=== PATIENT | male | born 1955 | race Caucasian/White ===

== ENCOUNTER → 2019-10-24 09:52 | Outpatient (CLI) | payer OTHER, SELFPAY ==
[2019-10-24 11:29] LABS: Add Manual Diff / Slide Review NO; Basophils Absolute Auto 100 /uL (0-100); Basophils Percent Auto 0.8 % (0-2); Eosinophils Absolute Auto 100 /uL (0-450); Eosinophils Percent Auto 2.2 % (2-4); Hematocrit 47.6 % (41-53); Hemoglobin 16.4 g/dL (13.5-17.5); Lymphocytes Absolute Auto 1200 /uL (1100-4500); Lymphocytes Percent Auto 16.9 % (25-40); Mean Corpuscular HGB Conc 34.5 % (30-36); Mean Corpuscular Hemoglobin 34.5 PG (26-34); Mean Corpuscular Volume 99.8 fL (80-100); Monocytes Absolute Auto 600 /uL (0-900); Neutrophils Absolute Auto 4900 /uL (1500-7000); Neutrophils Percent Auto 71.1 % (50-75); Platelet Count 181 X10^3/uL (150-400); Red Blood Cell Count 4.77 X10^6/uL (4.5-5.9); Red Cell Distribution Width 13.2 % (11.6-14.8); White Blood Cell Count 6.8 X10^3/uL (4.5-11.0)
[2019-10-24 11:41] LABS: Alanine Aminotransferase 38 IU/L (<50); Albumin 4.7 g/dL (3.5-5.0); Albumin Globulin Ratio 1.6 (1.0-2.8); Alkaline Phosphatase 74 U/L (38-126); Aspartate Aminotransferase 60 IU/L (17-59); BUN Creatinine Ratio 13.8 (6-22); Bilirubin Total 0.9 mg/dL (0.2-1.3); Blood Urea Nitrogen 11 mg/dL (9-20); Calcium 8.9 mg/dL (8.4-10.2); Carbon Dioxide 27 mmol/L (22-32); Chloride 104 mmol/L (98-107); Cholesterol 192 mg/dL (140-199); Estimated Glomerular Filt Rate > 60.0 mL/min (>60); Globulin 2.9 g/dL (1.7-4.1); Glucose 89 mg/dL (80-110); HDL Cholesterol 63 mg/dL (40-60); HEMOLYSIS 31 (0-50); LDL Cholesterol Calculated 102 mg/dL (<100); Potassium 4.3 mmol/L (3.4-5.1); Sodium 143 mmol/L (137-145); Total Protein 7.6 g/dL (6.3-8.2); Triglycerides 136 mg/dL (35-150)
[2019-10-24 13:43] LABS: Thyroid Stimulating Hormone 3.07 uIU/mL (0.47-4.68)
== END ==
PROVIDERS: PCP Family Medicine; Visit Provider Family Medicine
DX: I10 Essential (primary) hypertension (principal)
CPT/HCPCS: 36415; 80053; 80061; 84443; 85025

== ENCOUNTER → 2019-11-15 09:25 | Outpatient (CLI) | payer OTHER, SELFPAY ==
--- NOTE | 2019-11-15 09:26 | DI.MRI.S_ITS ---
PROCEDURE: MR SHOULDER LT WO CON INDICATIONS: left shoulder pain TECHNIQUE: Noncontrast oblique coronal T2 fast spin echo with fat saturation, oblique sagittal T1 spin echo and T2 fast spin echo with fat saturation, axial T1 spin echo and T2 fast spin echo with fat saturation through the shoulder. COMPARISON: None. FINDINGS: Image quality: Excellent. Rotator cuff: Infraspinatus and teres minor tendons appear intact. Partial thickness bursal sided tear of the supraspinatus tendon. This measures approximately less than 50% of tendon thickness. Subscapularis tendon appears intact. No atrophy of the rotator cuff musculature although there is mild diffuse fatty infiltration of the supraspinatus, infraspinatus and teres minor. Bones and bursae: No bone marrow contusions or fractures. Moderate hypertrophic acromioclavicular joint degeneration. Acromion demonstrates conventional anatomy, without an os acromiale. Mild subacromial-subdeltoid bursitis. Capsule and soft tissues: Labrum demonstrates mild circumferential degenerative blunting however no discrete tear or intrasubstance fluid signal intensity. Long head of the biceps tendon intact. The rotator interval appears normal, without fibrosis. Coracohumeral ligament intact. IMPRESSION: Partial thickness bursal sided tear of the supraspinatus tendon. Associated mild subacromial-subdeltoid bursitis Dictated by: Oneil Hill M.D. on 11/15/2019 at 11:23 Approved by: Oneil Hill M.D. on 11/15/2019 at 11:29
== END ==
PROVIDERS: PCP Family Medicine; Visit Provider Family Medicine
DX: M25.512 Pain in left shoulder (principal); M75.112 Incomplete rotator cuff tear or rupture of left shoulder, not specified as traumatic; M75.52 Bursitis of left shoulder
CPT/HCPCS: 73221

== ENCOUNTER 2020-01-10 10:30 | Outpatient (RCR) | payer OTHER, SELFPAY ==
--- NOTE | 2019-12-27 11:54 | PT.OIE ---
Current Diagnoses Primary osteoarthritis, left shoulder (12/27/19) Pain in left shoulder (12/27/19) Stiffness of left shoulder, not elsewhere classified (12/27/19) Impingement syndrome of left shoulder (12/27/19) Past Medical History (Last Updated 06/11/19 @ 22:13 by Brenda Villanueva) Chicken pox (Resolved) Chronic back pain (Chronic) Hearing loss (Chronic) Hypertension (Chronic) Mumps (Resolved) Past Surgical History (Last Updated 06/11/19 @ 22:13 by Brenda Villanueva) Anesthesia (Resolved) Status post arthroscopy (Resolved) Status post arthroscopy (Resolved) Status post foot surgery (Resolved) Status post knee surgery (Resolved ~04/1999) Status post knee surgery (Resolved ~04/1999) Visit Care Team Role Provider Type Pieter Simpson MD Primary Care Provider Physician Specialty: Family Practice Address: [address] [place] [address], [id number] Email: [email or web address] Raciel Castillo MD Attending Provider Physician Referring Provider Specialty: Orthopedic Surgery Address: [address] [place] [address], [id number] Email: [email or web address] [facility] Initial Evaluation PT-OP-A Visit Information Start: 12/27/19 16:45 Freq: Status: Active Protocol: Document 12/27/19 11:15 DCW (Rec: 12/27/19 17:55 [facility] [id number]) Out-Patient Physical Therapy Visit Information Visit Information Visit Type Initial Evaluation Visit Start Time 11:15 Visit Stop Time 12:00 Total Visit Minutes 45 Visit Number 1 Number of BEAD SUPERVISOR Visits 0 Evaluation Information Evaluation Date 12/27/19 PT-OP-B Current Condition Start: 12/27/19 16:45 Freq: Status: Active Protocol: Document 12/27/19 11:15 DCW (Rec: 12/27/19 17:55 [facility] [id number]) Current Condition History of Current Condition Onset Date 26 year history Current Complaints Shoulder pain and limited ROM History of Current Condition Pt is a 64 year old male presenting with a long standing history of shoulder problems. Pt notes that he initially hurt his shoulder in 1993, was diagnosed with bursitis, and had a recommendation of surgical intervention, however, once they described the surgery to me, I decided that I'd just live with it. Pt reports that his pain has come and gone over the years, but it flared up over the holidays after moving a washing machine, and he had three solid weeks of interrupted sleep due to pain. Pt admits that it had calmed down by the time he got in to see Dr Castillo, but he is still having problems reaching out his car window for the mail, or lifting his arm past 90?. Pt also notes a history of out of control blood pressure , but after a recent medication change, he has been doing well the past week. Prior Treatments and Tests Shoulder MRI: Partial thickness bursal sided tear of the supraspinatus tendon. Associated mild subacromial- subdeltoid bursitis. Per: Oneil Hill M.D. on Treatment Goals Patient/Caregiver Goals I just want to get my motion back. PT-OP-C Subjective Start: 12/27/19 16:45 Freq: Status: Active Protocol: Document 12/27/19 11:15 DCW (Rec: 12/27/19 17:55 DCW [id number]) OP-PT Subjective Patient Comments Patient Comments There is still a hitch point when I'm lifting or reaching my arm. Patient Reported Progress Improving Patient Questionnaires Quick Dash- Upper Extremity Quick Dash UE Score 17.5% Quick Dash UE Impairment 1 to 19% Impaired (Score 1-19) OP-PT Pain Assessment Pain Assessment Grid Paper Pain Assessment Grid Completed Yes Location Left Shoulder Intensity 3 Scale Used Numeric (1 - 10) PT-OP-E Functional Tests Start: 12/27/19 16:45 Freq: Status: Active Protocol: Document 12/27/19 11:15 DCW (Rec: 12/28/19 11:38 DCW [id number]) Functional Tests Apley's Scratch Test Action 1- Left Posterior opposite shoulder Action 1- Right Posterior opposite shoulder Action 2- Left T4 Action 2- Right T4 Action 3- Left T8 Action 3- Right T6 PT-OP-F Manual Assessment Start: 12/27/19 16:45 Freq: Status: Active Protocol: Document 12/27/19 11:15 DCW (Rec: 12/28/19 11:38 DCW [id number]) Manual Assessments Joint Mobility Assessment Joint Mobility Assessment Minimal movement of left scapula during left abduction and flexion. PT-OP-K Range of Motion Start: 12/27/19 16:45 Freq: Status: Active Protocol: Document 12/27/19 11:15 DCW (Rec: 12/28/19 11:38 WYW [id number]) Shoulder Goniometric Range of Motion Shoulder Right Active Shoulder ROM WFL Yes Left Active Testing Position Sitting Flexion 132 Abduction 115 PT-OP-L Special Tests Start: 12/27/19 16:45 Freq: Status: Active Protocol: Document 12/27/19 11:15 DCW (Rec: 12/28/19 11:38 DCW [id number]) Special Tests Shoulder Special Tests Painful arc Test Results Left positive 80-100? Dyer Felipe Impingement Test Results Positive left Empty Can Test Results Pain with internal rotation Drop Arm Rotator Cuff Test Results Negative PT-OP-M Strength Start: 12/27/19 16:45 Freq: Status: Active Protocol: Document 12/27/19 11:15 DCW (Rec: 12/28/19 11:38 DCW [id number]) Shoulder Strength Shoulder Manual Muscle Testing Left Flexion 2+ Poor+ Abduction (C5) 2+ Poor+ External Rotation 4+ Good+ Internal Rotation 4+ Good+ Comments Flexion and Abduction strong in available ROM, however able to lift through full ROM PT-OP-Q Treatments Start: 12/27/19 16:45 Freq: Status: Active Protocol: Document 12/27/19 11:15 DCW (Rec: 12/27/19 16:48 DCW [id number]) Therapeutic Exercises Supine Exercises 1 Supine Exercise Name Serratus punch Prone Exercises 2 Prone Exercise Name Prone shoulder horizontal abduction Side bilateral 1 Prone Exercise Name Prone shoulder extension Side bilateral PT-OP-T Assessment and Plan Start: 12/27/19 16:45 Freq: Status: Active Protocol: Document 12/27/19 11:15 DCW (Rec: 12/28/19 11:53 DCW [id number]) Physical Therapy Assessment Rehab Potential Rehabilitation Potential Good Evaluation Complexity Number of Personal Factors/Comorbidities 1-2 Number of Body Systems Impaired 1-2 Clinical Presentation at Evaluation Stable Impairments Impairments Functional Mobility,Pain,ROM, Soft Tissue Mobility,Strength Other Concerns Fall Risk No Barriers to Rehabilitation Hx of Unstable HTN Goals Three Impairment Pt scapula demonstrates limited mobility during left shoulder ROM Waistline Joiner Goal (LTG) Pt scapulothoracic rhythm WN: LTG Duration 02/27/20 Two Impairment Pt demonstrates limited left ROM secondary to pain Waistline Joiner Goal (LTG) Pt to demonstrate ability to reach out of car window for mail with no increased pain LTG Duration 02/27/20 One Impairment Pt does not have an appropriate home exercise program Short Term Goal (STG) Pt to be independent and compliant with an appropriate HEP STG Duration 01/28/20 Assessment Summary Assessment Pt presents with limited ROM, strength, and scapulothoracic rhythm secondary to a flare-up of a chronic shoulder injury. A recent MRI revealed a partial thickness bursal sided tear of the supraspinatus tendon with an associated mild subacromial-subdeltoid bursitis. Pt demonstrates symptoms of subacromial impingement, likely due to the immobility of his left shoulder blade, causing poor scapulothoracic rhythm. Pt should benefit from skilled therapy working to improve left shoulder strength and ROM , decrease pain, normalize scapulothoracic rhythm through STM an joint mobilizations, and decrease effects on lifting and reaching activities. Physical Therapy Plan Frequency and Duration Frequency of Treatment 2x/Week Duration of Treatment 8 weeks Plan of Care Start Date 12/27/19 Plan of Care End Date 02/15/20 Therapeutic Interventions Therapeutic Interventions Home Exercise Program,Joint Mobilizations,Manual Therapy, Patient/Caregiver Education, Self-Care/Home Management,Soft Tissue Mobilization, Therapeutic Activities, Therapeutic Exercises Modalities Cold Pack/Ice Massage,Electric Stimulation,Hot Packs, Ultrasound Next Visit Focus/Plan Next Note Type Treatment Note Next Visit Plan Scapulathoracic joint mobilizations, RC strengthening, stretching/ flexibility training
--- NOTE | 2019-12-27 11:55 | PT.OPPOC ---
Physical, Occupational & Speech Therapy At [facility] Current Diagnoses Primary osteoarthritis, left shoulder (12/27/19) Pain in left shoulder (12/27/19) Stiffness of left shoulder, not elsewhere classified (12/27/19) Impingement syndrome of left shoulder (12/27/19) Visit Care Team Role Provider Type Pieter Simpson MD Primary Care Provider Physician Specialty: Family Practice Address: [address] [place] [address], [id number] Email: [email or web address] Raciel Castillo MD Attending Provider Physician Referring Provider Specialty: Orthopedic Surgery Address: [address] [place] [address], [phone] Email: [email or web address] Plan Of Care PT-OP-T Assessment and Plan Start: 12/27/19 16:45 Freq: Status: Active Protocol: Document 12/27/19 11:15 DCW (Rec: 12/28/19 11:53 DCW [id number]) Physical Therapy Assessment Rehab Potential Rehabilitation Potential Good Evaluation Complexity Number of Personal Factors/Comorbidities 1-2 Number of Body Systems Impaired 1-2 Clinical Presentation at Evaluation Stable Impairments Impairments Functional Mobility,Pain,ROM, Soft Tissue Mobility,Strength Other Concerns Fall Risk No Barriers to Rehabilitation Hx of Unstable HTN Goals Three Impairment Pt scapula demonstrates limited mobility during left shoulder ROM Sample Tailor Goal (LTG) Pt scapulothoracic rhythm WN: LTG Duration 02/27/20 Two Impairment Pt demonstrates limited left ROM secondary to pain Sample Tailor Goal (LTG) Pt to demonstrate ability to reach out of car window for mail with no increased pain LTG Duration 02/27/20 One Impairment Pt does not have an appropriate home exercise program Short Term Goal (STG) Pt to be independent and compliant with an appropriate HEP STG Duration 01/28/20 Assessment Summary Assessment Pt presents with limited ROM, strength, and scapulothoracic rhythm secondary to a flare-up of a chronic shoulder injury. A recent MRI revealed a partial thickness bursal sided tear of the supraspinatus tendon with an associated mild subacromial-subdeltoid bursitis. Pt demonstrates symptoms of subacromial impingement, likely due to the immobility of his left shoulder blade, causing poor scapulothoracic rhythm. Pt should benefit from skilled therapy working to improve left shoulder strength and ROM , decrease pain, normalize scapulothoracic rhythm through STM an joint mobilizations, and decrease effects on lifting and reaching activities. Physical Therapy Plan Frequency and Duration Frequency of Treatment 2x/Week Duration of Treatment 8 weeks Plan of Care Start Date 12/27/19 Plan of Care End Date 02/15/20 Therapeutic Interventions Therapeutic Interventions Home Exercise Program,Joint Mobilizations,Manual Therapy, Patient/Caregiver Education, Self-Care/Home Management,Soft Tissue Mobilization, Therapeutic Activities, Therapeutic Exercises Modalities Cold Pack/Ice Massage,Electric Stimulation,Hot Packs, Ultrasound Next Visit Focus/Plan Next Note Type Treatment Note Next Visit Plan Scapulathoracic joint mobilizations, RC strengthening, stretching/ flexibility training Plan of Care Dates Plan of Care Start Date 12/27/19 Plan of Care End Date 02/15/20 Electronically Signed by: Cirilo Carlson, PT 12/28/19 2671 Please Sign and Return: I have reviewed this Plan of Care and certify that the skilled therapy services above are required to meet the patient?s needs. Physician Signature Date Printed Name and Credentials Clinical Instructor Signature Printed Name and Credentials
--- NOTE | 2019-12-29 12:02 | PT.OTN ---
Current Diagnoses Primary osteoarthritis, left shoulder (12/29/19) Pain in left shoulder (12/29/19) Stiffness of left shoulder, not elsewhere classified (12/29/19) Impingement syndrome of left shoulder (12/29/19) Physical Therapy Treatment Note PT-OP-A Visit Information Start: 12/27/19 16:45 Freq: Status: Active Protocol: Document 12/29/19 11:15 DCW (Rec: 12/29/19 12:02 DCW [id number]) Out-Patient Physical Therapy Visit Information Visit Information Visit Type Treatment Note Visit Start Time 11:15 Visit Stop Time 12:00 Total Visit Minutes 45 Visit Number 2 Number of FORM SETTER HELPER Visits 0 Evaluation Information Evaluation Date 12/27/19 PT-OP-B Current Condition Start: 12/27/19 16:45 Freq: Status: Active Protocol: Document 12/27/19 11:15 DCW (Rec: 12/27/19 17:55 DCW [id number]) Current Condition History of Current Condition Onset Date 26 year history Current Complaints Shoulder pain and limited ROM History of Current Condition Pt is a 64 year old male presenting with a long standing history of shoulder problems. Pt notes that he initially hurt his shoulder in 1993, was diagnosed with bursitis, and had a recommendation of surgical intervention, however, once they described the surgery to me, I decided that I'd just live with it. Pt reports that his pain has come and gone over the years, but it flared up over the holidays after moving a washing machine, and he had three solid weeks of interrupted sleep due to pain. Pt admits that it had calmed down by the time he got in to see Dr Castillo, but he is still having problems reaching out his car window for the mail, or lifting his arm past 90?. Pt also notes a history of out of control blood pressure , but after a recent medication change, he has been doing well the past week. Prior Treatments and Tests Shoulder MRI: Partial thickness bursal sided tear of the supraspinatus tendon. Associated mild subacromial- subdeltoid bursitis. Per: Oneil Hill M.D. on Treatment Goals Patient/Caregiver Goals I just want to get my motion back. PT-OP-C Subjective Start: 12/27/19 16:45 Freq: Status: Active Protocol: Document 12/29/19 11:15 DCW (Rec: 12/29/19 12:02 DCW [id number]) OP-PT Subjective Patient Comments Patient Comments I feel about the same. I'll admit, I didn't do any exercises yesterday, but I was able to find my weights. PT-OP-E Functional Tests Start: 12/27/19 16:45 Freq: Status: Active Protocol: Document 12/27/19 11:15 DCW (Rec: 12/28/19 11:38 DCW [id number]) Functional Tests Apley's Scratch Test Action 1- Left Posterior opposite shoulder Action 1- Right Posterior opposite shoulder Action 2- Left T4 Action 2- Right T4 Action 3- Left T8 Action 3- Right T6 PT-OP-F Manual Assessment Start: 12/27/19 16:45 Freq: Status: Active Protocol: Document 12/27/19 11:15 DCW (Rec: 12/28/19 11:38 DCW [id number]) Manual Assessments Joint Mobility Assessment Joint Mobility Assessment Minimal movement of left scapula during left abduction and flexion. PT-OP-K Range of Motion Start: 12/27/19 16:45 Freq: Status: Active Protocol: Document 12/27/19 11:15 DCW (Rec: 12/28/19 11:38 DCW [id number]) Shoulder Goniometric Range of Motion Shoulder Right Active Shoulder ROM WFL Yes Left Active Testing Position Sitting Flexion 132 Abduction 115 PT-OP-L Special Tests Start: 12/27/19 16:45 Freq: Status: Active Protocol: Document 12/27/19 11:15 DCW (Rec: 12/28/19 11:38 DCW [id number]) Special Tests Shoulder Special Tests Painful arc Test Results Left positive 80-100? Dyer Felipe Impingement Test Results Positive left Empty Can Test Results Pain with internal rotation Drop Arm Rotator Cuff Test Results Negative PT-OP-M Strength Start: 12/27/19 16:45 Freq: Status: Active Protocol: Document 12/27/19 11:15 DCW (Rec: 12/28/19 11:38 DCW [id number]) Shoulder Strength Shoulder Manual Muscle Testing Left Flexion 2+ Poor+ Abduction (C5) 2+ Poor+ External Rotation 4+ Good+ Internal Rotation 4+ Good+ Comments Flexion and Abduction strong in available ROM, however able to lift through full ROM PT-OP-Q Treatments Start: 12/27/19 16:45 Freq: Status: Active Protocol: Document 12/29/19 11:15 DCW (Rec: 12/29/19 12:02 DCW [id number]) Cardio Equipment Upper Body Ergometer (UBE) Duration (Minutes) 5 RPM 60 Seat Position 13 Height 3 Therapeutic Exercises Supine Exercises 2 Supine Exercise Name Horizontal Adduction Side bilateral Resistance 3# 1 Supine Exercise Name Serratus punch Side bilateral Resistance 3# Standing Exercises 5 Standing Exercise Name Rows Side bilateral Resistance Lv 3 Equipment Used T-band 4 Standing Exercise Name Adduction Side left Resistance Lv 3 Equipment Used T-band 3 Standing Exercise Name Extension Side bilateral Resistance Lv 4 Equipment Used T-band 2 Standing Exercise Name Shoulder IR Side left Resistance Lv 3 Equipment Used T-band 1 Standing Exercise Name Shoulder ER Side left Resistance Lv 3 Equipment Used T-band Manual Therapy Treatment Soft Tissue Mobilization 2 Body Location L Infraspinatus Mobilization Type Strumming,Sustained Pressure 1 Body Location L Rhomboids Mobilization Type Strumming,Sustained Pressure Joint Mobilizations 2 Joint L GH Direction Inferior, Posterior Grade III Body Position Supine 1 Joint L Scapulothoracic Direction Lateral, rotation Grade III Body Position Sidelying PT-OP-T Assessment and Plan Start: 12/27/19 16:45 Freq: Status: Active Protocol: Document 12/29/19 11:15 DCW (Rec: 12/29/19 12:02 DCW [id number]) Physical Therapy Assessment Impairments Impairments Functional Mobility,Pain,ROM, Soft Tissue Mobility,Strength Other Concerns Fall Risk No Barriers to Rehabilitation Hx of Unstable HTN Goals Three Impairment Pt scapula demonstrates limited mobility during left shoulder ROM Miller Helper Goal (LTG) Pt scapulothoracic rhythm WN: LTG Duration 02/27/20 Two Impairment Pt demonstrates limited left ROM secondary to pain Halfway Goal (LTG) Pt to demonstrate ability to reach out of car window for mail with no increased pain LTG Duration 02/27/20 One Impairment Pt does not have an appropriate home exercise program Short Term Goal (STG) Pt to be independent and compliant with an appropriate HEP STG Duration 01/28/20 Assessment Summary Assessment Pt tolerated treatment well, scapulothoracic joint mobilization was able to improve scapular mobility, increased pain-free abduction by ~10 degrees, from 90->100. Physical Therapy Plan Frequency and Duration Frequency of Treatment 2x/Week Duration of Treatment 8 weeks Plan of Care Start Date 12/27/19 Plan of Care End Date 02/15/20 Therapeutic Interventions Therapeutic Interventions Home Exercise Program,Joint Mobilizations,Manual Therapy, Patient/Caregiver Education, Self-Care/Home Management,Soft Tissue Mobilization, Therapeutic Activities, Therapeutic Exercises Modalities Cold Pack/Ice Massage,Electric Stimulation,Hot Packs, Ultrasound Next Visit Focus/Plan Next Note Type Treatment Note Next Visit Plan Assess pt tolerance of joint mobs and STM, increase HEP,
--- NOTE | 2020-01-03 11:01 | PT.OTN ---
Current Diagnoses Primary osteoarthritis, left shoulder (01/03/20) Pain in left shoulder (01/03/20) Stiffness of left shoulder, not elsewhere classified (01/03/20) Impingement syndrome of left shoulder (01/03/20) Physical Therapy Treatment Note PT-OP-A Visit Information Start: 12/27/19 16:45 Freq: Status: Active Protocol: Document 01/03/20 09:45 DCW (Rec: 01/03/20 11:00 DCW [id number]) Out-Patient Physical Therapy Visit Information Visit Information Visit Type Treatment Note Visit Start Time 09:45 Visit Stop Time 10:30 Total Visit Minutes 45 Visit Number 3 Number of CHANGE MANAGEMENT COORDINATOR Visits 0 Evaluation Information Evaluation Date 12/27/19 PT-OP-B Current Condition Start: 12/27/19 16:45 Freq: Status: Active Protocol: Document 12/27/19 11:15 DCW (Rec: 12/27/19 17:55 DCW [id number]) Current Condition History of Current Condition Onset Date 26 year history Current Complaints Shoulder pain and limited ROM History of Current Condition Pt is a 64 year old male presenting with a long standing history of shoulder problems. Pt notes that he initially hurt his shoulder in 1993, was diagnosed with bursitis, and had a recommendation of surgical intervention, however, once they described the surgery to me, I decided that I'd just live with it. Pt reports that his pain has come and gone over the years, but it flared up over the holidays after moving a washing machine, and he had three solid weeks of interrupted sleep due to pain. Pt admits that it had calmed down by the time he got in to see Dr Castillo, but he is still having problems reaching out his car window for the mail, or lifting his arm past 90?. Pt also notes a history of out of control blood pressure , but after a recent medication change, he has been doing well the past week. Prior Treatments and Tests Shoulder MRI: Partial thickness bursal sided tear of the supraspinatus tendon. Associated mild subacromial- subdeltoid bursitis. Per: Oneil Hill M.D. on Treatment Goals Patient/Caregiver Goals I just want to get my motion back. PT-OP-C Subjective Start: 12/27/19 16:45 Freq: Status: Active Protocol: Document 01/03/20 09:45 DCW (Rec: 01/03/20 11:00 DCW [id number]) OP-PT Subjective Patient Comments Patient Comments Pt feels he had more mobility following his last appointment . PT-OP-E Functional Tests Start: 12/27/19 16:45 Freq: Status: Active Protocol: Document 12/27/19 11:15 DCW (Rec: 12/28/19 11:38 DCW [id number]) Functional Tests Apley's Scratch Test Action 1- Left Posterior opposite shoulder Action 1- Right Posterior opposite shoulder Action 2- Left T4 Action 2- Right T4 Action 3- Left T8 Action 3- Right T6 PT-OP-F Manual Assessment Start: 12/27/19 16:45 Freq: Status: Active Protocol: Document 12/27/19 11:15 DCW (Rec: 12/28/19 11:38 DCW [id number]) Manual Assessments Joint Mobility Assessment Joint Mobility Assessment Minimal movement of left scapula during left abduction and flexion. PT-OP-K Range of Motion Start: 12/27/19 16:45 Freq: Status: Active Protocol: Document 12/27/19 11:15 DCW (Rec: 12/28/19 11:38 DCW [id number]) Shoulder Goniometric Range of Motion Shoulder Right Active Shoulder ROM WFL Yes Left Active Testing Position Sitting Flexion 132 Abduction 115 PT-OP-L Special Tests Start: 12/27/19 16:45 Freq: Status: Active Protocol: Document 12/27/19 11:15 DCW (Rec: 12/28/19 11:38 DCW [id number]) Special Tests Shoulder Special Tests Painful arc Test Results Left positive 80-100? Dyer Felipe Impingement Test Results Positive left Empty Can Test Results Pain with internal rotation Drop Arm Rotator Cuff Test Results Negative PT-OP-M Strength Start: 12/27/19 16:45 Freq: Status: Active Protocol: Document 12/27/19 11:15 DCW (Rec: 12/28/19 11:38 DCW [id number]) Shoulder Strength Shoulder Manual Muscle Testing Left Flexion 2+ Poor+ Abduction (C5) 2+ Poor+ External Rotation 4+ Good+ Internal Rotation 4+ Good+ Comments Flexion and Abduction strong in available ROM, however able to lift through full ROM PT-OP-Q Treatments Start: 12/27/19 16:45 Freq: Status: Active Protocol: Document 01/03/20 09:45 DCW (Rec: 01/03/20 11:00 DCW [id number]) Cardio Equipment Upper Body Ergometer (UBE) Duration (Minutes) 5 RPM 60 Seat Position 13 Height 3 Therapeutic Exercises Prone Exercises 2 Prone Exercise Name Prone shoulder horizontal abduction Side bilateral 1 Prone Exercise Name Prone shoulder extension Side bilateral Standing Exercises 7 Standing Exercise Name Shoulder Flex Side bilateral Resistance Lv 3 Equipment Used T-band 6 Standing Exercise Name Shoulder Abduction Side bilateral Resistance Lv 3 Equipment Used T-band 5 Standing Exercise Name Rows Side bilateral Resistance Lv 3 Equipment Used T-band 4 Standing Exercise Name Adduction Side left Resistance Lv 3 Equipment Used T-band 3 Standing Exercise Name Extension Side bilateral Resistance Lv 4 Equipment Used T-band 2 Standing Exercise Name Shoulder IR Side bilateral Resistance Lv 3 Equipment Used T-band 1 Standing Exercise Name Shoulder ER Side bilateral Resistance Lv 3 Equipment Used T-band Manual Therapy Treatment Soft Tissue Mobilization 2 Body Location L Infraspinatus Mobilization Type Strumming,Sustained Pressure 1 Body Location L Rhomboids Mobilization Type Strumming,Sustained Pressure Joint Mobilizations 2 Joint L GH Direction Inferior, Posterior Grade III Body Position Supine 1 Joint L Scapulothoracic Direction Lateral, rotation Grade III Body Position Sidelying PT-OP-T Assessment and Plan Start: 12/27/19 16:45 Freq: Status: Active Protocol: Document 01/03/20 09:45 DCW (Rec: 01/03/20 11:00 DCW [id number]) Physical Therapy Assessment Impairments Impairments Functional Mobility,Pain,ROM, Soft Tissue Mobility,Strength Other Concerns Fall Risk No Barriers to Rehabilitation Hx of Unstable HTN Goals Three Impairment Pt scapula demonstrates limited mobility during left shoulder ROM Detention Goal (LTG) Pt scapulothoracic rhythm WN: LTG Duration 02/27/20 Two Impairment Pt demonstrates limited left ROM secondary to pain Medic Technician Goal (LTG) Pt to demonstrate ability to reach out of car window for mail with no increased pain LTG Duration 02/27/20 One Impairment Pt does not have an appropriate home exercise program Short Term Goal (STG) Pt to be independent and compliant with an appropriate HEP STG Duration 01/28/20 Assessment Summary Assessment Pt again demonstrated good response to treatment, at end of session had improved passive and active ROM. Pt not yet compliant with HEP. Physical Therapy Plan Frequency and Duration Frequency of Treatment 2x/Week Duration of Treatment 8 weeks Plan of Care Start Date 12/27/19 Plan of Care End Date 02/15/20 Therapeutic Interventions Therapeutic Interventions Home Exercise Program,Joint Mobilizations,Manual Therapy, Patient/Caregiver Education, Self-Care/Home Management,Soft Tissue Mobilization, Therapeutic Activities, Therapeutic Exercises Modalities Cold Pack/Ice Massage,Electric Stimulation,Hot Packs, Ultrasound Next Visit Focus/Plan Next Note Type Treatment Note Next Visit Plan Assess pt tolerance of joint mobs and STM, increase HEP,
--- NOTE | 2020-01-05 12:00 | PT.OTN ---
Current Diagnoses Primary osteoarthritis, left shoulder (01/05/20) Pain in left shoulder (01/05/20) Stiffness of left shoulder, not elsewhere classified (01/05/20) Impingement syndrome of left shoulder (01/05/20) Physical Therapy Treatment Note PT-OP-A Visit Information Start: 12/27/19 16:45 Freq: Status: Active Protocol: Document 01/05/20 11:15 DCW (Rec: 01/05/20 11:57 DCW [id number]) Out-Patient Physical Therapy Visit Information Visit Information Visit Type Treatment Note Visit Start Time 11:15 Visit Stop Time 12:00 Total Visit Minutes 45 Visit Number 4 Number of MEN'S LOCKER ROOM ATTENDANT Visits 0 Evaluation Information Evaluation Date 12/27/19 PT-OP-B Current Condition Start: 12/27/19 16:45 Freq: Status: Active Protocol: Document 12/27/19 11:15 DCW (Rec: 12/27/19 17:55 DCW [id number]) Current Condition History of Current Condition Onset Date 26 year history Current Complaints Shoulder pain and limited ROM History of Current Condition Pt is a 64 year old male presenting with a long standing history of shoulder problems. Pt notes that he initially hurt his shoulder in 1993, was diagnosed with bursitis, and had a recommendation of surgical intervention, however, once they described the surgery to me, I decided that I'd just live with it. Pt reports that his pain has come and gone over the years, but it flared up over the holidays after moving a washing machine, and he had three solid weeks of interrupted sleep due to pain. Pt admits that it had calmed down by the time he got in to see Dr Castillo, but he is still having problems reaching out his car window for the mail, or lifting his arm past 90?. Pt also notes a history of out of control blood pressure , but after a recent medication change, he has been doing well the past week. Prior Treatments and Tests Shoulder MRI: Partial thickness bursal sided tear of the supraspinatus tendon. Associated mild subacromial- subdeltoid bursitis. Per: Oneil Hill M.D. on Treatment Goals Patient/Caregiver Goals I just want to get my motion back. PT-OP-C Subjective Start: 12/27/19 16:45 Freq: Status: Active Protocol: Document 01/05/20 11:15 DCW (Rec: 01/05/20 11:57 DCW [id number]) OP-PT Subjective Patient Comments Patient Comments After two sessions, I really have a lot more mobility. PT-OP-E Functional Tests Start: 12/27/19 16:45 Freq: Status: Active Protocol: Document 12/27/19 11:15 DCW (Rec: 12/28/19 11:38 DCW [id number]) Functional Tests Apley's Scratch Test Action 1- Left Posterior opposite shoulder Action 1- Right Posterior opposite shoulder Action 2- Left T4 Action 2- Right T4 Action 3- Left T8 Action 3- Right T6 PT-OP-F Manual Assessment Start: 12/27/19 16:45 Freq: Status: Active Protocol: Document 12/27/19 11:15 DCW (Rec: 12/28/19 11:38 DCW [id number]) Manual Assessments Joint Mobility Assessment Joint Mobility Assessment Minimal movement of left scapula during left abduction and flexion. PT-OP-K Range of Motion Start: 12/27/19 16:45 Freq: Status: Active Protocol: Document 12/27/19 11:15 DCW (Rec: 12/28/19 11:38 DCW [id number]) Shoulder Goniometric Range of Motion Shoulder Right Active Shoulder ROM WFL Yes Left Active Testing Position Sitting Flexion 132 Abduction 115 PT-OP-L Special Tests Start: 12/27/19 16:45 Freq: Status: Active Protocol: Document 12/27/19 11:15 DCW (Rec: 12/28/19 11:38 DCW [id number]) Special Tests Shoulder Special Tests Painful arc Test Results Left positive 80-100? Dyer Felipe Impingement Test Results Positive left Empty Can Test Results Pain with internal rotation Drop Arm Rotator Cuff Test Results Negative PT-OP-M Strength Start: 12/27/19 16:45 Freq: Status: Active Protocol: Document 12/27/19 11:15 DCW (Rec: 12/28/19 11:38 DCW [id number]) Shoulder Strength Shoulder Manual Muscle Testing Left Flexion 2+ Poor+ Abduction (C5) 2+ Poor+ External Rotation 4+ Good+ Internal Rotation 4+ Good+ Comments Flexion and Abduction strong in available ROM, however able to lift through full ROM PT-OP-Q Treatments Start: 12/27/19 16:45 Freq: Status: Active Protocol: Document 01/05/20 11:15 DCW (Rec: 01/05/20 11:57 DCW [id number]) Cardio Equipment Upper Body Ergometer (UBE) Duration (Minutes) 5 RPM 60 Seat Position 13 Height 3 Therapeutic Exercises Supine Exercises 2 Supine Exercise Name Horizontal Adduction Side bilateral Resistance 4# 1 Supine Exercise Name Serratus punch Side bilateral Resistance 4# Standing Exercises 5 Standing Exercise Name Rows Side bilateral Resistance Lv 4 Equipment Used T-band 3 Standing Exercise Name Extension Side bilateral Resistance Lv 4 Equipment Used T-band Manual Therapy Treatment Soft Tissue Mobilization 2 Body Location L Infraspinatus Mobilization Type Strumming,Sustained Pressure 1 Body Location L Rhomboids Mobilization Type Strumming,Sustained Pressure Joint Mobilizations 3 Joint L Clavicle Direction Inferior Grade III Body Position Supine 2 Joint L GH Direction Inferior, Posterior Grade III Body Position Supine 1 Joint L Scapulothoracic Direction Lateral, rotation Grade III Body Position Sidelying PT-OP-T Assessment and Plan Start: 12/27/19 16:45 Freq: Status: Active Protocol: Document 01/05/20 11:15 DCW (Rec: 01/05/20 11:57 DCW [id number]) Physical Therapy Assessment Impairments Impairments Functional Mobility,Pain,ROM, Soft Tissue Mobility,Strength Other Concerns Fall Risk No Barriers to Rehabilitation Hx of Unstable HTN Goals Three Impairment Pt scapula demonstrates limited mobility during left shoulder ROM Halfway Goal (LTG) Pt scapulothoracic rhythm WN: LTG Duration 02/27/20 Two Impairment Pt demonstrates limited left ROM secondary to pain Halfway Goal (LTG) Pt to demonstrate ability to reach out of car window for mail with no increased pain LTG Duration 02/27/20 One Impairment Pt does not have an appropriate home exercise program Short Term Goal (STG) Pt to be independent and compliant with an appropriate HEP STG Duration 01/28/20 Assessment Summary Assessment Focus today more on Manual Therapy to decrease tone and improve scapular mobility. Pt getting a lot of activity/ strengthening outside of therapy. Physical Therapy Plan Frequency and Duration Frequency of Treatment 2x/Week Duration of Treatment 8 weeks Plan of Care Start Date 12/27/19 Plan of Care End Date 02/15/20 Therapeutic Interventions Therapeutic Interventions Home Exercise Program,Joint Mobilizations,Manual Therapy, Patient/Caregiver Education, Self-Care/Home Management,Soft Tissue Mobilization, Therapeutic Activities, Therapeutic Exercises Modalities Cold Pack/Ice Massage,Electric Stimulation,Hot Packs, Ultrasound Next Visit Focus/Plan Next Note Type Treatment Note Next Visit Plan Assess pt tolerance of joint mobs and STM, increase HEP,
--- NOTE | 2020-01-10 11:26 | PT.OTN ---
Current Diagnoses Primary osteoarthritis, left shoulder (01/10/20) Pain in left shoulder (01/10/20) Stiffness of left shoulder, not elsewhere classified (01/10/20) Impingement syndrome of left shoulder (01/10/20) Physical Therapy Treatment Note PT-OP-A Visit Information Start: 12/27/19 16:45 Freq: Status: Active Protocol: Document 01/10/20 10:40 DCW (Rec: 01/10/20 11:26 DCW [id number]) Out-Patient Physical Therapy Visit Information Visit Information Visit Type Treatment Note Visit Note Therapist running behind Visit Start Time 10:40 Visit Stop Time 11:20 Total Visit Minutes 40 Visit Number 5 Number of CEMENT SACK BREAKER Visits 0 Evaluation Information Evaluation Date 12/27/19 PT-OP-B Current Condition Start: 12/27/19 16:45 Freq: Status: Active Protocol: Document 12/27/19 11:15 DCW (Rec: 12/27/19 17:55 DCW [id number]) Current Condition History of Current Condition Onset Date 26 year history Current Complaints Shoulder pain and limited ROM History of Current Condition Pt is a 64 year old male presenting with a long standing history of shoulder problems. Pt notes that he initially hurt his shoulder in 1993, was diagnosed with bursitis, and had a recommendation of surgical intervention, however, once they described the surgery to me, I decided that I'd just live with it. Pt reports that his pain has come and gone over the years, but it flared up over the holidays after moving a washing machine, and he had three solid weeks of interrupted sleep due to pain. Pt admits that it had calmed down by the time he got in to see Dr Castillo, but he is still having problems reaching out his car window for the mail, or lifting his arm past 90?. Pt also notes a history of out of control blood pressure , but after a recent medication change, he has been doing well the past week. Prior Treatments and Tests Shoulder MRI: Partial thickness bursal sided tear of the supraspinatus tendon. Associated mild subacromial- subdeltoid bursitis. Per: Oneil Hill M.D. on Treatment Goals Patient/Caregiver Goals I just want to get my motion back. PT-OP-C Subjective Start: 12/27/19 16:45 Freq: Status: Active Protocol: Document 01/10/20 10:40 DCW (Rec: 01/10/20 11:26 DCW [id number]) OP-PT Subjective Patient Comments Patient Comments It's getting better, I think you've really found the issue. PT-OP-E Functional Tests Start: 12/27/19 16:45 Freq: Status: Active Protocol: Document 12/27/19 11:15 DCW (Rec: 12/28/19 11:38 DCW [id number]) Functional Tests Apley's Scratch Test Action 1- Left Posterior opposite shoulder Action 1- Right Posterior opposite shoulder Action 2- Left T4 Action 2- Right T4 Action 3- Left T8 Action 3- Right T6 PT-OP-F Manual Assessment Start: 12/27/19 16:45 Freq: Status: Active Protocol: Document 12/27/19 11:15 DCW (Rec: 12/28/19 11:38 DCW [id number]) Manual Assessments Joint Mobility Assessment Joint Mobility Assessment Minimal movement of left scapula during left abduction and flexion. PT-OP-K Range of Motion Start: 12/27/19 16:45 Freq: Status: Active Protocol: Document 12/27/19 11:15 DCW (Rec: 12/28/19 11:38 DCW [id number]) Shoulder Goniometric Range of Motion Shoulder Right Active Shoulder ROM WFL Yes Left Active Testing Position Sitting Flexion 132 Abduction 115 PT-OP-L Special Tests Start: 12/27/19 16:45 Freq: Status: Active Protocol: Document 12/27/19 11:15 DCW (Rec: 12/28/19 11:38 DCW [id number]) Special Tests Shoulder Special Tests Painful arc Test Results Left positive 80-100? Dyer Felipe Impingement Test Results Positive left Empty Can Test Results Pain with internal rotation Drop Arm Rotator Cuff Test Results Negative PT-OP-M Strength Start: 12/27/19 16:45 Freq: Status: Active Protocol: Document 12/27/19 11:15 DCW (Rec: 12/28/19 11:38 DCW [id number]) Shoulder Strength Shoulder Manual Muscle Testing Left Flexion 2+ Poor+ Abduction (C5) 2+ Poor+ External Rotation 4+ Good+ Internal Rotation 4+ Good+ Comments Flexion and Abduction strong in available ROM, however able to lift through full ROM PT-OP-Q Treatments Start: 12/27/19 16:45 Freq: Status: Active Protocol: Document 01/10/20 10:40 DCW (Rec: 01/10/20 11:26 DCW [id number]) Cardio Equipment Upper Body Ergometer (UBE) Duration (Minutes) 6 RPM 60 Seat Position 13 Height 3 Therapeutic Exercises Supine Exercises 2 Supine Exercise Name Horizontal Adduction Side bilateral Resistance 4# 1 Supine Exercise Name Serratus punch Side bilateral Resistance 4# Manual Therapy Treatment Soft Tissue Mobilization 2 Body Location L Infraspinatus Mobilization Type Strumming,Sustained Pressure 1 Body Location L Rhomboids Mobilization Type Strumming,Sustained Pressure Joint Mobilizations 3 Joint L Clavicle Direction Inferior Grade III Body Position Supine 2 Joint L GH Direction Inferior, Posterior Grade III Body Position Supine 1 Joint L Scapulothoracic Direction Lateral, rotation Grade III Body Position Sidelying PT-OP-T Assessment and Plan Start: 12/27/19 16:45 Freq: Status: Active Protocol: Document 01/10/20 10:40 DCW (Rec: 01/10/20 11:26 DCW [id number]) Physical Therapy Assessment Impairments Impairments Functional Mobility,Pain,ROM, Soft Tissue Mobility,Strength Other Concerns Fall Risk No Barriers to Rehabilitation Hx of Unstable HTN Goals Three Impairment Pt scapula demonstrates limited mobility during left shoulder ROM Halfway Goal (LTG) Pt scapulothoracic rhythm WN: LTG Duration 02/27/20 Two Impairment Pt demonstrates limited left ROM secondary to pain Paper Mill Superintendent Goal (LTG) Pt to demonstrate ability to reach out of car window for mail with no increased pain LTG Duration 02/27/20 One Impairment Pt does not have an appropriate home exercise program Short Term Goal (STG) Pt to be independent and compliant with an appropriate HEP STG Duration 01/28/20 Assessment Summary Assessment Pt still making great progress , substantial improvement with his functional mobility, especially with his reaching for mail. Physical Therapy Plan Frequency and Duration Frequency of Treatment 2x/Week Duration of Treatment 8 weeks Plan of Care Start Date 12/27/19 Plan of Care End Date 02/15/20 Therapeutic Interventions Therapeutic Interventions Home Exercise Program,Joint Mobilizations,Manual Therapy, Patient/Caregiver Education, Self-Care/Home Management,Soft Tissue Mobilization, Therapeutic Activities, Therapeutic Exercises Modalities Cold Pack/Ice Massage,Electric Stimulation,Hot Packs, Ultrasound Next Visit Focus/Plan Next Note Type Treatment Note Next Visit Plan Assess pt tolerance of joint mobs and STM, increase HEP,
--- NOTE | 2020-06-06 17:14 | PT.OPDS ---
Current Diagnoses Primary osteoarthritis, left shoulder (01/10/20) Pain in left shoulder (01/10/20) Stiffness of left shoulder, not elsewhere classified (01/10/20) Impingement syndrome of left shoulder (01/10/20) Visit Care Team Role Provider Type Pieter Simpson MD Primary Care Provider Physician Specialty: Family Practice Address: [address] [place] [address], [id number] Email: [email or web address] Raciel Castillo MD Attending Provider Physician Referring Provider Specialty: Orthopedic Surgery Address: [address] [place] [address], [id number] Email: [email or web address] Visit Number Visit Number 5 Discharge Summary PT-OP-B Current Condition Start: 12/27/19 16:45 Freq: Status: Active Protocol: Document 12/27/19 11:15 DCW (Rec: 12/27/19 17:55 DCW [id number]) Current Condition History of Current Condition Onset Date 26 year history Current Complaints Shoulder pain and limited ROM History of Current Condition Pt is a 64 year old male presenting with a long standing history of shoulder problems. Pt notes that he initially hurt his shoulder in 1993, was diagnosed with bursitis, and had a recommendation of surgical intervention, however, once they described the surgery to me, I decided that I'd just live with it. Pt reports that his pain has come and gone over the years, but it flared up over the holidays after moving a washing machine, and he had three solid weeks of interrupted sleep due to pain. Pt admits that it had calmed down by the time he got in to see Dr Castillo, but he is still having problems reaching out his car window for the mail, or lifting his arm past 90?. Pt also notes a history of out of control blood pressure , but after a recent medication change, he has been doing well the past week. Prior Treatments and Tests Shoulder MRI: Partial thickness bursal sided tear of the supraspinatus tendon. Associated mild subacromial- subdeltoid bursitis. Per: Oneil Hill M.D. on Treatment Goals Patient/Caregiver Goals I just want to get my motion back. PT-OP-C Subjective Start: 12/27/19 16:45 Freq: Status: Active Protocol: Document 01/10/20 10:40 DCW (Rec: 01/10/20 11:26 DCW [id number]) OP-PT Subjective Patient Comments Patient Comments It's getting better, I think you've really found the issue. PT-OP-E Functional Tests Start: 12/27/19 16:45 Freq: Status: Active Protocol: Document 12/27/19 11:15 DCW (Rec: 12/28/19 11:38 DCW [id number]) Functional Tests Apley's Scratch Test Action 1- Left Posterior opposite shoulder Action 1- Right Posterior opposite shoulder Action 2- Left T4 Action 2- Right T4 Action 3- Left T8 Action 3- Right T6 PT-OP-F Manual Assessment Start: 12/27/19 16:45 Freq: Status: Active Protocol: Document 12/27/19 11:15 DCW (Rec: 12/28/19 11:38 DCW [id number]) Manual Assessments Joint Mobility Assessment Joint Mobility Assessment Minimal movement of left scapula during left abduction and flexion. PT-OP-K Range of Motion Start: 12/27/19 16:45 Freq: Status: Active Protocol: Document 12/27/19 11:15 DCW (Rec: 12/28/19 11:38 DCW [id number]) Shoulder Goniometric Range of Motion Shoulder Right Active Shoulder ROM WFL Yes Left Active Testing Position Sitting Flexion 132 Abduction 115 PT-OP-L Special Tests Start: 12/27/19 16:45 Freq: Status: Active Protocol: Document 12/27/19 11:15 DCW (Rec: 12/28/19 11:38 DCW [id number]) Special Tests Shoulder Special Tests Painful arc Test Results Left positive 80-100? Dyer Felipe Impingement Test Results Positive left Empty Can Test Results Pain with internal rotation Drop Arm Rotator Cuff Test Results Negative PT-OP-M Strength Start: 12/27/19 16:45 Freq: Status: Active Protocol: Document 12/27/19 11:15 DCW (Rec: 12/28/19 11:38 DCW [id number]) Shoulder Strength Shoulder Manual Muscle Testing Left Flexion 2+ Poor+ Abduction (C5) 2+ Poor+ External Rotation 4+ Good+ Internal Rotation 4+ Good+ Comments Flexion and Abduction strong in available ROM, however able to lift through full ROM PT-OP-T Assessment and Plan Start: 12/27/19 16:45 Freq: Status: Active Protocol: Document 06/06/20 17:14 DCW (Rec: 06/06/20 17:14 DCW [id number]) Physical Therapy Assessment Assessment Summary Assessment Pt did not return phone calls from scheduling department following reopening of clinic after Covid-19 closure. Pt will be discharged from skilled therapy at this time.
== END 2020-06-07 08:06 ==
LOC: PHYS 10:30
PROVIDERS: PCP Family Medicine; Referring Provider Orthopaedic Surgery; Visit Provider Orthopaedic Surgery
DX: M75.42 Impingement syndrome of left shoulder (principal); M19.012 Primary osteoarthritis, left shoulder; M25.612 Stiffness of left shoulder, not elsewhere classified; M25.512 Pain in left shoulder
CPT/HCPCS: 97110; 97140; 97161

== ENCOUNTER → 2020-04-23 11:09 | Outpatient (CLI) | payer OTHER, MEDICARE, SELFPAY ==
[2020-04-23 13:18] LABS: BUN Creatinine Ratio 9.5 (6-22); Blood Urea Nitrogen 7 mg/dL (9-20); Calcium 9.4 mg/dL (8.4-10.2); Carbon Dioxide 28 mmol/L (22-32); Chloride 102 mmol/L (98-107); Cholesterol 183 mg/dL (140-199); Estimated Glomerular Filt Rate > 60.0 mL/min (>60); Glucose 91 mg/dL (80-110); HDL Cholesterol 77 mg/dL (40-60); HEMOLYSIS < 15 (0-50); LDL Cholesterol Calculated 90 mg/dL (<100); Sodium 140 mmol/L (137-145); Triglycerides 82 mg/dL (35-150)
== END ==
PROVIDERS: PCP Family Medicine; Referring Provider Family Medicine; Visit Provider Family Medicine
DX: E78.5 Hyperlipidemia, unspecified (principal); I10 Essential (primary) hypertension
CPT/HCPCS: 36415; 80048; 80061

== ENCOUNTER → 2020-04-24 10:36 | Outpatient (CLI) | payer OTHER, SELFPAY ==
[2020-04-25 01:18] LABS: Prostate Specific Antigen Scrn 3.36 ng/mL (0.1-4.0)
== END ==
PROVIDERS: PCP Family Medicine; Visit Provider Family Medicine
DX: E78.5 Hyperlipidemia, unspecified (principal); Z12.5 Encounter for screening for malignant neoplasm of prostate
CPT/HCPCS: G0103

== ENCOUNTER → 2020-05-22 14:37 | Outpatient (CLI) | payer OTHER, MEDICARE, SELFPAY ==
--- NOTE | 2020-05-22 14:40 | DI.RAD.S_ITS ---
PROCEDURE: XR LUMBAR SPINE MIN 4V INDICATIONS: progressive LBP TECHNIQUE: 5 views of the lumbar spine were acquired. COMPARISON: [facility], MR, KNEE WITHOUT CONTRAST, 03/21/2014, 14:27. [facility], MR, L-SPINE WITHOUT CONTRAST, 04/13/2009, 16:56. [facility], CR, L-SPINE 2-3 VIEWS, 04/06/2009, 9:37. [facility], MR, L-SPINE WITHOUT CONTRAST, 03/04/2013, 18:20. FINDINGS: Bones: 5 nonrib-bearing vertebrae are present. There is grade 1 retrolisthesis of L2 on L3 and L3 on L4. No vertebral body compression fractures. No suspicious bony lesions. There is degenerative disc disease, severe at L2-L3, moderate at L3-L4 and L4-L5, mild at T12-L1, L1-L2 and L5-S1. Bilateral facet arthropathy, severe at L 3-L4, L4-L5 and L5-S1. Enlargement of spinous processes consistent with by Baastrops disease. Soft tissues: Overlying bowel gas pattern is normal. No suspicious soft tissue calcifications. Oblique images: No pars defects. IMPRESSION: 1. Severe degenerative disc and facet disease in lumbar spine. 2. Grade 1 retrolisthesis of L2 on L3 and L3 on L4. Dictated by: Kulwant Nowak M.D. on 05/22/2020 at 18:00 Approved by: Kulwant Nowak M.D. on 05/22/2020 at 18:04
== END ==
PROVIDERS: PCP Family Medicine; Referring Provider Physical Medicine & Rehabilitation; Visit Provider Physical Medicine & Rehabilitation
DX: M54.5 Low back pain (principal); M51.16 Intervertebral disc disorders with radiculopathy, lumbar region; M51.17 Intervertebral disc disorders with radiculopathy, lumbosacral region; M47.26 Other spondylosis with radiculopathy, lumbar region; M47.27 Other spondylosis with radiculopathy, lumbosacral region; M43.16 Spondylolisthesis, lumbar region
CPT/HCPCS: 72110

== ENCOUNTER → 2020-05-26 07:59 | Outpatient (CLI) | payer OTHER, MEDICARE, SELFPAY ==
--- NOTE | 2020-05-26 08:01 | DI.MRI.S_ITS ---
PROCEDURE: MR LUMBAR SPINE WO CON INDICATIONS: Progressive low back pain TECHNIQUE: Noncontrast sagittal T1 spin echo and T2 fast echo, sagittal STIR, axial T1 and T2 fast spin echo through the lumbar spine. In cases with scoliosis, additional coronal T2 fast spin echo may be performed. COMPARISON: [facility], MR, L-SPINE WITHOUT CONTRAST, 03/04/2013, 18:20. FINDINGS: Image quality: Excellent. Alignment and Curvature: There is trace L3-L4 retrolisthesis. Bone Marrow: Reactive endplate changes noted adjacent to the L2-L3 , L3-L4, L4-L5 and L5-S1 discs. No acute vertebral body compression fractures. Spinal Cord: Conus medullaris terminates at the T12-L1 disc level. Visualized cord demonstrates normal signal and size. Paraspinous Soft Tissues: No paravertebral masses. L1-L2: Loss of disc signal. Minimal, diffuse disc bulge. No central stenosis. No neural foraminal narrowing. No neural compression. L2-L3: Loss of disc signal and height. Mild to moderate diffuse disc bulge. Mild narrowing of the central canal. Mild bilateral neural foraminal narrowing. No neural compression. L3-L4: Loss of disc signal. Moderate, diffuse disc bulge. Nczq-xv-kdvmrrli narrowing of the central canal. Mild to moderate bilateral neural foraminal narrowing. No neural compression. L4-L5: Loss of disc signal. Moderate, diffuse disc bulge. Mild bilateral facet hypertrophy. Mild to moderate narrowing of the central canal. Moderate right and eeud-ar-flibkkyn left neural foraminal narrowing. No neural compression. moderate left L5-S1: Loss of disc signal. Mild, diffuse disc bulge. Small central disc protrusion. Mild bilateral facet hypertrophy. No central stenosis. Mild right and moderate left neural foraminal narrowing. No neural compression. Fissure noted in the posterior annulus. IMPRESSION: 1. Multilevel degenerative disc disease. 2. Multilevel facet arthropathy. 3. Mild to moderate L3-L4 and L4-L5 central canal narrowing. Mild L2-L3 central canal narrowing. 4. Moderate right and okcu-at-fualhwag left L4-L5 neural foraminal narrowing. Mild right and moderate left L5-S1 neural foraminal narrowing. Twpf-dz-khmxndof bilateral L3-L4 neural foraminal narrowing. Mild bilateral 2-L3 neural foraminal narrowing. 5. No neural compression. 6. L5-S1 disc annulus fissure Dictated by: Jennifer Conner MD, PhD on 05/28/2020 at 9:55 Approved by: Jennifer Conner MD, PhD on 05/28/2020 at 10:00
== END ==
PROVIDERS: PCP Family Medicine; Referring Provider Physical Medicine & Rehabilitation; Visit Provider Physical Medicine & Rehabilitation
DX: M54.5 Low back pain (principal); M51.16 Intervertebral disc disorders with radiculopathy, lumbar region; M51.17 Intervertebral disc disorders with radiculopathy, lumbosacral region; M47.26 Other spondylosis with radiculopathy, lumbar region; M47.27 Other spondylosis with radiculopathy, lumbosacral region; M48.061 Spinal stenosis, lumbar region without neurogenic claudication; M48.07 Spinal stenosis, lumbosacral region
CPT/HCPCS: 72148

== ENCOUNTER → 2020-06-22 09:51 | Outpatient (CLI) | payer OTHER, MEDICARE, SELFPAY | PROVIDERS: PCP Family Medicine; Referring Provider Family Medicine; Visit Provider Family Medicine | DX: R97.20 Elevated prostate specific antigen [PSA] (principal) | CPT/HCPCS: 36415; 84153; 84154 ==

== ENCOUNTER → 2021-06-13 12:41 | Outpatient (CLI) | payer MEDICARE, OTHER, SELFPAY ==
--- NOTE | 2021-06-13 12:44 | DI.RAD.S_ITS ---
PROCEDURE: XR HIP W PEL IF DONE LT 2V INDICATIONS: left hip pain TECHNIQUE: Single AP view of the pelvis and additional single view of the left hip was obtained. COMPARISON: [facility], , HIP 2V LEFT, 08/27/2012, 15:15. FINDINGS: Bones: No fractures or dislocations. No suspicious bony lesions. The visualized pelvic ring appears intact. Mild left hip joint space narrowing and small marginal osteophyte, similar prior exam. Pelvis is intact. No lytic or blastic lesion. Mild right hip joint space narrowing present as well. Soft tissues: No suspicious soft tissue calcifications or masses. IMPRESSION: Mild bilateral hip osteoarthritis, stable Approved by: Yoav Taylor M.D. on 06/13/2021 at 15:07
== END ==
PROVIDERS: PCP Family Medicine; Referring Provider Family Medicine; Visit Provider Family Medicine
DX: M25.552 Pain in left hip (principal); M16.0 Bilateral primary osteoarthritis of hip; E78.5 Hyperlipidemia, unspecified; I10 Essential (primary) hypertension
CPT/HCPCS: 73502

== ENCOUNTER → 2021-06-17 10:03 | Outpatient (CLI) | payer MEDICARE, OTHER, SELFPAY ==
[2021-06-17 11:43] LABS: Alanine Aminotransferase 57 IU/L (<50); Albumin 4.6 g/dL (3.5-5.0); Albumin Globulin Ratio 1.7 (1.0-2.8); Alkaline Phosphatase 72 U/L (38-126); Aspartate Aminotransferase 90 IU/L (17-59); Bilirubin Total 0.9 mg/dL (0.2-1.3); Blood Urea Nitrogen 12 mg/dL (9-20); Carbon Dioxide 26 mmol/L (22-32); Chloride 102 mmol/L (98-107); Cholesterol 157 mg/dL (140-199); Estimated Glomerular Filt Rate > 60.0 mL/min (>60); Globulin 2.7 g/dL (1.7-4.1); Glucose 83 mg/dL (80-110); HDL Cholesterol 97 mg/dL (40-60); HEMOLYSIS < 15 (0-50); LDL Cholesterol Calculated 43 mg/dL (<100); Potassium 4.3 mmol/L (3.4-5.1); Sodium 139 mmol/L (137-145); Total Protein 7.3 g/dL (6.3-8.2); Triglycerides 85 mg/dL (35-150)
== END ==
PROVIDERS: PCP Family Medicine; Referring Provider Family Medicine; Visit Provider Family Medicine
DX: E78.5 Hyperlipidemia, unspecified (principal); I10 Essential (primary) hypertension; M25.552 Pain in left hip
CPT/HCPCS: 36415; 80053; 80061

== ENCOUNTER → 2021-08-13 08:38 | Outpatient (CLI) | payer MEDICARE, OTHER, SELFPAY ==
[2021-08-13 11:14] LABS: COVID19 -Nasal RAPID Negative (Negative)
== END ==
PROVIDERS: PCP Family Medicine; Referring Provider Physical Medicine & Rehabilitation; Visit Provider Physical Medicine & Rehabilitation
DX: Z20.822 Contact with and (suspected) exposure to COVID-19 (principal)
CPT/HCPCS: 87635; C9803

== ENCOUNTER 2021-08-15 07:17 | Outpatient (CLI) | payer MEDICARE, OTHER, SELFPAY ==
[2021-08-15] VITALS (7 sets, daily range): BP systolic 129–165; BP diastolic 67–79; PULSE 50–62; RESP 12–16; TEMP 36.5; O2SAT 95–100
--- NOTE | 2021-08-15 07:19 | DI.RAD.S_ITS ---
PROCEDURE: PAIN L/S FACET INJ/BLK 1ST ERASTO COMPARISON: None. INDICATIONS: SPONDYLOSIS FINDINGS: Intraoperative fluoroscopic images of lumbar spine shows needle placement bilaterally at L2-3, L3-4 and L4-5 levels. IMPRESSION: Fluoro guidance was provided intraoperatively for bilateral facet injection at L2-3 through L4-5 levels performed by ordering physician. Dictated by: Andrew Rossi M.D. on 08/15/2021 at 9:09 Approved by: Andrew Rossi M.D. on 08/15/2021 at 9:10
[2021-08-15] MEDS: MIDAZOLAM 5 MG/5 ML VIAL IV (08:08)
[2021-08-15] MEDS: fentaNYL 100 MCG/2 ML INJ 50 MCG IV (08:08)
[2021-08-15] MEDS: IOPAMIDOL 15 ML VIAL INJ (08:11)
[2021-08-15] MEDS: BUPIVACAINE 0.5% (PF) VIAL 30 ML (08:12)
[2021-08-15] MEDS: BETAMETHASONE 30 MG/5 ML MDV (08:13)
[2021-08-15] MEDS: LIDOCAINE 1% 20 ML 10 ML INJ (08:14)
--- NOTE | 2021-08-15 08:25 | P.PCN_ITS ---
Date/Time/Diagnoses Date of procedure: 08/15/21 Time of procedure: 08:25 Pre-procedure diagnosis: 1. FACET ARTHROPATHY 2. AXIAL LBP 3. MULTILEVEL DDD Post-procedure diagnosis: same Procedure Notes Procedure: 1. FLUOROSCOPICALLY GUIDED CONTRAST CONTROLLED FACET JOINT INJECTIONS BILATERAL L2/3, L3/4, L4/5 Indications: Roscoe is referred by Dr. Moseley for treatment of Axial LBP Physician: Zaki Anderson Total Fluoroscopy time (seconds): 11 Total sedation minutes: 12 Complications: none Procedure in detail & Post-procedure care: FINDINGS Multilevel Facet Arthropathy with Clinically significant axial LBP DESCRIPTION OF PROCEDURE Fluoroscopically guided, contrast-controlled bilateral L2/3, L3/4, L4/5 facet joint injections. Following review of allergy and review of potential side effects and complications, including, but not necessarily limited to, infection, allergic reaction, local tissue breakdown, stroke, temporary or permanent nerve injury, paralysis, and possible , the patient indicated that the patient understood and agreed to proceed. An informed consent document was signed by the patient, witnessed by a nurse, and placed in the patient's chart. Additionally, other treatment options including medications, modalities, and physical therapy were reviewed with the patient. After review of previous anaesthesic history and IV conscious sedation the patient was deemed safe to proceed with today's procedure with IV conscious sedation as ASA class II designation. Safety time-out was performed to confirm patient ID, procedure to be performed and site of procedure. IV sedation was accomplished with a combination of 3mg of Versed and 50mcg of Fentanyl administered by the RN after DO order, titrated to patient comfort during the course of the procedure while the patient remained responsive to all verbal commands In the prone position, following sterile prep and drape of the lumbar region, the posterior aspect of the L2/3, L3/4, L4/5 facet joints were identified fluoroscopically. The skin was anesthetized via a 25-gauge 1.5-inch needle with 1% lidocaine solution into the corresponding facet joints. At this point, a 22- gauge 3.5-inch spinal needle was atraumatically introduced and advanced under fluoroscopic guidance into the corresponding facet joints. Following negative aspiration, injections of approximately 0.2cc of Isovue 200 confirmed interarticular placement without vascular uptake. The identical procedure was then performed at the L2/3, L3/4, L4/5 facet joints on the left. Radiological data, including multiple fluoroscopic views of the lumbosacral spine, reveal a spinal needle at the L2/3, L3/4, L4/5 facet joints bilaterally. Subsequent views show flow of contrast material both superiorly and inferiorly within the joint space without vascular or intrathecal uptake. At this point, a total of 0.5cc including a mixture of 0.25cc Marcaine and 0.25cc betamethasone was injected without complication into each of the corresponding facet joints. The patient tolerated the procedure well without signs or symptoms of complications prior to transfer to the recovery area continued monitoring without incident. The patient was then transferred to the recovery area where they were observed for an appropriate period of time after the injection. The patient reported a VAS score of 7 prior to the procedure and a post-procedure VAS of 0. POST OP INSTRUCTIONS The patient was provided a Pain Log to continue to record their response to the target-specific procedure prior to follow-up visit with their referring physician. Additionally, specific post-injection care instructions and a contact number to our office were provided if concerns arise regarding possible complications associated with the procedure are suspected.
== END 2021-08-15 08:51 | disposition home or self-care (01) ==
LOC: RAD 07:19
PROVIDERS: PCP Family Medicine; Referring Provider Physical Medicine & Rehabilitation; Visit Provider Physical Medicine & Rehabilitation
DX: M47.816 Spondylosis without myelopathy or radiculopathy, lumbar region (principal); M51.36 Other intervertebral disc degeneration, lumbar region; M54.59 Other low back pain
CPT/HCPCS: 64493; 64494; 64495; 99152; J0702; J2250; J3010

== ENCOUNTER → 2021-12-24 13:39 | Outpatient (CLI) | payer MEDICARE, OTHER, SELFPAY ==
[2021-12-24 15:14] LABS: Add Manual Diff / Slide Review NO; Basophils Absolute Auto 100 /uL (0-100); Basophils Percent Auto 1.1 % (0-2); Eosinophils Absolute Auto 100 /uL (0-450); Eosinophils Percent Auto 1.5 % (2-4); Hematocrit 44.7 % (41-53); Hemoglobin 15.3 g/dL (13.5-17.5); Lymphocytes Absolute Auto 1100 /uL (1100-4500); Mean Corpuscular HGB Conc 34.3 % (30-36); Mean Corpuscular Hemoglobin 33.8 PG (26-34); Mean Corpuscular Volume 98.7 fL (80-100); Monocytes Absolute Auto 600 /uL (0-900); Monocytes Percent Auto 11.5 % (3-14); Neutrophils Absolute Auto 3300 /uL (1500-7000); Neutrophils Percent Auto 64.9 % (50-75); Platelet Count 147 X10^3/uL (150-400); Red Blood Cell Count 4.53 X10^6/uL (4.5-5.9); Red Cell Distribution Width 13.4 % (11.6-14.8); White Blood Cell Count 5.1 X10^3/uL (4.5-11.0)
[2021-12-24 15:31] LABS: Hemoglobin A1C% w Est Avg Glu 5.3 % (4.0-6.0)
[2021-12-24 15:37] LABS: Alanine Aminotransferase 53 IU/L (<50); Albumin 4.9 g/dL (3.5-5.0); Alkaline Phosphatase 79 U/L (38-126); Aspartate Aminotransferase 85 IU/L (17-59); BUN Creatinine Ratio 16.5 (6-22); Bilirubin Total 0.6 mg/dL (0.2-1.3); Blood Urea Nitrogen 14 mg/dL (9-20); Calcium 8.9 mg/dL (8.4-10.2); Carbon Dioxide 27 mmol/L (22-32); Chloride 101 mmol/L (98-107); Cholesterol 171 mg/dL (140-199); Estimated Glomerular Filt Rate > 60.0 mL/min (>60); Globulin 2.5 g/dL (1.7-4.1); Glucose 91 mg/dL (80-110); HDL Cholesterol 106 mg/dL (40-60); HEMOLYSIS < 15 (0-50); LDL Cholesterol Calculated 51 mg/dL (<100); Sodium 138 mmol/L (137-145); Total Protein 7.4 g/dL (6.3-8.2); Triglycerides 70 mg/dL (35-150)
[2021-12-24 16:27] LABS: Vitamin B12 243 pg/mL (239-931)
[2021-12-24 17:08] LABS: TSH w/ Reflex to FT4 2.31 uIU/mL (0.47-4.68)
== END ==
PROVIDERS: PCP Family Medicine; Referring Provider Family Medicine; Visit Provider Family Medicine
DX: E78.5 Hyperlipidemia, unspecified (principal); R79.89 Other specified abnormal findings of blood chemistry; Z12.5 Encounter for screening for malignant neoplasm of prostate; Z00.00 Encounter for general adult medical examination without abnormal findings; I10 Essential (primary) hypertension
CPT/HCPCS: 36415; 80053; 80061; 82607; 83036; 84443; 85025; G0103

== ENCOUNTER → 2021-12-27 13:39 | Outpatient (CLI) | payer MEDICARE, OTHER, SELFPAY ==
--- NOTE | 2021-12-27 13:42 | DI.CT.S_ITS ---
PROCEDURE: CT HEAD/BRAIN WO CON INDICATIONS: Concern for a TIA TECHNIQUE: Noncontrast 4.5 mm thick angled axial sections acquired from the foramen magnum to the vertex, with coronal and sagittal reformats. For radiation dose reduction, the following was used: automated exposure control, adjustment of mA and/or kV according to patient size. COMPARISON: [facility], CT, HEAD WITHOUT CONTRAST, 07/07/2007, 16:15. FINDINGS: Image quality: Excellent. CSF spaces: Basal cisterns are patent. No extra-axial fluid collections. Ventricles are normal in size and shape. Brain: No midline shift. No intracranial masses or hemorrhage. Parker-white matter interface is normal. Skull and face: Calvarium and visualized facial bones are intact, without suspicious lesions. Sinuses: Visualized sinuses and mastoids are clear. IMPRESSION: No acute intracranial abnormality. Dictated by: Greg Hahn M.D. on 12/27/2021 at 16:27 Approved by: Greg Hahn M.D. on 12/27/2021 at 16:30
== END ==
PROVIDERS: PCP Family Medicine; Referring Provider Family Medicine; Visit Provider Family Medicine
DX: R41.89 Other symptoms and signs involving cognitive functions and awareness (principal); R46.89 Other symptoms and signs involving appearance and behavior
CPT/HCPCS: 70450

== ENCOUNTER → 2022-07-23 09:19 | Outpatient (CLI) | payer MEDICARE, OTHER, SELFPAY ==
[2022-07-23 11:56] LABS: Add Manual Diff / Slide Review NO; Basophils Absolute Auto 100 /uL (0-100); Basophils Percent Auto 1.4 % (0-2); Eosinophils Absolute Auto 600 /uL (0-450); Eosinophils Percent Auto 14.2 % (2-4); Hematocrit 42.9 % (41-53); Lymphocytes Absolute Auto 1000 /uL (1100-4500); Lymphocytes Percent Auto 21.5 % (25-40); Mean Corpuscular HGB Conc 34.9 % (30-36); Mean Corpuscular Hemoglobin 34.7 PG (26-34); Mean Corpuscular Volume 99.2 fL (80-100); Monocytes Absolute Auto 400 /uL (0-900); Monocytes Percent Auto 9.8 % (3-14); Neutrophils Absolute Auto 2400 /uL (1500-7000); Neutrophils Percent Auto 53.1 % (50-75); Platelet Count 160 X10^3/uL (150-400); Red Blood Cell Count 4.33 X10^6/uL (4.5-5.9); Red Cell Distribution Width 13.6 % (11.6-14.8); White Blood Cell Count 4.5 X10^3/uL (4.5-11.0)
[2022-07-23 12:25] LABS: Alanine Aminotransferase 51 IU/L (<50); Albumin 4.2 g/dL (3.5-5.0); Albumin Globulin Ratio 1.6 (1.0-2.8); Alkaline Phosphatase 65 U/L (38-126); Aspartate Aminotransferase 90 IU/L (17-59); Bilirubin Total 0.6 mg/dL (0.2-1.3); Blood Urea Nitrogen 9 mg/dL (9-20); Calcium 8.5 mg/dL (8.4-10.2); Carbon Dioxide 30 mmol/L (22-32); Chloride 103 mmol/L (98-107); Estimated Glomerular Filt Rate > 60 mL/min (>60); Globulin 2.6 g/dL (1.7-4.1); Glucose 86 mg/dL (80-110); HEMOLYSIS < 15 (0-50); Potassium 3.9 mmol/L (3.4-5.1); Sodium 145 mmol/L (137-145); Total Protein 6.8 g/dL (6.3-8.2)
[2022-07-23 12:58] LABS: TSH w/ Reflex to FT4 2.52 uIU/mL (0.47-4.68)
[2022-07-23 13:16] LABS: Vitamin B12 252 pg/mL (239-931)
== END ==
PROVIDERS: PCP Family Medicine; Referring Provider Family Medicine; Visit Provider Family Medicine
DX: E78.00 Pure hypercholesterolemia, unspecified (principal); I10 Essential (primary) hypertension; R41.89 Other symptoms and signs involving cognitive functions and awareness; R46.89 Other symptoms and signs involving appearance and behavior; R79.89 Other specified abnormal findings of blood chemistry
CPT/HCPCS: 36415; 80053; 82607; 84443; 85025

== ENCOUNTER 2022-08-19 09:24 | Outpatient (CLI) | payer MEDICARE, OTHER, SELFPAY ==
[2022-08-19] VITALS (8 sets, daily range): BP systolic 135–175; BP diastolic 66–93; PULSE 52–62; RESP 12–18; TEMP 36.4; O2SAT 96–100
--- NOTE | 2022-08-19 09:28 | DI.RAD.S_ITS ---
PROCEDURE: PAIN L/S FACET INJ/BLK 1ST ERASTO COMPARISON: [facility], , PAIN L/S FACET INJ/BLK 1ST ERASTO, 08/15/2021, 8:11. INDICATIONS: SPONDYLOSIS FINDINGS: Intraoperative fluoroscopic image of lower lumbar spine shows spinal injection needle placed at the level of right L5-S1 facet joint. IMPRESSION: Fluoro guidance was provided intraoperatively for bilateral L5-S1 facet joint injection to be performed by ordering physician. Dictated by: Andrew Rossi M.D. on 08/19/2022 at 13:31 Approved by: Andrew Rossi M.D. on 08/19/2022 at 13:32
[2022-08-19] MEDS: MIDAZOLAM 2 MG/2 ML VIAL IV (11:00)
[2022-08-19] MEDS: IOPAMIDOL 15 ML VIAL 3 ML INJ (11:06)
[2022-08-19] MEDS: BUPIVACAINE 0.5% (PF) VIAL 2 ML INJ (11:06)
[2022-08-19] MEDS: BETAMETHASONE 30 MG/5 ML MDV 12 MG INJ (11:07)
--- NOTE | 2022-08-19 11:16 | P.PCN_ITS ---
Date/Time/Diagnoses Date of procedure: 08/19/22 Time of procedure: 11:16 Pre-procedure diagnosis: 1. FACET ARTHROPATHY, 2. AXIAL LBP, 3. MULTILEVEL DDD, Post-procedure diagnosis: same Procedure Notes Procedure: 1. FLUORSCOPICALLY GUIDED CONTRAST CONTROLLED FACET JOINT INJECTIONS BILATERAL L5/S1 Indications: Roscoe is referred by Dr. Moseley for treatment of Axial LBP Physician: Zaki Anderson Total Fluoroscopy time (seconds): 7 Total sedation minutes: 8 Complications: none Procedure in detail & Post-procedure care: DESCRIPTION OF PROCEDURE Fluoroscopically guided, contrast-controlled bilateral L5/S1 facet joint injections. Following review of allergy and review of potential side effects and complications, including, but not necessarily limited to, infection, allergic reaction, local tissue breakdown, stroke, temporary or permanent nerve injury, paralysis, and possible , the patient indicated that the patient understood and agreed to proceed. An informed consent document was signed by the patient, witnessed by a nurse, and placed in the patient's chart. Additionally, other treatment options including medications, modalities, and physical therapy were reviewed with the patient. After review of previous anaesthesic history and IV conscious sedation the patient was deemed safe to proceed with today?s procedure with IV conscious sedation as ASA class II designation. Safety time-out was performed to confirm patient ID, procedure to be performed and site of procedure. IV sedation was accomplished with a combination of 2mg of Versed administered by the RN after DO order, titrated to patient comfort during the course of the procedure while the patient remained responsive to all verbal commands In the prone position, following sterile prep and drape of the lumbar region, the posterior aspect of the L5/S1 facet joints were identified fluoroscopically. The skin was anesthetized via a 25-gauge 1.5-inch needle with 1% lidocaine solution into the corresponding facet joints. At this point, a 22-gauge 3inch spinal needle was atraumatically introduced and advanced under fluoroscopic guidance into the corresponding facet joints. Following negative aspiration, injections of approximately 0.2cc of Isovue 200 confirmed interarticular placement without vascular uptake. The identical procedure was then performed at the L5/S1 facet joints on the left. Radiological data, including multiple fluoroscopic views of the lumbosacral spine, reveal a spinal needle at the L5/S1 facet joints bilaterally. Subsequent views show flow of contrast material both superiorly and inferiorly within the joint space without vascular or intrathecal uptake. At this point, a total of 0.5cc including a mixture of 0.25cc Marcaine and 0.25cc betamethasone was injected without complication into each of the corresponding facet joints. The patient tolerated the procedure well without signs or symptoms of complications prior to transfer to the recovery area continued monitoring wi thout incident. The patient was then transferred to the recovery area where they were observed for an appropriate period of time after the injection. The patient reported a VAS score of 7 prior to the procedure and a post-procedure VAS of 0. POST OP INSTRUCTIONS The patient was provided a Pain Log to continue to record their response to the target-specific procedure prior to follow-up visit with their referring physician. Additionally, specific post-injection care instructions and a contact number to our office were provided if concerns arise regarding possible com plications associated with the procedure are suspected.
== END 2022-08-19 11:35 | disposition home or self-care (01) ==
LOC: RAD 09:26
PROVIDERS: Family Provider Family Medicine; PCP Family Medicine; Referring Provider Physical Medicine & Rehabilitation; Visit Provider Physical Medicine & Rehabilitation
DX: M47.817 Spondylosis without myelopathy or radiculopathy, lumbosacral region (principal); M51.37 Other intervertebral disc degeneration, lumbosacral region
CPT/HCPCS: 64493; J0702; J2250

== ENCOUNTER → 2022-09-15 09:48 | Outpatient (CLI) | payer MEDICARE, OTHER, SELFPAY ==
[2022-09-15 17:44] LABS: Hep C Virus Ab w/Reflex Quant NEGATIVE s/c (NEGATIVE)
[2022-09-16 21:07] LABS: Deamidated Gliadin Ab IgA 15 units (0-19); Deamidated Gliadin Ab IgG 3 units (0-19); Immunoglobulin A,Qn 229 mg/dL (61-437); t-Transglutaminase IgA 3 U/mL (0-3)
== END ==
PROVIDERS: Family Provider Family Medicine; PCP Family Medicine; Referring Provider Family Medicine; Visit Provider Family Medicine
DX: Z00.00 Encounter for general adult medical examination without abnormal findings (principal)
CPT/HCPCS: 36415; 82784; 83516; 86803

== ENCOUNTER 2022-12-12 13:45 | Outpatient (RCR) | payer MEDICARE, OTHER, SELFPAY ==
--- NOTE | 2022-09-12 17:20 | PT.OTN ---
Current Diagnoses Impingement syndrome of left shoulder (09/12/22) Physical Therapy Treatment Note PT-OP-A Visit Information Start: 09/04/22 18:49 Freq: Status: Active Protocol: Document 09/12/22 14:36 LRN (Rec: 09/12/22 17:19 LRN [id number]) Out-Patient Physical Therapy Visit Information Visit Information Visit Type Treatment Note Visit Start Time 14:36 Visit Stop Time 15:14 Total Visit Minutes 38 Visit Number 2 Evaluation Information Evaluation Date 09/08/22 Precautions Precautions Vertigo, LE injuries, Back pain - 4 lower discs compressed, Controlled HBP. 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 Pt chose to not have surgery 20+ yrs ago and has lived with it since. Is returning now to try and get shoulder fixed. L shoulder impingement that rehab started before the pandemic and did not complete the program. States his shoulder was improving and with the last therapist stretching his scapula. Prior Treatments and Tests Physical therapy 10/2019 but not able to complete program due to COVID 19. Future Testing and Treatments Planned Shoulder MRI 10/2019 indicating : Partial thickness bursal sided tear of the supraspinatus tendon. Associated mild subacromial- subdeltoid bursitis Treatment Goals Patient/Caregiver Goals Reduce pain to manageable level of 1-2/10 and raise the L arm up. 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 Both mothers have in the past 2 months. Anxiety since retired. PT-OP-C Subjective Start: 09/04/22 18:49 Freq: Status: Active Protocol: Document 09/12/22 14:36 LRN (Rec: 09/12/22 17:19 LRN [id number]) OP-PT Subjective Patient Comments Patient Comments States same. Knows posture is bad. PT-OP-J Posture/Palpation/Skin Start: 09/04/22 18:49 Freq: Status: Active Protocol: Document 09/08/22 13:59 LRN (Rec: 09/08/22 18:11 LRN [id number]) Posture Evaluation Position Sitting Head/C-Spine Posture Forward Head Shoulder Posture (L) Elevated Comments Posture Comments Increased thoracic curvature, flattened L/S. Palpation Assessment Location L shoulder Palpation Location L upper shoulder and neck. Palpation Findings Soft Tissue Tightness Palpation Details Atrophy of L deltoid PT-OP-K Range of Motion Start: 09/04/22 18:49 Freq: Status: Active Protocol: Document 09/08/22 13:59 LRN (Rec: 09/08/22 18:11 LRN [id number]) Cervical Spine Range of Motion Cervical Spine Active Degrees Testing Position Sitting Flexion 60 Extension 25 Rotation Left 58 Rotation Right 40 Lateral Flexion Left 25 Lateral Flexion Right 28 Comments Pinch with C. Rot & SB bilaterally Shoulder Goniometric Range of Motion Shoulder Right Active Shoulder ROM WFL Yes Testing Position Sitting Flexion 148 Extension 70 Abduction 136 Left Active Testing Position Sitting Flexion 128 Extension 55 Abduction 108 PT-OP-L Special Tests Start: 09/04/22 18:49 Freq: Status: Active Protocol: Document 09/08/22 13:59 LRN (Rec: 09/08/22 18:11 LRN [id number]) Special Tests Shoulder Special Tests Painful arc Test Results + test L UE Dyer Felipe Impingement Test Results + test L UE Empty Can Test Results - test L UE PT-OP-M Strength Start: 09/04/22 18:49 Freq: Status: Active Protocol: Document 09/08/22 13:59 LRN (Rec: 09/08/22 18:11 LRN [id number]) Cervical Spine Strength Cervical Spine Manual Muscle Testing Testing Position Sitting Comments 5/5 bilaterally Shoulder Strength Shoulder Manual Muscle Testing Right Comments Generally 5/5. Left Flexion 5 Normal Extension 5 Normal Abduction (C5) 3+ Fair+ Adduction 5 Normal External Rotation 5 Normal Internal Rotation 5 Normal Horizontal Abduction 4 Good Horizontal Adduction 5 Normal Elbow/Forearm Strength Elbow and Forearm Manual Muscle Testing Right Comments Generally 5/5 Left Comments Generally 5/5 PT-OP-Q Treatments Start: 09/04/22 18:49 Freq: Status: Active Protocol: Document 09/12/22 14:36 LRN (Rec: 09/12/22 17:19 LRN [id number]) Cardio Equipment Upper Body Ergometer (UBE) Duration (Minutes) 6 RPM 70 Seat Position 13 Height 3 Other fwd/bkwd - elbow are bent ~30 deg's Therapeutic Exercises Sitting Exercises Neck Elongation Sitting Exercise Name Neck Elongation training Reps/Minutes 2' Standing Exercises Scapular retract/depression Standing Exercise Name Scapular retract/depression Side bilateral Reps/Minutes 18' Scapular depression Standing Exercise Name Lat pull down Equipment Used Lev2 TB Reps/Minutes 3' Shoulder IR Standing Exercise Name Shoulder IR strengthening Side left Equipment Used Lev2 TB, Towel roll under tucked under arm Reps/Minutes 15x 2 Comments Extra time for head on shoulders posturing and keeping scapula retracted Shoulder ER Standing Exercise Name Shoulder ER strengthening Side left Equipment Used Lev2 TB, Towel roll under tucked under arm Reps/Minutes 30x Comments Extra time for head on shoulders posturing and keeping scapula retracted Scapular pinches Standing Exercise Name Scapular pinches Side bilateral Equipment Used Lev2 TB Reps/Minutes 15x 2 Comments Much cuing for head on shoulders posturing and keeping scapul retracted PT-OP-T Assessment and Plan Start: 09/04/22 18:49 Freq: Status: Active Protocol: Document 09/12/22 14:36 LRN (Rec: 09/12/22 17:19 LRN [id number]) Physical Therapy Assessment Goals Three Impairment Decreased L shoulder & cervical AROM Impairment Shoulder AROM (in deg's): Flex: 128 L, 148 R; AB 108 L, 136 R; Ext is 55 L, 70 R. Cervical AROM (in deg's): Rot : 58 L, 48 R. Short Term Goal (STG) Improve C. R rotation AROM. Rug Washer Goal (LTG) Pt will improve L shoulder AROM to be able to reach for objects overhead with minimal pain. LTG Duration 12/07/22 Two Impairment L shoulder pain rated 4/10 Impairment Decreased L SHR Short Term Goal (STG) Pt will demonstrate improved scapulohumeral mobility and rhythm. STG Duration 10/24/22 Correction Goal (LTG) Reduce pain to manageable level of 1-2/10 when raising the L arm up. LTG Duration 12/07/22 One Impairment Lacks appropriate self care HEP Short Term Goal (STG) Pt will be educated in proper sitting and standing posture and be able to demonstrate proper posturing with v cues only. STG Duration 10/24/22 Rug Washer Goal (LTG) Pt will be independent in a HEP of L shoulder ROM & RC/ postural/scapular strengthening ex's. LTG Duration 12/07/22 Assessment Summary Assessment No c/o pain on UBE so able to work in greater elbow extension next visitv (set seat back). Pt has poor scapular control for retraction/depression; therefore further training needed before issue HEP. Physical Therapy Plan Frequency and Duration Frequency of Treatment 2x/Week Plan of Care Start Date 09/08/22 Plan of Care End Date 12/07/22 Next Visit Focus/Plan Next Note Type Treatment Note Next Visit Plan Reset UBE for longer arm reach for UBE. Assess Apley's Scratch Test. Posture training and strengthening to improve shoulder posturing. Strengthening: L RC, Deltoid, Scapular stabilizers. JMT: L GHJ, ACJ & Scapula. ROM: L shoulder & neck rot. HEP for ongoing self care for minimizing onset of pain. Modalities to minimize pain and promote healing (US, Ice/ EStim, Laser, Ionto).
--- NOTE | 2022-09-15 16:23 | PT.OTN ---
Current Diagnoses Impingement syndrome of left shoulder (09/15/22) Physical Therapy Treatment Note PT-OP-A Visit Information Start: 09/04/22 18:49 Freq: Status: Active Protocol: Document 09/15/22 14:32 LRN (Rec: 09/15/22 15:19 LRN [id number]) Out-Patient Physical Therapy Visit Information Visit Information Visit Type Treatment Note Visit Start Time 14:32 Visit Stop Time 15:15 Total Visit Minutes 43 Visit Number 2 Evaluation Information Evaluation Date 09/08/22 Precautions Precautions Vertigo, LE injuries, Back pain - 4 lower discs compressed, Controlled HBP. PT-OP-B Current Condition Start: 09/04/22 18:49 Freq: Status: Active Protocol: Document 09/08/22 13:59 LRN (Rec: 09/08/22 18:11 LRN [id number]) Current Condition History of Current Condition Onset Date 1994 Current Complaints L shoulder pain in joint when lifting the arm History of Current Condition Insidious onset of L shoulder pain from lifting a heavy bag for work. Pt chose to not have surgery 20+ yrs ago and has lived with it since. Is returning now to try and get shoulder fixed. L shoulder impingement that rehab started before the pandemic and did not complete the program. States his shoulder was improving and with the last therapist stretching his scapula. Prior Treatments and Tests Physical therapy 10/2019 but not able to complete program due to COVID 19. Future Testing and Treatments Planned Shoulder MRI 10/2019 indicating : Partial thickness bursal sided tear of the supraspinatus tendon. Associated mild subacromial- subdeltoid bursitis Treatment Goals Patient/Caregiver Goals Reduce pain to manageable level of 1-2/10 and raise the L arm up. 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 Both mothers have in the past 2 months. Anxiety since retired. PT-OP-C Subjective Start: 09/04/22 18:49 Freq: Status: Active Protocol: Document 09/15/22 14:32 LRN (Rec: 09/15/22 15:19 LRN [id number]) OP-PT Subjective Patient Comments Patient Comments States his mid back hurt more on the R side (~T5, T6) appeared to cause L shoulder pain on acromion process after last session. PT-OP-J Posture/Palpation/Skin Start: 09/04/22 18:49 Freq: Status: Active Protocol: Document 09/08/22 13:59 LRN (Rec: 09/08/22 18:11 LRN [id number]) Posture Evaluation Position Sitting Head/C-Spine Posture Forward Head Shoulder Posture (L) Elevated Comments Posture Comments Increased thoracic curvature, flattened L/S. Palpation Assessment Location L shoulder Palpation Location L upper shoulder and neck. Palpation Findings Soft Tissue Tightness Palpation Details Atrophy of L deltoid PT-OP-K Range of Motion Start: 09/04/22 18:49 Freq: Status: Active Protocol: Document 09/08/22 13:59 LRN (Rec: 09/08/22 18:11 LRN [id number]) Cervical Spine Range of Motion Cervical Spine Active Degrees Testing Position Sitting Flexion 60 Extension 25 Rotation Left 58 Rotation Right 40 Lateral Flexion Left 25 Lateral Flexion Right 28 Comments Pinch with C. Rot & SB bilaterally Shoulder Goniometric Range of Motion Shoulder Right Active Shoulder ROM WFL Yes Testing Position Sitting Flexion 148 Extension 70 Abduction 136 Left Active Testing Position Sitting Flexion 128 Extension 55 Abduction 108 PT-OP-L Special Tests Start: 09/04/22 18:49 Freq: Status: Active Protocol: Document 09/08/22 13:59 LRN (Rec: 09/08/22 18:11 LRN [id number]) Special Tests Shoulder Special Tests Painful arc Test Results + test L UE Dyer Felipe Impingement Test Results + test L UE Empty Can Test Results - test L UE PT-OP-M Strength Start: 09/04/22 18:49 Freq: Status: Active Protocol: Document 09/08/22 13:59 LRN (Rec: 09/08/22 18:11 LRN [id number]) Cervical Spine Strength Cervical Spine Manual Muscle Testing Testing Position Sitting Comments 5/5 bilaterally Shoulder Strength Shoulder Manual Muscle Testing Right Comments Generally 5/5. Left Flexion 5 Normal Extension 5 Normal Abduction (C5) 3+ Fair+ Adduction 5 Normal External Rotation 5 Normal Internal Rotation 5 Normal Horizontal Abduction 4 Good Horizontal Adduction 5 Normal Elbow/Forearm Strength Elbow and Forearm Manual Muscle Testing Right Comments Generally 5/5 Left Comments Generally 5/5 PT-OP-Q Treatments Start: 09/04/22 18:49 Freq: Status: Active Protocol: Document 09/15/22 14:32 LRN (Rec: 09/15/22 15:19 LRN [id number]) Therapeutic Exercises Supine Exercises Shoulder IR stretch Supine Exercise Name Shoulder IR stretch Side left Equipment Used Cane Reps/Minutes 1' Comments Phy & v cuing for hand placement and other hand to assist w/stretch Shoulder ER stretch Supine Exercise Name Shoulder ER stretch Side left Equipment Used Cane Reps/Minutes 4' Comments Much phy & v cuing for scapular retract/depression. Shoulder flex stretch Supine Exercise Name Shoulder Flex stretch Side left Reps/Minutes 5' Standing Exercises Shoulder IR Standing Exercise Name Shoulder IR strengthening Side left Equipment Used Lev2 TB, Towel roll under tucked under arm Reps/Minutes 15x 2 Comments Extra time for head on shoulders posturing and keeping scapula retracted Shoulder ER Standing Exercise Name Shoulder ER strengthening Side left Equipment Used Lev2 TB, Towel roll under tucked under arm Reps/Minutes 30x Comments Extra time for head on shoulders posturing and keeping scapula retracted Manual Therapy Treatment Soft Tissue Mobilization Thoracic Paraspinals Body Location Thoracic Parapinals Mobilization Type Strumming,Sustained Pressure Intensity/Depth Moderate Body Position Sidelying Joint Mobilizations L Scapula Joint L Scapulothoracic Jt Direction Distraction, protraction Body Position Sidelying Reps/Duration 15' PT-OP-T Assessment and Plan Start: 09/04/22 18:49 Freq: Status: Active Protocol: Document 09/15/22 14:32 LRN (Rec: 09/15/22 15:19 LRN [id number]) Physical Therapy Assessment Goals Three Impairment Decreased L shoulder & cervical AROM Impairment Shoulder AROM (in deg's): Flex: 128 L, 148 R; AB 108 L, 136 R; Ext is 55 L, 70 R. Cervical AROM (in deg's): Rot : 58 L, 48 R. Short Term Goal (STG) Improve C. R rotation AROM. Residential Goal (LTG) Pt will improve L shoulder AROM to be able to reach for objects overhead with minimal pain. LTG Duration 12/07/22 Two Impairment L shoulder pain rated 4/10 Impairment Decreased L SHR Short Term Goal (STG) Pt will demonstrate improved scapulohumeral mobility and rhythm. STG Duration 10/24/22 Senior Executive Assistant Goal (LTG) Reduce pain to manageable level of 1-2/10 when raising the L arm up. LTG Duration 12/07/22 One Impairment Lacks appropriate self care HEP Short Term Goal (STG) Pt will be educated in proper sitting and standing posture and be able to demonstrate proper posturing with v cues only. STG Duration 10/24/22 Residential Goal (LTG) Pt will be independent in a HEP of L shoulder ROM & RC/ postural/scapular strengthening ex's. LTG Duration 12/07/22 Assessment Summary Assessment Impingement L shoulder, probably involving the Supraspinatus and poor SHR. Pt is very stiff and tight in L upper back. Not able to get distraction of L scapula due to adherence of scapula on ribcage. Pt is not able to move smoothly with L shoulder stretches and demonstrates tremor like restriction when stretching the L shoulder. Physical Therapy Plan Frequency and Duration Frequency of Treatment 2x/Week Plan of Care Start Date 09/08/22 Plan of Care End Date 12/07/22 Next Visit Focus/Plan Next Note Type Treatment Note Next Visit Plan Assess Apley's Scratch Test. Issue HEP: L shoulder stretching and strengthening. C. R AROM stretch. HEP for ongoing self care for minimizing onset of pain. Educate pt in proper sitting and standing posture and monitor for ablity to demonstrate proper posturing with v cues only. UBE before stretching, but reset UBE for longer arm reach for UBE. Strengthening to improve shoulder posturing and proper SHR. Strengthening: L RC, Deltoid, Scapular stabilizers. JMT: L GHJ, ACJ & Scapula. ROM: L shoulder & neck rot. Modalities to minimize pain and promote healing (US, Ice/ EStim, Laser, Ionto).
--- NOTE | 2022-09-17 14:33 | PT.OTN ---
Current Diagnoses Impingement syndrome of left shoulder (09/17/22) Physical Therapy Treatment Note PT-OP-A Visit Information Start: 09/04/22 18:49 Freq: Status: Active Protocol: Document 09/17/22 13:50 SP (Rec: 09/17/22 15:01 SP [id number]) Out-Patient Physical Therapy Visit Information Visit Information Visit Type Treatment Note Visit Start Time 13:50 Visit Stop Time 14:33 Total Visit Minutes 43 Visit Number 4 Number of FORWARDER OPERATOR Visits 1 Evaluation Information Evaluation Date 09/08/22 Precautions Precautions Vertigo, LE injuries, Back pain - 4 lower discs compressed, Controlled HBP. PT-OP-B Current Condition Start: 09/04/22 18:49 Freq: Status: Active Protocol: Document 09/08/22 13:59 LRN (Rec: 09/08/22 18:11 LRN [id number]) Current Condition History of Current Condition Onset Date 1994 Current Complaints L shoulder pain in joint when lifting the arm History of Current Condition Insidious onset of L shoulder pain from lifting a heavy bag for work. Pt chose to not have surgery 20+ yrs ago and has lived with it since. Is returning now to try and get shoulder fixed. L shoulder impingement that rehab started before the pandemic and did not complete the program. States his shoulder was improving and with the last therapist stretching his scapula. Prior Treatments and Tests Physical therapy 10/2019 but not able to complete program due to COVID 19. Future Testing and Treatments Planned Shoulder MRI 10/2019 indicating : Partial thickness bursal sided tear of the supraspinatus tendon. Associated mild subacromial- subdeltoid bursitis Treatment Goals Patient/Caregiver Goals Reduce pain to manageable level of 1-2/10 and raise the L arm up. 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 Both mothers have in the past 2 months. Anxiety since retired. PT-OP-C Subjective Start: 09/04/22 18:49 Freq: Status: Active Protocol: Document 09/17/22 13:50 SP (Rec: 09/17/22 15:01 SP [id number]) OP-PT Subjective Patient Comments Patient Comments Pt reports felt little better after last tx post manual. Hasn't tried exercises since last tx. PT-OP-J Posture/Palpation/Skin Start: 09/04/22 18:49 Freq: Status: Active Protocol: Document 09/08/22 13:59 LRN (Rec: 09/08/22 18:11 LRN [id number]) Posture Evaluation Position Sitting Head/C-Spine Posture Forward Head Shoulder Posture (L) Elevated Comments Posture Comments Increased thoracic curvature, flattened L/S. Palpation Assessment Location L shoulder Palpation Location L upper shoulder and neck. Palpation Findings Soft Tissue Tightness Palpation Details Atrophy of L deltoid PT-OP-K Range of Motion Start: 09/04/22 18:49 Freq: Status: Active Protocol: Document 09/08/22 13:59 LRN (Rec: 09/08/22 18:11 LRN [id number]) Cervical Spine Range of Motion Cervical Spine Active Degrees Testing Position Sitting Flexion 60 Extension 25 Rotation Left 58 Rotation Right 40 Lateral Flexion Left 25 Lateral Flexion Right 28 Comments Pinch with C. Rot & SB bilaterally Shoulder Goniometric Range of Motion Shoulder Right Active Shoulder ROM WFL Yes Testing Position Sitting Flexion 148 Extension 70 Abduction 136 Left Active Testing Position Sitting Flexion 128 Extension 55 Abduction 108 PT-OP-L Special Tests Start: 09/04/22 18:49 Freq: Status: Active Protocol: Document 09/08/22 13:59 LRN (Rec: 09/08/22 18:11 LRN [id number]) Special Tests Shoulder Special Tests Painful arc Test Results + test L UE Dyer Felipe Impingement Test Results + test L UE Empty Can Test Results - test L UE PT-OP-M Strength Start: 09/04/22 18:49 Freq: Status: Active Protocol: Document 09/08/22 13:59 LRN (Rec: 09/08/22 18:11 LRN [id number]) Cervical Spine Strength Cervical Spine Manual Muscle Testing Testing Position Sitting Comments 5/5 bilaterally Shoulder Strength Shoulder Manual Muscle Testing Right Comments Generally 5/5. Left Flexion 5 Normal Extension 5 Normal Abduction (C5) 3+ Fair+ Adduction 5 Normal External Rotation 5 Normal Internal Rotation 5 Normal Horizontal Abduction 4 Good Horizontal Adduction 5 Normal Elbow/Forearm Strength Elbow and Forearm Manual Muscle Testing Right Comments Generally 5/5 Left Comments Generally 5/5 PT-OP-Q Treatments Start: 09/04/22 18:49 Freq: Status: Active Protocol: Document 09/17/22 13:50 SP (Rec: 09/17/22 15:01 SP [id number]) Therapeutic Exercises Supine Exercises Shoulder flex stretch Supine Exercise Name Shoulder Flex stretch Side left Reps/Minutes 5' Sidelying Exercises open book Sidelying Exercise Name added to HEP Side left Resistance AAROM, AROM Reps/Minutes x10 reps total Comments cued no UT recruitment, hand on head better scap thoracic mobility post man Standing Exercises self STMs Standing Exercise Name added toHEP- interscap, infrasp, ES Side left Equipment Used tennis ball on wall, instructed put in sock for self ease placement Reps/Minutes 1 min Comments good feedback response Manual Therapy Treatment Soft Tissue Mobilization L scapula Body Location UT, LS, rhomboid, infraspinatus, sub scap, pec judith/minor Mobilization Type Cross-Friction,Strumming, Sustained Pressure,Other Intensity/Depth Moderate Comments sidelying/supine Thoracic Paraspinals Body Location Thoracic Parapinals Mobilization Type Strumming,Sustained Pressure Intensity/Depth Moderate Body Position Sidelying Comments manual and instruction on self STMs using tennis ball on wall with good feedback response. Joint Mobilizations L Scapula Joint L Scapulothoracic Jt Direction Distraction, protraction/ retraction/UR, DR Body Position Sidelying Reps/Duration 15' Manual Techniques PROM Type FF, ABD, open book Body Location L shld Comments FF supine, abd, open book side . manual and AAROM and superior> inferior humeral head depression into ROM for decrease pinch feel. Improved ROM, Self-Care/Home Management Treatment Education Patient Education Home Exercise Program,Pain Management Other Education added selfSTMs ball on wall, open book. PT-OP-T Assessment and Plan Start: 09/04/22 18:49 Freq: Status: Active Protocol: Document 09/17/22 13:50 SP (Rec: 09/17/22 15:01 SP [id number]) Physical Therapy Assessment Goals Three Impairment Decreased L shoulder & cervical AROM Impairment Shoulder AROM (in deg's): Flex: 128 L, 148 R; AB 108 L, 136 R; Ext is 55 L, 70 R. Cervical AROM (in deg's): Rot : 58 L, 48 R. Short Term Goal (STG) Improve C. R rotation AROM. Ground Operations Superintendent Goal (LTG) Pt will improve L shoulder AROM to be able to reach for objects overhead with minimal pain. LTG Duration 12/07/22 Two Impairment L shoulder pain rated 4/10 Impairment Decreased L SHR Short Term Goal (STG) Pt will demonstrate improved scapulohumeral mobility and rhythm. STG Duration 10/24/22 Ground Operations Superintendent Goal (LTG) Reduce pain to manageable level of 1-2/10 when raising the L arm up. LTG Duration 12/07/22 One Impairment Lacks appropriate self care HEP Short Term Goal (STG) Pt will be educated in proper sitting and standing posture and be able to demonstrate proper posturing with v cues only. STG Duration 10/24/22 Mcfp Goal (LTG) Pt will be independent in a HEP of L shoulder ROM & RC/ postural/scapular strengthening ex's. LTG Duration 12/07/22 Assessment Summary Assessment Pt improved L scapular ROM post manual, scapulothoracic jt mob. Instructed self application with ball and openbook with cues slow movement for control and segmental movement. Pt reported increased ROM by end tx. Physical Therapy Plan Frequency and Duration Frequency of Treatment 2x/Week Plan of Care Start Date 09/08/22 Plan of Care End Date 12/07/22 Therapeutic Interventions Therapeutic Interventions Aquatic Therapy,Home Exercise Program,Joint Mobilizations, Manual Therapy,Neuromuscular Re-education,Patient/Caregiver Education,Self-Care/Home Management,Soft Tissue Mobilization,Therapeutic Activities,Therapeutic Exercises Modalities Cold Pack/Ice Massage,Electric Stimulation,Hot Packs, Iontophoresis,Ultrasound Other Therapeutic Interventions Iontophoresis with 4mg/mL Dexamethasone with Sodium Phosphate. Next Visit Focus/Plan Next Note Type Treatment Note Next Visit Plan Assess, added self STMs, open book last tx. Next review HEP. Assess Apley's Scratch Test. Issue HEP: L shoulder stretching and strengthening. C. R AROM stretch. HEP for ongoing self care for minimizing onset of pain. Educate pt in proper sitting and standing posture and monitor for ablity to demonstrate proper posturing with v cues only. UBE before stretching, but reset UBE for longer arm reach for UBE. Strengthening to improve shoulder posturing and proper SHR. Strengthening: L RC, Deltoid, Scapular stabilizers. JMT: L GHJ, ACJ & Scapula. ROM: L shoulder & neck rot. Modalities to minimize pain and promote healing (US, Ice/ EStim, Laser, Ionto).
--- NOTE | 2022-09-22 16:56 | PT.OTN ---
Current Diagnoses Impingement syndrome of left shoulder (09/22/22) Physical Therapy Treatment Note PT-OP-A Visit Information Start: 09/04/22 18:49 Freq: Status: Active Protocol: Document 09/22/22 13:06 LRN (Rec: 09/22/22 13:47 LRN [id number]) Out-Patient Physical Therapy Visit Information Visit Information Visit Type Treatment Note Visit Start Time 13:06 Visit Stop Time 13:44 Total Visit Minutes 38 Visit Number 5 Evaluation Information Evaluation Date 09/08/22 Precautions Precautions Vertigo, LE injuries, Back pain - 4 lower discs compressed, Controlled HBP. PT-OP-B Current Condition Start: 09/04/22 18:49 Freq: Status: Active Protocol: Document 09/08/22 13:59 LRN (Rec: 09/08/22 18:11 LRN [id number]) Current Condition History of Current Condition Onset Date 1994 Current Complaints L shoulder pain in joint when lifting the arm History of Current Condition Insidious onset of L shoulder pain from lifting a heavy bag for work. Pt chose to not have surgery 20+ yrs ago and has lived with it since. Is returning now to try and get shoulder fixed. L shoulder impingement that rehab started before the pandemic and did not complete the program. States his shoulder was improving and with the last therapist stretching his scapula. Prior Treatments and Tests Physical therapy 10/2019 but not able to complete program due to COVID 19. Future Testing and Treatments Planned Shoulder MRI 10/2019 indicating : Partial thickness bursal sided tear of the supraspinatus tendon. Associated mild subacromial- subdeltoid bursitis Treatment Goals Patient/Caregiver Goals Reduce pain to manageable level of 1-2/10 and raise the L arm up. 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 Both mothers have in the past 2 months. Anxiety since retired. PT-OP-C Subjective Start: 09/04/22 18:49 Freq: Status: Active Protocol: Document 09/22/22 13:06 LRN (Rec: 09/22/22 13:47 LRN [id number]) OP-PT Subjective Patient Comments Patient Comments States use of tennis ball use made him feel better, and last session he got more mobility of the scapula. PT-OP-J Posture/Palpation/Skin Start: 09/04/22 18:49 Freq: Status: Active Protocol: Document 09/08/22 13:59 LRN (Rec: 09/08/22 18:11 LRN [id number]) Posture Evaluation Position Sitting Head/C-Spine Posture Forward Head Shoulder Posture (L) Elevated Comments Posture Comments Increased thoracic curvature, flattened L/S. Palpation Assessment Location L shoulder Palpation Location L upper shoulder and neck. Palpation Findings Soft Tissue Tightness Palpation Details Atrophy of L deltoid PT-OP-K Range of Motion Start: 09/04/22 18:49 Freq: Status: Active Protocol: Document 09/08/22 13:59 LRN (Rec: 09/08/22 18:11 LRN [id number]) Cervical Spine Range of Motion Cervical Spine Active Degrees Testing Position Sitting Flexion 60 Extension 25 Rotation Left 58 Rotation Right 40 Lateral Flexion Left 25 Lateral Flexion Right 28 Comments Pinch with C. Rot & SB bilaterally Shoulder Goniometric Range of Motion Shoulder Right Active Shoulder ROM WFL Yes Testing Position Sitting Flexion 148 Extension 70 Abduction 136 Left Active Testing Position Sitting Flexion 128 Extension 55 Abduction 108 PT-OP-L Special Tests Start: 09/04/22 18:49 Freq: Status: Active Protocol: Document 09/08/22 13:59 LRN (Rec: 09/08/22 18:11 LRN [id number]) Special Tests Shoulder Special Tests Painful arc Test Results + test L UE Dyer Felipe Impingement Test Results + test L UE Empty Can Test Results - test L UE PT-OP-M Strength Start: 09/04/22 18:49 Freq: Status: Active Protocol: Document 09/08/22 13:59 LRN (Rec: 09/08/22 18:11 LRN [id number]) Cervical Spine Strength Cervical Spine Manual Muscle Testing Testing Position Sitting Comments 5/5 bilaterally Shoulder Strength Shoulder Manual Muscle Testing Right Comments Generally 5/5. Left Flexion 5 Normal Extension 5 Normal Abduction (C5) 3+ Fair+ Adduction 5 Normal External Rotation 5 Normal Internal Rotation 5 Normal Horizontal Abduction 4 Good Horizontal Adduction 5 Normal Elbow/Forearm Strength Elbow and Forearm Manual Muscle Testing Right Comments Generally 5/5 Left Comments Generally 5/5 PT-OP-Q Treatments Start: 09/04/22 18:49 Freq: Status: Active Protocol: Document 09/22/22 13:06 LRN (Rec: 09/22/22 13:47 [facility] [id number]) Therapeutic Exercises Supine Exercises Lat pull down Supine Exercise Name Lat Pull down Side bilateral Equipment Used Lev 2 Reps/Minutes 15x Comments Cuing to keep shoulders depressed, pt had pain in shldrs ~ 160 deg's flexed Shoulder Chest press Supine Exercise Name Chest press Side bilateral Equipment Used Cane Reps/Minutes 15x 2 Shoulder ER stretch Supine Exercise Name Shoulder ER stretch Side left Equipment Used Cane Reps/Minutes 4' Comments Much phy & v cuing for scapular retract/depression. Shoulder flex stretch Supine Exercise Name Shoulder Flex stretch Side left Reps/Minutes 5' Sidelying Exercises open book Sidelying Exercise Name Open book stretch - HEP Side left Resistance AAROM, AROM Reps/Minutes x10 reps total Comments cued no UT recruitment, hand on head better scap thoracic mobility post man Sitting Exercises Shoulder ER/Scap retract w/depr Sitting Exercise Name Shoulder ER/Scap retract w/ depr Side bilateral Reps/Minutes 15x Comments Much phys & v cuing for scapular depression/retraction Standing Exercises Scapular retract/depression Standing Exercise Name Scapular retract/depression Manual Therapy Treatment Joint Mobilizations L Scapula Joint L Scapulothoracic Jt Direction Distraction, protraction/ retraction/UR, DR Body Position Sidelying Reps/Duration 26' PT-OP-T Assessment and Plan Start: 09/04/22 18:49 Freq: Status: Active Protocol: Document 09/22/22 13:06 [facility] (Rec: 09/22/22 13:47 [facility] [id number]) Physical Therapy Assessment Goals Three Impairment Decreased L shoulder & cervical AROM Impairment Shoulder AROM (in deg's): Flex: 128 L, 148 R; AB 108 L, 136 R; Ext is 55 L, 70 R. Cervical AROM (in deg's): Rot : 58 L, 48 R. Short Term Goal (STG) Improve C. R rotation AROM. Filling Machine Operator Goal (LTG) Pt will improve L shoulder AROM to be able to reach for objects overhead with minimal pain. LTG Duration 12/07/22 Two Impairment L shoulder pain rated 4/10 Impairment Decreased L SHR Short Term Goal (STG) Pt will demonstrate improved scapulohumeral mobility and rhythm. 09/22/22: Improved L scapular mobility for distraction from ribcage. STG Duration 10/24/22 Correction Goal (LTG) Reduce pain to manageable level of 1-2/10 when raising the L arm up. LTG Duration 12/07/22 One Impairment Lacks appropriate self care HEP Short Term Goal (STG) Pt will be educated in proper sitting and standing posture and be able to demonstrate proper posturing with v cues only. STG Duration 10/24/22 Filling Machine Operator Goal (LTG) Pt will be independent in a HEP of L shoulder ROM & RC/ postural/scapular strengthening ex's. 09/22/22: Pt previously issued HEP: Open book (hands behind head) and self massage of thoracic paraspinals with 2 tennis balls, leaning against wall. LTG Duration 12/07/22 progressed on 09/17. Assessment Summary Assessment Pt L scapula is less bound down to thoracic ribcage. I was able to get under distal and mid medial border of scapula for distraction. Pt having less catch pain with L shoulder flex (in supine) with control of shoulder/ scapula elevation with movement. RC strengthening needed for stability at shoulder joint. Pt R shoulder elevation with ROM is now more visible than L shoulde with scapular pinches. Pt found self STMs very helpful last treatment, but did not get tennis balls for self treatment at home. Open book stretch caused shoulde pain unless well controlled movement during exercise. Physical Therapy Plan Frequency and Duration Frequency of Treatment 2x/Week Plan of Care Start Date 09/08/22 Plan of Care End Date 12/07/22 Next Visit Focus/Plan Next Note Type Treatment Note Next Visit Plan Assess Apley's Scratch Test. Issue HEP: C. AROM stretching. L shoulder stretching and strengthening. HEP for ongoing self care for minimizing onset of pain. Educate pt in proper sitting and standing posture and monitor for ablity to demonstrate proper posturing with v cues only. UBE before stretching, but reset UBE for longer arm reach for UBE. Strengthening to improve shoulder posturing and proper SHR. Strengthening: L RC, Deltoid, Scapular stabilizers. JMT: L GHJ, ACJ & Scapula. ROM: L shoulder & neck rot. Modalities to minimize pain and promote healing (US, Ice/ EStim, Laser, Ionto).
--- NOTE | 2022-09-22 16:58 | PT.OTN ---
Current Diagnoses Impingement syndrome of left shoulder (09/22/22) Physical Therapy Treatment Note PT-OP-A Visit Information Start: 09/04/22 18:49 Freq: Status: Active Protocol: Document 09/22/22 13:06 LRN (Rec: 09/22/22 13:47 LRN [id number]) Out-Patient Physical Therapy Visit Information Visit Information Visit Type Treatment Note Visit Start Time 13:06 Visit Stop Time 13:44 Total Visit Minutes 38 Visit Number 5 Evaluation Information Evaluation Date 09/08/22 Precautions Precautions Vertigo, LE injuries, Back pain - 4 lower discs compressed, Controlled HBP. PT-OP-B Current Condition Start: 09/04/22 18:49 Freq: Status: Active Protocol: Document 09/08/22 13:59 LRN (Rec: 09/08/22 18:11 LRN [id number]) Current Condition History of Current Condition Onset Date 1994 Current Complaints L shoulder pain in joint when lifting the arm History of Current Condition Insidious onset of L shoulder pain from lifting a heavy bag for work. Pt chose to not have surgery 20+ yrs ago and has lived with it since. Is returning now to try and get shoulder fixed. L shoulder impingement that rehab started before the pandemic and did not complete the program. States his shoulder was improving and with the last therapist stretching his scapula. Prior Treatments and Tests Physical therapy 10/2019 but not able to complete program due to COVID 19. Future Testing and Treatments Planned Shoulder MRI 10/2019 indicating : Partial thickness bursal sided tear of the supraspinatus tendon. Associated mild subacromial- subdeltoid bursitis Treatment Goals Patient/Caregiver Goals Reduce pain to manageable level of 1-2/10 and raise the L arm up. 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 Both mothers have in the past 2 months. Anxiety since retired. PT-OP-C Subjective Start: 09/04/22 18:49 Freq: Status: Active Protocol: Document 09/22/22 13:06 LRN (Rec: 09/22/22 13:47 LRN [id number]) OP-PT Subjective Patient Comments Patient Comments States use of tennis ball use made him feel better, and last session he got more mobility of the scapula. PT-OP-J Posture/Palpation/Skin Start: 09/04/22 18:49 Freq: Status: Active Protocol: Document 09/08/22 13:59 LRN (Rec: 09/08/22 18:11 LRN [id number]) Posture Evaluation Position Sitting Head/C-Spine Posture Forward Head Shoulder Posture (L) Elevated Comments Posture Comments Increased thoracic curvature, flattened L/S. Palpation Assessment Location L shoulder Palpation Location L upper shoulder and neck. Palpation Findings Soft Tissue Tightness Palpation Details Atrophy of L deltoid PT-OP-K Range of Motion Start: 09/04/22 18:49 Freq: Status: Active Protocol: Document 09/08/22 13:59 LRN (Rec: 09/08/22 18:11 LRN [id number]) Cervical Spine Range of Motion Cervical Spine Active Degrees Testing Position Sitting Flexion 60 Extension 25 Rotation Left 58 Rotation Right 40 Lateral Flexion Left 25 Lateral Flexion Right 28 Comments Pinch with C. Rot & SB bilaterally Shoulder Goniometric Range of Motion Shoulder Right Active Shoulder ROM WFL Yes Testing Position Sitting Flexion 148 Extension 70 Abduction 136 Left Active Testing Position Sitting Flexion 128 Extension 55 Abduction 108 PT-OP-L Special Tests Start: 09/04/22 18:49 Freq: Status: Active Protocol: Document 09/08/22 13:59 LRN (Rec: 09/08/22 18:11 LRN [id number]) Special Tests Shoulder Special Tests Painful arc Test Results + test L UE Dyer Felipe Impingement Test Results + test L UE Empty Can Test Results - test L UE PT-OP-M Strength Start: 09/04/22 18:49 Freq: Status: Active Protocol: Document 09/08/22 13:59 LRN (Rec: 09/08/22 18:11 LRN [id number]) Cervical Spine Strength Cervical Spine Manual Muscle Testing Testing Position Sitting Comments 5/5 bilaterally Shoulder Strength Shoulder Manual Muscle Testing Right Comments Generally 5/5. Left Flexion 5 Normal Extension 5 Normal Abduction (C5) 3+ Fair+ Adduction 5 Normal External Rotation 5 Normal Internal Rotation 5 Normal Horizontal Abduction 4 Good Horizontal Adduction 5 Normal Elbow/Forearm Strength Elbow and Forearm Manual Muscle Testing Right Comments Generally 5/5 Left Comments Generally 5/5 PT-OP-Q Treatments Start: 09/04/22 18:49 Freq: Status: Active Protocol: Document 09/22/22 13:06 LRN (Rec: 09/22/22 13:47 [facility] [id number]) Therapeutic Exercises Supine Exercises Lat pull down Supine Exercise Name Lat Pull down Side bilateral Equipment Used Lev 2 Reps/Minutes 15x Comments Cuing to keep shoulders depressed, pt had pain in shldrs ~ 160 deg's flexed Shoulder Chest press Supine Exercise Name Chest press Side bilateral Equipment Used Cane Reps/Minutes 15x 2 Shoulder ER stretch Supine Exercise Name Shoulder ER stretch Side left Equipment Used Cane Reps/Minutes 4' Comments Much phy & v cuing for scapular retract/depression. Shoulder flex stretch Supine Exercise Name Shoulder Flex stretch Side left Reps/Minutes 5' Sidelying Exercises open book Sidelying Exercise Name Open book stretch - HEP Side left Resistance AAROM, AROM Reps/Minutes x10 reps total Comments cued no [place] recruitment, hand on head better scap thoracic mobility post man Sitting Exercises Shoulder ER/Scap retract w/depr Sitting Exercise Name Shoulder ER/Scap retract w/ depr Side bilateral Reps/Minutes 15x Comments Much phys & v cuing for scapular depression/retraction Standing Exercises Scapular retract/depression Standing Exercise Name Scapular retract/depression Manual Therapy Treatment Joint Mobilizations L Scapula Joint L Scapulothoracic Jt Direction Distraction, protraction/ retraction/UR, DR Body Position Sidelying Reps/Duration 26' PT-OP-T Assessment and Plan Start: 09/04/22 18:49 Freq: Status: Active Protocol: Document 09/22/22 13:06 [facility] (Rec: 09/22/22 13:47 [facility] [id number]) Physical Therapy Assessment Goals Three Impairment Decreased L shoulder & cervical AROM Impairment Shoulder AROM (in deg's): Flex: 128 L, 148 R; AB 108 L, 136 R; Ext is 55 L, 70 R. Cervical AROM (in deg's): Rot : 58 L, 48 R. Short Term Goal (STG) Improve C. R rotation AROM. Ice Bag Assembler Goal (LTG) Pt will improve L shoulder AROM to be able to reach for objects overhead with minimal pain. LTG Duration 12/07/22 Two Impairment L shoulder pain rated 4/10 Impairment Decreased L SHR Short Term Goal (STG) Pt will demonstrate improved scapulohumeral mobility and rhythm. 09/22/22: Improved L scapular mobility for distraction from ribcage. STG Duration 10/24/22 Halfway Goal (LTG) Reduce pain to manageable level of 1-2/10 when raising the L arm up. LTG Duration 12/07/22 One Impairment Lacks appropriate self care HEP Short Term Goal (STG) Pt will be educated in proper sitting and standing posture and be able to demonstrate proper posturing with v cues only. STG Duration 10/24/22 Ice Bag Assembler Goal (LTG) Pt will be independent in a HEP of L shoulder ROM & RC/ postural/scapular strengthening ex's. 09/22/22: Pt previously issued HEP: Open book (hands behind head) and self massage of thoracic paraspinals with 2 tennis balls, leaning against wall. LTG Duration 12/07/22 progressed on 09/17. Assessment Summary Assessment Pt L scapula is less bound down to thoracic ribcage. I was able to get under distal and mid medial border of scapula for distraction. Pt having less catch pain with L shoulder flex (in supine) with control of shoulder/ scapula elevation with movement. RC strengthening needed for stability at shoulder joint. Pt R shoulder elevation with ROM is now more visible than L shoulde with scapular pinches. Pt found self STMs very helpful last treatment, but did not get tennis balls for self treatment at home. Open book stretch caused shoulde pain unless well controlled movement during exercise. Physical Therapy Plan Frequency and Duration Frequency of Treatment 2x/Week Plan of Care Start Date 09/08/22 Plan of Care End Date 12/07/22 Next Visit Focus/Plan Next Note Type Treatment Note Next Visit Plan Discuss scheduling for further therapy. Assess Apley's Scratch Test. Issue HEP: C. AROM stretching. L shoulder stretching and strengthening. HEP for ongoing self care for minimizing onset of pain. Educate pt in proper sitting and standing posture and monitor for ablity to demonstrate proper posturing with v cues only. UBE before stretching, but reset UBE for longer arm reach for UBE. Strengthening to improve shoulder posturing and proper SHR. Strengthening: L RC, Deltoid, Scapular stabilizers. JMT: L GHJ, ACJ & Scapula. ROM: L shoulder & neck rot. Modalities to minimize pain and promote healing (US, Ice/ EStim, Laser, Ionto).
--- NOTE | 2022-09-26 15:13 | PT.OTN ---
Current Diagnoses Impingement syndrome of left shoulder (09/26/22) Physical Therapy Treatment Note PT-OP-A Visit Information Start: 09/04/22 18:49 Freq: Status: Active Protocol: Document 09/26/22 14:30 TS (Rec: 09/26/22 16:42 TS [id number]) Out-Patient Physical Therapy Visit Information Visit Information Visit Type Treatment Note Visit Note SPTA Zachary lead treatment supervised by FRANCESCO Carrasco. Visit Start Time 14:30 Visit Stop Time 15:13 Total Visit Minutes 43 Visit Number 6 Number of SOFTWARE INTEGRATION DEVELOPER Visits 1 PT-OP-B Current Condition Start: 09/04/22 18:49 Freq: Status: Active Protocol: Document 09/08/22 13:59 LRN (Rec: 09/08/22 18:11 LRN [id number]) Current Condition History of Current Condition Onset Date 1994 Current Complaints L shoulder pain in joint when lifting the arm History of Current Condition Insidious onset of L shoulder pain from lifting a heavy bag for work. Pt chose to not have surgery 20+ yrs ago and has lived with it since. Is returning now to try and get shoulder fixed. L shoulder impingement that rehab started before the pandemic and did not complete the program. States his shoulder was improving and with the last therapist stretching his scapula. Prior Treatments and Tests Physical therapy 10/2019 but not able to complete program due to COVID 19. Future Testing and Treatments Planned Shoulder MRI 10/2019 indicating : Partial thickness bursal sided tear of the supraspinatus tendon. Associated mild subacromial- subdeltoid bursitis Treatment Goals Patient/Caregiver Goals Reduce pain to manageable level of 1-2/10 and raise the L arm up. 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 Both mothers have in the past 2 months. Anxiety since retired. PT-OP-C Subjective Start: 09/04/22 18:49 Freq: Status: Active Protocol: Document 09/26/22 14:30 TS (Rec: 09/26/22 16:42 TS [id number]) OP-PT Subjective Patient Comments Patient Comments Pt reports he feels the shoulder is loosening up on him. Hasn't been doing tennis ball stm at home due to throwing his tennis balls out. PT-OP-J Posture/Palpation/Skin Start: 09/04/22 18:49 Freq: Status: Active Protocol: Document 09/08/22 13:59 LRN (Rec: 09/08/22 18:11 LRN [id number]) Posture Evaluation Position Sitting Head/C-Spine Posture Forward Head Shoulder Posture (L) Elevated Comments Posture Comments Increased thoracic curvature, flattened L/S. Palpation Assessment Location L shoulder Palpation Location L upper shoulder and neck. Palpation Findings Soft Tissue Tightness Palpation Details Atrophy of L deltoid PT-OP-K Range of Motion Start: 09/04/22 18:49 Freq: Status: Active Protocol: Document 09/08/22 13:59 LRN (Rec: 09/08/22 18:11 LRN [id number]) Cervical Spine Range of Motion Cervical Spine Active Degrees Testing Position Sitting Flexion 60 Extension 25 Rotation Left 58 Rotation Right 40 Lateral Flexion Left 25 Lateral Flexion Right 28 Comments Pinch with C. Rot & SB bilaterally Shoulder Goniometric Range of Motion Shoulder Right Active Shoulder ROM WFL Yes Testing Position Sitting Flexion 148 Extension 70 Abduction 136 Left Active Testing Position Sitting Flexion 128 Extension 55 Abduction 108 PT-OP-L Special Tests Start: 09/04/22 18:49 Freq: Status: Active Protocol: Document 09/08/22 13:59 LRN (Rec: 09/08/22 18:11 LRN [id number]) Special Tests Shoulder Special Tests Painful arc Test Results + test L UE Dyer Felipe Impingement Test Results + test L UE Empty Can Test Results - test L UE PT-OP-M Strength Start: 09/04/22 18:49 Freq: Status: Active Protocol: Document 09/08/22 13:59 LRN (Rec: 09/08/22 18:11 LRN [id number]) Cervical Spine Strength Cervical Spine Manual Muscle Testing Testing Position Sitting Comments 5/5 bilaterally Shoulder Strength Shoulder Manual Muscle Testing Right Comments Generally 5/5. Left Flexion 5 Normal Extension 5 Normal Abduction (C5) 3+ Fair+ Adduction 5 Normal External Rotation 5 Normal Internal Rotation 5 Normal Horizontal Abduction 4 Good Horizontal Adduction 5 Normal Elbow/Forearm Strength Elbow and Forearm Manual Muscle Testing Right Comments Generally 5/5 Left Comments Generally 5/5 PT-OP-Q Treatments Start: 09/04/22 18:49 Freq: Status: Active Protocol: Document 09/26/22 14:30 TS (Rec: 09/26/22 16:42 TS [id number]) Cardio Equipment Upper Body Ergometer (UBE) Duration (Minutes) 6 RPM 70 Seat Position 13 Height 3 Other Postioned at 3.5 for increased reach, FWD 3 mins, BWD 3 mins Therapeutic Exercises Supine Exercises Lat pull down Supine Exercise Name Lat Pull down Side bilateral Equipment Used Lev 2 Reps/Minutes x10 Comments Good carryover of previous treatment Sitting Exercises Scapular Clocks Sitting Exercise Name 1 to 7, 11 to 5, Added to HEP Side left Reps/Minutes 1x15EA Comments Tactile cues for scapula ROM Standing Exercises 2 way shoulder Standing Exercise Name I's, Y's- in PT Reps/Minutes 2x10 Comments T's too much discomfort, twinging and significant tremoring Shoulder Ext Standing Exercise Name in PT Resistance LVL 2 Reps/Minutes 2x15 Comments Cues for posture, slow eccentric control Rows Standing Exercise Name in PT Equipment Used LVL 2 Reps/Minutes 2x10 Comments Cues for upright posture Apleys Scratch Test Standing Exercise Name Reaches T1 ER&ABD, Reaches L4 IR&ADD Side left Comments Discomfort with ER/ABD Shoulder IR Standing Exercise Name Shoulder IR strengthening- in PT Side left Equipment Used Lev2 TB Reps/Minutes 15x 2 Comments Cues for elbow tuck Shoulder ER Standing Exercise Name Shoulder ER strengthening-in PT Side left Equipment Used Lev2 TB Reps/Minutes 2x10 Comments L arm tremoring/ guarding, cues for elbow tuck Manual Therapy Treatment Soft Tissue Mobilization L scapula Body Location UT, LS, rhomboid, infraspinatus, sub scap, pec judith/minor Mobilization Type Cross-Friction,Strumming, Sustained Pressure,Other Intensity/Depth Moderate Body Position Sidelying Comments sidelying/supine, good response to manual therapy, reports feeling more scap motion. Joint Mobilizations GH Joint Joint Inferior, posterior Grade I Body Position Supine Reps/Duration 5' Comments Tremoring/muscle spasms in L arm, dissipates with vibration for relaxation. L Scapula Joint L Scapulothoracic Jt Direction Distraction, protraction/ retraction/UR, DR Body Position Sidelying Reps/Duration 8' PT-OP-T Assessment and Plan Start: 09/04/22 18:49 Freq: Status: Active Protocol: Document 09/26/22 14:30 TS (Rec: 09/26/22 16:42 TS [id number]) Physical Therapy Assessment Goals Three Impairment Decreased L shoulder & cervical AROM Impairment Shoulder AROM (in deg's): Flex: 128 L, 148 R; AB 108 L, 136 R; Ext is 55 L, 70 R. Cervical AROM (in deg's): Rot : 58 L, 48 R. Short Term Goal (STG) Improve C. R rotation AROM. Binding Dyer Goal (LTG) Pt will improve L shoulder AROM to be able to reach for objects overhead with minimal pain. LTG Duration 12/07/22 Two Impairment L shoulder pain rated 4/10 Impairment Decreased L SHR Short Term Goal (STG) Pt will demonstrate improved scapulohumeral mobility and rhythm. 09/22/22: Improved L scapular mobility for distraction from ribcage. STG Duration 10/24/22 Binding Dyer Goal (LTG) Reduce pain to manageable level of 1-2/10 when raising the L arm up. LTG Duration 12/07/22 One Impairment Lacks appropriate self care HEP Short Term Goal (STG) Pt will be educated in proper sitting and standing posture and be able to demonstrate proper posturing with v cues only. STG Duration 10/24/22 Mcc Goal (LTG) Pt will be independent in a HEP of L shoulder ROM & RC/ postural/scapular strengthening ex's. 09/22/22: Pt previously issued HEP: Open book (hands behind head) and self massage of thoracic paraspinals with 2 tennis balls, leaning against wall. 09/26/22: Scapular clocks 1 to 7, 11 to 5. LTG Duration 12/07/22 progressed on Assessment Summary Assessment Pt responded well to manual therapy with increased motion of scapula. Does demonstrate tremoring/muscle spasms with joint mobs, vibration of arm help relax. Apley scratch test pt was able to reach T1 with ER/ABD and L4 with IR/ADD. During standing exercises pt required consistent cues for posture and decreased neck flexion. Pt will continue to benefit from intervention to improve L shoulder ROM/ strength and postural training . Physical Therapy Plan Frequency and Duration Frequency of Treatment 2x/Week Plan of Care Start Date 09/08/22 Plan of Care End Date 12/07/22 Therapeutic Interventions Therapeutic Interventions Aquatic Therapy,Home Exercise Program,Joint Mobilizations, Manual Therapy,Neuromuscular Re-education,Patient/Caregiver Education,Self-Care/Home Management,Soft Tissue Mobilization,Therapeutic Activities,Therapeutic Exercises Modalities Cold Pack/Ice Massage,Electric Stimulation,Hot Packs, Iontophoresis,Ultrasound Other Therapeutic Interventions Iontophoresis with 4mg/mL Dexamethasone with Sodium Phosphate. Next Visit Focus/Plan Next Note Type Treatment Note Next Visit Plan Progress HEP. Assess scap clocks, continue posture training, scap ex, manual therapy as needed. Trial IR stretch w/ towel, pulleys. Issue HEP: C. AROM stretching. L shoulder stretching and strengthening. HEP for ongoing self care for minimizing onset of pain. Educate pt in proper sitting and standing posture and monitor for ablity to demonstrate proper posturing with v cues only. UBE before stretching, but reset UBE for longer arm reach for UBE. Strengthening to improve
--- NOTE | 2022-09-30 14:51 | PT.OTN ---
Current Diagnoses Impingement syndrome of left shoulder (09/30/22) Physical Therapy Treatment Note PT-OP-A Visit Information Start: 09/04/22 18:49 Freq: Status: Active Protocol: Document 09/30/22 13:48 LRN (Rec: 09/30/22 14:49 LRN [id number]) Out-Patient Physical Therapy Visit Information Visit Information Visit Type Treatment Note Visit Start Time 13:48 Visit Stop Time 14:30 Total Visit Minutes 42 Visit Number 7 Evaluation Information Evaluation Date 09/08/22 Precautions Precautions Vertigo, LE injuries, Back pain - 4 lower discs compressed, Controlled HBP. PT-OP-B Current Condition Start: 09/04/22 18:49 Freq: Status: Active Protocol: Document 09/08/22 13:59 LRN (Rec: 09/08/22 18:11 LRN [id number]) Current Condition History of Current Condition Onset Date 1994 Current Complaints L shoulder pain in joint when lifting the arm History of Current Condition Insidious onset of L shoulder pain from lifting a heavy bag for work. Pt chose to not have surgery 20+ yrs ago and has lived with it since. Is returning now to try and get shoulder fixed. L shoulder impingement that rehab started before the pandemic and did not complete the program. States his shoulder was improving and with the last therapist stretching his scapula. Prior Treatments and Tests Physical therapy 10/2019 but not able to complete program due to COVID 19. Future Testing and Treatments Planned Shoulder MRI 10/2019 indicating : Partial thickness bursal sided tear of the supraspinatus tendon. Associated mild subacromial- subdeltoid bursitis Treatment Goals Patient/Caregiver Goals Reduce pain to manageable level of 1-2/10 and raise the L arm up. 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 Both mothers have in the past 2 months. Anxiety since retired. PT-OP-C Subjective Start: 09/04/22 18:49 Freq: Status: Active Protocol: Document 09/30/22 13:48 LRN (Rec: 09/30/22 14:49 LRN [id number]) OP-PT Subjective Patient Comments Patient Comments No change. Lower back is fired up for 3 wks ago. After injection pain was 0-1/10 but now back is 4/10. Shoulder is not so bad since increased LBP. PT-OP-J Posture/Palpation/Skin Start: 09/04/22 18:49 Freq: Status: Active Protocol: Document 09/08/22 13:59 LRN (Rec: 09/08/22 18:11 LRN [id number]) Posture Evaluation Position Sitting Head/C-Spine Posture Forward Head Shoulder Posture (L) Elevated Comments Posture Comments Increased thoracic curvature, flattened L/S. Palpation Assessment Location L shoulder Palpation Location L upper shoulder and neck. Palpation Findings Soft Tissue Tightness Palpation Details Atrophy of L deltoid PT-OP-K Range of Motion Start: 09/04/22 18:49 Freq: Status: Active Protocol: Document 09/08/22 13:59 LRN (Rec: 09/08/22 18:11 LRN [id number]) Cervical Spine Range of Motion Cervical Spine Active Degrees Testing Position Sitting Flexion 60 Extension 25 Rotation Left 58 Rotation Right 40 Lateral Flexion Left 25 Lateral Flexion Right 28 Comments Pinch with C. Rot & SB bilaterally Shoulder Goniometric Range of Motion Shoulder Right Active Shoulder ROM WFL Yes Testing Position Sitting Flexion 148 Extension 70 Abduction 136 Left Active Testing Position Sitting Flexion 128 Extension 55 Abduction 108 PT-OP-L Special Tests Start: 09/04/22 18:49 Freq: Status: Active Protocol: Document 09/08/22 13:59 LRN (Rec: 09/08/22 18:11 LRN [id number]) Special Tests Shoulder Special Tests Painful arc Test Results + test L UE Dyer Felipe Impingement Test Results + test L UE Empty Can Test Results - test L UE PT-OP-M Strength Start: 09/04/22 18:49 Freq: Status: Active Protocol: Document 09/08/22 13:59 LRN (Rec: 09/08/22 18:11 LRN [id number]) Cervical Spine Strength Cervical Spine Manual Muscle Testing Testing Position Sitting Comments 5/5 bilaterally Shoulder Strength Shoulder Manual Muscle Testing Right Comments Generally 5/5. Left Flexion 5 Normal Extension 5 Normal Abduction (C5) 3+ Fair+ Adduction 5 Normal External Rotation 5 Normal Internal Rotation 5 Normal Horizontal Abduction 4 Good Horizontal Adduction 5 Normal Elbow/Forearm Strength Elbow and Forearm Manual Muscle Testing Right Comments Generally 5/5 Left Comments Generally 5/5 PT-OP-Q Treatments Start: 09/04/22 18:49 Freq: Status: Active Protocol: Document 12/06/22 13:48 LRN (Rec: 09/30/22 14:49 LRN [id number]) Therapeutic Exercises Supine Exercises Shoulder Horiz AB/AD Supine Exercise Name Horiz AB/AD stretch Side left Reps/Minutes 3' Shoulder IR stretch Supine Exercise Name Shoulder IR stretch Side left Equipment Used Cane Reps/Minutes 3' Shoulder ER stretch Supine Exercise Name Shoulder ER stretch Side left Equipment Used Cane Reps/Minutes 3' Comments Much phy & v cuing for scapular retract/depression. Shoulder flex stretch Supine Exercise Name Shoulder Flex stretch Side left Reps/Minutes 3' Sidelying Exercises Shoulder ER Sidelying Exercise Name Shoulder ER strengthening Side left Reps/Minutes 30x Manual Therapy Treatment Soft Tissue Mobilization L scapula Body Location L UT, rhomboid, sub scap. Mobilization Type Sustained Pressure,Other Intensity/Depth Moderate Body Position Sidelying Comments sidelying/supine: Scap distract, and PROM stretching. Pt did not c/o pain but noted decreased L shoulder AB mobility due to pain. Tremoring in L shoulder during stretching. Joint Mobilizations GH Joint Joint Inferior, posterior Grade I Body Position Supine Reps/Duration 5' Comments Tremoring/muscle spasms in L arm, dissipates with vibration for relaxation. L Scapula Joint L Scapulothoracic Jt Direction Distraction, protraction/ retraction/UR, DR Body Position Sidelying Reps/Duration 4x long holding Comments Tremoring/muscle spasms PT-OP-R Modalities Start: 09/04/22 18:49 Freq: Status: Active Protocol: Document 09/30/22 13:48 LRN (Rec: 09/30/22 14:50 LRN [id number]) Ultrasound Therapy Treatment L anter GHJ Treatment Duration (minutes) 4 Patient Position Supine Coupling Medium Ultrasound Gel Applicator Size (cm2) 2 Mode Setting Pulsed Duty Cycle 50% Intensity Setting (w/cm2) 1.0 Comments Location: L Subscapularis attachment at glenohumeral head. PT-OP-T Assessment and Plan Start: 09/04/22 18:49 Freq: Status: Active Protocol: Document 09/30/22 13:48 LRN (Rec: 09/30/22 14:49 LRN [id number]) Physical Therapy Assessment Goals Three Impairment Decreased L shoulder & cervical AROM Impairment Shoulder AROM (in deg's): Flex: 128 L, 148 R; AB 108 L, 136 R; Ext is 55 L, 70 R. Cervical AROM (in deg's): Rot : 58 L, 48 R. Short Term Goal (STG) Improve C. R rotation AROM. Truck Mechanic Goal (LTG) Pt will improve L shoulder AROM to be able to reach for objects overhead with minimal pain. LTG Duration 12/07/22 Two Impairment L shoulder pain rated 4/10 Impairment Decreased L SHR Short Term Goal (STG) Pt will demonstrate improved scapulohumeral mobility and rhythm. 09/22/22: Improved L scapular mobility for distraction from ribcage. STG Duration 10/24/22 Truck Mechanic Goal (LTG) Reduce pain to manageable level of 1-2/10 when raising the L arm up. LTG Duration 12/07/22 One Impairment Lacks appropriate self care HEP Short Term Goal (STG) Pt will be educated in proper sitting and standing posture and be able to demonstrate proper posturing with v cues only. STG Duration 10/24/22 Truck Mechanic Goal (LTG) Pt will be independent in a HEP of L shoulder ROM & RC/ postural/scapular strengthening ex's. 09/22/22: Pt previously issued HEP: Open book (hands behind head) and self massage of thoracic paraspinals with 2 tennis balls, leaning against wall. 09/26/22: Scapular clocks 1 to 7, 11 to 5. LTG Duration 12/07/22 progressed on Assessment Summary Assessment Less range with L Shoulder AB after scapular stretching, but improved after Ultrasound. Pt able to perform L Shoulder AB 90 deg's bilaterally. Much ms tremors/spasm during stretching. Pain at L Subscap attachment at humeral head. Physical Therapy Plan Frequency and Duration Frequency of Treatment 2x/Week Plan of Care Start Date 09/08/22 Plan of Care End Date 12/07/22 Next Visit Focus/Plan Next Note Type Treatment Note Next Visit Plan Progress HEP. Assess scap clocks, continue posture training, scap ex, manual therapy as needed. Trial IR stretch w/ towel, pulleys. Issue HEP: C. AROM stretching. L shoulder stretching and strengthening. HEP for ongoing self care for minimizing onset of pain. Educate pt in proper sitting and standing posture and monitor for ablity to demonstrate proper posturing with v cues only. UBE before stretching, but reset UBE for longer arm reach for UBE. Strengthening to improve
--- NOTE | 2022-10-03 15:24 | PT.OTN ---
Current Diagnoses Impingement syndrome of left shoulder (10/03/22) Physical Therapy Treatment Note PT-OP-A Visit Information Start: 09/04/22 18:49 Freq: Status: Active Protocol: Document 10/03/22 14:38 SP (Rec: 10/03/22 16:16 SP [id number]) Out-Patient Physical Therapy Visit Information Visit Information Visit Type Treatment Note Visit Start Time 14:38 Visit Stop Time 15:24 Total Visit Minutes 46 Visit Number 8 Number of GOGGLES ASSEMBLER Visits 1 Evaluation Information Evaluation Date 09/08/22 Precautions Precautions Vertigo, LE injuries, Back pain - 4 lower discs compressed, Controlled HBP. PT-OP-B Current Condition Start: 09/04/22 18:49 Freq: Status: Active Protocol: Document 09/08/22 13:59 LRN (Rec: 09/08/22 18:11 LRN [id number]) Current Condition History of Current Condition Onset Date 1994 Current Complaints L shoulder pain in joint when lifting the arm History of Current Condition Insidious onset of L shoulder pain from lifting a heavy bag for work. Pt chose to not have surgery 20+ yrs ago and has lived with it since. Is returning now to try and get shoulder fixed. L shoulder impingement that rehab started before the pandemic and did not complete the program. States his shoulder was improving and with the last therapist stretching his scapula. Prior Treatments and Tests Physical therapy 10/2019 but not able to complete program due to COVID 19. Future Testing and Treatments Planned Shoulder MRI 10/2019 indicating : Partial thickness bursal sided tear of the supraspinatus tendon. Associated mild subacromial- subdeltoid bursitis Treatment Goals Patient/Caregiver Goals Reduce pain to manageable level of 1-2/10 and raise the L arm up. 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 Both mothers have in the past 2 months. Anxiety since retired. PT-OP-C Subjective Start: 09/04/22 18:49 Freq: Status: Active Protocol: Document 10/03/22 14:38 SP (Rec: 10/03/22 16:16 SP [id number]) OP-PT Subjective Patient Comments Patient Comments Pt reported didn't notice a significant change in ROM after last tx, still getting a catch when reaching back/OH. He states will return to his massage therapist in Oct. Pt reported when saw Adan, PT 3 years ago was able to get deep under medial border of scapula lessening tension in shld and ableto move better. Pt states having L QL/ LES/ L Glut med tightness and discomfort walking lately, has had on/off in past. PT-OP-J Posture/Palpation/Skin Start: 09/04/22 18:49 Freq: Status: Active Protocol: Document 09/08/22 13:59 LRN (Rec: 09/08/22 18:11 LRN [id number]) Posture Evaluation Position Sitting Head/C-Spine Posture Forward Head Shoulder Posture (L) Elevated Comments Posture Comments Increased thoracic curvature, flattened L/S. Palpation Assessment Location L shoulder Palpation Location L upper shoulder and neck. Palpation Findings Soft Tissue Tightness Palpation Details Atrophy of L deltoid PT-OP-K Range of Motion Start: 09/04/22 18:49 Freq: Status: Active Protocol: Document 09/08/22 13:59 LRN (Rec: 09/08/22 18:11 LRN [id number]) Cervical Spine Range of Motion Cervical Spine Active Degrees Testing Position Sitting Flexion 60 Extension 25 Rotation Left 58 Rotation Right 40 Lateral Flexion Left 25 Lateral Flexion Right 28 Comments Pinch with C. Rot & SB bilaterally Shoulder Goniometric Range of Motion Shoulder Right Active Shoulder ROM WFL Yes Testing Position Sitting Flexion 148 Extension 70 Abduction 136 Left Active Testing Position Sitting Flexion 128 Extension 55 Abduction 108 PT-OP-L Special Tests Start: 09/04/22 18:49 Freq: Status: Active Protocol: Document 09/08/22 13:59 LRN (Rec: 09/08/22 18:11 LRN [id number]) Special Tests Shoulder Special Tests Painful arc Test Results + test L UE Dyer Felipe Impingement Test Results + test L UE Empty Can Test Results - test L UE PT-OP-M Strength Start: 09/04/22 18:49 Freq: Status: Active Protocol: Document 09/08/22 13:59 LRN (Rec: 09/08/22 18:11 LRN [id number]) Cervical Spine Strength Cervical Spine Manual Muscle Testing Testing Position Sitting Comments 5/5 bilaterally Shoulder Strength Shoulder Manual Muscle Testing Right Comments Generally 5/5. Left Flexion 5 Normal Extension 5 Normal Abduction (C5) 3+ Fair+ Adduction 5 Normal External Rotation 5 Normal Internal Rotation 5 Normal Horizontal Abduction 4 Good Horizontal Adduction 5 Normal Elbow/Forearm Strength Elbow and Forearm Manual Muscle Testing Right Comments Generally 5/5 Left Comments Generally 5/5 PT-OP-Q Treatments Start: 09/04/22 18:49 Freq: Status: Active Protocol: Document 10/03/22 14:38 SP (Rec: 10/03/22 16:16 SP [id number]) Therapeutic Exercises Supine Exercises Shoulder Horiz AB/AD Supine Exercise Name Horiz AB/AD AROM and stretch Side left Reps/Minutes x10, hold stretch 10 x3 Sidelying Exercises ABD Side left Resistance AAROM with manual facilitation after STMs Equipment Used x10 reps - improved ROM post manual scapular UR/DR chavez Reps/Minutes x10 Comments cued no UT recruitment open book Sidelying Exercise Name Open book stretch - HEP Side left Resistance AAROM with manual facilitation after STMs Reps/Minutes x10 reps - improved ROM post manual scap retract/retraction glides Comments cued no UT recruitment, hand on head better scap thoracic mobility posterio Standing Exercises doorway pec stretch Standing Exercise Name trialed- various ranges Side bilateral Reps/Minutes 10 x3 Comments discomfort L shld GH Jt.- cued no UT recruitment- DC'd throw concentric/ eccentric mobility Standing Exercise Name Added to HEPthrowing/ eccentric return AAROM, Adduction/eccentric ABD AAROM Side left Resistance TB #1 (no HOs requested/nor given) Equipment Used emphasis on retraction, depression, upward rotation Reps/Minutes x10 Comments good feedback response, cued slow controlled, no UT recruitment. self STMs Standing Exercise Name Discussion self - interscap, infrasp, ES Side left Equipment Used tennis ball on wall, instructed put in sock for self ease placement Manual Therapy Treatment Soft Tissue Mobilization L scapula Body Location L UT, rhomboid, sub scap, distal pec major. Mobilization Type Cross-Friction,Rolling, Strumming,Sustained Pressure, Other Intensity/Depth Moderate Body Position Sidelying Comments sidelying/supine: Scap distract, and PROM stretching. Prone L arm at side posterior retraction supported anteriorly, able to to access rhomboids and scapula off ribcage. Noted little Tremoring in L shoulder during stretching into FF supine/ABD sidelying, improved post manual. Joint Mobilizations GH Joint Joint Inferior, posterior Grade I Body Position Supine Reps/Duration 5' Comments Tremoring/muscle spasms in L arm, dissipates with vibration for relaxation. L Scapula Joint L Scapulothoracic Jt Direction Distraction, protraction/ retraction,UR/ DR Body Position Sidelying Reps/Duration 4x long holding Comments Tremoring/muscle spasms decreased post manual PT-OP-R Modalities Start: 09/04/22 18:49 Freq: Status: Active Protocol: Document 09/30/22 13:48 LRN (Rec: 09/30/22 14:50 LRN [id number]) Ultrasound Therapy Treatment L anter GHJ Treatment Duration (minutes) 4 Patient Position Supine Coupling Medium Ultrasound Gel Applicator Size (cm2) 2 Mode Setting Pulsed Duty Cycle 50% Intensity Setting (w/cm2) 1.0 Comments Location: L Subscapularis attachment at glenohumeral head. PT-OP-T Assessment and Plan Start: 09/04/22 18:49 Freq: Status: Active Protocol: Document 10/03/22 14:38 SP (Rec: 10/03/22 16:16 SP [id number]) Physical Therapy Assessment Goals Three Impairment Decreased L shoulder & cervical AROM Impairment Shoulder AROM (in deg's): Flex: 128 L, 148 R; AB 108 L, 136 R; Ext is 55 L, 70 R. Cervical AROM (in deg's): Rot : 58 L, 48 R. Short Term Goal (STG) Improve C. R rotation AROM. Lace Roller Goal (LTG) Pt will improve L shoulder AROM to be able to reach for objects overhead with minimal pain. 10/03/22: good feedback response to eccentric throwing and ABD in standing, tight but improved ROM and less discomfort each direction. LTG Duration 12/07/22 progressing 10/03/22 Two Impairment L shoulder pain rated 4/10 Impairment Decreased L SHR Short Term Goal (STG) Pt will demonstrate improved scapulohumeral mobility and rhythm. 09/22/22: Improved L scapular mobility for distraction from ribcage. : Improved L scapular ROM post manual prone, eccentric throwing return ( ABD/ ER/ scapular retraction/ depression) and ABD OH in standing. STG Duration 10/24/22 progressing Lace Roller Goal (LTG) Reduce pain to manageable level of 1-2/10 when raising the L arm up. LTG Duration 12/07/22 One Impairment Lacks appropriate self care HEP Short Term Goal (STG) Pt will be educated in proper sitting and standing posture and be able to demonstrate proper posturing with v cues only. STG Duration 10/24/22 Long-Term Goal (LTG) Pt will be independent in a HEP of L shoulder ROM & RC/ postural/scapular strengthening ex's. 09/22/22: Pt previously issued HEP: Open book (hands behind head) and self massage of thoracic paraspinals with 2 tennis balls, leaning against wall. 09/26/22: Scapular clocks 1 to 7, 11 to 5. LTG Duration 12/07/22 progressed on Assessment Summary Assessment Pt improvement in scapulothoracic mobility post manual STMs and facilitation AAROM during open book, ABD. Improved response to subscapula prone arm at side hand under pelvis, posterior lift shld complex. Good carryover scapular mobility post eccentric throwing and ABD OH with TB, added for home no HOs requested/ given. Physical Therapy Plan Frequency and Duration Frequency of Treatment 2x/Week Plan of Care Start Date 09/08/22 Plan of Care End Date 12/07/22 Therapeutic Interventions Therapeutic Interventions Aquatic Therapy,Home Exercise Program,Joint Mobilizations, Manual Therapy,Neuromuscular Re-education,Patient/Caregiver Education,Self-Care/Home Management,Soft Tissue Mobilization,Therapeutic Activities,Therapeutic Exercises Modalities Cold Pack/Ice Massage,Electric Stimulation,Hot Packs, Iontophoresis,Ultrasound Other Therapeutic Interventions Iontophoresis with 4mg/mL Dexamethasone with Sodium Phosphate. Next Visit Focus/Plan Next Note Type Treatment Note Next Visit Plan Progress HEP. Review scap clocks/ROM, eccentric throwing / ABD OH standing added last, no HOs . Trial IR stretch w/ towel, pulleys. Issue HEP: C. AROM stretching. L shoulder stretching and strengthening. HEP for ongoing self care for minimizing onset of pain. Educate pt in proper sitting and standing posture and monitor for ablity to demonstrate proper posturing with v cues only. UBE before stretching, but reset UBE for longer arm reach for UBE. Strengthening to improve
--- NOTE | 2022-10-10 07:17 | PT-OP ANOTE ---
Pt cancelled last 2 appts due to sickness, noted on scagliola mechanic messages.
--- NOTE | 2022-10-13 13:06 | PT.OTN ---
Current Diagnoses Impingement syndrome of left shoulder (10/13/22) Physical Therapy Treatment Note PT-OP-A Visit Information Start: 09/04/22 18:49 Freq: Status: Active Protocol: Document 10/13/22 12:17 SP (Rec: 10/13/22 13:07 SP [id number]) Out-Patient Physical Therapy Visit Information Visit Information Visit Type Treatment Note Visit Note 10th visit/ PN next tx. Visit Start Time 12:17 Visit Stop Time 13:06 Total Visit Minutes 49 Visit Number 9 Number of RESISTANCE MACHINE WELDER SETTER Visits 2 Evaluation Information Evaluation Date 09/08/22 Precautions Precautions Vertigo, LE injuries, Back pain - 4 lower discs compressed, Controlled HBP. PT-OP-B Current Condition Start: 09/04/22 18:49 Freq: Status: Active Protocol: Document 09/08/22 13:59 LRN (Rec: 09/08/22 18:11 LRN [id number]) Current Condition History of Current Condition Onset Date 1994 Current Complaints L shoulder pain in joint when lifting the arm History of Current Condition Insidious onset of L shoulder pain from lifting a heavy bag for work. Pt chose to not have surgery 20+ yrs ago and has lived with it since. Is returning now to try and get shoulder fixed. L shoulder impingement that rehab started before the pandemic and did not complete the program. States his shoulder was improving and with the last therapist stretching his scapula. Prior Treatments and Tests Physical therapy 10/2019 but not able to complete program due to COVID 19. Future Testing and Treatments Planned Shoulder MRI 10/2019 indicating : Partial thickness bursal sided tear of the supraspinatus tendon. Associated mild subacromial- subdeltoid bursitis Treatment Goals Patient/Caregiver Goals Reduce pain to manageable level of 1-2/10 and raise the L arm up. 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 Both mothers have in the past 2 months. Anxiety since retired. PT-OP-C Subjective Start: 09/04/22 18:49 Freq: Status: Active Protocol: Document 10/13/22 12:17 SP (Rec: 10/13/22 13:07 SP [id number]) OP-PT Subjective Patient Comments Patient Comments Pt reported hasn't been able to do much of the exercises with shld due to intestinal issues started to experience worsening after last tx, RESISTANCE MACHINE WELDER SETTER didn't mention pt thought ate something bad and stomach little irritated last tx. Doing much better today. Between 2 houses. PT-OP-J Posture/Palpation/Skin Start: 09/04/22 18:49 Freq: Status: Active Protocol: Document 09/08/22 13:59 LRN (Rec: 09/08/22 18:11 LRN [id number]) Posture Evaluation Position Sitting Head/C-Spine Posture Forward Head Shoulder Posture (L) Elevated Comments Posture Comments Increased thoracic curvature, flattened L/S. Palpation Assessment Location L shoulder Palpation Location L upper shoulder and neck. Palpation Findings Soft Tissue Tightness Palpation Details Atrophy of L deltoid PT-OP-K Range of Motion Start: 09/04/22 18:49 Freq: Status: Active Protocol: Document 09/08/22 13:59 LRN (Rec: 09/08/22 18:11 LRN [id number]) Cervical Spine Range of Motion Cervical Spine Active Degrees Testing Position Sitting Flexion 60 Extension 25 Rotation Left 58 Rotation Right 40 Lateral Flexion Left 25 Lateral Flexion Right 28 Comments Pinch with C. Rot & SB bilaterally Shoulder Goniometric Range of Motion Shoulder Right Active Shoulder ROM WFL Yes Testing Position Sitting Flexion 148 Extension 70 Abduction 136 Left Active Testing Position Sitting Flexion 128 Extension 55 Abduction 108 PT-OP-L Special Tests Start: 09/04/22 18:49 Freq: Status: Active Protocol: Document 09/08/22 13:59 LRN (Rec: 09/08/22 18:11 LRN [id number]) Special Tests Shoulder Special Tests Painful arc Test Results + test L UE Dyer Felipe Impingement Test Results + test L UE Empty Can Test Results - test L UE PT-OP-M Strength Start: 09/04/22 18:49 Freq: Status: Active Protocol: Document 09/08/22 13:59 LRN (Rec: 09/08/22 18:11 LRN [id number]) Cervical Spine Strength Cervical Spine Manual Muscle Testing Testing Position Sitting Comments 5/5 bilaterally Shoulder Strength Shoulder Manual Muscle Testing Right Comments Generally 5/5. Left Flexion 5 Normal Extension 5 Normal Abduction (C5) 3+ Fair+ Adduction 5 Normal External Rotation 5 Normal Internal Rotation 5 Normal Horizontal Abduction 4 Good Horizontal Adduction 5 Normal Elbow/Forearm Strength Elbow and Forearm Manual Muscle Testing Right Comments Generally 5/5 Left Comments Generally 5/5 PT-OP-Q Treatments Start: 09/04/22 18:49 Freq: Status: Active Protocol: Document 10/13/22 12:17 SP (Rec: 10/13/22 13:07 SP [id number]) Cardio Equipment Upper Body Ergometer (UBE) Duration (Minutes) 6 RPM 65 Seat Position 12 Height 3 Other Postioned at 3.5 for increased reach, FWD 3 mins, BWD 3 mins Therapeutic Exercises Supine Exercises FF, HABD AROM Shld Supine Exercise Name scapular AROM (in PT): retraction, depression, UR, DR Side bilateral Resistance AROM Equipment Used table/floor over noodle, blue foam roll 3, head additional pillow Reps/Minutes 15' Comments cued no UT recruitment allow scapular ease ROM, neutral chind nod Ts, FF, Sidelying Exercises ABD Side left Resistance AAROM with manual facilitation after STMs Equipment Used x10 reps - improved ROM post manual scapular UR/DR glides Reps/Minutes x10 Comments cued no UT recruitment, manual fac through range Standing Exercises wall posture Standing Exercise Name added to HEP Equipment Used vertical towel behind head Reps/Minutes 10' Comments extra time spent: pelvis/scap/ head toward wall, CS nod/flex, neutral LS Manual Therapy Treatment Soft Tissue Mobilization L scapula Body Location L UT, rhomboid, sub scap, distal pec major. Mobilization Type Cross-Friction,Rolling, Strumming,Sustained Pressure, Other Intensity/Depth Moderate Body Position Sidelying Comments sidelying/prone: Scap distract , and PROM stretching. Prone L arm at side posterior retraction supported anteriorly, able to to access rhomboids and scapula off ribcage. Noted little Tremoring in L shoulder during stretching into FF supine/ABD sidelying, improved post manual. Joint Mobilizations L Scapula Joint L Scapulothoracic Jt Direction Distraction, protraction/ retraction,UR/ DR Body Position Sidelying Reps/Duration 4x long holding Comments Tremoring/muscle spasms decreased post manual Self-Care/Home Management Treatment Education Patient Education Home Exercise Program,Posture Other Education Added wall posture to HEP PT-OP-R Modalities Start: 09/04/22 18:49 Freq: Status: Active Protocol: Document 09/30/22 13:48 LRN (Rec: 09/30/22 14:50 LRN [id number]) Ultrasound Therapy Treatment L anter GHJ Treatment Duration (minutes) 4 Patient Position Supine Coupling Medium Ultrasound Gel Applicator Size (cm2) 2 Mode Setting Pulsed Duty Cycle 50% Intensity Setting (w/cm2) 1.0 Comments Location: L Subscapularis attachment at glenohumeral head. PT-OP-T Assessment and Plan Start: 09/04/22 18:49 Freq: Status: Active Protocol: Document 10/13/22 12:17 SP (Rec: 10/13/22 13:07 SP [id number]) Physical Therapy Assessment Goals Three Impairment Decreased L shoulder & cervical AROM Impairment Shoulder AROM (in deg's): Flex: 128 L, 148 R; AB 108 L, 136 R; Ext is 55 L, 70 R. Cervical AROM (in deg's): Rot : 58 L, 48 R. Short Term Goal (STG) Improve C. R rotation AROM. Training Analyst Goal (LTG) Pt will improve L shoulder AROM to be able to reach for objects overhead with minimal pain. 10/03/22: good feedback response to eccentric throwing and ABD in standing, tight but improved ROM and less discomfort each direction. LTG Duration 12/07/22 progressing 10/03/22 Two Impairment L shoulder pain rated 4/10 Impairment Decreased L SHR Short Term Goal (STG) Pt will demonstrate improved scapulohumeral mobility and rhythm. 09/22/22: Improved L scapular mobility for distraction from ribcage. : Improved L scapular ROM post manual prone, eccentric throwing return ( ABD/ ER/ scapular retraction/ depression) and ABD OH in standing. STG Duration 10/24/22 progressing Training Analyst Goal (LTG) Reduce pain to manageable level of 1-2/10 when raising the L arm up. LTG Duration 12/07/22 One Impairment Lacks appropriate self care HEP Short Term Goal (STG) Pt will be educated in proper sitting and standing posture and be able to demonstrate proper posturing with v cues only. STG Duration 10/24/22 Training Analyst Goal (LTG) Pt will be independent in a HEP of L shoulder ROM & RC/ postural/scapular strengthening ex's. 09/22/22: Pt previously issued HEP: Open book (hands behind head) and self massage of thoracic paraspinals with 2 tennis balls, leaning against wall. 09/26/22: Scapular clocks 1 to 7, 11 to 5. 10/13/22: added wall posture LTG Duration 12/07/22 progressed on 10/13 Assessment Summary Assessment Trialed B shld pec stretch/FF/ HABD supine over noodle/foam roller for scapular posterior glide/ depression/ rotations but states uncomfortable WB on spine so discontinued and risk of hx of vertigo, did fine today coming up to stand. Physical Therapy Plan Frequency and Duration Frequency of Treatment 2x/Week Plan of Care Start Date 09/08/22 Plan of Care End Date 12/07/22 Therapeutic Interventions Therapeutic Interventions Aquatic Therapy,Home Exercise Program,Joint Mobilizations, Manual Therapy,Neuromuscular Re-education,Patient/Caregiver Education,Self-Care/Home Management,Soft Tissue Mobilization,Therapeutic Activities,Therapeutic Exercises Modalities Cold Pack/Ice Massage,Electric Stimulation,Hot Packs, Iontophoresis,Ultrasound Other Therapeutic Interventions Iontophoresis with 4mg/mL Dexamethasone with Sodium Phosphate. Next Visit Focus/Plan Next Note Type Progress Note Next Visit Plan Progress HEP. Review wall posture. Trial IR stretch w/ towel, pulleys. Issue HEP: C. AROM stretching. L shoulder stretching and strengthening. HEP for ongoing self care for minimizing onset of pain. Educate pt in proper sitting and standing posture and monitor for ablity to demonstrate proper posturing with v cues only. UBE before stretching, but reset UBE for longer arm reach for UBE. Strengthening to improve
--- NOTE | 2022-10-21 11:46 | PT-OP ANOTE ---
Pt's left message cancelling today's appt on 10/20, no reason given. PUBLIC HOUSING MANAGER called pt, left message if anything concerning need be aware of and reminding next appt 10/28.
--- NOTE | 2022-10-28 17:04 | PT.OTN ---
Current Diagnoses Impingement syndrome of left shoulder (10/28/22) Physical Therapy Treatment Note PT-OP-A Visit Information Start: 09/04/22 18:49 Freq: Status: Active Protocol: Document 10/28/22 15:21 LRN (Rec: 10/28/22 17:02 LRN [id number]) Out-Patient Physical Therapy Visit Information Visit Information Visit Type Progress Note Visit Start Time 15:21 Visit Stop Time 16:08 Total Visit Minutes 49 Visit Number 10 Evaluation Information Evaluation Date 09/08/22 Precautions Precautions Vertigo, LE injuries, Back pain - 4 lower discs compressed, Controlled HBP. PT-OP-B Current Condition Start: 09/04/22 18:49 Freq: Status: Active Protocol: Document 09/08/22 13:59 LRN (Rec: 09/08/22 18:11 LRN [id number]) Current Condition History of Current Condition Onset Date 1994 Current Complaints L shoulder pain in joint when lifting the arm History of Current Condition Insidious onset of L shoulder pain from lifting a heavy bag for work. Pt chose to not have surgery 20+ yrs ago and has lived with it since. Is returning now to try and get shoulder fixed. L shoulder impingement that rehab started before the pandemic and did not complete the program. States his shoulder was improving and with the last therapist stretching his scapula. Prior Treatments and Tests Physical therapy 10/2019 but not able to complete program due to COVID 19. Future Testing and Treatments Planned Shoulder MRI 10/2019 indicating : Partial thickness bursal sided tear of the supraspinatus tendon. Associated mild subacromial- subdeltoid bursitis Treatment Goals Patient/Caregiver Goals Reduce pain to manageable level of 1-2/10 and raise the L arm up. 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 Both mothers have in the past 2 months. Anxiety since retired. PT-OP-C Subjective Start: 09/04/22 18:49 Freq: Status: Active Protocol: Document 10/28/22 15:21 LRN (Rec: 10/28/22 17:02 LRN [id number]) OP-PT Subjective Patient Comments Patient Comments States the shoulder feels a little better but still has the hitch. Patient Questionnaires Quick Dash- Upper Extremity Quick Dash UE Score 11.36 Quick Dash UE Impairment 1 to 19% Impaired (Score 1-19) OP-PT Pain Assessment Pain Assessment Grid Paper Pain Assessment Grid Completed Yes Location L shoulder Pain Location Details Anterior L shoulder & L cervical paraspinals Intensity 4 Scale Used Numeric (0 - 10) PT-OP-J Posture/Palpation/Skin Start: 09/04/22 18:49 Freq: Status: Active Protocol: Document 09/08/22 13:59 LRN (Rec: 09/08/22 18:11 LRN [id number]) Posture Evaluation Position Sitting Head/C-Spine Posture Forward Head Shoulder Posture (L) Elevated Comments Posture Comments Increased thoracic curvature, flattened L/S. Palpation Assessment Location L shoulder Palpation Location L upper shoulder and neck. Palpation Findings Soft Tissue Tightness Palpation Details Atrophy of L deltoid PT-OP-K Range of Motion Start: 09/04/22 18:49 Freq: Status: Active Protocol: Document 10/28/22 15:21 LRN (Rec: 10/28/22 17:02 LRN [id number]) Shoulder Goniometric Range of Motion Shoulder Right Active Shoulder ROM WFL Yes Testing Position Standing Flexion 140 Extension 65 Abduction 160 Left Active Testing Position Standing Flexion 135 Extension 60 Abduction 155 Comments Painful arc is at 90 deg's for flex & 70 deg's for AB. PT-OP-L Special Tests Start: 09/04/22 18:49 Freq: Status: Active Protocol: Document 09/08/22 13:59 LRN (Rec: 09/08/22 18:11 LRN [id number]) Special Tests Shoulder Special Tests Painful arc Test Results + test L UE Dyer Felipe Impingement Test Results + test L UE Empty Can Test Results - test L UE PT-OP-M Strength Start: 09/04/22 18:49 Freq: Status: Active Protocol: Document 09/08/22 13:59 LRN (Rec: 09/08/22 18:11 LRN [id number]) Cervical Spine Strength Cervical Spine Manual Muscle Testing Testing Position Sitting Comments 5/5 bilaterally Shoulder Strength Shoulder Manual Muscle Testing Right Comments Generally 5/5. Left Flexion 5 Normal Extension 5 Normal Abduction (C5) 3+ Fair+ Adduction 5 Normal External Rotation 5 Normal Internal Rotation 5 Normal Horizontal Abduction 4 Good Horizontal Adduction 5 Normal Elbow/Forearm Strength Elbow and Forearm Manual Muscle Testing Right Comments Generally 5/5 Left Comments Generally 5/5 PT-OP-Q Treatments Start: 09/04/22 18:49 Freq: Status: Active Protocol: Document 10/28/22 15:21 LRN (Rec: 10/28/22 17:02 LRN [id number]) Cardio Equipment Upper Body Ergometer (UBE) Duration (Minutes) 6 RPM 65 Seat Position 12 Height 3 Other Postioned at 3.5 for increased reach. Extra time for equip setting. Therapeutic Exercises Sitting Exercises C. AROM Sitting Exercise Name C. rot stretch Side bilateral Reps/Minutes 4' Comments AROM taken Postural training Sitting Exercise Name Neck elongation & arch of LB Reps/Minutes 2' Standing Exercises Shoulder AROM Standing Exercise Name Active Shoulder flex, AB, Ext Side bilateral Reps/Minutes 10' Comments AROM taken Manual Therapy Treatment Soft Tissue Mobilization L scapula Body Location L UT, rhomboid, sub scap, distal pec major. Mobilization Type Cross-Friction,Rolling, Strumming,Sustained Pressure, Other Intensity/Depth Moderate Body Position Sidelying Comments sidelying/prone: Scap distract , and PROM stretching. Prone L arm at side posterior retraction supported anteriorly, able to to access rhomboids and scapula off ribcage. Noted little Tremoring in L shoulder during stretching into FF supine/ABD sidelying, improved post manual. Joint Mobilizations L Scapula Joint L Scapulothoracic Jt Direction Distraction, protraction/ retraction,UR/ DR Body Position Sidelying Reps/Duration 4x long holding Comments Tremoring/muscle spasms decreased post manual Manual Techniques MWM Type L scap stab, shdr retraction/ depression Body Location L shoulder flex, AB Body Position Standing Reps/Duration 10x Comments Flex mostly painfree. Minimized AB painful arc. Self-Care/Home Management Treatment Education Patient Education Home Exercise Program,Posture Activities Self-Care/Home Management Activities Issued & reviewed HEP: Sitting: Cervical Rot & SB stretch; Supine: Neck elongation; standing: postural correction against wall. PT-OP-R Modalities Start: 09/04/22 18:49 Freq: Status: Active Protocol: Document 09/30/22 13:48 LRN (Rec: 09/30/22 14:50 LRN [id number]) Ultrasound Therapy Treatment L anter GHJ Treatment Duration (minutes) 4 Patient Position Supine Coupling Medium Ultrasound Gel Applicator Size (cm2) 2 Mode Setting Pulsed Duty Cycle 50% Intensity Setting (w/cm2) 1.0 Comments Location: L Subscapularis attachment at glenohumeral head. PT-OP-T Assessment and Plan Start: 09/04/22 18:49 Freq: Status: Active Protocol: Document 10/28/22 15:21 LRN (Rec: 10/28/22 17:02 LRN [id number]) Physical Therapy Assessment Rehab Potential Rehabilitation Potential Good Evaluation Complexity Number of Personal Factors/Comorbidities 1-2 Number of Body Systems Impaired 4 or More Clinical Presentation at Evaluation Evolving Goals Three Impairment Decreased L shoulder & cervical AROM Impairment Shoulder AROM (in deg's): Flex: 128 L, 148 R; AB 108 L, 136 R; Ext is 55 L, 70 R. Cervical AROM (in deg's): Rot : 58 L, 48 R. Short Term Goal (STG) Improve C. R rotation AROM. 10/28/22: C. AROM (deg's): Rot 57L, 53R (pain in L neck). STG Duration 11/14/22 Product Support Analyst Goal (LTG) Pt will improve L shoulder AROM to be able to reach for objects overhead with minimal pain. 10/03/22: good feedback response to eccentric throwing and ABD in standing, tight but improved ROM and less discomfort each direction. 10/28/22: ROM slightly improved , pain about the same at the pain range ......... LTG Duration 12/23/22 progressing 10/03/22 Two Impairment L shoulder pain rated 4/10 Impairment Decreased L SHR Short Term Goal (STG) Pt will demonstrate improved scapulohumeral mobility and rhythm. 09/22/22: Improved L scapular mobility for distraction from ribcage. : Improved L scapular ROM post manual prone, eccentric throwing return ( ABD/ ER/ scapular retraction/ depression) and ABD OH in standing. STG Duration 11/14/22 progressing Product Support Analyst Goal (LTG) Reduce pain to manageable level of 1-2/10 when raising the L arm up. LTG Duration 12/23/22 One Impairment Lacks appropriate self care HEP Short Term Goal (STG) Pt will be educated in proper sitting and standing posture and be able to demonstrate proper posturing with v cues only. 10/28/22: Educated pt in proper sitting and standing posture. STG Duration 10/24/22 (MET GOAL 10/28/22) Product Support Analyst Goal (LTG) Pt will be independent in a HEP of L shoulder ROM & RC/ postural/scapular strengthening ex's. 09/22/22: Pt previously issued HEP: Open book (hands behind head) and self massage of thoracic paraspinals with 2 tennis balls, leaning against wall. 09/26/22: Scapular clocks 1 to 7, 11 to 5. 10/13/22: added wall posture LTG Duration 12/23/22 progressed on Assessment Summary Assessment The pt has improved in L shoulder AROM and neck mobility (rot), despite reduced attendance due to inclement weather and illness. Today he demonstrates a painful arc at 90 deg's with flex and 70 deg's with AB. The pt will benefit from skilled physical therapy to minimize his L shoulder painful arc and to improve his neck/shoulder posture, decreasing his shoulder pain. The pt will also benefit from further progression of his HEP. Physical Therapy Plan Frequency and Duration Frequency of Treatment 2x/Week Plan of Care Start Date 09/08/22 Plan of Care End Date 12/07/22 Therapeutic Interventions Therapeutic Interventions Home Exercise Program,Joint Mobilizations,Manual Therapy, Neuromuscular Re-education, Patient/Caregiver Education, Self-Care/Home Management,Soft Tissue Mobilization, Therapeutic Activities, Therapeutic Exercises Modalities Cold Pack/Ice Massage,Electric Stimulation,Hot Packs, Iontophoresis,Ultrasound Other Therapeutic Interventions Iontophoresis with 4mg/mL Dexamethasone with Sodium Phosphate. Next Visit Focus/Plan Next Note Type Treatment Note Next Visit Plan Focus on scapular stabilization, RC strengthening, and improving painfree L shoulder ROM. Progress HEP. Review wall posture. Issue HO for proper sitting/standing posture. Trial IR stretch w/ towel, pulleys. Issue HEP: L shoulder stretching and strengthening. HEP for ongoing self care for minimizing onset of pain. Monitor for ablity to demonstrate proper posturing with v cues only. UBE before stretching, but reset UBE for longer arm reach for UBE. Strengthening to improve
--- NOTE | 2022-10-28 17:06 | PT.OTN ---
Current Diagnoses Impingement syndrome of left shoulder (10/28/22) Physical Therapy Treatment Note PT-OP-A Visit Information Start: 09/04/22 18:49 Freq: Status: Active Protocol: Document 10/28/22 15:21 LRN (Rec: 10/28/22 17:02 LRN [id number]) Out-Patient Physical Therapy Visit Information Visit Information Visit Type Progress Note Visit Start Time 15:21 Visit Stop Time 16:08 Total Visit Minutes 49 Visit Number 10 Evaluation Information Evaluation Date 09/08/22 Precautions Precautions Vertigo, LE injuries, Back pain - 4 lower discs compressed, Controlled HBP. PT-OP-B Current Condition Start: 09/04/22 18:49 Freq: Status: Active Protocol: Document 09/08/22 13:59 LRN (Rec: 09/08/22 18:11 LRN [id number]) Current Condition History of Current Condition Onset Date 1994 Current Complaints L shoulder pain in joint when lifting the arm History of Current Condition Insidious onset of L shoulder pain from lifting a heavy bag for work. Pt chose to not have surgery 20+ yrs ago and has lived with it since. Is returning now to try and get shoulder fixed. L shoulder impingement that rehab started before the pandemic and did not complete the program. States his shoulder was improving and with the last therapist stretching his scapula. Prior Treatments and Tests Physical therapy 10/2019 but not able to complete program due to COVID 19. Future Testing and Treatments Planned Shoulder MRI 10/2019 indicating : Partial thickness bursal sided tear of the supraspinatus tendon. Associated mild subacromial- subdeltoid bursitis Treatment Goals Patient/Caregiver Goals Reduce pain to manageable level of 1-2/10 and raise the L arm up. 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 Both mothers have in the past 2 months. Anxiety since retired. PT-OP-C Subjective Start: 09/04/22 18:49 Freq: Status: Active Protocol: Document 10/28/22 15:21 LRN (Rec: 10/28/22 17:02 LRN [id number]) OP-PT Subjective Patient Comments Patient Comments States the shoulder feels a little better but still has the hitch. Patient Questionnaires Quick Dash- Upper Extremity Quick Dash UE Score 11.36 Quick Dash UE Impairment 1 to 19% Impaired (Score 1-19) OP-PT Pain Assessment Pain Assessment Grid Paper Pain Assessment Grid Completed Yes Location L shoulder Pain Location Details Anterior L shoulder & L cervical paraspinals Intensity 4 Scale Used Numeric (0 - 10) PT-OP-J Posture/Palpation/Skin Start: 09/04/22 18:49 Freq: Status: Active Protocol: Document 09/08/22 13:59 LRN (Rec: 09/08/22 18:11 LRN [id number]) Posture Evaluation Position Sitting Head/C-Spine Posture Forward Head Shoulder Posture (L) Elevated Comments Posture Comments Increased thoracic curvature, flattened L/S. Palpation Assessment Location L shoulder Palpation Location L upper shoulder and neck. Palpation Findings Soft Tissue Tightness Palpation Details Atrophy of L deltoid PT-OP-K Range of Motion Start: 09/04/22 18:49 Freq: Status: Active Protocol: Document 10/28/22 15:21 LRN (Rec: 10/28/22 17:02 LRN [id number]) Shoulder Goniometric Range of Motion Shoulder Right Active Shoulder ROM WFL Yes Testing Position Standing Flexion 140 Extension 65 Abduction 160 Left Active Testing Position Standing Flexion 135 Extension 60 Abduction 155 Comments Painful arc is at 90 deg's for flex & 70 deg's for AB. PT-OP-L Special Tests Start: 09/04/22 18:49 Freq: Status: Active Protocol: Document 09/08/22 13:59 LRN (Rec: 09/08/22 18:11 LRN [id number]) Special Tests Shoulder Special Tests Painful arc Test Results + test L UE Dyer Felipe Impingement Test Results + test L UE Empty Can Test Results - test L UE PT-OP-M Strength Start: 09/04/22 18:49 Freq: Status: Active Protocol: Document 09/08/22 13:59 LRN (Rec: 09/08/22 18:11 LRN [id number]) Cervical Spine Strength Cervical Spine Manual Muscle Testing Testing Position Sitting Comments 5/5 bilaterally Shoulder Strength Shoulder Manual Muscle Testing Right Comments Generally 5/5. Left Flexion 5 Normal Extension 5 Normal Abduction (C5) 3+ Fair+ Adduction 5 Normal External Rotation 5 Normal Internal Rotation 5 Normal Horizontal Abduction 4 Good Horizontal Adduction 5 Normal Elbow/Forearm Strength Elbow and Forearm Manual Muscle Testing Right Comments Generally 5/5 Left Comments Generally 5/5 PT-OP-Q Treatments Start: 09/04/22 18:49 Freq: Status: Active Protocol: Document 10/28/22 15:21 LRN (Rec: 10/28/22 17:02 LRN [id number]) Cardio Equipment Upper Body Ergometer (UBE) Duration (Minutes) 6 RPM 65 Seat Position 12 Height 3 Other Postioned at 3.5 for increased reach. Extra time for equip setting. Therapeutic Exercises Sitting Exercises C. AROM Sitting Exercise Name C. rot stretch Side bilateral Reps/Minutes 4' Comments AROM taken Postural training Sitting Exercise Name Neck elongation & arch of LB Reps/Minutes 2' Standing Exercises Shoulder AROM Standing Exercise Name Active Shoulder flex, AB, Ext Side bilateral Reps/Minutes 10' Comments AROM taken Manual Therapy Treatment Soft Tissue Mobilization L scapula Body Location L UT, rhomboid, sub scap, distal pec major. Mobilization Type Cross-Friction,Rolling, Strumming,Sustained Pressure, Other Intensity/Depth Moderate Body Position Sidelying Comments sidelying/prone: Scap distract , and PROM stretching. Prone L arm at side posterior retraction supported anteriorly, able to to access rhomboids and scapula off ribcage. Noted little Tremoring in L shoulder during stretching into FF supine/ABD sidelying, improved post manual. Joint Mobilizations L Scapula Joint L Scapulothoracic Jt Direction Distraction, protraction/ retraction,UR/ DR Body Position Sidelying Reps/Duration 4x long holding Comments Tremoring/muscle spasms decreased post manual Manual Techniques MWM Type L scap stab, shdr retraction/ depression Body Location L shoulder flex, AB Body Position Standing Reps/Duration 10x Comments Flex mostly painfree. Minimized AB painful arc. Self-Care/Home Management Treatment Education Patient Education Home Exercise Program,Posture Activities Self-Care/Home Management Activities Issued & reviewed HEP: Sitting: Cervical Rot & SB stretch; Supine: Neck elongation; standing: postural correction against wall. PT-OP-R Modalities Start: 09/04/22 18:49 Freq: Status: Active Protocol: Document 09/30/22 13:48 LRN (Rec: 09/30/22 14:50 LRN [id number]) Ultrasound Therapy Treatment L anter GHJ Treatment Duration (minutes) 4 Patient Position Supine Coupling Medium Ultrasound Gel Applicator Size (cm2) 2 Mode Setting Pulsed Duty Cycle 50% Intensity Setting (w/cm2) 1.0 Comments Location: L Subscapularis attachment at glenohumeral head. PT-OP-T Assessment and Plan Start: 09/04/22 18:49 Freq: Status: Active Protocol: Document 10/28/22 15:21 LRN (Rec: 10/28/22 17:02 LRN [id number]) Physical Therapy Assessment Rehab Potential Rehabilitation Potential Good Evaluation Complexity Number of Personal Factors/Comorbidities 1-2 Number of Body Systems Impaired 4 or More Clinical Presentation at Evaluation Evolving Goals Three Impairment Decreased L shoulder & cervical AROM Impairment Shoulder AROM (in deg's): Flex: 128 L, 148 R; AB 108 L, 136 R; Ext is 55 L, 70 R. Cervical AROM (in deg's): Rot : 58 L, 48 R. Short Term Goal (STG) Improve C. R rotation AROM. 10/28/22: C. AROM (deg's): Rot 57L, 53R (pain in L neck). STG Duration 11/14/22 Inspector Plating Goal (LTG) Pt will improve L shoulder AROM to be able to reach for objects overhead with minimal pain. 10/03/22: good feedback response to eccentric throwing and ABD in standing, tight but improved ROM and less discomfort each direction. 10/28/22: ROM slightly improved , pain about the same at the pain range ......... LTG Duration 12/23/22 progressing 10/03/22 Two Impairment L shoulder pain rated 4/10 Impairment Decreased L SHR Short Term Goal (STG) Pt will demonstrate improved scapulohumeral mobility and rhythm. 09/22/22: Improved L scapular mobility for distraction from ribcage. : Improved L scapular ROM post manual prone, eccentric throwing return ( ABD/ ER/ scapular retraction/ depression) and ABD OH in standing. STG Duration 11/14/22 progressing Inspector Plating Goal (LTG) Reduce pain to manageable level of 1-2/10 when raising the L arm up. LTG Duration 12/23/22 One Impairment Lacks appropriate self care HEP Short Term Goal (STG) Pt will be educated in proper sitting and standing posture and be able to demonstrate proper posturing with v cues only. 10/28/22: Educated pt in proper sitting and standing posture. STG Duration 10/24/22 (MET GOAL 10/28/22) Inspector Plating Goal (LTG) Pt will be independent in a HEP of L shoulder ROM & RC/ postural/scapular strengthening ex's. 09/22/22: Pt previously issued HEP: Open book (hands behind head) and self massage of thoracic paraspinals with 2 tennis balls, leaning against wall. 09/26/22: Scapular clocks 1 to 7, 11 to 5. 10/13/22: added wall posture LTG Duration 12/23/22 progressed on Assessment Summary Assessment The pt has improved in L shoulder AROM and neck mobility (rot), despite reduced attendance due to inclement weather and illness. Today he demonstrates a painful arc at 90 deg's with flex and 70 deg's with AB. The pt will benefit from skilled physical therapy to minimize his L shoulder painful arc and to improve his neck/shoulder posture, decreasing his shoulder pain. The pt will also benefit from further progression of his HEP. Physical Therapy Plan Frequency and Duration Frequency of Treatment 2x/Week Plan of Care Start Date 09/08/22 Plan of Care End Date 12/23/22 Therapeutic Interventions Therapeutic Interventions Home Exercise Program,Joint Mobilizations,Manual Therapy, Neuromuscular Re-education, Patient/Caregiver Education, Self-Care/Home Management,Soft Tissue Mobilization, Therapeutic Activities, Therapeutic Exercises Modalities Cold Pack/Ice Massage,Electric Stimulation,Hot Packs, Iontophoresis,Ultrasound Other Therapeutic Interventions Iontophoresis with 4mg/mL Dexamethasone with Sodium Phosphate. Next Visit Focus/Plan Next Note Type Treatment Note Next Visit Plan Focus on scapular stabilization, RC strengthening, and improving painfree L shoulder ROM. Progress HEP. Review wall posture. Issue HO for proper sitting/standing posture. Trial IR stretch w/ towel, pulleys. Issue HEP: L shoulder stretching and strengthening. HEP for ongoing self care for minimizing onset of pain. Monitor for ablity to demonstrate proper posturing with v cues only. UBE before stretching, but reset UBE for longer arm reach for UBE. Strengthening to improve
--- NOTE | 2022-10-28 17:06 | PT.OPPOC ---
Physical, Occupational & Speech Therapy At [facility] Current Diagnoses Impingement syndrome of left shoulder (10/28/22) Visit Care Team Role Provider Type Triston Moseley DO Family Provider Physician Primary Care Provider Specialty: Family Practice Address: [address] [place] [address], [id number] Email: [email or web address] Zaki Anderson DO Attending Provider Physician Referring Provider Specialty: Physiatry Pain Management Address: [facility] [place], [address] Email: [email or web address] Plan Of Care PT-OP-T Assessment and Plan Start: 09/04/22 18:49 Freq: Status: Active Protocol: Document 10/28/22 15:21 LRN (Rec: 10/28/22 17:02 LRN [id number]) Physical Therapy Assessment Rehab Potential Rehabilitation Potential Good Evaluation Complexity Number of Personal Factors/Comorbidities 1-2 Number of Body Systems Impaired 4 or More Clinical Presentation at Evaluation Evolving Goals Three Impairment Decreased L shoulder & cervical AROM Impairment Shoulder AROM (in deg's): Flex: 128 L, 148 R; AB 108 L, 136 R; Ext is 55 L, 70 R. Cervical AROM (in deg's): Rot : 58 L, 48 R. Short Term Goal (STG) Improve C. R rotation AROM. 10/28/22: C. AROM (deg's): Rot 57L, 53R (pain in L neck). STG Duration 11/14/22 Resident Medical Officer Goal (LTG) Pt will improve L shoulder AROM to be able to reach for objects overhead with minimal pain. 10/03/22: good feedback response to eccentric throwing and ABD in standing, tight but improved ROM and less discomfort each direction. 10/28/22: ROM slightly improved , pain about the same at the pain range ......... LTG Duration 12/23/22 progressing 10/03/22 Two Impairment L shoulder pain rated 4/10 Impairment Decreased L SHR Short Term Goal (STG) Pt will demonstrate improved scapulohumeral mobility and rhythm. 09/22/22: Improved L scapular mobility for distraction from ribcage. : Improved L scapular ROM post manual prone, eccentric throwing return ( ABD/ ER/ scapular retraction/ depression) and ABD OH in standing. STG Duration 11/14/22 progressing Nursing Home Goal (LTG) Reduce pain to manageable level of 1-2/10 when raising the L arm up. LTG Duration 12/23/22 One Impairment Lacks appropriate self care HEP Short Term Goal (STG) Pt will be educated in proper sitting and standing posture and be able to demonstrate proper posturing with v cues only. 10/28/22: Educated pt in proper sitting and standing posture. STG Duration 10/24/22 (MET GOAL 10/28/22) Nursing Home Goal (LTG) Pt will be independent in a HEP of L shoulder ROM & RC/ postural/scapular strengthening ex's. 09/22/22: Pt previously issued HEP: Open book (hands behind head) and self massage of thoracic paraspinals with 2 tennis balls, leaning against wall. 09/26/22: Scapular clocks 1 to 7, 11 to 5. 10/13/22: added wall posture LTG Duration 12/23/22 progressed on Assessment Summary Assessment The pt has improved in L shoulder AROM and neck mobility (rot), despite reduced attendance due to inclement weather and illness. Today he demonstrates a painful arc at 90 deg's with flex and 70 deg's with AB. The pt will benefit from skilled physical therapy to minimize his L shoulder painful arc and to improve his neck/shoulder posture, decreasing his shoulder pain. The pt will also benefit from further progression of his HEP. Physical Therapy Plan Frequency and Duration Frequency of Treatment 2x/Week Plan of Care Start Date 09/08/22 Plan of Care End Date 12/23/22 Therapeutic Interventions Therapeutic Interventions Home Exercise Program,Joint Mobilizations,Manual Therapy, Neuromuscular Re-education, Patient/Caregiver Education, Self-Care/Home Management,Soft Tissue Mobilization, Therapeutic Activities, Therapeutic Exercises Modalities Cold Pack/Ice Massage,Electric Stimulation,Hot Packs, Iontophoresis,Ultrasound Other Therapeutic Interventions Iontophoresis with 4mg/mL Dexamethasone with Sodium Phosphate. Next Visit Focus/Plan Next Note Type Treatment Note Next Visit Plan Focus on scapular stabilization, RC strengthening, and improving painfree L shoulder ROM. Progress HEP. Review wall posture. Issue HO for proper sitting/standing posture. Trial IR stretch w/ towel, pulleys. Issue HEP: L shoulder stretching and strengthening. HEP for ongoing self care for minimizing onset of pain. Monitor for ablity to demonstrate proper posturing with v cues only. UBE before stretching, but reset UBE for longer arm reach for UBE. Strengthening to improve Plan of Care Dates Plan of Care Start Date 09/08/22 Plan of Care End Date 12/23/22 Electronically Signed by: Hilda Rooney, PT 10/28/22 2807 If you are in agreement with this Plan of Care, please return a signed and dated copy. I have reviewed this Plan of Care and certify that the skilled therapy services above are required to meet the patient?s needs. Physician Signature Date Printed Name and Credentials Clinical Instructor Signature Printed Name and Credentials
--- NOTE | 2022-10-30 16:31 | PT.OTN ---
Current Diagnoses Impingement syndrome of left shoulder (10/30/22) Physical Therapy Treatment Note PT-OP-A Visit Information Start: 09/04/22 18:49 Freq: Status: Active Protocol: Document 10/30/22 15:15 LRN (Rec: 10/30/22 16:25 LRN [id number]) Out-Patient Physical Therapy Visit Information Visit Information Visit Type Treatment Note Visit Start Time 15:15 Visit Stop Time 16:10 Total Visit Minutes 55 Visit Number 11 Evaluation Information Evaluation Date 09/08/22 Precautions Precautions Vertigo, LE injuries, Back pain - 4 lower discs compressed, Controlled HBP. PT-OP-B Current Condition Start: 09/04/22 18:49 Freq: Status: Active Protocol: Document 09/08/22 13:59 LRN (Rec: 09/08/22 18:11 LRN [id number]) Current Condition History of Current Condition Onset Date 1994 Current Complaints L shoulder pain in joint when lifting the arm History of Current Condition Insidious onset of L shoulder pain from lifting a heavy bag for work. Pt chose to not have surgery 20+ yrs ago and has lived with it since. Is returning now to try and get shoulder fixed. L shoulder impingement that rehab started before the pandemic and did not complete the program. States his shoulder was improving and with the last therapist stretching his scapula. Prior Treatments and Tests Physical therapy 10/2019 but not able to complete program due to COVID 19. Future Testing and Treatments Planned Shoulder MRI 10/2019 indicating : Partial thickness bursal sided tear of the supraspinatus tendon. Associated mild subacromial- subdeltoid bursitis Treatment Goals Patient/Caregiver Goals Reduce pain to manageable level of 1-2/10 and raise the L arm up. 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 Both mothers have in the past 2 months. Anxiety since retired. PT-OP-C Subjective Start: 09/04/22 18:49 Freq: Status: Active Protocol: Document 10/30/22 15:15 LRN (Rec: 10/30/22 16:25 LRN [id number]) OP-PT Subjective Patient Comments Patient Comments No L shldr pain other than painful arc. PT-OP-J Posture/Palpation/Skin Start: 09/04/22 18:49 Freq: Status: Active Protocol: Document 09/08/22 13:59 LRN (Rec: 09/08/22 18:11 LRN [id number]) Posture Evaluation Position Sitting Head/C-Spine Posture Forward Head Shoulder Posture (L) Elevated Comments Posture Comments Increased thoracic curvature, flattened L/S. Palpation Assessment Location L shoulder Palpation Location L upper shoulder and neck. Palpation Findings Soft Tissue Tightness Palpation Details Atrophy of L deltoid PT-OP-K Range of Motion Start: 09/04/22 18:49 Freq: Status: Active Protocol: Document 10/30/22 15:15 LRN (Rec: 10/30/22 16:25 LRN [id number]) Cervical Spine Range of Motion Cervical Spine Active Degrees Testing Position Sitting Flexion 52 Extension 45 Rotation Left 58 Rotation Right 40 Lateral Flexion Left 25 Lateral Flexion Right 28 Comments Pinch side of neck with C. Rot & SB bilaterally. PT-OP-L Special Tests Start: 09/04/22 18:49 Freq: Status: Active Protocol: Document 09/08/22 13:59 LRN (Rec: 09/08/22 18:11 LRN [id number]) Special Tests Shoulder Special Tests Painful arc Test Results + test L UE Dyer Felipe Impingement Test Results + test L UE Empty Can Test Results - test L UE PT-OP-M Strength Start: 09/04/22 18:49 Freq: Status: Active Protocol: Document 09/08/22 13:59 LRN (Rec: 09/08/22 18:11 LRN [id number]) Cervical Spine Strength Cervical Spine Manual Muscle Testing Testing Position Sitting Comments 5/5 bilaterally Shoulder Strength Shoulder Manual Muscle Testing Right Comments Generally 5/5. Left Flexion 5 Normal Extension 5 Normal Abduction (C5) 3+ Fair+ Adduction 5 Normal External Rotation 5 Normal Internal Rotation 5 Normal Horizontal Abduction 4 Good Horizontal Adduction 5 Normal Elbow/Forearm Strength Elbow and Forearm Manual Muscle Testing Right Comments Generally 5/5 Left Comments Generally 5/5 PT-OP-Q Treatments Start: 09/04/22 18:49 Freq: Status: Active Protocol: Document 10/30/22 15:15 LRN (Rec: 10/30/22 16:25 LRN [id number]) Cardio Equipment Upper Body Ergometer (UBE) Duration (Minutes) 6 RPM 65 Seat Position 12 Height 4 Other No pain with increased head hgt Therapeutic Exercises Sitting Exercises C. AROM Sitting Exercise Name C. rot & SB stretch Side bilateral Reps/Minutes 6' Comments AROM taken Postural training Sitting Exercise Name Neck elongation & arch of LB trng throughout treatment Side bilateral Reps/Minutes 2' Standing Exercises Horiz Shldr AB/AD Standing Exercise Name Horiz Shldr Side left Equipment Used Lev 1 TB Reps/Minutes 10-15x Shoulder rolls Standing Exercise Name Backwards shoulder rolls between ex's. Reps/Minutes 10x throw concentric/ eccentric mobility Standing Exercise Name Added to HEPthrowing/ eccentric return AAROM, Adduction/eccentric ABD AAROM Side left Resistance TB #1 (no HOs requested/nor given) Equipment Used emphasis on retraction, depression, upward rotation Reps/Minutes x10 Comments good feedback response, cued slow controlled, no UT recruitment. Rows Standing Exercise Name in PT Equipment Used LVL 2 Reps/Minutes 2x10 Comments Cues for upright posture Scapular retract/depression Standing Exercise Name Scapular retract/depression Scapular depression Standing Exercise Name Lat pull down Equipment Used Lev2 TB Reps/Minutes 3' Shoulder ER Standing Exercise Name Shoulder ER strengthening-in PT Side left Equipment Used Lev2 TB Reps/Minutes 2x10 Comments L arm tremoring/ guarding, cues for elbow tuck Manual Therapy Treatment Joint Mobilizations GH Joint Joint posterior, inferior Grade I Body Position Supine Reps/Duration 3' Comments Tremoring/muscle spasms in L arm, dissipates with vibration for relaxation. L Scapula Joint L Scapulothoracic Jt Direction Distraction, protraction/ retraction/depresson,UR/ DR Body Position Sidelying Reps/Duration 20' Comments Tremoring/muscle spasms decreased post manual Manual Techniques MWM Type MWM L shldr flex, AB: scap retract/depress & humeral head depression Body Position Supine and sitting Reps/Duration 14' Comments Manual and belt assist to draw humeral head inferoposterior glide with flex & AB. PT-OP-R Modalities Start: 09/04/22 18:49 Freq: Status: Active Protocol: Document 09/30/22 13:48 LRN (Rec: 09/30/22 14:50 LRN [id number]) Ultrasound Therapy Treatment L anter GHJ Treatment Duration (minutes) 4 Patient Position Supine Coupling Medium Ultrasound Gel Applicator Size (cm2) 2 Mode Setting Pulsed Duty Cycle 50% Intensity Setting (w/cm2) 1.0 Comments Location: L Subscapularis attachment at glenohumeral head. PT-OP-T Assessment and Plan Start: 09/04/22 18:49 Freq: Status: Active Protocol: Document 10/30/22 15:15 LRN (Rec: 10/30/22 16:25 LRN [id number]) Physical Therapy Assessment Goals Three Impairment Decreased L shoulder & cervical AROM Impairment Shoulder AROM (in deg's): Flex: 128 L, 148 R; AB 108 L, 136 R; Ext is 55 L, 70 R. Cervical AROM (in deg's): Rot : 58 L, 48 R. Short Term Goal (STG) Improve C. R rotation AROM. 10/28/22: C. AROM (deg's): Rot 57L, 53R (pain in L neck). 10/30/22: C. AROM (deg's): Rot 50 L, 55 R; SB 15 L, 20 R ( same sided neck pain with rot & SB) STG Duration 11/14/22 Variable improvement 10/30/22 Intermediate Goal (LTG) Pt will improve L shoulder AROM to be able to reach for objects overhead with minimal pain. 10/03/22: good feedback response to eccentric throwing and ABD in standing, tight but improved ROM and less discomfort each direction. 10/28/22: ROM slightly improved , pain about the same at the pain range ......... LTG Duration 12/23/22 progressing Two Impairment L shoulder pain rated 4/10 Impairment Decreased L SHR Short Term Goal (STG) Pt will demonstrate improved scapulohumeral mobility and rhythm. 09/22/22: Improved L scapular mobility for distraction from ribcage. : Improved L scapular ROM post manual prone, eccentric throwing return ( ABD/ ER/ scapular retraction/ depression) and ABD OH in standing. STG Duration 11/14/22 progressing Capacity Planning Analyst Goal (LTG) Reduce pain to manageable level of 1-2/10 when raising the L arm up. LTG Duration 12/23/22 One Impairment Lacks appropriate self care HEP Short Term Goal (STG) Pt will be educated in proper sitting and standing posture and be able to demonstrate proper posturing with v cues only. 10/28/22: Educated pt in proper sitting and standing posture. STG Duration 10/24/22 (MET GOAL 10/28/22) Capacity Planning Analyst Goal (LTG) Pt will be independent in a HEP of L shoulder ROM & RC/ postural/scapular strengthening ex's. 09/22/22: Pt previously issued HEP: Open book (hands behind head) and self massage of thoracic paraspinals with 2 tennis balls, leaning against wall. 09/26/22: Scapular clocks 1 to 7, 11 to 5. 10/13/22: added wall posture LTG Duration 12/23/22 progressed on Assessment Summary Assessment Pt is able to correct posture with v cuing, but does not self correct independently. Anter L shoulder pain remains the same, but pain is lessened with belt placed around shoulder to assist with infer glide on flex and AB. Phys cuing required for scap stab strengthening. Physical Therapy Plan Frequency and Duration Frequency of Treatment 2x/Week Plan of Care Start Date 09/08/22 Plan of Care End Date 12/23/22 Next Visit Focus/Plan Next Note Type Treatment Note Next Visit Plan Focus on scapular stabilization, RC strengthening (add supine lat pull down), and improving painfree L shoulder ROM. Progress HEP (see below). Review wall posture. Issue HO for proper sitting/standing posture. Trial IR stretch w/towel, pulleys. Issue HEP: L shoulder stretching and strengthening (add shoulder ER/IR, lat pull down and scap retract/ depression). HEP for ongoing self care for minimizing onset of pain. Monitor for ablity to demonstrate proper posturing with v cues only. UBE before stretching, but reset UBE for longer arm reach for UBE. Strengthening to improve
--- NOTE | 2022-11-03 14:23 | PT.OTN ---
Current Diagnoses Impingement syndrome of left shoulder (11/03/22) Physical Therapy Treatment Note PT-OP-A Visit Information Start: 09/04/22 18:49 Freq: Status: Active Protocol: Document 11/03/22 09:49 LRN (Rec: 11/03/22 10:35 LRN [id number]) Out-Patient Physical Therapy Visit Information Visit Information Visit Type Treatment Note Visit Start Time 09:49 Visit Stop Time 10:29 Total Visit Minutes 40 Visit Number 12 Evaluation Information Evaluation Date 09/08/22 Precautions Precautions Vertigo, LE injuries, Back pain - 4 lower discs compressed, Controlled HBP. PT-OP-B Current Condition Start: 09/04/22 18:49 Freq: Status: Active Protocol: Document 09/08/22 13:59 LRN (Rec: 09/08/22 18:11 LRN [id number]) Current Condition History of Current Condition Onset Date 1994 Current Complaints L shoulder pain in joint when lifting the arm History of Current Condition Insidious onset of L shoulder pain from lifting a heavy bag for work. Pt chose to not have surgery 20+ yrs ago and has lived with it since. Is returning now to try and get shoulder fixed. L shoulder impingement that rehab started before the pandemic and did not complete the program. States his shoulder was improving and with the last therapist stretching his scapula. Prior Treatments and Tests Physical therapy 10/2019 but not able to complete program due to COVID 19. Future Testing and Treatments Planned Shoulder MRI 10/2019 indicating : Partial thickness bursal sided tear of the supraspinatus tendon. Associated mild subacromial- subdeltoid bursitis Treatment Goals Patient/Caregiver Goals Reduce pain to manageable level of 1-2/10 and raise the L arm up. 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 Both mothers have in the past 2 months. Anxiety since retired. PT-OP-C Subjective Start: 09/04/22 18:49 Freq: Status: Active Protocol: Document 11/03/22 09:49 LRN (Rec: 11/03/22 10:35 LRN [id number]) OP-PT Subjective Patient Comments Patient Comments States feeling the stretch to the spine he is able to walk stairs normal an not one at a time. PT-OP-J Posture/Palpation/Skin Start: 09/04/22 18:49 Freq: Status: Active Protocol: Document 09/08/22 13:59 LRN (Rec: 09/08/22 18:11 LRN [id number]) Posture Evaluation Position Sitting Head/C-Spine Posture Forward Head Shoulder Posture (L) Elevated Comments Posture Comments Increased thoracic curvature, flattened L/S. Palpation Assessment Location L shoulder Palpation Location L upper shoulder and neck. Palpation Findings Soft Tissue Tightness Palpation Details Atrophy of L deltoid PT-OP-K Range of Motion Start: 09/04/22 18:49 Freq: Status: Active Protocol: Document 10/30/22 15:15 LRN (Rec: 10/30/22 16:25 LRN [id number]) Cervical Spine Range of Motion Cervical Spine Active Degrees Testing Position Sitting Flexion 52 Extension 45 Rotation Left 58 Rotation Right 40 Lateral Flexion Left 25 Lateral Flexion Right 28 Comments Pinch side of neck with C. Rot & SB bilaterally. PT-OP-L Special Tests Start: 09/04/22 18:49 Freq: Status: Active Protocol: Document 09/08/22 13:59 LRN (Rec: 09/08/22 18:11 LRN [id number]) Special Tests Shoulder Special Tests Painful arc Test Results + test L UE Dyer Felipe Impingement Test Results + test L UE Empty Can Test Results - test L UE PT-OP-M Strength Start: 09/04/22 18:49 Freq: Status: Active Protocol: Document 09/08/22 13:59 LRN (Rec: 09/08/22 18:11 LRN [id number]) Cervical Spine Strength Cervical Spine Manual Muscle Testing Testing Position Sitting Comments 5/5 bilaterally Shoulder Strength Shoulder Manual Muscle Testing Right Comments Generally 5/5. Left Flexion 5 Normal Extension 5 Normal Abduction (C5) 3+ Fair+ Adduction 5 Normal External Rotation 5 Normal Internal Rotation 5 Normal Horizontal Abduction 4 Good Horizontal Adduction 5 Normal Elbow/Forearm Strength Elbow and Forearm Manual Muscle Testing Right Comments Generally 5/5 Left Comments Generally 5/5 PT-OP-Q Treatments Start: 09/04/22 18:49 Freq: Status: Active Protocol: Document 11/03/22 09:49 LRN (Rec: 11/03/22 10:35 LRN [id number]) Cardio Equipment Upper Body Ergometer (UBE) Duration (Minutes) 6 RPM 65 Seat Position 12 Height 4.5 Other No pain with increased head hgt Therapeutic Exercises Supine Exercises Lat pull down Supine Exercise Name Lat Pull down Side bilateral Equipment Used Lev 3 single band Reps/Minutes x20 Comments Extra time for set up Manual Therapy Treatment Joint Mobilizations GH Joint Joint posterior, inferior Grade I Body Position Supine Reps/Duration 4' Comments Tremoring/muscle spasms in L arm, dissipates with vibration for relaxation. L Scapula Joint L Scapulothoracic Jt Direction Distraction, protraction/ retraction/depresson,UR/ DR Body Position Sidelying Reps/Duration 12' Comments Tremoring/muscle spasms decreased post manual Manual Techniques MWM Type MWM L shldr flex, AB: scap retract/depress & humeral head depression Body Location PA and Infer glide L humeral head with ROM Body Position Supine Reps/Duration 14' Comments Manual and belt assist to draw humeral head inferoposterior glide with flex & AB. PT-OP-R Modalities Start: 09/04/22 18:49 Freq: Status: Active Protocol: Document 09/30/22 13:48 LRN (Rec: 09/30/22 14:50 LRN [id number]) Ultrasound Therapy Treatment L anter GHJ Treatment Duration (minutes) 4 Patient Position Supine Coupling Medium Ultrasound Gel Applicator Size (cm2) 2 Mode Setting Pulsed Duty Cycle 50% Intensity Setting (w/cm2) 1.0 Comments Location: L Subscapularis attachment at glenohumeral head. PT-OP-T Assessment and Plan Start: 09/04/22 18:49 Freq: Status: Active Protocol: Document 11/03/22 09:49 LRN (Rec: 11/03/22 10:35 LRN [id number]) Physical Therapy Assessment Goals Three Impairment Decreased L shoulder & cervical AROM Impairment Shoulder AROM (in deg's): Flex: 128 L, 148 R; AB 108 L, 136 R; Ext is 55 L, 70 R. Cervical AROM (in deg's): Rot : 58 L, 48 R. Short Term Goal (STG) Improve C. R rotation AROM. 10/28/22: C. AROM (deg's): Rot 57L, 53R (pain in L neck). 10/30/22: C. AROM (deg's): Rot 50 L, 55 R; SB 15 L, 20 R ( same sided neck pain with rot & SB) STG Duration 11/14/22 Variable improvement 10/30/22 Detention Goal (LTG) Pt will improve L shoulder AROM to be able to reach for objects overhead with minimal pain. 10/03/22: good feedback response to eccentric throwing and ABD in standing, tight but improved ROM and less discomfort each direction. 10/28/22: ROM slightly improved , pain about the same at the pain range ......... LTG Duration 12/23/22 progressing Two Impairment L shoulder pain rated 4/10 Impairment Decreased L SHR Short Term Goal (STG) Pt will demonstrate improved scapulohumeral mobility and rhythm. 09/22/22: Improved L scapular mobility for distraction from ribcage. : Improved L scapular ROM post manual prone, eccentric throwing return ( ABD/ ER/ scapular retraction/ depression) and ABD OH in standing. STG Duration 11/14/22 progressing Mime Artist Goal (LTG) Reduce pain to manageable level of 1-2/10 when raising the L arm up. LTG Duration 12/23/22 One Impairment Lacks appropriate self care HEP Short Term Goal (STG) Pt will be educated in proper sitting and standing posture and be able to demonstrate proper posturing with v cues only. 10/28/22: Educated pt in proper sitting and standing posture. STG Duration 10/24/22 (MET GOAL 10/28/22) Detention Goal (LTG) Pt will be independent in a HEP of L shoulder ROM & RC/ postural/scapular strengthening ex's. 09/22/22: Pt previously issued HEP: Open book (hands behind head) and self massage of thoracic paraspinals with 2 tennis balls, leaning against wall. 09/26/22: Scapular clocks 1 to 7, 11 to 5. 10/13/22: added wall posture LTG Duration 12/23/22 progressed on Assessment Summary Assessment Was able to mobiliize L scapula much easier today. Pt 's sharp pain is less. Clicking in L GHJ with shoulder flex. Able to reduce pain intensity with sup shldr IR (from an ER position at 80 deg's AB) with PA/infer glide of humeral head and support of scapula; therefore poor coodination of RC ms during active L shoulder ROM. L Scap stap and shldr strengthening needed. Physical Therapy Plan Next Visit Focus/Plan Next Note Type Treatment Note Next Visit Plan Focus on scapular stabilization, RC strengthening (add supine lat pull down), and improving painfree L shoulder ROM. Progress HEP (see below). Review wall posture. Issue HO for proper sitting/standing posture. Trial IR stretch w/towel, pulleys. Issue HEP: L shoulder stretching and strengthening (add shoulder ER/IR, lat pull down and scap retract/ depression). HEP for ongoing self care for minimizing onset of pain. Monitor for ablity to demonstrate proper posturing with v cues only. UBE before stretching, but reset UBE for longer arm reach for UBE. Strengthening to improve
--- NOTE | 2022-11-07 16:33 | PT.OTN ---
Current Diagnoses Impingement syndrome of left shoulder (11/07/22) Physical Therapy Treatment Note PT-OP-A Visit Information Start: 09/04/22 18:49 Freq: Status: Active Protocol: Document 11/07/22 09:47 LRN (Rec: 11/07/22 10:33 LRN [id number]) Out-Patient Physical Therapy Visit Information Visit Information Visit Type Treatment Note Visit Start Time 09:47 Visit Stop Time 10:30 Total Visit Minutes 43 Visit Number 13 Evaluation Information Evaluation Date 09/08/22 Precautions Precautions Vertigo, LE injuries, Back pain - 4 lower discs compressed, Controlled HBP. PT-OP-B Current Condition Start: 09/04/22 18:49 Freq: Status: Active Protocol: Document 09/08/22 13:59 LRN (Rec: 09/08/22 18:11 LRN [id number]) Current Condition History of Current Condition Onset Date 1994 Current Complaints L shoulder pain in joint when lifting the arm History of Current Condition Insidious onset of L shoulder pain from lifting a heavy bag for work. Pt chose to not have surgery 20+ yrs ago and has lived with it since. Is returning now to try and get shoulder fixed. L shoulder impingement that rehab started before the pandemic and did not complete the program. States his shoulder was improving and with the last therapist stretching his scapula. Prior Treatments and Tests Physical therapy 10/2019 but not able to complete program due to COVID 19. Future Testing and Treatments Planned Shoulder MRI 10/2019 indicating : Partial thickness bursal sided tear of the supraspinatus tendon. Associated mild subacromial- subdeltoid bursitis Treatment Goals Patient/Caregiver Goals Reduce pain to manageable level of 1-2/10 and raise the L arm up. 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 Both mothers have in the past 2 months. Anxiety since retired. PT-OP-C Subjective Start: 09/04/22 18:49 Freq: Status: Active Protocol: Document 11/07/22 09:47 LRN (Rec: 11/07/22 10:33 LRN [id number]) OP-PT Subjective Patient Comments Patient Comments Still hitch, but pain is less in shoulder (demonstrating AB) . PT-OP-J Posture/Palpation/Skin Start: 09/04/22 18:49 Freq: Status: Active Protocol: Document 09/08/22 13:59 LRN (Rec: 09/08/22 18:11 LRN [id number]) Posture Evaluation Position Sitting Head/C-Spine Posture Forward Head Shoulder Posture (L) Elevated Comments Posture Comments Increased thoracic curvature, flattened L/S. Palpation Assessment Location L shoulder Palpation Location L upper shoulder and neck. Palpation Findings Soft Tissue Tightness Palpation Details Atrophy of L deltoid PT-OP-K Range of Motion Start: 09/04/22 18:49 Freq: Status: Active Protocol: Document 10/30/22 15:15 LRN (Rec: 10/30/22 16:25 LRN [id number]) Cervical Spine Range of Motion Cervical Spine Active Degrees Testing Position Sitting Flexion 52 Extension 45 Rotation Left 58 Rotation Right 40 Lateral Flexion Left 25 Lateral Flexion Right 28 Comments Pinch side of neck with C. Rot & SB bilaterally. PT-OP-L Special Tests Start: 09/04/22 18:49 Freq: Status: Active Protocol: Document 09/08/22 13:59 LRN (Rec: 09/08/22 18:11 LRN [id number]) Special Tests Shoulder Special Tests Painful arc Test Results + test L UE Dyer Felipe Impingement Test Results + test L UE Empty Can Test Results - test L UE PT-OP-M Strength Start: 09/04/22 18:49 Freq: Status: Active Protocol: Document 09/08/22 13:59 LRN (Rec: 09/08/22 18:11 LRN [id number]) Cervical Spine Strength Cervical Spine Manual Muscle Testing Testing Position Sitting Comments 5/5 bilaterally Shoulder Strength Shoulder Manual Muscle Testing Right Comments Generally 5/5. Left Flexion 5 Normal Extension 5 Normal Abduction (C5) 3+ Fair+ Adduction 5 Normal External Rotation 5 Normal Internal Rotation 5 Normal Horizontal Abduction 4 Good Horizontal Adduction 5 Normal Elbow/Forearm Strength Elbow and Forearm Manual Muscle Testing Right Comments Generally 5/5 Left Comments Generally 5/5 PT-OP-Q Treatments Start: 09/04/22 18:49 Freq: Status: Active Protocol: Document 11/07/22 09:47 LRN (Rec: 11/07/22 10:33 LRN [id number]) Therapeutic Exercises Supine Exercises Lat pull down Supine Exercise Name Lat Pull down Side bilateral Equipment Used 3#, Lev 3 single band, cane Reps/Minutes 15x Comments Extra time for set up Shoulder Chest press Supine Exercise Name Chest press Side bilateral Equipment Used Cane Reps/Minutes 15x 2 Shoulder ER stretch Supine Exercise Name Manual Shoulder ER stretch with approximation of GHJ Side left Reps/Minutes 2' Comments Approximation to GHJ with ROM Shoulder flex stretch Supine Exercise Name Manual Approximation of GHJ w/ Assisted Shoulder Flex stretch Side left Reps/Minutes 2' Comments approximation helps decrease 120 deg pain range. Standing Exercises Horiz Shldr AB/AD Standing Exercise Name Horiz Shldr AB/AD Side left Equipment Used Lev 1 TB Reps/Minutes 15x Shoulder rolls Standing Exercise Name Backwards shoulder rolls between ex's. Reps/Minutes 10x Comments Cuing to elongate neck throw concentric/ eccentric mobility Standing Exercise Name Added to HEPthrowing/ eccentric return AAROM, Adduction/eccentric ABD AAROM Side left Resistance TB #1 (no HOs requested/nor given) Equipment Used emphasis on retraction, depression, upward rotation Reps/Minutes x10 Comments good feedback response, cued slow controlled, no UT recruitment. 2 way shoulder Standing Exercise Name I's, Y's- in PT Shoulder Ext Standing Exercise Name Scapular retract/depression Equipment Used LVL 3 TBand Reps/Minutes 15x Comments Cues for upright posture, scap retract/depress Rows Standing Exercise Name Scapular pinches Equipment Used LVL 3 TBand Reps/Minutes 15x Comments Cues for upright posture, scap retract Shoulder IR Standing Exercise Name Shoulder IR strengthening- in PT Side left Equipment Used Lev 2 TB Reps/Minutes 15x 1 Comments Cues for elbow tuck Shoulder ER Standing Exercise Name Shoulder ER strengthening Side left Equipment Used Lev 3 TB Reps/Minutes 15x1 Comments L arm tremoring/ guarding, cues for elbow tuck Manual Therapy Treatment Joint Mobilizations GH Joint Joint posterior, inferior Grade I Body Position Supine Reps/Duration 8' Comments Tremoring/muscle spasms in L arm, dissipates with vibration for relaxation. L Scapula Joint L Scapulothoracic Jt Direction Distraction, protraction/ retraction/depresson,UR/ DR Body Position Sidelying Reps/Duration 8' Comments Tremoring/muscle spasms decreased post manual PT-OP-R Modalities Start: 09/04/22 18:49 Freq: Status: Active Protocol: Document 09/30/22 13:48 LRN (Rec: 09/30/22 14:50 LRN [id number]) Ultrasound Therapy Treatment L anter GHJ Treatment Duration (minutes) 4 Patient Position Supine Coupling Medium Ultrasound Gel Applicator Size (cm2) 2 Mode Setting Pulsed Duty Cycle 50% Intensity Setting (w/cm2) 1.0 Comments Location: L Subscapularis attachment at glenohumeral head. PT-OP-T Assessment and Plan Start: 09/04/22 18:49 Freq: Status: Active Protocol: Document 11/07/22 09:47 LRN (Rec: 11/07/22 10:33 LRN [id number]) Physical Therapy Assessment Goals Three Impairment Decreased L shoulder & cervical AROM Impairment Shoulder AROM (in deg's): Flex: 128 L, 148 R; AB 108 L, 136 R; Ext is 55 L, 70 R. Cervical AROM (in deg's): Rot : 58 L, 48 R. Short Term Goal (STG) Improve C. R rotation AROM. 10/28/22: C. AROM (deg's): Rot 57L, 53R (pain in L neck). 10/30/22: C. AROM (deg's): Rot 50 L, 55 R; SB 15 L, 20 R ( same sided neck pain with rot & SB) STG Duration 11/14/22 Variable improvement 10/30/22 Prison Goal (LTG) Pt will improve L shoulder AROM to be able to reach for objects overhead with minimal pain. 10/03/22: good feedback response to eccentric throwing and ABD in standing, tight but improved ROM and less discomfort each direction. 10/28/22: ROM slightly improved , pain about the same at the pain range LTG Duration 12/23/22 progressing Two Impairment L shoulder pain rated 4/10 Impairment Decreased L SHR Short Term Goal (STG) Pt will demonstrate improved scapulohumeral mobility and rhythm. 09/22/22: Improved L scapular mobility for distraction from ribcage. : Improved L scapular ROM post manual prone, eccentric throwing return ( ABD/ ER/ scapular retraction/ depression) and ABD OH in standing. STG Duration 11/14/22 progressing Tonal Regulator Goal (LTG) Reduce pain to manageable level of 1-2/10 when raising the L arm up. LTG Duration 12/23/22 One Impairment Lacks appropriate self care HEP Short Term Goal (STG) Pt will be educated in proper sitting and standing posture and be able to demonstrate proper posturing with v cues only. 10/28/22: Educated pt in proper sitting and standing posture. STG Duration 10/24/22 (MET GOAL 10/28/22) Tonal Regulator Goal (LTG) Pt will be independent in a HEP of L shoulder ROM & RC/ postural/scapular strengthening ex's. 09/22/22: Pt previously issued HEP: Open book (hands behind head) and self massage of thoracic paraspinals with 2 tennis balls, leaning against wall. 09/26/22: Scapular clocks 1 to 7, 11 to 5. 10/13/22: added wall posture LTG Duration 12/23/22 progressed on Assessment Summary Assessment Pt needs strengthening and stabilizing of the L shoulder. Much improved subscapularis mobility, no pain felt with scap distraction from thoracic rib cage today and lessened pain at L shoulder with AROM. Pt feeling deep in L GHJ catch pain with shldr AB. Physical Therapy Plan Frequency and Duration Frequency of Treatment 2x/Week Plan of Care Start Date 09/08/22 Plan of Care End Date 12/23/22 Next Visit Focus/Plan Next Note Type Treatment Note Next Visit Plan Focus on scapular stabilization, RC strengthening (add sitting lat pull down), and improving painfree L shoulder ROM. Progress HEP (see below). Review wall posture and C. AROM. Issue HO for proper sitting/standing posture. Trial IR stretch w/towel, pulleys. Issue HEP: L shoulder stretching and strengthening (add shoulder ER/IR, lat pull down and scap retract/ depression). Monitor for ablity to demonstrate proper posturing with v cues only. Strengthening L shoulder to improve painfree AROM.
--- NOTE | 2022-11-14 14:45 | PT.OTN ---
Current Diagnoses Impingement syndrome of left shoulder (11/14/22) Physical Therapy Treatment Note PT-OP-A Visit Information Start: 09/04/22 18:49 Freq: Status: Active Protocol: Document 11/14/22 09:59 LRN (Rec: 11/14/22 12:38 LRN [id number]) Out-Patient Physical Therapy Visit Information Visit Information Visit Type Treatment Note Visit Start Time 09:59 Visit Stop Time 09:39 Total Visit Minutes 42 Visit Number 14 Evaluation Information Evaluation Date 09/08/22 Precautions Precautions Vertigo, LE injuries, Back pain - 4 lower discs compressed, Controlled HBP. PT-OP-B Current Condition Start: 09/04/22 18:49 Freq: Status: Active Protocol: Document 09/08/22 13:59 LRN (Rec: 09/08/22 18:11 LRN [id number]) Current Condition History of Current Condition Onset Date 1994 Current Complaints L shoulder pain in joint when lifting the arm History of Current Condition Insidious onset of L shoulder pain from lifting a heavy bag for work. Pt chose to not have surgery 20+ yrs ago and has lived with it since. Is returning now to try and get shoulder fixed. L shoulder impingement that rehab started before the pandemic and did not complete the program. States his shoulder was improving and with the last therapist stretching his scapula. Prior Treatments and Tests Physical therapy 10/2019 but not able to complete program due to COVID 19. Future Testing and Treatments Planned Shoulder MRI 10/2019 indicating : Partial thickness bursal sided tear of the supraspinatus tendon. Associated mild subacromial- subdeltoid bursitis Treatment Goals Patient/Caregiver Goals Reduce pain to manageable level of 1-2/10 and raise the L arm up. 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 Both mothers have in the past 2 months. Anxiety since retired. PT-OP-C Subjective Start: 09/04/22 18:49 Freq: Status: Active Protocol: Document 11/14/22 09:59 LRN (Rec: 11/14/22 14:29 LRN [id number]) OP-PT Subjective Patient Comments Patient Comments States he rested his L arm up on the top of a chair while waiting for a food order, and when he finally brought it down he had severe aching in the shoulder that last a couple hours. Now he is rethinking not having surgery. Today he has no c/o pain. PT-OP-J Posture/Palpation/Skin Start: 09/04/22 18:49 Freq: Status: Active Protocol: Document 09/08/22 13:59 LRN (Rec: 09/08/22 18:11 LRN [id number]) Posture Evaluation Position Sitting Head/C-Spine Posture Forward Head Shoulder Posture (L) Elevated Comments Posture Comments Increased thoracic curvature, flattened L/S. Palpation Assessment Location L shoulder Palpation Location L upper shoulder and neck. Palpation Findings Soft Tissue Tightness Palpation Details Atrophy of L deltoid PT-OP-K Range of Motion Start: 09/04/22 18:49 Freq: Status: Active Protocol: Document 10/30/22 15:15 LRN (Rec: 10/30/22 16:25 LRN [id number]) Cervical Spine Range of Motion Cervical Spine Active Degrees Testing Position Sitting Flexion 52 Extension 45 Rotation Left 58 Rotation Right 40 Lateral Flexion Left 25 Lateral Flexion Right 28 Comments Pinch side of neck with C. Rot & SB bilaterally. PT-OP-L Special Tests Start: 09/04/22 18:49 Freq: Status: Active Protocol: Document 09/08/22 13:59 LRN (Rec: 09/08/22 18:11 LRN [id number]) Special Tests Shoulder Special Tests Painful arc Test Results + test L UE Dyer Felipe Impingement Test Results + test L UE Empty Can Test Results - test L UE PT-OP-M Strength Start: 09/04/22 18:49 Freq: Status: Active Protocol: Document 09/08/22 13:59 LRN (Rec: 09/08/22 18:11 LRN [id number]) Cervical Spine Strength Cervical Spine Manual Muscle Testing Testing Position Sitting Comments 5/5 bilaterally Shoulder Strength Shoulder Manual Muscle Testing Right Comments Generally 5/5. Left Flexion 5 Normal Extension 5 Normal Abduction (C5) 3+ Fair+ Adduction 5 Normal External Rotation 5 Normal Internal Rotation 5 Normal Horizontal Abduction 4 Good Horizontal Adduction 5 Normal Elbow/Forearm Strength Elbow and Forearm Manual Muscle Testing Right Comments Generally 5/5 Left Comments Generally 5/5 PT-OP-Q Treatments Start: 09/04/22 18:49 Freq: Status: Active Protocol: Document 11/14/22 09:59 LRN (Rec: 11/14/22 12:38 LRN [id number]) Cardio Equipment Upper Body Ergometer (UBE) Duration (Minutes) 7 RPM 65 Seat Position 12 Height 4.5 Other No pain with increased head hgt Gym Equipment Cable Column (Body Solid) Lat Pull Down Details Lat pull down for scap retract /depression Resistance 15# Reps/Time 15x 2 Therapeutic Exercises Standing Exercises Shoulder IR Standing Exercise Name Shoulder IR strengthening- in PT Side left Equipment Used Lev 2 TB Reps/Minutes 15x 2 Comments Cues for elbow tuck Shoulder ER Standing Exercise Name Shoulder ER strengthening Side left Equipment Used Lev 2 TB Reps/Minutes 15x2 Comments L arm tremoring/ guarding, cues for elbow tuck Other Exercises Overhead eren Other Exercise Name Shoulder flex, AB stretch with scapular retraining Side left Reps/Minutes 20x each Comments phys cuing for L scap to avoid pain range. Manual Therapy Treatment Joint Mobilizations L Scapula Joint L Scapulothoracic Jt Direction Distraction, protraction/ retraction/depresson,UR/ DR Body Position Sidelying Reps/Duration 8' Comments Tremoring/muscle spasms decreased post manual Self-Care/Home Management Treatment Education Patient Education Home Exercise Program Activities Self-Care/Home Management Activities I/S pt in standing lat pull down ex at home with TBand. Issued L3 TBand for the exercise. PT-OP-R Modalities Start: 09/04/22 18:49 Freq: Status: Active Protocol: Document 09/30/22 13:48 LRN (Rec: 09/30/22 14:50 LRN [id number]) Ultrasound Therapy Treatment L anter GHJ Treatment Duration (minutes) 4 Patient Position Supine Coupling Medium Ultrasound Gel Applicator Size (cm2) 2 Mode Setting Pulsed Duty Cycle 50% Intensity Setting (w/cm2) 1.0 Comments Location: L Subscapularis attachment at glenohumeral head. PT-OP-T Assessment and Plan Start: 09/04/22 18:49 Freq: Status: Active Protocol: Document 11/14/22 09:59 LRN (Rec: 11/14/22 12:38 LRN [id number]) Physical Therapy Assessment Goals Three Impairment Decreased L shoulder & cervical AROM Impairment Shoulder AROM (in deg's): Flex: 128 L, 148 R; AB 108 L, 136 R; Ext is 55 L, 70 R. Cervical AROM (in deg's): Rot : 58 L, 48 R. Short Term Goal (STG) Improve C. R rotation AROM. 10/28/22: C. AROM (deg's): Rot 57L, 53R (pain in L neck). 10/30/22: C. AROM (deg's): Rot 50 L, 55 R; SB 15 L, 20 R ( same sided neck pain with rot & SB) STG Duration 11/14/22 Variable improvement 10/30/22 Half-Way Goal (LTG) Pt will improve L shoulder AROM to be able to reach for objects overhead with minimal pain. 10/03/22: good feedback response to eccentric throwing and ABD in standing, tight but improved ROM and less discomfort each direction. 10/28/22: ROM slightly improved , pain about the same at the pain range LTG Duration 12/23/22 progressing Two Impairment L shoulder pain rated 4/10 Impairment Decreased L SHR Short Term Goal (STG) Pt will demonstrate improved scapulohumeral mobility and rhythm. 09/22/22: Improved L scapular mobility for distraction from ribcage. : Improved L scapular ROM post manual prone, eccentric throwing return ( ABD/ ER/ scapular retraction/ depression) and ABD OH in standing. STG Duration 11/14/22 progressing Half-Way Goal (LTG) Reduce pain to manageable level of 1-2/10 when raising the L arm up. LTG Duration 12/23/22 One Impairment Lacks appropriate self care HEP Short Term Goal (STG) Pt will be educated in proper sitting and standing posture and be able to demonstrate proper posturing with v cues only. 10/28/22: Educated pt in proper sitting and standing posture. STG Duration 10/24/22 (MET GOAL 10/28/22) Half-Way Goal (LTG) Pt will be independent in a HEP of L shoulder ROM & RC/ postural/scapular strengthening ex's. 09/22/22: Pt previously issued HEP: Open book (hands behind head) and self massage of thoracic paraspinals with 2 tennis balls, leaning against wall. 09/26/22: Scapular clocks 1 to 7, 11 to 5. 10/13/22: added wall posture LTG Duration 12/23/22 progressed on Assessment Summary Assessment Pt L shoulder pain appears to be end-range impingement pain. No mid-range catch pain noted. Pt L shldr SHR appears to be moving normally by end of therapy with flex/AB. Physical Therapy Plan Frequency and Duration Frequency of Treatment 2x/Week Plan of Care Start Date 09/08/22 Plan of Care End Date 12/23/22 Next Visit Focus/Plan Next Note Type Treatment Note Next Visit Plan Assess C/Shldr AROM and progress to goal #3. Focus on scapular stabilization, RC strengthening (add sitting lat pull down), and improving painfree L shoulder ROM. Progress HEP (see below). Review wall posture and C. AROM. Issue HO for proper sitting/standing posture. Trial IR stretch w/towel, pulleys. Issue HEP: L shoulder stretching and strengthening (add shoulder ER/IR, lat pull down and scap retract/ depression). Monitor for ablity to demonstrate proper posturing with v cues only. Strengthening L shoulder to improve painfree AROM.
--- NOTE | 2022-11-18 14:30 | PT.OTN ---
Current Diagnoses Impingement syndrome of left shoulder (11/18/22) Physical Therapy Treatment Note PT-OP-A Visit Information Start: 09/04/22 18:49 Freq: Status: Active Protocol: Document 11/18/22 13:49 SP (Rec: 11/18/22 14:54 SP [id number]) Out-Patient Physical Therapy Visit Information Visit Information Visit Type Treatment Note Visit Start Time 13:49 Visit Stop Time 14:30 Total Visit Minutes 41 Visit Number 15 Number of SURVEY RESEARCH MANAGER Visits 1 Evaluation Information Evaluation Date 09/08/22 Precautions Precautions Vertigo, LE injuries, Back pain - 4 lower discs compressed, Controlled HBP. PT-OP-B Current Condition Start: 09/04/22 18:49 Freq: Status: Active Protocol: Document 09/08/22 13:59 LRN (Rec: 09/08/22 18:11 LRN [id number]) Current Condition History of Current Condition Onset Date 1994 Current Complaints L shoulder pain in joint when lifting the arm History of Current Condition Insidious onset of L shoulder pain from lifting a heavy bag for work. Pt chose to not have surgery 20+ yrs ago and has lived with it since. Is returning now to try and get shoulder fixed. L shoulder impingement that rehab started before the pandemic and did not complete the program. States his shoulder was improving and with the last therapist stretching his scapula. Prior Treatments and Tests Physical therapy 10/2019 but not able to complete program due to COVID 19. Future Testing and Treatments Planned Shoulder MRI 10/2019 indicating : Partial thickness bursal sided tear of the supraspinatus tendon. Associated mild subacromial- subdeltoid bursitis Treatment Goals Patient/Caregiver Goals Reduce pain to manageable level of 1-2/10 and raise the L arm up. 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 Both mothers have in the past 2 months. Anxiety since retired. PT-OP-C Subjective Start: 09/04/22 18:49 Freq: Status: Active Protocol: Document 11/18/22 13:49 SP (Rec: 11/18/22 14:54 SP [id number]) OP-PT Subjective Patient Comments Patient Comments Pt reports L arm feels little better. Trying to be mindful of posture, think realizing can't fix everything. PT-OP-J Posture/Palpation/Skin Start: 09/04/22 18:49 Freq: Status: Active Protocol: Document 09/08/22 13:59 LRN (Rec: 09/08/22 18:11 LRN [id number]) Posture Evaluation Position Sitting Head/C-Spine Posture Forward Head Shoulder Posture (L) Elevated Comments Posture Comments Increased thoracic curvature, flattened L/S. Palpation Assessment Location L shoulder Palpation Location L upper shoulder and neck. Palpation Findings Soft Tissue Tightness Palpation Details Atrophy of L deltoid PT-OP-K Range of Motion Start: 09/04/22 18:49 Freq: Status: Active Protocol: Document 11/18/22 13:49 SP (Rec: 11/18/22 14:54 SP [id number]) Cervical Spine Range of Motion Cervical Spine Active Degrees Testing Position Sitting Flexion 52 Extension 45 Rotation Left 58 Rotation Right 40 Lateral Flexion Left 25 Lateral Flexion Right 28 Comments Pinch side of neck with C. Rot & SB bilaterally. Shoulder Goniometric Range of Motion Shoulder Left Active Shoulder ROM WFL No Testing Position Standing Flexion 132 Extension 60 Abduction 143 Comments FF less 2 deg ABD less 12 deg Painful arc is at 90 deg's for flex & 70 deg's for AB. PT-OP-L Special Tests Start: 09/04/22 18:49 Freq: Status: Active Protocol: Document 09/08/22 13:59 LRN (Rec: 09/08/22 18:11 LRN [id number]) Special Tests Shoulder Special Tests Painful arc Test Results + test L UE Dyer Felipe Impingement Test Results + test L UE Empty Can Test Results - test L UE PT-OP-M Strength Start: 09/04/22 18:49 Freq: Status: Active Protocol: Document 09/08/22 13:59 LRN (Rec: 09/08/22 18:11 LRN [id number]) Cervical Spine Strength Cervical Spine Manual Muscle Testing Testing Position Sitting Comments 5/5 bilaterally Shoulder Strength Shoulder Manual Muscle Testing Right Comments Generally 5/5. Left Flexion 5 Normal Extension 5 Normal Abduction (C5) 3+ Fair+ Adduction 5 Normal External Rotation 5 Normal Internal Rotation 5 Normal Horizontal Abduction 4 Good Horizontal Adduction 5 Normal Elbow/Forearm Strength Elbow and Forearm Manual Muscle Testing Right Comments Generally 5/5 Left Comments Generally 5/5 PT-OP-Q Treatments Start: 09/04/22 18:49 Freq: Status: Active Protocol: Document 11/18/22 13:49 SP (Rec: 11/18/22 14:54 SP [id number]) Cardio Equipment Upper Body Ergometer (UBE) Duration (Minutes) 7 RPM 65 Seat Position 12 Height 4.5 (3.5 min f/b)- 364 cycles Other No pain with increased head hgt Therapeutic Exercises Sidelying Exercises HABD Sidelying Exercise Name Initiated in PT, recheck for HEP- good scapular glide and muscle effort str Side left Resistance AROM Reps/Minutes 3x5 reps Comments cued no UT recruitment, manual fac through range ABD Sidelying Exercise Name Initiated in PT, recheck for HEP- good scapular glide and muscle effort str Side left Resistance AAROM with manual facilitation scapular mob after STMs Equipment Used x10 reps - improved ROM post manual scapular UR/DR chavez Comments cued no UT recruitment, manual fac through range open book Sidelying Exercise Name Open book stretch - HEP Side left Resistance AAROM with manual facilitation after STMs Reps/Minutes x3 reps warm up - improved ROM post manual Comments improved scapular Standing Exercises throw concentric/ eccentric mobility Standing Exercise Name Added to HEPthrowing/ eccentric return AAROM, Adduction/eccentric ABD AAROM Side left Resistance TB #1 (no HOs requested/nor given) Equipment Used emphasis on retraction, depression, upward rotation Reps/Minutes x10 Comments good feedback response, cued slow controlled, no UT recruitment. Manual Therapy Treatment Joint Mobilizations GH Joint Joint L Direction posterior, inferior Grade II Body Position Supine Reps/Duration 2 min PT-OP-R Modalities Start: 09/04/22 18:49 Freq: Status: Active Protocol: Document 09/30/22 13:48 LRN (Rec: 09/30/22 14:50 LRN [id number]) Ultrasound Therapy Treatment L anter GHJ Treatment Duration (minutes) 4 Patient Position Supine Coupling Medium Ultrasound Gel Applicator Size (cm2) 2 Mode Setting Pulsed Duty Cycle 50% Intensity Setting (w/cm2) 1.0 Comments Location: L Subscapularis attachment at glenohumeral head. PT-OP-T Assessment and Plan Start: 09/04/22 18:49 Freq: Status: Active Protocol: Document 11/18/22 13:49 SP (Rec: 11/18/22 14:54 SP [id number]) Physical Therapy Assessment Goals Three Impairment Decreased L shoulder & cervical AROM Impairment Shoulder AROM (in deg's): Flex: 128 L, 148 R; AB 108 L, 136 R; Ext is 55 L, 70 R. Cervical AROM (in deg's): Rot : 58 L, 48 R. Short Term Goal (STG) Improve C. R rotation AROM. 10/28/22: C. AROM (deg's): Rot 57L, 53R (pain in L neck). 10/30/22: C. AROM (deg's): Rot 50 L, 55 R; SB 15 L, 20 R ( same sided neck pain with rot & SB) STG Duration 11/14/22 Variable improvement 10/30/22 Medical Geneticist Goal (LTG) Pt will improve L shoulder AROM to be able to reach for objects overhead with minimal pain. 10/03/22: good feedback response to eccentric throwing and ABD in standing, tight but improved ROM and less discomfort each direction. 10/28/22: ROM slightly improved , pain about the same at the pain range LTG Duration 12/23/22 progressing Two Impairment L shoulder pain rated 4/10 Impairment Decreased L SHR Short Term Goal (STG) Pt will demonstrate improved scapulohumeral mobility and rhythm. 09/22/22: Improved L scapular mobility for distraction from ribcage. : Improved L scapular ROM post manual prone, eccentric throwing return ( ABD/ ER/ scapular retraction/ depression) and ABD OH in standing. 11/18/22: improved scapulothoracic ROM during UBE 6 min: 3.5 f/b painfree, good self corer. STG Duration 11/14/22 progressing 11/18/22 Medical Geneticist Goal (LTG) Reduce pain to manageable level of 1-2/10 when raising the L arm up. LTG Duration 12/23/22 One Impairment Lacks appropriate self care HEP Short Term Goal (STG) Pt will be educated in proper sitting and standing posture and be able to demonstrate proper posturing with v cues only. 10/28/22: Educated pt in proper sitting and standing posture. STG Duration 10/24/22 (MET GOAL 10/28/22) Intermediate Goal (LTG) Pt will be independent in a HEP of L shoulder ROM & RC/ postural/scapular strengthening ex's. 09/22/22: Pt previously issued HEP: Open book (hands behind head) and self massage of thoracic paraspinals with 2 tennis balls, leaning against wall. 09/26/22: Scapular clocks 1 to 7, 11 to 5. 10/13/22: added wall posture 11/18/22: initiated HABD, ABD on side AAROM/AROM. LTG Duration 12/23/22 progressed on 11/18 Assessment Summary Assessment Pt improved GH musculature effort small range on side this tx HABD/ABD, good scapulothoracic mobility to support and decreased noted UT compensations this tx. Physical Therapy Plan Frequency and Duration Frequency of Treatment 2x/Week Plan of Care Start Date 09/08/22 Plan of Care End Date 12/23/22 Therapeutic Interventions Therapeutic Interventions Home Exercise Program,Joint Mobilizations,Manual Therapy, Neuromuscular Re-education, Patient/Caregiver Education, Self-Care/Home Management,Soft Tissue Mobilization, Therapeutic Activities, Therapeutic Exercises Modalities Cold Pack/Ice Massage,Electric Stimulation,Hot Packs, Iontophoresis,Ultrasound Other Therapeutic Interventions Iontophoresis with 4mg/mL Dexamethasone with Sodium Phosphate. Next Visit Focus/Plan Next Note Type Treatment Note Next Visit Plan Recheck for HEP: side ABD, HABD AROM small range. Assess C/Shldr AROM and progress to goal #3. Focus on scapular stabilization, RC strengthening (add sitting lat pull down), and improving painfree L shoulder ROM. Progress HEP (see below). Review wall posture and C. AROM. Issue HO for proper sitting/standing posture. Trial IR stretch w/towel, pulleys. Issue HEP: L shoulder stretching and strengthening (add shoulder ER/IR, lat pull down and scap retract/ depression). Monitor for ablity to demonstrate proper posturing with v cues only. Strengthening L shoulder to improve painfree AROM.
--- NOTE | 2022-11-21 11:09 | PT.OTN ---
Current Diagnoses Impingement syndrome of left shoulder (11/21/22) Physical Therapy Treatment Note PT-OP-A Visit Information Start: 09/04/22 18:49 Freq: Status: Active Protocol: Document 11/21/22 10:04 LRN (Rec: 11/21/22 11:09 LRN [id number]) Out-Patient Physical Therapy Visit Information Visit Information Visit Type Treatment Note Visit Note 6 after PN Visit Start Time 09:53 Visit Stop Time 10:33 Total Visit Minutes 40 Visit Number 16 total, 05/13 Evaluation Information Evaluation Date 09/08/22 Precautions Precautions Vertigo, LE injuries, Back pain - 4 lower discs compressed, Controlled HBP. PT-OP-B Current Condition Start: 09/04/22 18:49 Freq: Status: Active Protocol: Document 09/08/22 13:59 LRN (Rec: 09/08/22 18:11 LRN [id number]) Current Condition History of Current Condition Onset Date 1994 Current Complaints L shoulder pain in joint when lifting the arm History of Current Condition Insidious onset of L shoulder pain from lifting a heavy bag for work. Pt chose to not have surgery 20+ yrs ago and has lived with it since. Is returning now to try and get shoulder fixed. L shoulder impingement that rehab started before the pandemic and did not complete the program. States his shoulder was improving and with the last therapist stretching his scapula. Prior Treatments and Tests Physical therapy 10/2019 but not able to complete program due to COVID 19. Future Testing and Treatments Planned Shoulder MRI 10/2019 indicating : Partial thickness bursal sided tear of the supraspinatus tendon. Associated mild subacromial- subdeltoid bursitis Treatment Goals Patient/Caregiver Goals Reduce pain to manageable level of 1-2/10 and raise the L arm up. 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 Both mothers have in the past 2 months. Anxiety since retired. PT-OP-C Subjective Start: 09/04/22 18:49 Freq: Status: Active Protocol: Document 11/21/22 10:04 LRN (Rec: 11/21/22 11:09 LRN [id number]) OP-PT Subjective Patient Comments Patient Comments Little sore from last session. PT-OP-J Posture/Palpation/Skin Start: 09/04/22 18:49 Freq: Status: Active Protocol: Document 09/08/22 13:59 LRN (Rec: 09/08/22 18:11 LRN [id number]) Posture Evaluation Position Sitting Head/C-Spine Posture Forward Head Shoulder Posture (L) Elevated Comments Posture Comments Increased thoracic curvature, flattened L/S. Palpation Assessment Location L shoulder Palpation Location L upper shoulder and neck. Palpation Findings Soft Tissue Tightness Palpation Details Atrophy of L deltoid PT-OP-K Range of Motion Start: 09/04/22 18:49 Freq: Status: Active Protocol: Document 11/21/22 10:04 LRN (Rec: 11/21/22 11:09 LRN [id number]) Cervical Spine Range of Motion Cervical Spine Active Degrees Testing Position Sitting Flexion 52 Extension 45 Rotation Left 58 Rotation Right 40 Lateral Flexion Left 25 Lateral Flexion Right 28 Comments Pinch at side of neck with Rot & SB bilaterally. Shoulder Goniometric Range of Motion Shoulder Right Active Shoulder ROM WFL Yes Testing Position Standing Flexion 160 Extension 80 Abduction 185 Left Active Shoulder ROM WFL No Testing Position Standing Flexion 132 Extension 60 Abduction 143 Comments FF less 2 deg ABD less 12 deg Painful arc is at 90 deg's for flex & 70 deg's for AB. PT-OP-L Special Tests Start: 09/04/22 18:49 Freq: Status: Active Protocol: Document 09/08/22 13:59 LRN (Rec: 09/08/22 18:11 LRN [id number]) Special Tests Shoulder Special Tests Painful arc Test Results + test L UE Dyer Felipe Impingement Test Results + test L UE Empty Can Test Results - test L UE PT-OP-M Strength Start: 09/04/22 18:49 Freq: Status: Active Protocol: Document 09/08/22 13:59 LRN (Rec: 09/08/22 18:11 LRN [id number]) Cervical Spine Strength Cervical Spine Manual Muscle Testing Testing Position Sitting Comments 5/5 bilaterally Shoulder Strength Shoulder Manual Muscle Testing Right Comments Generally 5/5. Left Flexion 5 Normal Extension 5 Normal Abduction (C5) 3+ Fair+ Adduction 5 Normal External Rotation 5 Normal Internal Rotation 5 Normal Horizontal Abduction 4 Good Horizontal Adduction 5 Normal Elbow/Forearm Strength Elbow and Forearm Manual Muscle Testing Right Comments Generally 5/5 Left Comments Generally 5/5 PT-OP-Q Treatments Start: 09/04/22 18:49 Freq: Status: Active Protocol: Document 11/21/22 10:04 LRN (Rec: 11/21/22 11:09 LRN [id number]) Cardio Equipment Upper Body Ergometer (UBE) Duration (Minutes) 7 RPM 65 Seat Position 12 Height 4.5 (3.5 min f/b)- 364 cycles Other No pain Therapeutic Exercises Sidelying Exercises HABD Sidelying Exercise Name HABD w/cuing of scapula - good scapular glide and muscle effort str Side left Resistance AROM Reps/Minutes 3x5 reps Comments cued scap retraction/ depression, manual fac through range ABD Sidelying Exercise Name ABD w/cuing of scapula - good scapular glide and muscle effort str Side left Resistance AAROM with manual facilitation scapular mob after STMs Equipment Used x10 reps - improved ROM post manual scapular UR/DR glides Comments cued scap retraction/ depression, manual fac through range Sitting Exercises C. AROM Sitting Exercise Name C. Rot/SB stretch Side bilateral Comments ROM taken Standing Exercises Shoulder Ext Standing Exercise Name Lat Pull Dowh - Shdr Ext Side bilateral Reps/Minutes 10x 3 Shoulder IR Standing Exercise Name Shoulder IR strengthening- in PT Side left Equipment Used Lev 3 TB Reps/Minutes 15x 2 Comments Cues for elbow tuck Shoulder ER Standing Exercise Name Shoulder ER strengthening Side left Equipment Used Lev 3 TB Reps/Minutes 15x2 Comments L arm tremoring/ guarding, cues for elbow tuck Manual Therapy Treatment Joint Mobilizations GH Joint Joint L Direction posterior, inferior Grade II Body Position Supine Reps/Duration 2' L Scapula Joint L Scapulothoracic Jt Direction Distraction, protraction/ retraction/depresson,UR/ DR Body Position Sidelying Reps/Duration 10' Comments Tremoring/muscle spasms decreased post manual PT-OP-R Modalities Start: 09/04/22 18:49 Freq: Status: Active Protocol: Document 09/30/22 13:48 LRN (Rec: 09/30/22 14:50 LRN [id number]) Ultrasound Therapy Treatment L anter GHJ Treatment Duration (minutes) 4 Patient Position Supine Coupling Medium Ultrasound Gel Applicator Size (cm2) 2 Mode Setting Pulsed Duty Cycle 50% Intensity Setting (w/cm2) 1.0 Comments Location: L Subscapularis attachment at glenohumeral head. PT-OP-T Assessment and Plan Start: 09/04/22 18:49 Freq: Status: Active Protocol: Document 11/21/22 10:04 LRN (Rec: 11/21/22 11:09 LRN [id number]) Physical Therapy Assessment Goals Three Impairment Decreased L shoulder & cervical AROM Impairment Shoulder AROM (in deg's): Flex: 128 L, 148 R; AB 108 L, 136 R; Ext is 55 L, 70 R. Cervical AROM (in deg's): Rot : 58 L, 48 R. Short Term Goal (STG) Improve C. R rotation AROM. 10/28/22: C. AROM (deg's): Rot 57L, 53R (pain in L neck). 10/30/22: C. AROM (deg's): Rot 50 L, 55 R; SB 15 L, 20 R ( same sided neck pain with rot & SB) 11/20/26: C. AROM (deg's): Rot 58 L, 40 R; SB 25 L, 28 R STG Duration 11/14/22 progressed (SB) Fdc Goal (LTG) Pt will improve L shoulder AROM to be able to reach for objects overhead with minimal pain. 10/03/22: good feedback response to eccentric throwing and ABD in standing, tight but improved ROM and less discomfort each direction. 10/28/22: ROM slightly improved , pain about the same at the pain range 11/21/22: L shldr AROM (sit): Flex: 132 L, 160 R; AB 143 L, 185 R; Ext is 60 L, 80 R. LTG Duration 12/23/22 progressed ROM Two Impairment L shoulder pain rated 4/10 Impairment Decreased L SHR Short Term Goal (STG) Pt will demonstrate improved scapulohumeral mobility and rhythm. 09/22/22: Improved L scapular mobility for distraction from ribcage. : Improved L scapular ROM post manual prone, eccentric throwing return ( ABD/ ER/ scapular retraction/ depression) and ABD OH in standing. 11/18/22: improved scapulothoracic ROM during UBE 6 min: 3.5 f/b painfree, good self corer. STG Duration 11/14/22 progressing 11/18/22 Bar Captain Goal (LTG) Reduce pain to manageable level of 1-2/10 when raising the L arm up. LTG Duration 12/23/22 One Impairment Lacks appropriate self care HEP Short Term Goal (STG) Pt will be educated in proper sitting and standing posture and be able to demonstrate proper posturing with v cues only. 10/28/22: Educated pt in proper sitting and standing posture. STG Duration 10/24/22 (MET GOAL 10/28/22) Bar Captain Goal (LTG) Pt will be independent in a HEP of L shoulder ROM & RC/ postural/scapular strengthening ex's. 09/22/22: Pt previously issued HEP: Open book (hands behind head) and self massage of thoracic paraspinals with 2 tennis balls, leaning against wall. 09/26/22: Scapular clocks 1 to 7, 11 to 5. 10/13/22: added wall posture 11/18/22: initiated HABD, ABD on side AAROM/AROM. LTG Duration 12/23/22 progressed on 11/18 Progress Towards Goals Progress Comments L shoulder AROM improved. Assessment Summary Assessment Pt shows improvement with L shoulder AROM, Cervical mobility for R rot is the same , but SB has greatly improved. Pt is slowly improving as expected due to the chronic nature of his pain and shoulder dysfunction. Pt occasionally shows impingement symptoms of L shoulder, probably involving the Supraspinatus. Physical Therapy Plan Frequency and Duration Frequency of Treatment 2x/Week Plan of Care Start Date 09/08/22 Plan of Care End Date 12/23/22 Next Visit Focus/Plan Next Note Type Treatment Note Next Visit Plan Assess pain with reaching overhead & Stretch C/S R Rot > L rot checking SB (goal #3). Focus on scapular stabilization, RC strengthening (add sitting lat pull down), and improving painfree L shoulder ROM. Progress HEP (see below). Review wall posture and C. AROM. Issue HO for proper sitting/standing posture. Trial IR stretch w/towel, pulleys. Issue HEP: L shoulder stretching and strengthening (add shoulder ER/IR, lat pull down and scap retract/ depression). Monitor for ablity to demonstrate proper posturing with v cues only. Strengthening L shoulder to improve painfree AROM.
--- NOTE | 2022-11-25 10:30 | PT.OTN ---
Current Diagnoses Impingement syndrome of left shoulder (11/25/22) Physical Therapy Treatment Note PT-OP-A Visit Information Start: 09/04/22 18:49 Freq: Status: Active Protocol: Document 11/25/22 09:48 SP (Rec: 11/25/22 11:43 SP [id number]) Out-Patient Physical Therapy Visit Information Visit Information Visit Type Treatment Note Visit Note 7 after PN Visit Start Time 09:48 Visit Stop Time 10:30 Total Visit Minutes 42 Visit Number 17 total, 06/13 Number of REELING MACHINE SETUP OPERATOR Visits 2 Evaluation Information Evaluation Date 09/08/22 Precautions Precautions Vertigo, LE injuries, Back pain - 4 lower discs compressed, Controlled HBP. PT-OP-B Current Condition Start: 09/04/22 18:49 Freq: Status: Active Protocol: Document 09/08/22 13:59 LRN (Rec: 09/08/22 18:11 LRN [id number]) Current Condition History of Current Condition Onset Date 1994 Current Complaints L shoulder pain in joint when lifting the arm History of Current Condition Insidious onset of L shoulder pain from lifting a heavy bag for work. Pt chose to not have surgery 20+ yrs ago and has lived with it since. Is returning now to try and get shoulder fixed. L shoulder impingement that rehab started before the pandemic and did not complete the program. States his shoulder was improving and with the last therapist stretching his scapula. Prior Treatments and Tests Physical therapy 10/2019 but not able to complete program due to COVID 19. Future Testing and Treatments Planned Shoulder MRI 10/2019 indicating : Partial thickness bursal sided tear of the supraspinatus tendon. Associated mild subacromial- subdeltoid bursitis Treatment Goals Patient/Caregiver Goals Reduce pain to manageable level of 1-2/10 and raise the L arm up. 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 Both mothers have in the past 2 months. Anxiety since retired. PT-OP-C Subjective Start: 09/04/22 18:49 Freq: Status: Active Protocol: Document 11/25/22 09:48 SP (Rec: 11/25/22 11:43 SP [id number]) OP-PT Subjective Patient Comments Patient Comments Pt reports had a good on the cusp of work/discomfort but feel beneficial to gain ROM/ strength to things wants to do . PT-OP-J Posture/Palpation/Skin Start: 09/04/22 18:49 Freq: Status: Active Protocol: Document 09/08/22 13:59 LRN (Rec: 09/08/22 18:11 LRN [id number]) Posture Evaluation Position Sitting Head/C-Spine Posture Forward Head Shoulder Posture (L) Elevated Comments Posture Comments Increased thoracic curvature, flattened L/S. Palpation Assessment Location L shoulder Palpation Location L upper shoulder and neck. Palpation Findings Soft Tissue Tightness Palpation Details Atrophy of L deltoid PT-OP-K Range of Motion Start: 09/04/22 18:49 Freq: Status: Active Protocol: Document 11/21/22 10:04 LRN (Rec: 11/21/22 11:09 LRN [id number]) Cervical Spine Range of Motion Cervical Spine Active Degrees Testing Position Sitting Flexion 52 Extension 45 Rotation Left 58 Rotation Right 40 Lateral Flexion Left 25 Lateral Flexion Right 28 Comments Pinch at side of neck with Rot & SB bilaterally. Shoulder Goniometric Range of Motion Shoulder Right Active Shoulder ROM WFL Yes Testing Position Standing Flexion 160 Extension 80 Abduction 185 Left Active Shoulder ROM WFL No Testing Position Standing Flexion 132 Extension 60 Abduction 143 Comments FF less 2 deg ABD less 12 deg Painful arc is at 90 deg's for flex & 70 deg's for AB. PT-OP-L Special Tests Start: 09/04/22 18:49 Freq: Status: Active Protocol: Document 09/08/22 13:59 LRN (Rec: 09/08/22 18:11 LRN [id number]) Special Tests Shoulder Special Tests Painful arc Test Results + test L UE Dyer Felipe Impingement Test Results + test L UE Empty Can Test Results - test L UE PT-OP-M Strength Start: 09/04/22 18:49 Freq: Status: Active Protocol: Document 09/08/22 13:59 LRN (Rec: 09/08/22 18:11 LRN [id number]) Cervical Spine Strength Cervical Spine Manual Muscle Testing Testing Position Sitting Comments 5/5 bilaterally Shoulder Strength Shoulder Manual Muscle Testing Right Comments Generally 5/5. Left Flexion 5 Normal Extension 5 Normal Abduction (C5) 3+ Fair+ Adduction 5 Normal External Rotation 5 Normal Internal Rotation 5 Normal Horizontal Abduction 4 Good Horizontal Adduction 5 Normal Elbow/Forearm Strength Elbow and Forearm Manual Muscle Testing Right Comments Generally 5/5 Left Comments Generally 5/5 PT-OP-Q Treatments Start: 09/04/22 18:49 Freq: Status: Active Protocol: Document 11/25/22 09:48 SP (Rec: 11/25/22 11:43 SP [id number]) Cardio Equipment Upper Body Ergometer (UBE) Duration (Minutes) 7 RPM 65 Seat Position 12- 335 cycles Height 4.5 (3.5 min f/b)- 364 cycles Other No pain, good workout burn, BHUMIKA 13 Somewhat hard Gym Equipment Cable Column (Body Solid) Rows Details cued scap retrac/depress con/ ecc Resistance 15# Reps/Time 15x2 (cued tall posture TA) Lat Pull Down Details Lat pull down for scap retract /depression Resistance 15# Reps/Time 15x 2 (underhand) Therapeutic Exercises Sidelying Exercises HABD Sidelying Exercise Name HABD w/cuing of scapula - good scapular glide and muscle effort str Side left Resistance AROM> 2# DB Reps/Minutes 6 reps Comments cued scap retraction/ depression, contact fdbk scap form through range ABD Sidelying Exercise Name ABD w/cuing of scapula - good scapular glide and muscle effort str Side left Resistance 2# DB Equipment Used x10 reps - improved ROM post manual scapular UR/DR chavez Comments cued scap retraction/ depression, manual fac through range open book Sidelying Exercise Name Open book stretch - HEP Side left Resistance AAROM with manual facilitation after STMs Reps/Minutes x3 reps warm up - improved ROM post manual Comments improved scapular Sitting Exercises C. AROM Sitting Exercise Name C. Rot & SB stretch Side bilateral Reps/Minutes 10SH x2-3 each direction Cornelius Comments cued tall posturing, CS back neutral chin nod start position Standing Exercises snow angels Standing Exercise Name added to HEP Equipment Used back to wall for postural support Reps/Minutes x3 reps Comments cued neck back chintuck elongation, chest lift and scap depress OH- improve FF OH Standing Exercise Name added to HEP Side bilateral Equipment Used light contact wall needed for postural support (facing) Reps/Minutes 5 reps 2-3 SH Comments hands // modified from HO clasped, less tension neck/ scap Shoulder rolls Standing Exercise Name HEP reviewed: Fwd/bkd Side bilateral Reps/Minutes 10x Comments Cuing to elongate neck Shoulder Ext Standing Exercise Name Lat Pull Dowh - Shdr Ext Side bilateral Resistance TB #2 Reps/Minutes 10x 3 Comments cued elevated head/chin nod/ scap retr/depres, con/ecc Self-Care/Home Management Treatment Education Patient Education Home Exercise Program Other Education 11/25/22: added Tools RG personal ex program: lat pull down, rows, snow angels, FFOH (//not clasp hands), shld rolls. PT-OP-R Modalities Start: 09/04/22 18:49 Freq: Status: Active Protocol: Document 09/30/22 13:48 LRN (Rec: 09/30/22 14:50 LRN [id number]) Ultrasound Therapy Treatment L anter GHJ Treatment Duration (minutes) 4 Patient Position Supine Coupling Medium Ultrasound Gel Applicator Size (cm2) 2 Mode Setting Pulsed Duty Cycle 50% Intensity Setting (w/cm2) 1.0 Comments Location: L Subscapularis attachment at glenohumeral head. PT-OP-T Assessment and Plan Start: 09/04/22 18:49 Freq: Status: Active Protocol: Document 11/25/22 09:48 SP (Rec: 11/25/22 11:43 SP [id number]) Physical Therapy Assessment Goals Three Impairment Decreased L shoulder & cervical AROM Impairment Shoulder AROM (in deg's): Flex: 128 L, 148 R; AB 108 L, 136 R; Ext is 55 L, 70 R. Cervical AROM (in deg's): Rot : 58 L, 48 R. Short Term Goal (STG) Improve C. R rotation AROM. 10/28/22: C. AROM (deg's): Rot 57L, 53R (pain in L neck). 10/30/22: C. AROM (deg's): Rot 50 L, 55 R; SB 15 L, 20 R ( same sided neck pain with rot & SB) 11/20/26: C. AROM (deg's): Rot 58 L, 40 R; SB 25 L, 28 R STG Duration 11/14/22 progressed (SB) Alf Goal (LTG) Pt will improve L shoulder AROM to be able to reach for objects overhead with minimal pain. 10/03/22: good feedback response to eccentric throwing and ABD in standing, tight but improved ROM and less discomfort each direction. 10/28/22: ROM slightly improved , pain about the same at the pain range 11/21/22: L shldr AROM (sit): Flex: 132 L, 160 R; AB 143 L, 185 R; Ext is 60 L, 80 R. LTG Duration 12/23/22 progressed ROM Two Impairment L shoulder pain rated 4/10 Impairment Decreased L SHR Short Term Goal (STG) Pt will demonstrate improved scapulohumeral mobility and rhythm. 09/22/22: Improved L scapular mobility for distraction from ribcage. : Improved L scapular ROM post manual prone, eccentric throwing return ( ABD/ ER/ scapular retraction/ depression) and ABD OH in standing. 11/18/22: improved scapulothoracic ROM during UBE 6 min: 3.5 f/b painfree, good self corer. STG Duration 11/14/22 progressing 11/18/22 Alf Goal (LTG) Reduce pain to manageable level of 1-2/10 when raising the L arm up. LTG Duration 12/23/22 One Impairment Lacks appropriate self care HEP Short Term Goal (STG) Pt will be educated in proper sitting and standing posture and be able to demonstrate proper posturing with v cues only. 10/28/22: Educated pt in proper sitting and standing posture. STG Duration 10/24/22 (MET GOAL 10/28/22) Computational Scientist Goal (LTG) Pt will be independent in a HEP of L shoulder ROM & RC/ postural/scapular strengthening ex's. 09/22/22: Pt previously issued HEP: Open book (hands behind head) and self massage of thoracic paraspinals with 2 tennis balls, leaning against wall. 09/26/22: Scapular clocks 1 to 7, 11 to 5. 10/13/22: added wall posture 11/18/22: initiated HABD, ABD on side AAROM/AROM. 11/25/22: added Tools RG personal ex program: lat pull down, rows, snow angels, FFOH (//not clasp hands), shld rolls. LTG Duration 12/23/22 progressed on 11/25 Assessment Summary Assessment Pt good feedback increase scapular ROM and tall posturing post self stretching , progression Tools RG personal ex program HO. Pt better understood importance of awareness posturing Physical Therapy Plan Frequency and Duration Frequency of Treatment 2x/Week Plan of Care Start Date 09/08/22 Plan of Care End Date 12/23/22 Therapeutic Interventions Therapeutic Interventions Home Exercise Program,Joint Mobilizations,Manual Therapy, Neuromuscular Re-education, Patient/Caregiver Education, Self-Care/Home Management,Soft Tissue Mobilization, Therapeutic Activities, Therapeutic Exercises Modalities Cold Pack/Ice Massage,Electric Stimulation,Hot Packs, Iontophoresis,Ultrasound Other Therapeutic Interventions Iontophoresis with 4mg/mL Dexamethasone with Sodium Phosphate. Next Visit Focus/Plan Next Note Type Treatment Note Next Visit Plan Review/ progress: Tools RG HEP use HO. Assess pain with reaching overhead & Stretch C/S R Rot > L rot checking SB (goal #3). Focus on scapular stabilization, RC strengthening (add sitting lat pull down), and improving painfree L shoulder ROM. Progress HEP (see below). Review wall posture and C. AROM. Issue HO for proper sitting/standing posture. Trial IR stretch w/towel, pulleys. Issue HEP: L shoulder stretching and strengthening (add shoulder ER/IR, lat pull down and scap retract/ depression). Monitor for ablity to demonstrate proper posturing with v cues only. Strengthening L shoulder to improve painfree AROM.
--- NOTE | 2022-11-28 17:07 | PT.OTN ---
Current Diagnoses Impingement syndrome of left shoulder (11/28/22) Physical Therapy Treatment Note PT-OP-A Visit Information Start: 09/04/22 18:49 Freq: Status: Active Protocol: Document 11/28/22 09:50 LRN (Rec: 11/28/22 10:36 LRN [id number]) Out-Patient Physical Therapy Visit Information Visit Information Visit Type Treatment Note Visit Note 8 after PN Visit Start Time 09:50 Visit Stop Time 10:40 Total Visit Minutes 50 Visit Number 18 total, 07/14 Evaluation Information Evaluation Date 09/08/22 Precautions Precautions Vertigo, LE injuries, Back pain - 4 lower discs compressed, Controlled HBP. PT-OP-B Current Condition Start: 09/04/22 18:49 Freq: Status: Active Protocol: Document 09/08/22 13:59 LRN (Rec: 09/08/22 18:11 LRN [id number]) Current Condition History of Current Condition Onset Date 1994 Current Complaints L shoulder pain in joint when lifting the arm History of Current Condition Insidious onset of L shoulder pain from lifting a heavy bag for work. Pt chose to not have surgery 20+ yrs ago and has lived with it since. Is returning now to try and get shoulder fixed. L shoulder impingement that rehab started before the pandemic and did not complete the program. States his shoulder was improving and with the last therapist stretching his scapula. Prior Treatments and Tests Physical therapy 10/2019 but not able to complete program due to COVID 19. Future Testing and Treatments Planned Shoulder MRI 10/2019 indicating : Partial thickness bursal sided tear of the supraspinatus tendon. Associated mild subacromial- subdeltoid bursitis Treatment Goals Patient/Caregiver Goals Reduce pain to manageable level of 1-2/10 and raise the L arm up. 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 Both mothers have in the past 2 months. Anxiety since retired. PT-OP-C Subjective Start: 09/04/22 18:49 Freq: Status: Active Protocol: Document 11/28/22 09:50 LRN (Rec: 11/28/22 10:36 LRN [id number]) OP-PT Subjective Patient Comments Patient Comments States L shoulder is looser, where I wanted to be in the beginning, except when sticking arm out of trunk to get mail, the arm aches like crazy. PT-OP-J Posture/Palpation/Skin Start: 09/04/22 18:49 Freq: Status: Active Protocol: Document 09/08/22 13:59 LRN (Rec: 09/08/22 18:11 LRN [id number]) Posture Evaluation Position Sitting Head/C-Spine Posture Forward Head Shoulder Posture (L) Elevated Comments Posture Comments Increased thoracic curvature, flattened L/S. Palpation Assessment Location L shoulder Palpation Location L upper shoulder and neck. Palpation Findings Soft Tissue Tightness Palpation Details Atrophy of L deltoid PT-OP-K Range of Motion Start: 09/04/22 18:49 Freq: Status: Active Protocol: Document 11/21/22 10:04 LRN (Rec: 11/21/22 11:09 LRN [id number]) Cervical Spine Range of Motion Cervical Spine Active Degrees Testing Position Sitting Flexion 52 Extension 45 Rotation Left 58 Rotation Right 40 Lateral Flexion Left 25 Lateral Flexion Right 28 Comments Pinch at side of neck with Rot & SB bilaterally. Shoulder Goniometric Range of Motion Shoulder Right Active Shoulder ROM WFL Yes Testing Position Standing Flexion 160 Extension 80 Abduction 185 Left Active Shoulder ROM WFL No Testing Position Standing Flexion 132 Extension 60 Abduction 143 Comments FF less 2 deg ABD less 12 deg Painful arc is at 90 deg's for flex & 70 deg's for AB. PT-OP-L Special Tests Start: 09/04/22 18:49 Freq: Status: Active Protocol: Document 09/08/22 13:59 LRN (Rec: 09/08/22 18:11 LRN [id number]) Special Tests Shoulder Special Tests Painful arc Test Results + test L UE Dyer Felipe Impingement Test Results + test L UE Empty Can Test Results - test L UE PT-OP-M Strength Start: 09/04/22 18:49 Freq: Status: Active Protocol: Document 09/08/22 13:59 LRN (Rec: 09/08/22 18:11 LRN [id number]) Cervical Spine Strength Cervical Spine Manual Muscle Testing Testing Position Sitting Comments 5/5 bilaterally Shoulder Strength Shoulder Manual Muscle Testing Right Comments Generally 5/5. Left Flexion 5 Normal Extension 5 Normal Abduction (C5) 3+ Fair+ Adduction 5 Normal External Rotation 5 Normal Internal Rotation 5 Normal Horizontal Abduction 4 Good Horizontal Adduction 5 Normal Elbow/Forearm Strength Elbow and Forearm Manual Muscle Testing Right Comments Generally 5/5 Left Comments Generally 5/5 PT-OP-Q Treatments Start: 09/04/22 18:49 Freq: Status: Active Protocol: Document 11/28/22 09:50 LRN (Rec: 11/28/22 10:36 N [id number]) Cardio Equipment Upper Body Ergometer (UBE) Duration (Minutes) 8 RPM 65 Seat Position 12 - 335 cycles Height 4.5 (8.5 min total)- 473 cycles Other No pain, good workout burn, BHUMIKA 13 Somewhat hard Therapeutic Exercises Sitting Exercises C. AROM Sitting Exercise Name C. Rot & SB stretch Side bilateral Reps/Minutes 10SH x2-3 each direction Cornelius Comments cued tall posturing, CS back neutral chin nod start position Manual Therapy Treatment Soft Tissue Mobilization Cervical paraspinals, rotators Body Location C/S Mobilization Type Strumming,Sustained Pressure Body Position Supine Comments C/R stretch cornelius rot. MFR stretch cornelius rot with knee rolls and arm circles. Manual Techniques MWM Type L Scap approximation/ retraction with lowering of L arm. Reps/Duration 12' PT-OP-R Modalities Start: 09/04/22 18:49 Freq: Status: Active Protocol: Document 11/28/22 09:50 LRN (Rec: 11/28/22 16:54 [facility] [id number]) Hot Pack/Cold Pack Treatment Cold Pack Location Neck Patient Position Hooklying Treatment Duration (minutes) 10 Patient Tolerance Good Comments Decreased pain perception after treatment. PT-OP-T Assessment and Plan Start: 09/04/22 18:49 Freq: Status: Active Protocol: Document 11/28/22 09:50 LRN (Rec: 11/28/22 10:36 [facility] [id number]) Physical Therapy Assessment Goals Three Impairment Decreased L shoulder & cervical AROM Impairment Shoulder AROM (in deg's): Flex: 128 L, 148 R; AB 108 L, 136 R; Ext is 55 L, 70 R. Cervical AROM (in deg's): Rot : 58 L, 48 R. Short Term Goal (STG) Improve C. R rotation AROM. 10/28/22: C. AROM (deg's): Rot 57L, 53R (pain in L neck). 10/30/22: C. AROM (deg's): Rot 50 L, 55 R; SB 15 L, 20 R ( same sided neck pain with rot & SB) 11/20/26: C. AROM (deg's): Rot 58 L, 40 R; SB 25 L, 28 R STG Duration 11/14/22 progressed (SB) Cigarette Packing Machine Operator Goal (LTG) Pt will improve L shoulder AROM to be able to reach for objects overhead with minimal pain. 10/03/22: good feedback response to eccentric throwing and ABD in standing, tight but improved ROM and less discomfort each direction. 10/28/22: ROM slightly improved , pain about the same at the pain range 11/21/22: L shldr AROM (sit): Flex: 132 L, 160 R; AB 143 L, 185 R; Ext is 60 L, 80 R. LTG Duration 12/23/22 progressed ROM Two Impairment L shoulder pain rated 4/10 Impairment Decreased L SHR Short Term Goal (STG) Pt will demonstrate improved scapulohumeral mobility and rhythm. 09/22/22: Improved L scapular mobility for distraction from ribcage. : Improved L scapular ROM post manual prone, eccentric throwing return ( ABD/ ER/ scapular retraction/ depression) and ABD OH in standing. 11/18/22: improved scapulothoracic ROM during UBE 6 min: 3.5 f/b painfree, good self corer. STG Duration 11/14/22 progressing 11/18/22 Cigarette Packing Machine Operator Goal (LTG) Reduce pain to manageable level of 1-2/10 when raising the L arm up. LTG Duration 12/23/22 One Impairment Lacks appropriate self care HEP Short Term Goal (STG) Pt will be educated in proper sitting and standing posture and be able to demonstrate proper posturing with v cues only. 10/28/22: Educated pt in proper sitting and standing posture. STG Duration 10/24/22 (MET GOAL 10/28/22) Cigarette Packing Machine Operator Goal (LTG) Pt will be independent in a HEP of L shoulder ROM & RC/ postural/scapular strengthening ex's. 09/22/22: Pt previously issued HEP: Open book (hands behind head) and self massage of thoracic paraspinals with 2 tennis balls, leaning against wall. 09/26/22: Scapular clocks 1 to 7, 11 to 5. 10/13/22: added wall posture 11/18/22: initiated HABD, ABD on side AAROM/AROM. 11/25/22: added Tools RG personal ex program: lat pull down, rows, snow angels, FFOH (//not clasp hands), shld rolls. LTG Duration 12/23/22 progressed on 11/25 Assessment Summary Assessment Pt L SHR is mildly dysfunctional on lowering of the arm from flexion position with quicker release from positioning. He had less pain with manual stabilization of the L scapula on descent of arm from full flex or AB. MWM helped to decrease pain, but pain persisted. Pt is very stiff in the neck but improved with L rot and about the same with R rot after manual stretching. Pt no holding cervical stretch; therefore may not be stretching enough and properly at home. Physical Therapy Plan Frequency and Duration Frequency of Treatment 2x/Week Plan of Care Start Date 09/08/22 Plan of Care End Date 12/23/22 Next Visit Focus/Plan Next Note Type Progress Note Next Visit Plan Review: HEP issued (see HO). Probable DC in 2 visits. Complete HEP and check C. ROM (C/S R Rot > L rot checking SB (goal #3)), final visit for review. Assess pain with reaching overhead & Stretch (trial IR stretch w/towel, pulleys). Issue HO for proper sitting/ standing posture. Issue HEP: L shoulder stretching and strengthening (add shoulder ER/IR, lat pull down and scap retract/ depression). Monitor for ablity to demonstrate proper posturing with v cues only. POC: Focus on scapular stabilization, RC strengthening (add sitting lat pull down), and improving painfree L shoulder ROM.
--- NOTE | 2022-12-02 15:02 | PT-OP ANOTE ---
Per phone, pt had the wrong day in his head for today; therefore missed appointment. Pt agreeable to add appointment on 12/12/22 at 1p and states he will come in to verify/make appt and get schedule.
--- NOTE | 2022-12-05 12:53 | PT.OTN ---
Current Diagnoses Impingement syndrome of left shoulder (12/05/22) Physical Therapy Treatment Note PT-OP-A Visit Information Start: 09/04/22 18:49 Freq: Status: Active Protocol: Document 12/05/22 10:39 LRN (Rec: 12/05/22 12:39 LRN [id number]) Out-Patient Physical Therapy Visit Information Visit Information Visit Type Treatment Note Visit Note 8 after PN Visit Start Time 10:40 Visit Stop Time 11:18 Total Visit Minutes 38 Visit Number 18 total, 07/14 Evaluation Information Evaluation Date 09/08/22 Precautions Precautions Vertigo, LE injuries, Back pain - 4 lower discs compressed, Controlled HBP. PT-OP-B Current Condition Start: 09/04/22 18:49 Freq: Status: Active Protocol: Document 09/08/22 13:59 LRN (Rec: 09/08/22 18:11 LRN [id number]) Current Condition History of Current Condition Onset Date 1994 Current Complaints L shoulder pain in joint when lifting the arm History of Current Condition Insidious onset of L shoulder pain from lifting a heavy bag for work. Pt chose to not have surgery 20+ yrs ago and has lived with it since. Is returning now to try and get shoulder fixed. L shoulder impingement that rehab started before the pandemic and did not complete the program. States his shoulder was improving and with the last therapist stretching his scapula. Prior Treatments and Tests Physical therapy 10/2019 but not able to complete program due to COVID 19. Future Testing and Treatments Planned Shoulder MRI 10/2019 indicating : Partial thickness bursal sided tear of the supraspinatus tendon. Associated mild subacromial- subdeltoid bursitis Treatment Goals Patient/Caregiver Goals Reduce pain to manageable level of 1-2/10 and raise the L arm up. 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 Both mothers have in the past 2 months. Anxiety since retired. PT-OP-C Subjective Start: 09/04/22 18:49 Freq: Status: Active Protocol: Document 12/05/22 10:39 LRN (Rec: 12/05/22 12:39 LRN [id number]) OP-PT Subjective Patient Comments Patient Comments States he can function without the ache in the L shoulder as long as he doen't move a certain way. States he can reach overhead as long as he doesn't get in a certain catch position. PT-OP-J Posture/Palpation/Skin Start: 09/04/22 18:49 Freq: Status: Active Protocol: Document 09/08/22 13:59 LRN (Rec: 09/08/22 18:11 LRN [id number]) Posture Evaluation Position Sitting Head/C-Spine Posture Forward Head Shoulder Posture (L) Elevated Comments Posture Comments Increased thoracic curvature, flattened L/S. Palpation Assessment Location L shoulder Palpation Location L upper shoulder and neck. Palpation Findings Soft Tissue Tightness Palpation Details Atrophy of L deltoid PT-OP-K Range of Motion Start: 09/04/22 18:49 Freq: Status: Active Protocol: Document 12/05/22 10:39 LRN (Rec: 12/06/22 10:35 LRN [id number]) Cervical Spine Range of Motion Cervical Spine Active Degrees Testing Position Sitting Flexion 45 Extension 38 Rotation Left 54 Rotation Right 56 Lateral Flexion Left 20 Lateral Flexion Right 20 Comments AROM taken before stretch: Rot: 58 L, 62 R; Sidebend: 20 bilaterally. PT-OP-L Special Tests Start: 09/04/22 18:49 Freq: Status: Active Protocol: Document 09/08/22 13:59 LRN (Rec: 09/08/22 18:11 LRN [id number]) Special Tests Shoulder Special Tests Painful arc Test Results + test L UE Dyer Felipe Impingement Test Results + test L UE Empty Can Test Results - test L UE PT-OP-M Strength Start: 09/04/22 18:49 Freq: Status: Active Protocol: Document 09/08/22 13:59 LRN (Rec: 09/08/22 18:11 LRN [id number]) Cervical Spine Strength Cervical Spine Manual Muscle Testing Testing Position Sitting Comments 5/5 bilaterally Shoulder Strength Shoulder Manual Muscle Testing Right Comments Generally 5/5. Left Flexion 5 Normal Extension 5 Normal Abduction (C5) 3+ Fair+ Adduction 5 Normal External Rotation 5 Normal Internal Rotation 5 Normal Horizontal Abduction 4 Good Horizontal Adduction 5 Normal Elbow/Forearm Strength Elbow and Forearm Manual Muscle Testing Right Comments Generally 5/5 Left Comments Generally 5/5 PT-OP-Q Treatments Start: 09/04/22 18:49 Freq: Status: Active Protocol: Document 12/05/22 10:39 LRN (Rec: 12/05/22 12:39 LRN [id number]) Cardio Equipment Upper Body Ergometer (UBE) Duration (Minutes) 9 RPM 65 Seat Position 12 - 335 cycles Height 4.5 (8.5 min total)- 473 cycles Other No pain, good workout burn, BHUMIKA 13 Somewhat hard Therapeutic Exercises Supine Exercises Neck Elongation Supine Exercise Name Neck ELongation Reps/Minutes 3' Comments Extra time for cuing and proper form. Sidelying Exercises open book Sidelying Exercise Name Open book stretch - HEP Side bilateral Resistance AAROM with manual facilitation after STMs Reps/Minutes x3 reps warm up - improved ROM post manual Comments improved scapular Sitting Exercises C. AROM Sitting Exercise Name C. Rot & SB stretch Side bilateral Reps/Minutes 10SH x2-3 each direction Cornelius Comments cued tall posturing, CS back neutral chin nod start position Scapular Clocks Sitting Exercise Name 1 to 7, 11 to 5, Added to HEP Side left Reps/Minutes 1x15 ea Comments Tactile cues for scapula ROM Self-Care/Home Management Treatment Education Patient Education Home Exercise Program Other Education Reviewed HEP ex's to focus on: Neck AROM stretches, neck elongation, Scapular clocks, Open book, Scapular/shoulder strengthening (row, shldr ext, AB, shoulder rolls, flex), Codman's for pain. Pt education in proper posture sitting/standing and bustos to safe movement, and proper body mechanics for ADLs, and Activities Self-Care/Home Management Activities Re-issued HEP of ex's for pt to focus on. Issued & reviewed handouts for safe posturing for movement and for sitting/standing, and for proper mechanics for ADLs. PT-OP-R Modalities Start: 09/04/22 18:49 Freq: Status: Active Protocol: Document 11/28/22 09:50 LRN (Rec: 11/28/22 16:54 LRN [id number]) Hot Pack/Cold Pack Treatment Cold Pack Location Neck Patient Position Hooklying Treatment Duration (minutes) 10 Patient Tolerance Good Comments Decreased pain perception after treatment. PT-OP-T Assessment and Plan Start: 09/04/22 18:49 Freq: Status: Active Protocol: Document 12/05/22 10:39 LRN (Rec: 12/05/22 12:39 LRN [id number]) Physical Therapy Assessment Goals Three Impairment Decreased L shoulder & cervical AROM Impairment Shoulder AROM (in deg's): Flex: 128 L, 148 R; AB 108 L, 136 R; Ext is 55 L, 70 R. Cervical AROM (in deg's): Rot : 58 L, 48 R. Short Term Goal (STG) Improve C. R rotation AROM. 10/28/22: C. AROM (deg's): Rot 57L, 53R (pain in L neck). 10/30/22: C. AROM (deg's): Rot 50 L, 55 R; SB 15 L, 20 R ( same sided neck pain with rot & SB) 11/20/26: C. AROM (deg's): Rot 58 L, 40 R; SB 25 L, 28 R 12/05/22: C. AROM (deg's): Rot 54 L, 56 R; SB 20 bilaterally. STG Duration 11/14/22 (12/05/22: MET GOAL , ROM mostly normalized after AROM stretch) Mcfp Goal (LTG) Pt will improve L shoulder AROM to be able to reach for objects overhead with minimal pain. 10/03/22: good feedback response to eccentric throwing and ABD in standing, tight but improved ROM and less discomfort each direction. 10/28/22: ROM slightly improved , pain about the same at the pain range 11/21/22: L shldr AROM (sit): Flex: 132 L, 160 R; AB 143 L, 185 R; Ext is 60 L, 80 R. 12/05/22: Pt stating he can reach overhead with minimal pain if he can avoid the catch pain. LTG Duration 12/23/22 (12/05/22: Progressed) Two Impairment L shoulder pain rated 4/10 Impairment Decreased L SHR Short Term Goal (STG) Pt will demonstrate improved scapulohumeral mobility and rhythm. 09/22/22: Improved L scapular mobility for distraction from ribcage. : Improved L scapular ROM post manual prone, eccentric throwing return ( ABD/ ER/ scapular retraction/ depression) and ABD OH in standing. 11/18/22: improved scapulothoracic ROM during UBE 6 min: 3.5 f/b painfree, good self corer. STG Duration 11/14/22 progressing 11/18/22 Mcfp Goal (LTG) Reduce pain to manageable level of 1-2/10 when raising the L arm up. LTG Duration 12/23/22 One Impairment Lacks appropriate self care HEP Short Term Goal (STG) Pt will be educated in proper sitting and standing posture and be able to demonstrate proper posturing with v cues only. 10/28/22: Educated pt in proper sitting and standing posture. 12/05/22: Review of proper sitting/standing posture. Education in proper posture for safe movement and proper body mechanics for ADLs. STG Duration 10/24/22 (MET GOAL 10/28/22 & 12/05/22 review) Mcfp Goal (LTG) Pt will be independent in a HEP of L shoulder ROM & RC/ postural/scapular strengthening ex's. 09/22/22: Pt previously issued HEP: Open book (hands behind head) and self massage of thoracic paraspinals with 2 tennis balls, leaning against wall. 09/26/22: Scapular clocks 1 to 7, 11 to 5. 10/13/22: added wall posture 11/18/22: initiated HABD, ABD on side AAROM/AROM. 11/25/22: added Tools RG personal ex program: lat pull down, rows, snow angels, FFOH (//not clasp hands), shld rolls. 12/05/22: Issued HEP of focus exercise. LTG Duration 12/23/22 (12/05/22: Completed issuance of HEP for current status) Assessment Summary Assessment Pt today self corrected his posture without v. cuing during discussion of posture. Pt has freed up his scapular mobility and has lessened his onset of pain with L shoulder AROM, but has pain range with active shoulder flex/AB; consistent with RC dysfunction. The pt doesn't appear to be consistent with his HEP; therefore reducing his HEP to ex's of focus may help to improve pt compliance on DC from PT. The pt needs review of HEP and assessment of SHR before DC from therapy, as planned at next visit, unless questions exist regarding his HEP. Physical Therapy Plan Frequency and Duration Frequency of Treatment 2x/Week Plan of Care Start Date 09/08/22 Plan of Care End Date 12/23/22 Next Visit Focus/Plan Next Note Type Progress Note Next Visit Plan Review: updated HEP recently issued (see HO). DC next visit after assessment goal #2 , and AROM taken for shoulders (LTG 3). Assess pain with reaching overhead & Stretch (trial IR stretch w/towel, pulleys). If time, check after manual stretching, C. ROM (C/S R Rot > L rot checking SB (goal #3)) , final visit for review. Issue HEP: L shoulder RC, scap stab strengthening (ER/IR , lat pull down and scap retract/depression).
--- NOTE | 2022-12-12 18:14 | PT.OTN ---
Current Diagnoses Impingement syndrome of left shoulder (12/12/22) Physical Therapy Treatment Note PT-OP-A Visit Information Start: 09/04/22 18:49 Freq: Status: Active Protocol: Document 12/12/22 13:48 LRN (Rec: 12/12/22 18:14 LRN [id number]) Out-Patient Physical Therapy Visit Information Visit Information Visit Type Treatment Note Visit Note 1 after PN Visit Start Time 13:48 Visit Stop Time 14:33 Total Visit Minutes 47 Visit Number 19 total, 08/13 Evaluation Information Evaluation Date 09/08/22 Precautions Precautions Vertigo, LE injuries, Back pain - 4 lower discs compressed, Controlled HBP. PT-OP-B Current Condition Start: 09/04/22 18:49 Freq: Status: Active Protocol: Document 09/08/22 13:59 LRN (Rec: 09/08/22 18:11 LRN [id number]) Current Condition History of Current Condition Onset Date 1994 Current Complaints L shoulder pain in joint when lifting the arm History of Current Condition Insidious onset of L shoulder pain from lifting a heavy bag for work. Pt chose to not have surgery 20+ yrs ago and has lived with it since. Is returning now to try and get shoulder fixed. L shoulder impingement that rehab started before the pandemic and did not complete the program. States his shoulder was improving and with the last therapist stretching his scapula. Prior Treatments and Tests Physical therapy 10/2019 but not able to complete program due to COVID 19. Future Testing and Treatments Planned Shoulder MRI 10/2019 indicating : Partial thickness bursal sided tear of the supraspinatus tendon. Associated mild subacromial- subdeltoid bursitis Treatment Goals Patient/Caregiver Goals Reduce pain to manageable level of 1-2/10 and raise the L arm up. 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 Both mothers have in the past 2 months. Anxiety since retired. PT-OP-C Subjective Start: 09/04/22 18:49 Freq: Status: Active Protocol: Document 12/12/22 13:48 LRN (Rec: 12/12/22 18:14 LRN [id number]) OP-PT Subjective Patient Comments Patient Comments States L shoulder is still loose and he is ready for discharge from PT. Patient Questionnaires Quick Dash- Upper Extremity Quick Dash UE Score 11.36 Quick Dash UE Impairment 1 to 19% Impaired (Score 1-19) PT-OP-J Posture/Palpation/Skin Start: 09/04/22 18:49 Freq: Status: Active Protocol: Document 09/08/22 13:59 LRN (Rec: 09/08/22 18:11 LRN [id number]) Posture Evaluation Position Sitting Head/C-Spine Posture Forward Head Shoulder Posture (L) Elevated Comments Posture Comments Increased thoracic curvature, flattened L/S. Palpation Assessment Location L shoulder Palpation Location L upper shoulder and neck. Palpation Findings Soft Tissue Tightness Palpation Details Atrophy of L deltoid PT-OP-K Range of Motion Start: 09/04/22 18:49 Freq: Status: Active Protocol: Document 12/12/22 13:48 LRN (Rec: 12/12/22 18:14 LRN [id number]) Shoulder Goniometric Range of Motion Shoulder Right Active Shoulder ROM WFL Yes Testing Position Standing Flexion 155 Extension 75 Abduction 170 Internal Rotation Behind Back (text) L3 Comments Behind back: T2 Left Active Shoulder ROM WFL No Testing Position Standing Flexion 132 Extension 60 Abduction 143 Internal Rotation Behind Back (text) L3 Comments Behind back: T2 Slight pain at 90 deg's for flex & AB. PT-OP-L Special Tests Start: 09/04/22 18:49 Freq: Status: Active Protocol: Document 09/08/22 13:59 LRN (Rec: 09/08/22 18:11 LRN [id number]) Special Tests Shoulder Special Tests Painful arc Test Results + test L UE Dyer Felipe Impingement Test Results + test L UE Empty Can Test Results - test L UE PT-OP-M Strength Start: 09/04/22 18:49 Freq: Status: Active Protocol: Document 09/08/22 13:59 LRN (Rec: 09/08/22 18:11 LRN [id number]) Cervical Spine Strength Cervical Spine Manual Muscle Testing Testing Position Sitting Comments 5/5 bilaterally Shoulder Strength Shoulder Manual Muscle Testing Right Comments Generally 5/5. Left Flexion 5 Normal Extension 5 Normal Abduction (C5) 3+ Fair+ Adduction 5 Normal External Rotation 5 Normal Internal Rotation 5 Normal Horizontal Abduction 4 Good Horizontal Adduction 5 Normal Elbow/Forearm Strength Elbow and Forearm Manual Muscle Testing Right Comments Generally 5/5 Left Comments Generally 5/5 PT-OP-Q Treatments Start: 09/04/22 18:49 Freq: Status: Active Protocol: Document 12/12/22 13:48 LRN (Rec: 12/12/22 18:14 LRN [id number]) Therapeutic Exercises Supine Exercises C. Rot stretch Supine Exercise Name C. Rot stretching Side bilateral Reps/Minutes 6' Shoulder IR stretch Supine Exercise Name Shoulder IR stretch Side left Reps/Minutes 3' Shoulder ER stretch Supine Exercise Name Manual Shoulder ER stretch Side left Reps/Minutes 3' Comments Approximation to GHJ with ROM Standing Exercises Shoulder AROM Standing Exercise Name Shoulder AROM Side left Reps/Minutes 6' Shoulder Ext Standing Exercise Name Lat Pull Dowh - Shdr Ext Side bilateral Resistance TB #2 Reps/Minutes 15x 2 Comments cued elevated head/chin nod/ scap retr/depres, con/ecc Rows Standing Exercise Name Scapular pinches Equipment Used LVL 2 TBand Reps/Minutes 15x 2 Comments Cues for scap retract Shoulder IR Standing Exercise Name Shoulder IR strengthening- in PT Side left Equipment Used Lev 2 TB Reps/Minutes 15x 2 Comments No cues needed for elbow tuck Shoulder ER Standing Exercise Name Shoulder ER strengthening Side left Equipment Used Lev 2 TB Reps/Minutes 15x2 Comments No cues needed for elbow tuck Manual Therapy Treatment Joint Mobilizations GH Joint Joint L Direction posterior, inferior Grade II Body Position Supine Reps/Duration 3' L Scapula Joint L Scapulothoracic Jt Direction Distraction, protraction/ retraction/depresson,UR/ DR Body Position Sidelying Reps/Duration 15' Comments Tremoring/muscle spasms decreased post manual PT-OP-R Modalities Start: 09/04/22 18:49 Freq: Status: Active Protocol: Document 11/28/22 09:50 LRN (Rec: 11/28/22 16:54 LRN [id number]) Hot Pack/Cold Pack Treatment Cold Pack Location Neck Patient Position Hooklying Treatment Duration (minutes) 10 Patient Tolerance Good Comments Decreased pain perception after treatment. PT-OP-T Assessment and Plan Start: 09/04/22 18:49 Freq: Status: Active Protocol: Document 12/12/22 13:48 LRN (Rec: 12/12/22 18:14 LRN [id number]) Physical Therapy Assessment Goals Three Impairment Decreased L shoulder & cervical AROM Impairment Shoulder AROM (in deg's): Flex: 128 L, 148 R; AB 108 L, 136 R; Ext is 55 L, 70 R. Cervical AROM (in deg's): Rot : 58 L, 48 R. Short Term Goal (STG) Improve C. R rotation AROM. 10/28/22: C. AROM (deg's): Rot 57L, 53R (pain in L neck). 10/30/22: C. AROM (deg's): Rot 50 L, 55 R; SB 15 L, 20 R ( same sided neck pain with rot & SB) 11/20/26: C. AROM (deg's): Rot 58 L, 40 R; SB 25 L, 28 R 12/05/22: C. AROM (deg's): Rot 54 L, 56 R; SB 20 bilaterally. STG Duration 11/14/22 (12/05/22: MET GOAL , ROM mostly normalized after AROM stretch) Curator Goal (LTG) Pt will improve L shoulder AROM to be able to reach for objects overhead with minimal pain. 10/03/22: good feedback response to eccentric throwing and ABD in standing, tight but improved ROM and less discomfort each direction. 10/28/22: ROM slightly improved , pain about the same at the pain range 11/21/22: L shldr AROM (sit): Flex: 132 L, 160 R; AB 143 L, 185 R; Ext is 60 L, 80 R. 12/05/22: Pt stating he can reach overhead with minimal pain if he can avoid the catch pain. LTG Duration 12/23/22 (12/12/22: MET GOAL if moving correctly) Two Impairment L shoulder pain rated 4/10 Impairment Decreased L SHR Short Term Goal (STG) Pt will demonstrate improved scapulohumeral mobility and rhythm. 09/22/22: Improved L scapular mobility for distraction from ribcage. : Improved L scapular ROM post manual prone, eccentric throwing return ( ABD/ ER/ scapular retraction/ depression) and ABD OH in standing. 11/18/22: improved scapulothoracic ROM during UBE 6 min: 3.5 f/b painfree, good self corer. STG Duration 11/14/22 (12/12/22: MET GOAL ) Half-Way Goal (LTG) Reduce pain to manageable level of 1-2/10 when raising the L arm up. 12/12/22: Pain rated 3-4/10. LTG Duration 12/23/22 (12/12/22: NOT MET GOAL) One Impairment Lacks appropriate self care HEP Short Term Goal (STG) Pt will be educated in proper sitting and standing posture and be able to demonstrate proper posturing with v cues only. 10/28/22: Educated pt in proper sitting and standing posture. 12/05/22: Review of proper sitting/standing posture. Education in proper posture for safe movement and proper body mechanics for ADLs. STG Duration 10/24/22 (MET GOAL 10/28/22 & 12/05/22 review) Half-Way Goal (LTG) Pt will be independent in a HEP of L shoulder ROM & RC/ postural/scapular strengthening ex's. 09/22/22: Pt previously issued HEP: Open book (hands behind head) and self massage of thoracic paraspinals with 2 tennis balls, leaning against wall. 09/26/22: Scapular clocks 1 to 7, 11 to 5. 10/13/22: added wall posture 11/18/22: initiated HABD, ABD on side AAROM/AROM. 11/25/22: added Tools RG personal ex program: lat pull down, rows, snow angels, FFOH (//not clasp hands), shld rolls. 12/05/22: Issued HEP of focus exercise. LTG Duration 12/23/22 (12/12/22: MET GOAL) Assessment Summary Assessment The pt has improved his L shoulder mobility and function but will at time experience impingement pain if moving his arm in an impingement position. His scapulohumeral rhythm is much improved, but there is a mild jumping of his scapula on descent of his arm from overhead; therefore there is scapular instability present. The pt was not able to demonstrate a painful arc, or have a consistent pain at the L shoulder with flexion or abduction. Goals were met except for his pain goal due to occasional pain when moving his arm wrong. The pt is ready to be placed on a HEP and feels ready for self care. Physical Therapy Plan Discharge Physical Therapy Discharge Reasons Plateau in Progress Discharge Comments The pt's scapular tightened up over the past week and he still demonstrates poor upper body posturing; therefore he may experience impingement symtoms in the future if he is not able to maintain his rotator cuff/scapular stabilizing strength and posture. Thank you for your referral.
== END 2022-12-15 16:21 | disposition home or self-care (01) ==
LOC: PHYS 13:45
PROVIDERS: Family Provider Family Medicine; PCP Family Medicine; Referring Provider Physical Medicine & Rehabilitation; Visit Provider Physical Medicine & Rehabilitation
DX: M75.42 Impingement syndrome of left shoulder (principal)
CPT/HCPCS: 97110; 97140; 97162; 97535

== ENCOUNTER → 2022-12-23 10:17 | Outpatient (CLI) | payer MEDICARE, OTHER, SELFPAY ==
--- NOTE | 2022-12-23 10:19 | DI.US.S_ITS ---
PROCEDURE: US CAROTID DOPPLER BI INDICATIONS: Worsening complaints of orthostatic symptoms, vertigo TECHNIQUE: Color and pulse Doppler interrogation was performed of both carotid systems, with image documentation and velocity measurements. COMPARISON: None. FINDINGS: Stenosis calculations are based on SRU (Society of Radiologists in Ultras[employer]) criteria. The flow velocities and the arterial waveforms are normal within both carotid arterial systems. Atherosclerotic plaque is seen on both sides. The estimated degree of internal carotid artery stenosis is less than 50%. Antegrade flow is confirmed within both vertebral arteries. IMPRESSION: No hemodynamically significant stenosis is seen. Atherosclerotic plaque is noted bilaterally. Dictated by: Jona Marquez M.D. on 12/23/2022 at 11:48 Approved by: Jona Marquez M.D. on 12/23/2022 at 11:49
== END ==
PROVIDERS: Family Provider Family Medicine; PCP Family Medicine; Referring Provider Family Medicine; Visit Provider Family Medicine
DX: I65.23 Occlusion and stenosis of bilateral carotid arteries (principal); R42 Dizziness and giddiness
CPT/HCPCS: 93880

== ENCOUNTER → 2022-12-30 13:45 | Outpatient (CLI) | payer MEDICARE, OTHER, SELFPAY ==
--- NOTE | 2022-12-30 13:49 | DI.RAD.S_ITS ---
PROCEDURE: XR LUMBAR SPINE MIN 4V INDICATIONS: BACK PAIN TECHNIQUE: 5 views of the lumbar spine were acquired, including bilateral oblique views. COMPARISON: [facility], [facility]EL, XR LUMBAR SPINE MIN 4V, 05/22/2020, 14:42. [facility], NOEL, L-SPINE 2-3 VIEWS, 04/06/2009, 9:37. FINDINGS: Bones: 5 nonrib-bearing vertebrae are present. Slight rightward curvature. Stepwise grade 1 retrolisthesis of L4 on L5, L3 on L4 and L2 on L3. Moderate disc height loss at all levels, most prominent at L2-3 and L3-4. Facet arthrosis L5-S1. Soft tissues: Overlying bowel gas pattern is normal. No suspicious soft tissue calcifications. Oblique images: No pars defects. IMPRESSION: Moderate, multilevel degenerative disc disease and facet arthrosis, progressed from prior. Dictated by: Kenny Mitchell M.D. on 12/30/2022 at 14:32 Approved by: Kenny Mitchell M.D. on 12/30/2022 at 14:34
--- NOTE | 2022-12-30 13:49 | DI.RAD.S_ITS ---
PROCEDURE: XR SHOULDER LT MIN 2V INDICATIONS: LEFT SHOULDER PAIN TECHNIQUE: 3 views of the shoulder were acquired. COMPARISON: None. FINDINGS: Bones: No fractures or dislocations. No suspicious bony lesions. Visualized ribs appear intact. Osteophytic lipping of the glenoid. Soft tissues: No suspicious soft tissue calcifications. IMPRESSION: Mild glenohumeral osteoarthritis. Dictated by: Kenny Mitchell M.D. on 12/30/2022 at 14:34 Approved by: Kenny Mitchell M.D. on 12/30/2022 at 14:35
== END ==
PROVIDERS: Family Provider Family Medicine; PCP Family Medicine; Referring Provider Physical Medicine & Rehabilitation; Visit Provider Physical Medicine & Rehabilitation
DX: M47.26 Other spondylosis with radiculopathy, lumbar region (principal); M51.16 Intervertebral disc disorders with radiculopathy, lumbar region; M47.27 Other spondylosis with radiculopathy, lumbosacral region; M75.42 Impingement syndrome of left shoulder; M19.012 Primary osteoarthritis, left shoulder
CPT/HCPCS: 72110; 73030

== ENCOUNTER → 2022-12-31 13:27 | Outpatient (CLI) | payer MEDICARE, OTHER, SELFPAY ==
--- NOTE | 2022-12-31 13:28 | DI.CT.S_ITS ---
PROCEDURE: CT HEAD/BRAIN WO CON INDICATIONS: worsening fatigue/dizziness TECHNIQUE: Noncontrast 4.5 mm thick angled axial sections acquired from the foramen magnum to the vertex, with coronal and sagittal reformats. For radiation dose reduction, the following was used: automated exposure control, adjustment of mA and/or kV according to patient size. COMPARISON: None. FINDINGS: Image quality: Excellent. CSF spaces: Basal cisterns are patent. No extra-axial fluid collections. The ventricles are symmetric in size and shape. Brain: No intracranial bleeds or masses. There is age-commensurate mild cerebral volume loss for age, with resultant ventricular and sulcal prominence. There is [id number] periventricular and deep white matter chronic small vessel ischemic change along with senescent basal ganglia calcification. There is intracranial internal carotid artery atherosclerosis. Skull and face: Calvarium and visualized facial bones appear intact, without suspicious lesions. Sinuses: Visualized sinuses and mastoids are clear. IMPRESSION: No acute finding. Mild global cerebral volume loss and moderate chronic microvascular ischemic changes. Dictated by: Simon Flores M.D. on 12/31/2022 at 15:22 Approved by: Simon Flores M.D. on 12/31/2022 at 15:23
== END ==
PROVIDERS: Family Provider Family Medicine; PCP Family Medicine; Referring Provider Family Medicine; Visit Provider Family Medicine
DX: I65.29 Occlusion and stenosis of unspecified carotid artery (principal); R42 Dizziness and giddiness; R41.89 Other symptoms and signs involving cognitive functions and awareness; R46.89 Other symptoms and signs involving appearance and behavior; R53.83 Other fatigue
CPT/HCPCS: 70450

== ENCOUNTER 2023-01-28 04:23 | Observation (INO) | payer MEDICARE, OTHER, SELFPAY ==
[2023-01-28] VITALS (30 sets, daily range): BP systolic 150–202; BP diastolic 74–107; PULSE 61–83; RESP 17–33; TEMP 36.8–37.3; O2SAT 91–97; BMI 23.0; BMI 25.8
--- NOTE | 2023-01-28 04:12 | ED_ITS ---
HPI - General Adult <Brianna Brink MD - Last Filed: 01/29/23 18:06> General Chief complaint: Chest Pain Stated complaint: Left c/p Time Seen by Provider: 01/28/23 04:23 History of Present Illness HPI narrative: 59-year-old gentleman with a history of hypertension, hyperlipidemia, recently seen by his primary care doctor for complaints of nonspecific vertigo with carotid ultrasound scan that did not show significant carotid occlusion. In reviewing primary care notes it looks like hypertension has been an ongoing issue in November with felodipine discontinued secondary to concerns for vertigo, his lisinopril and metoprolol were continued. Last night prior to bed, approximately 1030pm, began having some left-sided chest pain and increasing confusion. His is available in the emergency department now and notes that he has been having increasing cognitive issues over the last year but significant changes in the last 12 hours. She reports he does not recall going to a large family event yesterday afternoon. 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 He is moving all extremities with no overt signs of acute stroke. He was given a single spray of sublingual nitroglycerin with blood pressure coming down from 220 systolic to 152/90 for the medics. Initially had complained of left chest pain 4/10 decreasing to 2/10 after the sublingual nitro. Has some mild left upper quadrant abdominal pain. The overall tremor that medics had noticed has improved significantly with blood pressure coming back to reasonable levels. Patient himself reports no fevers, cough chills nausea, vomiting, diarrhea, abdominal pain. Complains of no headaches, paresthesias or localized weakness. Related Data Home Medications Medication Instructions Recorded Confirmed acetaminophen 500 mg tablet 500 mg PO Q6H PRN Pain (Scale 09/11/21 01/28/23 (Tylenol Extra Strength) Score 1-3) felodipine 5 mg tablet,extended 5 mg PO 12/04/22 01/01/23 release 24 hr Previous Rx's Medication Instructions Recorded celecoxib 200 mg capsule (Celebrex) 200 mg PO BEDTIME #90 caps 04/01/22 hyoscyamine sulfate 0.125 mg tablet 0.25 mg PO TIDP #540 tabs 04/01/22 lisinopril 20 mg tablet 20 mg PO BID #180 tabs 04/01/22 metoprolol succinate 50 mg 50 mg PO BID #180 tabs 04/01/22 tablet,extended release 24 hr simvastatin 40 mg tablet 40 mg PO DAILY #90 tabs 04/01/22 clonazepam 0.5 mg tablet 0.5 mg PO BID PRN anxiety #60 tabs 12/18/22 Allergies Allergy/AdvReac Type Severity Reaction Status Date / Time iodine Allergy Severe syncope & Verified 01/01/23 16:28 large hives everywhere, during IVP 1977 hydrochlorothiazide Allergy Intermediate Throat Verified 01/01/23 16:28 swelling Review of Systems <Brianna Brink MD - Last Filed: 01/29/23 18:06> Review of Systems Narrative: Pertinent positive and negative findings as per HPI Patient History <Brianna Brink MD - Last Filed: 01/29/23 18:06> Medical History Chicken pox Chronic back pain Cognitive and behavioral changes Colon polyps Elevated liver function tests Erectile dysfunction Facet arthropathy, lumbar Hearing loss Hypertension Impingement syndrome of left shoulder Irritable bowel syndrome Left hip pain Lumbar radiculopathy Mumps Skin lesion of back Vertigo Well adult exam Surgical History Anesthesia Status post arthroscopy Status post arthroscopy Status post foot surgery Status post knee surgery (~04/1999) Status post knee surgery (~04/1999) Family History Brother Cancer Father Diabetes mellitus Heart disease Hypertension Social History household members: spouse Smoking Status: Never smoker alcohol intake: current substance use type: does not use Exam <Brianna Brink MD - Last Filed: 01/29/23 18:06> Initial Vital Signs Initial Vital Signs: Vital Signs Temperature 99.2 F 01/28/23 04:22 Pulse Rate 81 01/28/23 04:22 Respiratory Rate 18 01/28/23 04:22 Blood Pressure 202/107 H 01/28/23 04:22 Pulse Oximetry 97 01/28/23 04:22 Oxygen Delivery Method Room Air 01/28/23 04:22 General: Tremulous, cooperative, alert to person time place, location and events. Not complaining of headache. Able to follow commands. HEENT: Moist mucous membranes, normal sclera with reactive pupils, Neck: No JVD, supple Respiratory: Lungs are clear to auscultation, no wheezing no rales no rhonchi. Full and symmetrical air movement Cardiac: Regular rate and rhythm no murmurs no bruits Abdomen: Soft, minor tenderness in the left upper quadrant without rebound or guarding, good bowel tones, no flank pain Skin: Warm and dry, no rashes, no skin breakdown or concern for cellulitis Neurologic: Fluent speech, moving all extremities, tremor of both upper extremities. No headache, no nuchal rigidity Extremities: No trauma, well perfused Psych: Cooperative, appropriate affect <Zaki Santacruz MD - Last Filed: 01/28/23 10:25> Initial Vital Signs Initial Vital Signs: Vital Signs Temperature 99.2 F 01/28/23 04:22 Pulse Rate 81 01/28/23 04:22 Respiratory Rate 18 01/28/23 04:22 Blood Pressure 202/107 H 01/28/23 04:22 Pulse Oximetry 97 01/28/23 04:22 Oxygen Delivery Method Room Air 01/28/23 04:22 Course <Brianna Brink MD - Last Filed: 01/29/23 18:06> Orders Ordered: Discontinued Medications Acetaminophen (Acetaminophen 325 Mg Tablet) 650 mg PO Q6H PRN PRN Reason: Fever/Mild Pain (1-3) Last Admin: 01/29/23 13:13 Dose: 650 mg Documented By: BT Amlodipine Besylate (Amlodipine 5 Mg Tablet) 5 mg PO NOW ONE Stop: 01/28/23 11:44 Last Admin: 01/28/23 11:59 Dose: 5 mg Documented By: BT Amlodipine Besylate (Amlodipine 5 Mg Tablet) 5 mg PO DAILY [facility] Last Admin: 01/29/23 09:09 Dose: 5 mg Documented By: BT Aspirin (Aspirin Ec 81 Mg Tablet) 81 mg PO DAILY [facility] Last Admin: 01/29/23 09:09 Dose: 81 mg Documented By: BT Atorvastatin Calcium (Atorvastatin 20 Mg Tablet) 40 mg PO BEDTIME [facility] Last Admin: 01/28/23 21:13 Dose: 40 mg Documented By: AKP Clonazepam (Clonazepam 0.5 Mg Tablet) 0.5 mg PO BID PRN PRN Reason: anxiety Last Admin: 01/28/23 11:59 Dose: 0.5 mg Documented By: ELI Docusate Sodium (Docusate 100 Mg Capsule) 100 mg PO BID PRN PRN Reason: Constipation Last Admin: 01/29/23 09:09 Dose: 100 mg Documented By: ELI Enoxaparin Sodium (Enoxaparin 40 Mg/0.4 Ml Syringe) 40 mg 0.5 mg/kg (40 mg) SUBCUT DAILY MATT Last Admin: 01/29/23 09:10 Dose: 40 mg Documented By: ELI Folic Acid (Folic Acid 1 Mg Tablet) 1 mg PO DAILY MATT Last Admin: 01/29/23 09:09 Dose: 1 mg Documented By: ELI Heparin Sodium (Porcine) (Heparin 5,000 Unit/Ml Vial) 4,000 unit IV NOW ONE Stop: 01/28/23 05:14 Last Admin: 01/28/23 05:43 Dose: 4,000 unit Documented By: ISSAC Nicardipine HCl 25 mg/ Sodium (Chloride) 250 mls @ 50 mls/hr IV TITRATE MATT; Protocol Last Admin: 01/28/23 06:07 Dose: Not Given Documented By: ISSAC Lactated Ringer's (Lactated Ringers) 2,245.29 mls @ 748.43 mls/hr 30 ml/kg infuse over 3 hr (2245.29 ml) IV NOW ONE Stop: 01/28/23 07:50 Last Infusion: 01/28/23 08:32 Dose: 0 mls/hr Documented By: Admin: 01/28/23 05:20 Dose: 748.43 mls/hr Documented By: ISSAC Heparin Sodium/Dextrose (Heparin Drip) 25,000 unit in 500 mls @ 17.962 mls/hr IV CONT MATT; Protocol Last Titration: 01/28/23 10:45 Dose: 12 units/kg/hr, 17.962 mls/hr Documented By: Admin: 01/28/23 05:44 Dose: 12 units/kg/hr, 17.962 mls/hr Documented By: ISSAC Lisinopril (Lisinopril 20 Mg Tablet) 20 mg PO NOW ONE Stop: 01/28/23 06:02 Last Admin: 01/28/23 06:15 Dose: 20 mg Documented By: ISASC Lisinopril (Lisinopril 20 Mg Tablet) 20 mg PO BID [facility] Last Admin: 01/29/23 09:09 Dose: 20 mg Documented By: Admin: 01/28/23 21:13 Dose: 20 mg Documented By: JUDAH Lorazepam (Lorazepam 1 Mg Tablet) 1 mg PO NOW ONE Stop: 01/28/23 13:30 Last Admin: 01/28/23 13:49 Dose: 1 mg Documented By: ELI Lorazepam (Lorazepam 1 Mg Tablet) 0 mg PO CIWAPRN PRN; Protocol PRN Reason: Alcohol Withdrawal Last Admin: 01/28/23 21:13 Dose: 1 mg Documented By: JUDAH Metoprolol Succinate (Metoprolol Er 50 Mg Tablet) 50 mg PO NOW ONE Stop: 01/28/23 11:41 Last Admin: 01/28/23 12:00 Dose: Not Given Documented By: ELI Metoprolol Succinate (Metoprolol Er 50 Mg Tablet) 50 mg PO BID [facility] Last Admin: 01/29/23 13:12 Dose: 50 mg Documented By: ELI Metoprolol Tartrate (Metoprolol Ir 25 Mg Tablet) 50 mg PO NOW ONE Stop: 01/28/23 06:01 Last Admin: 01/28/23 06:15 Dose: 50 mg Documented By: ISSAC Multivitamins (Multivitamin 1 Tablet) 1 tab PO DAILY [facility] Last Admin: 01/29/23 09:09 Dose: 1 tab Documented By: ELI Naloxone HCl (Naloxone 0.4 Mg/Ml Vial) 0.2 mg IV Q2MIN PRN PRN Reason: Opiate Reversal Nitroglycerin (Nitroglycerin Oint 1 Inch/Gm Oint...G.) 0.5 inch TOP NOW ONE Stop: 01/28/23 05:14 Last Admin: 01/28/23 05:21 Dose: 0.5 inch Documented By: ISSAC Ondansetron HCl (Ondansetron 4 Mg/2 Ml Inj) 4 mg IV NOW ONE Stop: 01/28/23 05:38 Last Admin: 01/28/23 05:41 Dose: 4 mg Documented By: ISSAC Ondansetron HCl (Ondansetron 4 Mg/2 Ml Inj) 4 mg IV Q8HR PRN PRN Reason: Nausea And Vomiting Sennosides (Sennosides 8.6 Mg Tablet) 8.6 mg PO BID [facility] Last Admin: 01/29/23 09:09 Dose: 8.6 mg Documented By: Admin: 01/28/23 21:13 Dose: 8.6 mg Documented By: JUDAH Thiamine HCl (Thiamine 100 Mg Tablet) 100 mg PO DAILY [facility] Stop: 02/01/23 09:01 Last Admin: 01/29/23 09:09 Dose: 100 mg Documented By: BT Vital Signs Vital signs: Vital Signs - 8 hr 01/28/23 04:22 01/28/23 04:27 01/28/23 04:30 Temperature 99.2 F Pulse Rate 81 82 83 Respiratory Rate 18 21 33 H Blood Pressure 202/107 H Pulse Oximetry 97 96 96 Oxygen Delivery Method Room Air 01/28/23 04:49 01/28/23 04:49 01/28/23 05:00 Temperature Pulse Rate 76 Respiratory Rate 22 Blood Pressure 176/89 H 161/87 H Pulse Oximetry 94 Oxygen Delivery Method 01/28/23 05:00 01/28/23 05:30 01/28/23 06:00 Temperature Pulse Rate 76 77 70 Respiratory Rate 20 22 19 Blood Pressure Pulse Oximetry 94 94 94 Oxygen Delivery Method 01/28/23 06:30 01/28/23 07:00 01/28/23 07:23 Temperature Pulse Rate 71 73 Respiratory Rate 22 20 Blood Pressure 150/83 H Pulse Oximetry 94 94 Oxygen Delivery Method 01/28/23 07:23 01/28/23 07:31 01/28/23 07:45 Temperature Pulse Rate 68 78 Respiratory Rate Blood Pressure 175/84 H Pulse Oximetry 95 95 Oxygen Delivery Method 01/28/23 07:45 01/28/23 08:00 01/28/23 08:00 Temperature Pulse Rate 67 66 Respiratory Rate 17 Blood Pressure 174/93 H Pulse Oximetry 94 95 Oxygen Delivery Method 01/28/23 08:30 01/28/23 08:45 01/28/23 08:45 Temperature Pulse Rate 68 65 Respiratory Rate 19 Blood Pressure 187/88 H Pulse Oximetry 94 92 Oxygen Delivery Method 01/28/23 09:00 01/28/23 09:00 01/28/23 09:15 Temperature Pulse Rate 65 Respiratory Rate 21 Blood Pressure 158/74 H 155/86 H Pulse Oximetry 91 Oxygen Delivery Method 01/28/23 09:15 01/28/23 09:30 01/28/23 09:30 Temperature Pulse Rate 61 62 Respiratory Rate 19 19 Blood Pressure 169/87 H Pulse Oximetry 91 92 Oxygen Delivery Method <Zaki Santacruz MD - Last Filed: 01/28/23 10:25> Course Course Narrative: Care was assumed from Dr. Kramer at change of shift. Patient is a 67-year-old gentleman with known hypertension and hyperlipidemia. He is also a drinker, he was drinking heavy last night. He is unsure how much. his suggest a history of cognitive dysfunction, apparently more severe last night. In addition to the cognitive changes, including confusion and a twitch, he had left-sided chest pain. Also complained of left abdominal pain after arrival. Notes constipation. He also has urinary hesitancy. He is no prior diagnosis of prostate disease. He is no dysuria or hematuria. he states compliance with medications. Blood pressure was 200 systolic upon arrival. He was given nitroglycerin for the blood pressure and chest pain. Pain quickly improved. He was also given his existing dose of felodipine and metoprolol. a 1st troponin was elevated at 0.048. Heparin started. EKG is normal sinus rhythm without significant ectopy or ST changes. Troponin was repeated, 0.045. Head CT was done because of the cognitive changes, no acute findings. Stroke testing was negative. Chest x-ray is normal. Due to the abdominal pain CT was ordered. There are no acute findings. Bladder scan indicated grade 3 100 mL of urine, was able to urinate, but could not empty. The case was discussed with our hospitalist and Cardiology, Dr. Aden. Dr. Vázquez recommended continued monitoring of the troponin. He also recommended increase control on the blood pressure and to check his lipids. if troponin continues to improve, nuclear stress test can be performed locally. Dr. Wen, hospitalist has agreed to admit the patient. it is unclear if the cognitive changes he is associated with his recent alcohol use._ Zoey FRAGA 01/28/23@10:22 Orders Ordered: Discontinued Medications Acetaminophen (Acetaminophen 325 Mg Tablet) 650 mg PO Q6H PRN PRN Reason: Fever/Mild Pain (1-3) Last Admin: 01/29/23 13:13 Dose: 650 mg Documented By: BT Amlodipine Besylate (Amlodipine 5 Mg Tablet) 5 mg PO NOW ONE Stop: 01/28/23 11:44 Last Admin: 01/28/23 11:59 Dose: 5 mg Documented By: BT Amlodipine Besylate (Amlodipine 5 Mg Tablet) 5 mg PO DAILY [facility] Last Admin: 01/29/23 09:09 Dose: 5 mg Documented By: BT Aspirin (Aspirin Ec 81 Mg Tablet) 81 mg PO DAILY [facility] Last Admin: 01/29/23 09:09 Dose: 81 mg Documented By: BT Atorvastatin Calcium (Atorvastatin 20 Mg Tablet) 40 mg PO BEDTIME [facility] Last Admin: 01/28/23 21:13 Dose: 40 mg Documented By: AKRonnie Clonazepam (Clonazepam 0.5 Mg Tablet) 0.5 mg PO BID PRN PRN Reason: anxiety Last Admin: 01/28/23 11:59 Dose: 0.5 mg Documented By: BT Docusate Sodium (Docusate 100 Mg Capsule) 100 mg PO BID PRN PRN Reason: Constipation Last Admin: 01/29/23 09:09 Dose: 100 mg Documented By: BT Enoxaparin Sodium (Enoxaparin 40 Mg/0.4 Ml Syringe) 40 mg 0.5 mg/kg (40 mg) SUBCUT DAILY [facility] Last Admin: 01/29/23 09:10 Dose: 40 mg Documented By: BT Folic Acid (Folic Acid 1 Mg Tablet) 1 mg PO DAILY [facility] Last Admin: 01/29/23 09:09 Dose: 1 mg Documented By: ELI Heparin Sodium (Porcine) (Heparin 5,000 Unit/Ml Vial) 4,000 unit IV NOW ONE Stop: 01/28/23 05:14 Last Admin: 01/28/23 05:43 Dose: 4,000 unit Documented By: ISSAC Nicardipine HCl 25 mg/ Sodium (Chloride) 250 mls @ 50 mls/hr IV TITRATE [facility]; Protocol Last Admin: 01/28/23 06:07 Dose: Not Given Documented By: ISSAC Lactated Ringer's (Lactated Ringers) 2,245.29 mls @ 748.43 mls/hr 30 ml/kg infuse over 3 hr (2245.29 ml) IV NOW ONE Stop: 01/28/23 07:50 Last Infusion: 01/28/23 08:32 Dose: 0 mls/hr Documented By: Admin: 01/28/23 05:20 Dose: 748.43 mls/hr Documented By: ISSAC Heparin Sodium/Dextrose (Heparin Drip) 25,000 unit in 500 mls @ 17.962 mls/hr IV CONT [facility]; Protocol Last Titration: 01/28/23 10:45 Dose: 12 units/kg/hr, 17.962 mls/hr Documented By: Admin: 01/28/23 05:44 Dose: 12 units/kg/hr, 17.962 mls/hr Documented By: ISSAC Lisinopril (Lisinopril 20 Mg Tablet) 20 mg PO NOW ONE Stop: 01/28/23 06:02 Last Admin: 01/28/23 06:15 Dose: 20 mg Documented By: ISSAC Lisinopril (Lisinopril 20 Mg Tablet) 20 mg PO BID [facility] Last Admin: 01/29/23 09:09 Dose: 20 mg Documented By: Admin: 01/28/23 21:13 Dose: 20 mg Documented By: JUDAH Lorazepam (Lorazepam 1 Mg Tablet) 1 mg PO NOW ONE Stop: 01/28/23 13:30 Last Admin: 01/28/23 13:49 Dose: 1 mg Documented By: ELI Lorazepam (Lorazepam 1 Mg Tablet) 0 mg PO CIWAPRN PRN; Protocol PRN Reason: Alcohol Withdrawal Last Admin: 01/28/23 21:13 Dose: 1 mg Documented By: JUDAH Metoprolol Succinate (Metoprolol Er 50 Mg Tablet) 50 mg PO NOW ONE Stop: 01/28/23 11:41 Last Admin: 01/28/23 12:00 Dose: Not Given Documented By: ELI Metoprolol Succinate (Metoprolol Er 50 Mg Tablet) 50 mg PO BID [facility] Last Admin: 01/29/23 13:12 Dose: 50 mg Documented By: EIL Metoprolol Tartrate (Metoprolol Ir 25 Mg Tablet) 50 mg PO NOW ONE Stop: 01/28/23 06:01 Last Admin: 01/28/23 06:15 Dose: 50 mg Documented By: ISSAC Multivitamins (Multivitamin 1 Tablet) 1 tab PO DAILY [facility] Last Admin: 01/29/23 09:09 Dose: 1 tab Documented By: ELI Naloxone HCl (Naloxone 0.4 Mg/Ml Vial) 0.2 mg IV Q2MIN PRN PRN Reason: Opiate Reversal Nitroglycerin (Nitroglycerin Oint 1 Inch/Gm Oint...G.) 0.5 inch TOP NOW ONE Stop: 01/28/23 05:14 Last Admin: 01/28/23 05:21 Dose: 0.5 inch Documented By: ISSAC Ondansetron HCl (Ondansetron 4 Mg/2 Ml Inj) 4 mg IV NOW ONE Stop: 01/28/23 05:38 Last Admin: 01/28/23 05:41 Dose: 4 mg Documented By: ISSAC Ondansetron HCl (Ondansetron 4 Mg/2 Ml Inj) 4 mg IV Q8HR PRN PRN Reason: Nausea And Vomiting Sennosides (Sennosides 8.6 Mg Tablet) 8.6 mg PO BID [facility] Last Admin: 01/29/23 09:09 Dose: 8.6 mg Documented By: Admin: 01/28/23 21:13 Dose: 8.6 mg Documented By: JUDAH Thiamine HCl (Thiamine 100 Mg Tablet) 100 mg PO DAILY [facility] Stop: 02/01/23 09:01 Last Admin: 01/29/23 09:09 Dose: 100 mg Documented By: ELI Vital Signs Vital signs: Vital Signs - 8 hr 01/28/23 04:22 01/28/23 04:27 01/28/23 04:30 Temperature 99.2 F Pulse Rate 81 82 83 Respiratory Rate 18 21 33 H Blood Pressure 202/107 H Pulse Oximetry 97 96 96 Oxygen Delivery Method Room Air 01/28/23 04:49 01/28/23 04:49 01/28/23 05:00 Temperature Pulse Rate 76 Respiratory Rate 22 Blood Pressure 176/89 H 161/87 H Pulse Oximetry 94 Oxygen Delivery Method 01/28/23 05:00 01/28/23 05:30 01/28/23 06:00 Temperature Pulse Rate 76 77 70 Respiratory Rate 20 22 19 Blood Pressure Pulse Oximetry 94 94 94 Oxygen Delivery Method 01/28/23 06:30 01/28/23 07:00 01/28/23 07:23 Temperature Pulse Rate 71 73 Respiratory Rate 22 20 Blood Pressure 150/83 H Pulse Oximetry 94 94 Oxygen Delivery Method 01/28/23 07:23 01/28/23 07:31 01/28/23 07:45 Temperature Pulse Rate 68 78 Respiratory Rate Blood Pressure 175/84 H Pulse Oximetry 95 95 Oxygen Delivery Method 01/28/23 07:45 01/28/23 08:00 01/28/23 08:00 Temperature Pulse Rate 67 66 Respiratory Rate 17 Blood Pressure 174/93 H Pulse Oximetry 94 95 Oxygen Delivery Method 01/28/23 08:30 01/28/23 08:45 01/28/23 08:45 Temperature Pulse Rate 68 65 Respiratory Rate 19 Blood Pressure 187/88 H Pulse Oximetry 94 92 Oxygen Delivery Method 01/28/23 09:00 01/28/23 09:00 01/28/23 09:15 Temperature Pulse Rate 65 Respiratory Rate 21 Blood Pressure 158/74 H 155/86 H Pulse Oximetry 91 Oxygen Delivery Method 01/28/23 09:15 01/28/23 09:30 01/28/23 09:30 Temperature Pulse Rate 61 62 Respiratory Rate 19 19 Blood Pressure 169/87 H Pulse Oximetry 91 92 Oxygen Delivery Method Medical Decision Making <Brianna Brink MD - Last Filed: 01/29/23 18:06> Lab Data 01/29/23 05:13 01/29/23 05:13 Labs: Lab Results 01/28/23 01/28/23 01/28/23 Range/Units 04:20 04:20 04:20 WBC (4.5-11.0) X10^3/uL RBC (4.5-5.9) X10^6/uL Hgb (13.5-17.5) g/dL Hct (41-53) % MCV (80-100) fL MCH (26-34) PG MCHC (30-36) % RDW (11.6-14.8) % Plt Count (150-400) X10^3/uL Neut % (Auto) (50-75) % Lymph % (Auto) (25-40) % Childress % (Auto) (3-14) % Eos % (Auto) (2-4) % Baso % (Auto) (0-2) % Neut # (Auto) (9129-5853) /uL Lymph # (Auto) (6559-8504) /uL Childress # (Auto) (0-900) /uL Eos # (Auto) (0-450) /uL Baso # (Auto) (0-100) /uL APTT (26-36) SECONDS Sodium 137 (137-145) mmol/L Potassium 3.6 (3.4-5.1) mmol/L Chloride 98 (98-107) mmol/L Carbon Dioxide 22 (22-32) mmol/L BUN 9 (9-20) mg/dL Creatinine 0.80 (0.66-1.25) mg/dL Estimated GFR > 60 (>60) mL/min BUN/Creatinine Ratio 11.3 (6-22) Glucose 128 H (80-110) mg/dL Lactate 4.7 H* (0.7-2.1) mmol/L Calcium 9.0 (8.4-10.2) mg/dL Magnesium 1.7 (1.6-2.3) mg/dL Total Bilirubin 1.9 H (0.2-1.3) mg/dL AST 71 H (17-59) IU/L ALT 46 (<50) IU/L Alkaline Phosphatase 64 (38-126) U/L Troponin I 0.048 H (0.01-0.034) ng/mL Total Protein 8.2 (6.3-8.2) g/dL Albumin 4.8 (3.5-5.0) g/dL Globulin 3.4 (1.7-4.1) g/dL Albumin/Globulin Ratio 1.4 (1.0-2.8) Lipase 104 (23-300) U/L Procalcitonin 0.10 (<0.5) ng/mL Urine Color Urine Appearance Urine pH (4.5-8.0) Ur Specific [place] (1.000-1.035) Urine Protein (Negative) Urine Glucose (UA) (Negative) g/dL Urine Ketones (NEGATIVE) Urine Occult Blood (Negative) Urine Nitrate (Negative) Urine Bilirubin (NEGATIVE) Urine Urobilinogen (0.2) E.U./dL Ur Leukocyte Esterase (NEGATIVE) Urine RBC (0-5/HPF) Urine WBC (0-5/HPF) Ur Squamous Epith Cells (0-5/HPF) Urine Bacteria (None) Ur Culture Indicated? Ethyl Alcohol ( - 10) mg/dL SARS-CoV-2 (PCR) Negative (Negative) 01/28/23 01/28/23 01/28/23 Range/Units 04:20 04:20 04:20 WBC 9.4 (4.5-11.0) X10^3/uL RBC 4.97 (4.5-5.9) X10^6/uL Hgb 17.1 (13.5-17.5) g/dL Hct 49.7 (41-53) % MCV 99.9 (80-100) fL MCH 34.5 H (26-34) PG MCHC 34.5 (30-36) % RDW 14.0 (11.6-14.8) % Plt Count 154 (150-400) X10^3/uL Neut % (Auto) 82.6 H (50-75) % Lymph % (Auto) 7.2 L (25-40) % Childress % (Auto) 7.9 (3-14) % Eos % (Auto) 0.0 L (2-4) % Baso % (Auto) 2.3 H (0-2) % Neut # (Auto) 7800 H (2890-2627) /uL Lymph # (Auto) 700 L (9860-9052) /uL Childress # (Auto) 700 (0-900) /uL Eos # (Auto) 0 (0-450) /uL Baso # (Auto) 200 H (0-100) /uL APTT 25 L (26-36) SECONDS Sodium (137-145) mmol/L Potassium (3.4-5.1) mmol/L Chloride (98-107) mmol/L Carbon Dioxide (22-32) mmol/L BUN (9-20) mg/dL Creatinine (0.66-1.25) mg/dL Estimated GFR (>60) mL/min BUN/Creatinine Ratio (6-22) Glucose (80-110) mg/dL Lactate (0.7-2.1) mmol/L Calcium (8.4-10.2) mg/dL Magnesium (1.6-2.3) mg/dL Total Bilirubin (0.2-1.3) mg/dL AST (17-59) IU/L ALT (<50) IU/L Alkaline Phosphatase (38-126) U/L Troponin I (0.01-0.034) ng/mL Total Protein (6.3-8.2) g/dL Albumin (3.5-5.0) g/dL Globulin (1.7-4.1) g/dL Albumin/Globulin Ratio (1.0-2.8) Lipase (23-300) U/L Procalcitonin (<0.5) ng/mL Urine Color Urine Appearance Urine pH (4.5-8.0) Ur Specific [place] (1.000-1.035) Urine Protein (Negative) Urine Glucose (UA) (Negative) g/dL Urine Ketones (NEGATIVE) Urine Occult Blood (Negative) Urine Nitrate (Negative) Urine Bilirubin (NEGATIVE) Urine Urobilinogen (0.2) E.U./dL Ur Leukocyte Esterase (NEGATIVE) Urine RBC (0-5/HPF) Urine WBC (0-5/HPF) Ur Squamous Epith Cells (0-5/HPF) Urine Bacteria (None) Ur Culture Indicated? Ethyl Alcohol < 10 ( - 10) mg/dL SARS-CoV-2 (PCR) (Negative) 01/28/23 01/28/23 01/28/23 Range/Units 06:31 06:35 07:30 WBC (4.5-11.0) X10^3/uL RBC (4.5-5.9) X10^6/uL Hgb (13.5-17.5) g/dL Hct (41-53) % MCV (80-100) fL MCH (26-34) PG MCHC (30-36) % RDW (11.6-14.8) % Plt Count (150-400) X10^3/uL Neut % (Auto) (50-75) % Lymph % (Auto) (25-40) % Childress % (Auto) (3-14) % Eos % (Auto) (2-4) % Baso % (Auto) (0-2) % Neut # (Auto) (5482-4694) /uL Lymph # (Auto) (5448-4752) /uL [place] # (Auto) (0-900) /uL Eos # (Auto) (0-450) /uL Baso # (Auto) (0-100) /uL APTT (26-36) SECONDS Sodium (137-145) mmol/L Potassium (3.4-5.1) mmol/L Chloride (98-107) mmol/L Carbon Dioxide (22-32) mmol/L BUN (9-20) mg/dL Creatinine (0.66-1.25) mg/dL Estimated GFR (>60) mL/min BUN/Creatinine Ratio (6-22) Glucose (80-110) mg/dL Lactate 1.4 (0.7-2.1) mmol/L Calcium (8.4-10.2) mg/dL Magnesium (1.6-2.3) mg/dL Total Bilirubin (0.2-1.3) mg/dL AST (17-59) IU/L ALT (<50) IU/L Alkaline Phosphatase (38-126) U/L Troponin I 0.045 H (0.01-0.034) ng/mL Total Protein (6.3-8.2) g/dL Albumin (3.5-5.0) g/dL Globulin (1.7-4.1) g/dL Albumin/Globulin Ratio (1.0-2.8) Lipase (23-300) U/L Procalcitonin (<0.5) ng/mL Urine Color Yellow Urine Appearance Clear Urine pH 7.0 (4.5-8.0) Ur Specific [place] 1.010 (1.000-1.035) Urine Protein Negative (Negative) Urine Glucose (UA) Negative (Negative) g/dL Urine Ketones 2+ H (NEGATIVE) Urine Occult Blood Negative (Negative) Urine Nitrate Negative (Negative) Urine Bilirubin Negative (NEGATIVE) Urine Urobilinogen 2.0 H (0.2) E.U./dL Ur Leukocyte Esterase Negative (NEGATIVE) Urine RBC None seen (0-5/HPF) Urine WBC None seen (0-5/HPF) Ur Squamous Epith Cells None seen (0-5/HPF) Urine Bacteria None seen (None) Ur Culture Indicated? Cult not indicated Ethyl Alcohol ( - 10) mg/dL SARS-CoV-2 (PCR) (Negative) Point of Care Testing Glucose POC 109 Point of care testing: Point of Care Testing Glucose POC 109 MDM Narrative Medical decision making narrative: CC: Left-sided chest pain Complicating co-morbidities: Hypertension, hyperlipidemia Data collected from: patient, spouse Medical records reviewed: Primary care notes from November and December of this year. Pain management notes from December of this year also indicate cognitive and behavioral changes with increased anxiety and again note the vertigo Differential considered: Acute coronary syndrome, hypertensive crisis, stroke, sepsis, transient global amnesia Exam documented above, pertinent findings include: Mild confusion only but oriented to person time and place on exam in the ER, neurologic exam is significant for tremor but NIH score is 0 Lab Test results independently reviewed as above. Pertinent findings: CBC is unremarkable, no significant leukocytosis Procalcitonin is unremarkable Chemistries show normal renal function, normal electrolytes, sliding increase in bilirubin at 1.9 Lactic acid is elevated at 4.7 Troponin is elevated at 0.048 Independently reviewed EKG Sinus rhythm at a rate of 83, normal intervals, normal axis No acute ischemic changes Imaging studies independently reviewed: Chest x-ray no acute cardiopulmonary process appreciated CT scan no intracranial bleeding or obvious masses Consultations: Treatments: Patient received aspirin and a single dose of nitroglycerin prior to arrival. Chest pain and left upper abdominal pain continue to natan. Blood pressure continues to be elevated. Nicardipine is considered however blood pressures are trending down.. Troponin comes back slightly elevated so nitro paste will be placed. If chest pain continues will increase to nitroglycerin drip. Once CT scan is confirmed free of bleeding will start heparin. Re-evaluations: 645am in re-evaluating the patient he is now saying that his pain is more in his abdomen rather than in his chest. Also notes that he is confused and having difficulty remembering things'. He reports that he has not had a bowel movement for a couple of days and is wondering if that might be contributing. Repeat troponin and repeat lactic acid are drawn. I do not have localizing source for infection. He is unable to void at this time even though fluids have been administered. Blood pressure remains in the 160 range with his usual 20 mg of lisinopril and 25 mg of metoprolol given. Metoprolol was tartrate and he typically takes succinate, will need an additiona l dose of tartrate this evening Discussion: <Zaki Santacruz MD - Last Filed: 01/28/23 10:25> Lab Data Labs: Lab Results 01/28/23 01/28/23 01/28/23 Range/Units 04:20 04:20 04:20 WBC (4.5-11.0) X10^3/uL RBC (4.5-5.9) X10^6/uL Hgb (13.5-17.5) g/dL Hct (41-53) % MCV (80-100) fL MCH (26-34) PG MCHC (30-36) % RDW (11.6-14.8) % Plt Count (150-400) X10^3/uL Neut % (Auto) (50-75) % Lymph % (Auto) (25-40) % Childress % (Auto) (3-14) % Eos % (Auto) (2-4) % Baso % (Auto) (0-2) % Neut # (Auto) (0749-6017) /uL Lymph # (Auto) (2283-3968) /uL Childress # (Auto) (0-900) /uL Eos # (Auto) (0-450) /uL Baso # (Auto) (0-100) /uL APTT (26-36) SECONDS Sodium 137 (137-145) mmol/L Potassium 3.6 (3.4-5.1) mmol/L Chloride 98 (98-107) mmol/L Carbon Dioxide 22 (22-32) mmol/L BUN 9 (9-20) mg/dL Creatinine 0.80 (0.66-1.25) mg/dL Estimated GFR > 60 (>60) mL/min BUN/Creatinine Ratio 11.3 (6-22) Glucose 128 H (80-110) mg/dL Lactate 4.7 H* (0.7-2.1) mmol/L Calcium 9.0 (8.4-10.2) mg/dL Magnesium 1.7 (1.6-2.3) mg/dL Total Bilirubin 1.9 H (0.2-1.3) mg/dL AST 71 H (17-59) IU/L ALT 46 (<50) IU/L Alkaline Phosphatase 64 (38-126) U/L Troponin I 0.048 H (0.01-0.034) ng/mL Total Protein 8.2 (6.3-8.2) g/dL Albumin 4.8 (3.5-5.0) g/dL Globulin 3.4 (1.7-4.1) g/dL Albumin/Globulin Ratio 1.4 (1.0-2.8) Lipase 104 (23-300) U/L Procalcitonin 0.10 (<0.5) ng/mL Urine Color Urine Appearance Urine pH (4.5-8.0) Ur Specific [place] (1.000-1.035) Urine Protein (Negative) Urine Glucose (UA) (Negative) g/dL Urine Ketones (NEGATIVE) Urine Occult Blood (Negative) Urine Nitrate (Negative) Urine Bilirubin (NEGATIVE) Urine Urobilinogen (0.2) E.U./dL Ur Leukocyte Esterase (NEGATIVE) Urine RBC (0-5/HPF) Urine WBC (0-5/HPF) Ur Squamous Epith Cells (0-5/HPF) Urine Bacteria (None) Ur Culture Indicated? Ethyl Alcohol ( - 10) mg/dL SARS-CoV-2 (PCR) Negative (Negative) 01/28/23 01/28/23 01/28/23 Range/Units 04:20 04:20 04:20 WBC 9.4 (4.5-11.0) X10^3/uL RBC 4.97 (4.5-5.9) X10^6/uL Hgb 17.1 (13.5-17.5) g/dL Hct 49.7 (41-53) % MCV 99.9 (80-100) fL MCH 34.5 H (26-34) PG MCHC 34.5 (30-36) % RDW 14.0 (11.6-14.8) % Plt Count 154 (150-400) X10^3/uL Neut % (Auto) 82.6 H (50-75) % Lymph % (Auto) 7.2 L (25-40) % Childress % (Auto) 7.9 (3-14) % Eos % (Auto) 0.0 L (2-4) % Baso % (Auto) 2.3 H (0-2) % Neut # (Auto) 7800 H (7215-7727) /uL Lymph # (Auto) 700 L (1370-0276) /uL Childress # (Auto) 700 (0-900) /uL Eos # (Auto) 0 (0-450) /uL Baso # (Auto) 200 H (0-100) /uL APTT 25 L (26-36) SECONDS Sodium (137-145) mmol/L Potassium (3.4-5.1) mmol/L Chloride (98-107) mmol/L Carbon Dioxide (22-32) mmol/L BUN (9-20) mg/dL Creatinine (0.66-1.25) mg/dL Estimated GFR (>60) mL/min BUN/Creatinine Ratio (6-22) Glucose (80-110) mg/dL Lactate (0.7-2.1) mmol/L Calcium (8.4-10.2) mg/dL Magnesium (1.6-2.3) mg/dL Total Bilirubin (0.2-1.3) mg/dL AST (17-59) IU/L ALT (<50) IU/L Alkaline Phosphatase (38-126) U/L Troponin I (0.01-0.034) ng/mL Total Protein (6.3-8.2) g/dL Albumin (3.5-5.0) g/dL Globulin (1.7-4.1) g/dL Albumin/Globulin Ratio (1.0-2.8) Lipase (23-300) U/L Procalcitonin (<0.5) ng/mL Urine Color Urine Appearance Urine pH (4.5-8.0) Ur Specific [place] (1.000-1.035) Urine Protein (Negative) Urine Glucose (UA) (Negative) g/dL Urine Ketones (NEGATIVE) Urine Occult Blood (Negative) Urine Nitrate (Negative) Urine Bilirubin (NEGATIVE) Urine Urobilinogen (0.2) E.U./dL Ur Leukocyte Esterase (NEGATIVE) Urine RBC (0-5/HPF) Urine WBC (0-5/HPF) Ur Squamous Epith Cells (0-5/HPF) Urine Bacteria (None) Ur Culture Indicated? Ethyl Alcohol < 10 ( - 10) mg/dL SARS-CoV-2 (PCR) (Negative) 01/28/23 01/28/23 01/28/23 Range/Units 06:31 06:35 07:30 WBC (4.5-11.0) X10^3/uL RBC (4.5-5.9) X10^6/uL Hgb (13.5-17.5) g/dL Hct (41-53) % MCV (80-100) fL MCH (26-34) PG MCHC (30-36) % RDW (11.6-14.8) % Plt Count (150-400) X10^3/uL Neut % (Auto) (50-75) % Lymph % (Auto) (25-40) % Childress % (Auto) (3-14) % Eos % (Auto) (2-4) % Baso % (Auto) (0-2) % Neut # (Auto) (3955-2447) /uL Lymph # (Auto) (1854-8063) /uL Childress # (Auto) (0-900) /uL Eos # (Auto) (0-450) /uL Baso # (Auto) (0-100) /uL APTT (26-36) SECONDS Sodium (137-145) mmol/L Potassium (3.4-5.1) mmol/L Chloride (98-107) mmol/L Carbon Dioxide (22-32) mmol/L BUN (9-20) mg/dL Creatinine (0.66-1.25) mg/dL Estimated GFR (>60) mL/min BUN/Creatinine Ratio (6-22) Glucose (80-110) mg/dL Lactate 1.4 (0.7-2.1) mmol/L Calcium (8.4-10.2) mg/dL Magnesium (1.6-2.3) mg/dL Total Bilirubin (0.2-1.3) mg/dL AST (17-59) IU/L ALT (<50) IU/L Alkaline Phosphatase (38-126) U/L Troponin I 0.045 H (0.01-0.034) ng/mL Total Protein (6.3-8.2) g/dL Albumin (3.5-5.0) g/dL Globulin (1.7-4.1) g/dL Albumin/Globulin Ratio (1.0-2.8) Lipase (23-300) U/L Procalcitonin (<0.5) ng/mL Urine Color Yellow Urine Appearance Clear Urine pH 7.0 (4.5-8.0) Ur Specific [place] 1.010 (1.000-1.035) Urine Protein Negative (Negative) Urine Glucose (UA) Negative (Negative) g/dL Urine Ketones 2+ H (NEGATIVE) Urine Occult Blood Negative (Negative) Urine Nitrate Negative (Negative) Urine Bilirubin Negative (NEGATIVE) Urine Urobilinogen 2.0 H (0.2) E.U./dL Ur Leukocyte Esterase Negative (NEGATIVE) Urine RBC None seen (0-5/HPF) Urine WBC None seen (0-5/HPF) Ur Squamous Epith Cells None seen (0-5/HPF) Urine Bacteria None seen (None) Ur Culture Indicated? Cult not indicated Ethyl Alcohol ( - 10) mg/dL SARS-CoV-2 (PCR) (Negative) Point of Care Testing Glucose POC 109 Point of care testing: Point of Care Testing Glucose POC 109 <Zaki Santacruz MD - Last Filed: 01/28/23 10:25> Critical Care Time Critical Care Time: Yes Total Critical Care Time: 90 Attestation: time includes Dr. Kramer's iinitial care. I evaluated the patient, reviewed medical records, reviewed the situation with the patient, and made multiple phone calls, leading to admission. Discharge Plan Departure Patient Disposition: Admitted as Observation Clinical Impression: Chest pain, Elevated troponin, Tremor, Altered mental status, Non-ST elevated myocardial infarction (non-STEMI), Urinary retention Admit Date/Time: 01/28/23 09:38 Admit Provider: Toan Wen
--- NOTE | 2023-01-28 04:27 | DI.RAD.S_ITS ---
PROCEDURE: XR CHEST 1V INDICATIONS: elevated BP, chest pain TECHNIQUE: One view of the chest was acquired. COMPARISON: None. FINDINGS: Surgical changes and devices: None. Lungs and pleura: Lungs are clear. No pleural effusions or pneumothorax. Mediastinum: Mediastinal contours appear normal. Heart size is normal. Bones and chest wall: No suspicious bony lesions. Overlying soft tissues appear unremarkable. IMPRESSION: No acute cardiopulmonary abnormality. There is no significant discrepancy when compared to the overnight preliminary report. Approved by: Tacoh Cain M.D. on 01/28/2023 at 8:03
[2023-01-28 04:43] LABS: Alanine Aminotransferase 46 IU/L (<50); Albumin 4.8 g/dL (3.5-5.0); Albumin Globulin Ratio 1.4 (1.0-2.8); Alkaline Phosphatase 64 U/L (38-126); Aspartate Aminotransferase 71 IU/L (17-59); BUN Creatinine Ratio 11.3 (6-22); Bilirubin Total 1.9 mg/dL (0.2-1.3); Blood Urea Nitrogen 9 mg/dL (9-20); Carbon Dioxide 22 mmol/L (22-32); Chloride 98 mmol/L (98-107); Estimated Glomerular Filt Rate > 60 mL/min (>60); Globulin 3.4 g/dL (1.7-4.1); Glucose 128 mg/dL (80-110); HEMOLYSIS < 15 (0-50); Lipase 104 U/L (23-300); Magnesium 1.7 mg/dL (1.6-2.3); Potassium 3.6 mmol/L (3.4-5.1); Sodium 137 mmol/L (137-145); Total Protein 8.2 g/dL (6.3-8.2)
--- NOTE | 2023-01-28 04:45 | DI.CT.S_ITS ---
PROCEDURE: CT HEAD/BRAIN WO CON INDICATIONS: altered mental status TECHNIQUE: Noncontrast 4.5 mm thick angled axial sections acquired from the foramen magnum to the vertex, with coronal and sagittal reformats. For radiation dose reduction, the following was used: automated exposure control, adjustment of mA and/or kV according to patient size. COMPARISON: [facility], CT, CT HEAD/BRAIN WO CON, 12/31/2022, 13:52. FINDINGS: Image quality: Excellent. CSF spaces: Basal cisterns are patent. No extra-axial fluid collections. The ventricles are symmetric in size and shape. Brain: No intracranial bleeds or masses. There is cerebral volume loss for age, with resultant ventricular and sulcal prominence. There are periventricular and deep white matter chronic small vessel ischemic changes. There is intracranial internal carotid artery atherosclerosis. Skull and face: Calvarium and visualized facial bones appear intact, without suspicious lesions. Sinuses: Visualized sinuses and mastoids are clear. IMPRESSION: 1. No acute intracranial abnormalities. 2. Cerebral volume loss and chronic microvascular ischemic changes. No significant discrepancy with the shift commander radiology preliminary report. Dictated by: Kulwant Nowak M.D. on 01/28/2023 at 6:57 Approved by: Kulwant Nowak M.D. on 01/28/2023 at 6:58
[2023-01-28 04:51] LABS: Lactate (Lactic Acid) 4.7 mmol/L (0.7-2.1)
[2023-01-28 04:53] LABS: COVID19 -Nasal RAPID Negative (Negative)
[2023-01-28 04:55] LABS: Troponin I 0.048 ng/mL (0.01-0.034)
[2023-01-28 04:57] LABS: Add Manual Diff / Slide Review NO; Basophils Absolute Auto 200 /uL (0-100); Basophils Percent Auto 2.3 % (0-2); Eosinophils Absolute Auto 0 /uL (0-450); Hematocrit 49.7 % (41-53); Hemoglobin 17.1 g/dL (13.5-17.5); Lymphocytes Absolute Auto 700 /uL (1100-4500); Lymphocytes Percent Auto 7.2 % (25-40); Mean Corpuscular HGB Conc 34.5 % (30-36); Mean Corpuscular Hemoglobin 34.5 PG (26-34); Mean Corpuscular Volume 99.9 fL (80-100); Monocytes Absolute Auto 700 /uL (0-900); Monocytes Percent Auto 7.9 % (3-14); Neutrophils Absolute Auto 7800 /uL (1500-7000); Neutrophils Percent Auto 82.6 % (50-75); Platelet Count 154 X10^3/uL (150-400); Red Blood Cell Count 4.97 X10^6/uL (4.5-5.9); White Blood Cell Count 9.4 X10^3/uL (4.5-11.0)
[2023-01-28] MEDS: LACTATED RINGERS 748.43 ML IV (05:20)
[2023-01-28] MEDS: NITROGLYCERIN OINT 1 INCH/GM OINT...G. 0.5 INCH TOP (05:21)
[2023-01-28] MEDS: ONDANSETRON 4 MG/2 ML INJ IV (05:41)
[2023-01-28] MEDS: HEPARIN 5,000 UNIT/ML VIAL 4000 UNIT IV (05:43)
[2023-01-28] MEDS: HEPARIN DRIP 25,000 UNIT/500 ML IV.SOLN 17.962 UNIT IV (05:44)
[2023-01-28 06:14] LABS: PTT Partial Thromboplastin Tim 25 SECONDS (26-36)
[2023-01-28] MEDS: METOPROLOL IR 25 MG TABLET 50 MG PO (06:15)
[2023-01-28] MEDS: lisinopriL 20 MG TABLET PO ×2 (06:15→21:13)
[2023-01-28 06:31] LABS: Reflexed Lactate in 2 Hours Y
[2023-01-28 07:06] LABS: Lactate 2HR (Lactic Acid Rflx) 1.4 mmol/L (0.7-2.1)
[2023-01-28 07:18] LABS: Troponin I 0.045 ng/mL (0.01-0.034)
--- NOTE | 2023-01-28 07:57 | DI.CT.S_ITS ---
PROCEDURE: CT ABDOMEN PELVIS WO CON INDICATIONS: LLQ pain. TECHNIQUE: Noncontrast 5 mm thick sections acquired from the diaphragms to the symphysis. 5 mm coronal and sagittal reformats were then performed. For radiation dose reduction, the following was used: automated exposure control, adjustment of mA and/or kV according to patient size. COMPARISON: None. FINDINGS: ABDOMEN: Lung bases: No pleural effusion. Solid organs: Hepatic steatosis. Gallbladder is unremarkable . Pancreas is normal in contours. Spleen is normal in size. No adrenal nodules. No hydronephrosis. 1-2 millimeter nonobstructing stone right mid kidney. Peritoneum and bowel: No evidence of small bowel obstruction. No free air or substantial free fluid Nodes and vessels: No retroperitoneal or mesenteric adenopathy by size criteria. Aorta and inferior vena cava are normal in caliber. Small fat containing periumbilical hernia PELVIS: Genitourinary: Bladder wall thickness is normal. Bladder is distended. Prostatomegaly. Miscellaneous: No adenopathy. Bones: Multilevel degenerative change of the visualized spine. IMPRESSION: 1. The urinary bladder is distended. If the patient is not able to void, catheterization may be of benefit. 2. Punctate nonobstructing right renal stone. 3. Hepatic steatosis. 4. Small fat containing periumbilical hernia. Dictated by: Tacho Finney M.D. on 01/28/2023 at 8:15 Approved by: Tacho Finney M.D. on 01/28/2023 at 8:27
[2023-01-28 08:19] LABS: Appearance Urine UA CLEAR; Bilirubin Urine UA NEGATIVE (NEGATIVE); Color Urine UA YELLOW; Glucose Urine UA NEGATIVE (Negative); Ketones Urine UA 2+ (NEGATIVE); Leukocyte Esterase Urine UA NEGATIVE (NEGATIVE); Nitrite Urine UA NEGATIVE (Negative); Occult Blood Urine UA NEGATIVE (Negative); Protein Urine UA NEGATIVE (Negative)
[2023-01-28 08:28] LABS: Bacteria Urine None Seen; Culture Indicated Urine Cult Not Indicated; RBC Urine None Seen (0-5/HPF); Squamous Epithelial Cell Urine None Seen (0-5/HPF); WBC Urine None Seen (0-5/HPF)
[2023-01-28 10:26] LABS: Ethanol (ETOH) < 10 mg/dL
--- NOTE | 2023-01-28 11:02 | DI.ECHO.S_ITS ---
[place] [facility]---------+ [facility] +---------+ : : [address] : : : : [id number] : : : : Phone: [phone] Echocardiogram Report + + :Name: SHELLY JONES Study Date: 01/28/2023 Height: 71 in : :[facility] ReadingLocation: Weight: 165 lb : : Gender: Male BSA: 1.9 m2 : :: 1955 Age: 67 yrs BP: 168/96 mmHg: :Reason For Study: CHEST PAIN, DIZZINESS : :Ordering Physician: ZAC, : :BRENDA PRIDE Performed By: Bernie Richards : :Referring: BRENDA FRANK : + + Interpretation Summary The ejection fraction is estimated to be 60-65%. Diastolic parameters suggest probable normal left ventricular diastolic function and normal filling pressures. The right ventricle is normal in size and function. There is mild mitral regurgitation. There is moderate aortic valve sclerosis. There is trace aortic regurgitation. Pulmonary artery pressures cannot be estimated because of the lack of a measurable TR jet velocity. The aortic root is mildly dilated, 4.0 cm. Procedure: A two-dimensional transthoracic echocardiogram with color flow and Doppler was performed. The study quality was technically adequate. There is no prior echocardiogram noted for this patient. The patient was in sinus rhythm with heart rates between 57-75 bpm during the exam. Left Ventricle: Proximal septal thickening is noted. The left ventricle is normal in size. The ejection fraction is estimated to be 60-65%. Diastolic parameters suggest probable normal left ventricular diastolic function and normal filling pressures. Right Ventricle: The right ventricle is normal in size and function. Atria: The left atrial size is normal. Right atrial size is normal. There is no Doppler evidence for an interatrial shunt. Mitral Valve: The mitral valve is normal in structure and function. There is mild mitral regurgitation. Aortic Valve: There is moderate aortic valve sclerosis. The aortic valve is mildly calcified. The aortic valve is trileaflet. The peak aortic velocity is 1.8 m/sec. The aortic valve mean gradient is 8 mmHg. There is trace aortic regurgitation. Tricuspid Valve: The tricuspid valve is normal in structure and function. There is trace tricuspid regurgitation. Pulmonary artery pressures cannot be estimated because of the lack of a measurable TR jet velocity. Pulmonic Valve: The pulmonic valve leaflets are thin and pliable; valve motion is normal. There is mild pulmonic regurgitation. Great Vessels: The aortic root is mildly dilated. The dimensions of the ascending aorta are normal. The IVC is of normal diameter and collapses greater than 50% with a sniff. This suggests a low right atrial pressure of 3 mm Hg. Pericardium/ Pleura There is no pericardial effusion. There is no pleural effusion. MMode/2D Measurements & Calculations LVIDd: 5.3 cm LVOT diam: 2.1 cm LVIDs: 3.8 cm Ao root diam: 4.0 cm FS: 27.6 % asc Aorta Diam: 3.5 cm EPSS: 0.66 cm Ao Arch Diam (Prox Trans): 2.7 cm IVSd: 0.87 cm LVPWd: 0.88 cm LV joshua. diameter/BSA (cm/m^2): 2.7 LV sys. diameter/BSA (cm/m^2): 2.0 LA A2 area: 22.0 cm2 RA long axis: 4.8 cm LA A4 area: 17.1 cm2 RA area: 14.1 cm2 LA length (vol): 5.2 cm RA vol: 35.1 ml LA vol: 60.8 ml RA : 18.0 ml/m2 LA vol index: 31.3 ml/m2 IVC diam: 1.8 cm RVD1 (basal): 3.3 cm RVD2 (mid): 2.8 cm TAPSE: 1.9 cm Doppler Measurements & Calculations Ao V2 max: 182.9 cm/sec LVOT Max Luke: 81.8 cm/sec Ao V2 mean: 124.2 cm/sec LV V1 max P.7 mmHg Ao max P.1 mmHg LV V1 VTI: 19.2 cm Ao mean P.5 mmHg SIMA(I,D): 1.8 cm2 Ao V2 VTI: 36.3 cm SIMA(V,D): 1.5 cm2 sev ratio: 0.53 SIMA indexed to BSA (cm^2/m^2): 0.93 MV E max luke: 45.7 cm/sec PA V2 max: 93.2 cm/sec MV A max luke: 54.2 cm/sec PA V2 mean: 64.9 cm/sec MV E/A: 0.84 PA mean P.9 mmHg Med Peak E' Luke: 3.3 cm/sec PA pr(Accel): 29.3 mmHg E/E' med: 14.0 Lat Peak E' Luke: 4.2 cm/sec E/E' lat: 11.0 E/e' average: 12.5 MV dec time: 0.31 sec SV(LVOT): 65.5 ml Reading Physician:04:37 PM
[2023-01-28] MEDS: clonazePAM 0.5 MG TABLET PO (11:59)
[2023-01-28] MEDS: AMLODIPINE 5 MG TABLET PO (11:59)
[2023-01-28 12:41] LABS: PTT Partial Thromboplastin Tim 31 SECONDS (26-36)
--- NOTE | 2023-01-28 12:41 | PM.HP.1 ---
History of Present Illness History of Present Illness Date Patient Seen: 01/28/23 Time Patient Seen: 12:42 Chief complaint: Left c/p Narrative: This is a 67 year old male with PMH of HTN, alcohol use who presents with left sided chest pain at around 10:30 pm and progressive cognitive issues over the past year but worsening confusion starting yesterday. Patient states he developed left sided chest pressure starting yesterday evening before going to bed, he denies shortness of breath or palpitations but does endorse associated nausea. Spouse reports poor PO intake over the past 3 days or so. He is having increasing difficulty with short term memory, and struggles to recall recent events including a large family event yesterday afternoon. This morning he woke up and thought it was a different day than it actually was. He and spouse deny unilateral weakness, numbness, tingling or slurred speech. EMS was called, and he was markedly hypertensive, with chest pain that both improved with sublingual nitro. He also has had some left upper quadrant abdominal pain, no melena or hematochezia, no emesis. The pain is worse with movement. He drinks about a 5th of vodka every 3 days, and has been drinking for a long time. His last drink was now about 36 hours ago. Spouse also reports a new tremor and gait disturbance. He denies fever, chills, weight gain, rash, cough. His BP was low after initiation of felodipine so he reports not taking this medication for some time now. PCP referral was placed to neurology but not scheduled until May. [facility] Medical History Chicken pox Chronic back pain Cognitive and behavioral changes Colon polyps Elevated liver function tests Erectile dysfunction Facet arthropathy, lumbar Hearing loss Hypertension Impingement syndrome of left shoulder Irritable bowel syndrome Left hip pain Lumbar radiculopathy Mumps Skin lesion of back Vertigo Well adult exam Surgical History Anesthesia Status post arthroscopy Status post arthroscopy Status post foot surgery Status post knee surgery (~04/1999) Status post knee surgery (~04/1999) Family History Brother Cancer Father Diabetes mellitus Heart disease Hypertension Social History household members: spouse Smoking Status: Never smoker alcohol intake: current substance use type: does not use Meds Home Medications and Allergies Home Medications Medication Instructions Recorded Confirmed Type acetaminophen 500 mg tablet 500 mg PO Q6H PRN Pain (Scale 09/11/21 01/28/23 History (Tylenol Extra Strength) Score 1-3) celecoxib 200 mg capsule (Celebrex) 200 mg PO BEDTIME #90 caps 04/01/22 01/28/23 Rx hyoscyamine sulfate 0.125 mg tablet 0.25 mg PO TIDP #540 tabs 04/01/22 01/28/23 Rx lisinopril 20 mg tablet 20 mg PO BID #180 tabs 04/01/22 01/28/23 Rx metoprolol succinate 50 mg 50 mg PO BID #180 tabs 04/01/22 01/28/23 Rx tablet,extended release 24 hr simvastatin 40 mg tablet 40 mg PO DAILY #90 tabs 04/01/22 01/28/23 Rx felodipine 5 mg tablet,extended 5 mg PO 12/04/22 01/01/23 History release 24 hr clonazepam 0.5 mg tablet 0.5 mg PO BID PRN anxiety #60 tabs 12/18/22 01/28/23 Rx Allergies Allergy/AdvReac Type Severity Reaction Status Date / Time iodine Allergy Severe syncope & Verified 01/01/23 16:28 large hives everywhere, during IVP 1977 hydrochlorothiazide Allergy Intermediate Throat Verified 01/01/23 16:28 swelling Review of Systems Review of Systems Narrative: All other systems reviewed with the patient and are negative unless otherwise stated. Exam Vital Signs (past 8 hours): - 01/28/23 04:49 01/28/23 04:49 01/28/23 05:00 Temperature Pulse Rate 76 Respiratory Rate 22 Blood Pressure 176/89 H 161/87 H Pulse Oximetry 94 Oxygen Delivery Method Oxygen Flow Rate 01/28/23 05:00 01/28/23 05:30 01/28/23 06:00 Temperature Pulse Rate 76 77 70 Respiratory Rate 20 22 19 Blood Pressure Pulse Oximetry 94 94 94 Oxygen Delivery Method Oxygen Flow Rate 01/28/23 06:30 01/28/23 07:00 01/28/23 07:23 Temperature Pulse Rate 71 73 Respiratory Rate 22 20 Blood Pressure 150/83 H Pulse Oximetry 94 94 Oxygen Delivery Method Oxygen Flow Rate 01/28/23 07:23 01/28/23 07:31 01/28/23 07:45 Temperature Pulse Rate 68 78 Respiratory Rate Blood Pressure 175/84 H Pulse Oximetry 95 95 Oxygen Delivery Method Oxygen Flow Rate 01/28/23 07:45 01/28/23 08:00 01/28/23 08:00 Temperature Pulse Rate 67 66 Respiratory Rate 17 Blood Pressure 174/93 H Pulse Oximetry 94 95 Oxygen Delivery Method Oxygen Flow Rate 01/28/23 08:30 01/28/23 08:45 01/28/23 08:45 Temperature Pulse Rate 68 65 Respiratory Rate 19 Blood Pressure 187/88 H Pulse Oximetry 94 92 Oxygen Delivery Method Oxygen Flow Rate 01/28/23 09:00 01/28/23 09:00 01/28/23 09:15 Temperature Pulse Rate 65 Respiratory Rate 21 Blood Pressure 158/74 H 155/86 H Pulse Oximetry 91 Oxygen Delivery Method Oxygen Flow Rate 01/28/23 09:15 01/28/23 09:30 01/28/23 09:30 Temperature Pulse Rate 61 62 Respiratory Rate 19 19 Blood Pressure 169/87 H Pulse Oximetry 91 92 Oxygen Delivery Method Oxygen Flow Rate 01/28/23 09:45 01/28/23 09:45 01/28/23 10:00 Temperature Pulse Rate 62 Respiratory Rate 20 Blood Pressure 153/82 H 157/92 H Pulse Oximetry 95 Oxygen Delivery Method Oxygen Flow Rate 01/28/23 10:00 01/28/23 10:15 01/28/23 10:15 Temperature Pulse Rate 72 62 Respiratory Rate 27 H 18 Blood Pressure 164/100 H Pulse Oximetry 94 94 Oxygen Delivery Method Oxygen Flow Rate 01/28/23 10:30 01/28/23 10:31 01/28/23 10:31 Temperature Pulse Rate 61 65 Respiratory Rate 22 25 H Blood Pressure 180/86 H Pulse Oximetry 96 96 Oxygen Delivery Method Room Air Oxygen Flow Rate 01/28/23 11:05 01/28/23 11:05 Temperature 98.7 F Pulse Rate 82 Respiratory Rate 20 Blood Pressure 168/96 H Pulse Oximetry 97 97 Oxygen Delivery Method Room Air Oxygen Flow Rate 0 0 Oxygen Delivery Method Room Air Oxygen Flow Rate 0 Narrative Exam Narrative: General:? Patient is well developed and well nourished, in no distress at this time. HEENT:? Normocephalic, atraumatic, extraocular muscles intact, oral pharynx is clear and mucous membranes are moist. Neck: supple and symmetric, trachea is midline, no cervical adenopathy. Negative for JVD Chest:? Normal AP diameter and contour without kyphoscoliosis, no tachypnea, equal chest rise bilaterally. Lungs:? CTA b/l no wheezing rhonchi or rales. Cardio:?RRR no m/r/g. Abdomen: S NT ND. Musculoskeletal:? Muscle strength and tone are equal within normal limits, no deformity. Extremities: No edema or joint effusions. No cyanosis or clubbing. Skin:?mild ecsematous patches, no erythema, no notable bruising Neuro:? Alert and orientated x3,? sensation to touch intact in all extremities, no gross deficits noted of cranial nerves. Mild tremulousness and tongue fasciculations. Psych:? Patient has a well-kept appearance, appropriate affect but appears slightly anxious, does struggle with elements of past history, mental status attitude thought context and judgment are appropriate for age. Objective Labs 01/28/23 04:20 01/28/23 04:20 Labs: Laboratory Results - last 24 hr 01/28/23 01/28/23 01/28/23 04:20 04:20 04:20 WBC RBC Hgb Hct MCV MCH MCHC RDW Plt Count Neut % (Auto) Lymph % (Auto) [place] % (Auto) Eos % (Auto) Baso % (Auto) Neut # (Auto) Lymph # (Auto) [place] # (Auto) Eos # (Auto) Baso # (Auto) APTT Sodium 137 Potassium 3.6 Chloride 98 Carbon Dioxide 22 BUN 9 Creatinine 0.80 Estimated GFR > 60 BUN/Creatinine Ratio 11.3 Glucose 128 H Lactate 4.7 H* Calcium 9.0 Magnesium 1.7 Total Bilirubin 1.9 H AST 71 H ALT 46 Alkaline Phosphatase 64 Troponin I 0.048 H Total Protein 8.2 Albumin 4.8 Globulin 3.4 Albumin/Globulin Ratio 1.4 Lipase 104 Procalcitonin 0.10 Urine Color Urine Appearance Urine pH Ur Specific Bow Urine Protein Urine Glucose (UA) Urine Ketones Urine Occult Blood Urine Nitrate Urine Bilirubin Urine Urobilinogen Ur Leukocyte Esterase Urine RBC Urine WBC Ur Squamous Epith Cells Urine Bacteria Ur Culture Indicated? Ethyl Alcohol SARS-CoV-2 (PCR) Negative 0401/28/23 01/28/23 04:20 04:20 04:20 WBC 9.4 RBC 4.97 Hgb 17.1 Hct 49.7 MCV 99.9 MCH 34.5 H MCHC 34.5 RDW 14.0 Plt Count 154 Neut % (Auto) 82.6 H Lymph % (Auto) 7.2 L [place] % (Auto) 7.9 Eos % (Auto) 0.0 L Baso % (Auto) 2.3 H Neut # (Auto) 7800 H Lymph # (Auto) 700 L [place] # (Auto) 700 Eos # (Auto) 0 Baso # (Auto) 200 H APTT 25 L Sodium Potassium Chloride Carbon Dioxide BUN Creatinine Estimated GFR BUN/Creatinine Ratio Glucose Lactate Calcium Magnesium Total Bilirubin AST ALT Alkaline Phosphatase Troponin I Total Protein Albumin Globulin Albumin/Globulin Ratio Lipase Procalcitonin Urine Color Urine Appearance Urine pH Ur Specific Bow Urine Protein Urine Glucose (UA) Urine Ketones Urine Occult Blood Urine Nitrate Urine Bilirubin Urine Urobilinogen Ur Leukocyte Esterase Urine RBC Urine WBC Ur Squamous Epith Cells Urine Bacteria Ur Culture Indicated? Ethyl Alcohol < 10 SARS-CoV-2 (PCR) 01/28/23 01/28/23 01/28/23 06:31 06:35 07:30 WBC RBC Hgb Hct MCV MCH MCHC RDW Plt Count Neut % (Auto) Lymph % (Auto) [place] % (Auto) Eos % (Auto) Baso % (Auto) Neut # (Auto) Lymph # (Auto) [place] # (Auto) Eos # (Auto) Baso # (Auto) APTT Sodium Potassium Chloride Carbon Dioxide BUN Creatinine Estimated GFR BUN/Creatinine Ratio Glucose Lactate 1.4 Calcium Magnesium Total Bilirubin AST ALT Alkaline Phosphatase Troponin I 0.045 H Total Protein Albumin Globulin Albumin/Globulin Ratio Lipase Procalcitonin Urine Color Yellow Urine Appearance Clear Urine pH 7.0 Ur Specific Bow 1.010 Urine Protein Negative Urine Glucose (UA) Negative Urine Ketones 2+ H Urine Occult Blood Negative Urine Nitrate Negative Urine Bilirubin Negative Urine Urobilinogen 2.0 H Ur Leukocyte Esterase Negative Urine RBC None seen Urine WBC None seen Ur Squamous Epith Cells None seen Urine Bacteria None seen Ur Culture Indicated? Cult not indicated Ethyl Alcohol SARS-CoV-2 (PCR) Assessment & Plan Assessment & Plan narrative: 1. Chest pain - intermediate risk chest pain, with elevation of troponin on ER arrival, cardiology consulted in the ER. Recommend continuing to trend troponins, if downtrending recommend stress testing tomorrow. - start asa and continue home statin therapy (replace for formulary). - continue tele, Echo and stress ordered. With recent vertigo symptoms and balance should do nuclear testing. 2. Alcohol use with mild alcohol withdrawal and alcoholic hepatitis - suspect recent tremor, nausea, abdominal pain related to alcohol use and probable withdrawal. - CIWA precautions, trial dose of oral ativan to see if tremulousness improved. 3. Hypertensive urgency - may be worse in setting of withdrawal noted above - continue home medications, replace felodipine with amlodipine here, need to hold beta neva prior to stress testing. 4. Myocardial injury - continue to trend troponin, initial trop downtrending. 5. Probable BPH - with recent vertigo will further evaluate above prior to starting potentially flomax. 6. Chronic pain - tylenol prn. 7. 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 - consider MRI, no focal findings consistent with CVA. Transient global amnesia given history is less likely. Code: Full, surrogate is patient's spouse Dispo: Admitted observation, will assess with PT/OT, if he develops worsening withdrawal symptoms will make inpatient. DVT: Lovenox daily. I have utilized all available immediate resources to obtain, update, or review the patient's current medications. I have personally reviewed patient's outpatient provider documentation, EKGs, images, and discussed care with bedside nurse, ER provider, and additional history obtained via patient's Sposue. COVID-19 COVID-19 status: Negative
[2023-01-28] MEDS: LORazepam 1 MG TABLET PO ×2 (13:49→21:13)
[2023-01-28 14:00] LABS: Troponin I 0.034 ng/mL (0.01-0.034)
--- NOTE | 2023-01-28 14:30 | OT.IP.EVAL ---
Past Medical History (Last Reviewed 01/28/23 @ 13:21 by Toan Wen DO) Chicken pox Chronic back pain Cognitive and behavioral changes Colon polyps Elevated liver function tests Erectile dysfunction Facet arthropathy, lumbar Hearing loss Hypertension Impingement syndrome of left shoulder Irritable bowel syndrome Left hip pain Lumbar radiculopathy Mumps Skin lesion of back Vertigo Well adult exam Surgical History (Last Reviewed 01/28/23 @ 13:21 by Tona Wen DO) Anesthesia Status post arthroscopy Status post arthroscopy Status post foot surgery Status post knee surgery (~04/1999) Status post knee surgery (~04/1999) Occupational Therapy Inpatient Evaluation/Re-Eval M1 PT/OT-IP Prior Functional Status Start: 01/28/23 14:33 Freq: NEEDED Status: Active Protocol: Document 01/28/23 13:50 [facility] (Rec: 01/28/23 15:15 [facility] [id number]) Medical Review Prior Functional Status Communication Independent Mobility and Gait Pt state was completely independent without a device. Activities of Daily Living and IADL's Completely independent with all needs for ADL, IADL, and drives. Social History Household Members spouse Living Arrangements House Number of Floors (Floors) Two Floors Number of Stairs To Enter/Railing? Pt gets into the house from the walkout basement with no steps and one flight of steps up with left rail to the upstairs bedroom area and living areas. Home Environment High Toilet,Walk in Shower Home Equipment Grab Bars In Shower Additional Social History Comment Pt's uses a SPC. M2 OT-IP Current Condition Start: 01/28/23 14:33 Freq: Status: Active Protocol: Document 01/28/23 13:50 [facility] (Rec: 01/28/23 15:15 [facility] [id number]) Occupational Therapy Current Condition Current Condition Evaluation Date 01/28/23 Treatment Diagnosis Chest pain, decreased mobility Diagnosis Onset Date 01/28/23 M3 OT- IP Subjective and Pain Start: 01/28/23 14:33 Freq: Status: Active Protocol: Document 01/28/23 13:50 [facility] (Rec: 01/28/23 15:15 [facility] [id number]) OT- Subjective Occupational Therapy Visit Type Type Initial Evaluation Visit Start Time 13:50 Visit Stop Time 14:30 Total Visit Minutes 40 Occupational Therapy Visit Comments Patient Comments Pt agreed to get up. Pt's came in at the end of the session. Patient/Caregiver Goals TO go home. OT Pain Assessment Pain When Pain Assessed At Rest Pain Present Pain Present Denied Pain M4 OT- IP ADL's Start: 01/28/23 14:33 Freq: Status: Active Protocol: Document 01/28/23 13:50 [facility] (Rec: 01/28/23 15:15 [facility] [id number]) OT [id number] Comments OT Self-Feeding Comments Not at meal time. OT ADL-Grooming Comments OT Grooming Comments Pt able to wash his hands while standing at the sink with FWW in front of him. OT ADL-Oral Care Comments Oral Care Comments NOt performed. OT ADL-Dressing General Eval Lower Body Dressing Ability Independent Comments OT Dressing Comments Pt able to adilson/doff his socks and shoes while seated. OT ADL-Toileting General Evaluation Toileting Ability Independent Comments OT Toileting Comments Pt able to stand and toilet with close SBA as pt swaying a little while standing. OT ADL-Bathing Comments OT Bathing Comments Due to pt being unsteady on his feet, pt will benefit from use of a shower chair at home for showering needs. M5 OT- IP IADL's Start: 01/28/23 14:33 Freq: Status: Active Protocol: Document 01/28/23 13:50 [facility] (Rec: 01/28/23 15:15 [facility] [id number]) OT-Instrumental Activities of Daily Living Home Safety Awareness Home Safety Comments Pt is a little unsteady on his feet and would benefit from assist with especially IADL needs at this time. 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 Driving Driving Concerns Identified Regarding Safety M6 OT- IP Functional Cognition Start: 01/28/23 14:33 Freq: Status: Active Protocol: Document 01/28/23 13:50 [facility] (Rec: 01/28/23 15:15 [facility] [id number]) Cognitive Factors Limiting Selfcare Function Cognitive Ability Level of Alertness Alert Patient Orientation Name,Place,Situation Attention Span Ability Capable of Focused Attention, Capable of Sustained Attention Ability to Follow Commands Able to Follow Multi-Step Commands Safety Awareness Underestimates Need for Assistance Cognitive Comments Cognitive Assessment Comments Pt able to follow commands, however is a little T[place] as does not have his hearing aids here in the hospital. Pt is a bit impulsive at times and needing cues to slow down. Reiterated to have pt push the call light for assist and not get up on his own at this time and pt is unsteady on his feet. Pt scored 102 seconds and VIDAL vc on TRail Making Part B which implies MOD impairment for visual attention, speed of processing , task switching, mental flexibility, and executive functioning. Pt's score puts him below 20 percent for his age group. Noted, pt right hand tremors slightly which may also have affected his score. Pt states that he feels that he can drive right now and suggested that he not drive at this time. Able to touch base with his and she strongly agreed that pt will not drive or use any power tools at this time. OT- Vision and Hearing OT- Hearing Assessment OT- Hearing Assessment Hearing Impaired,Use of Hearing Aids OT- Vision Assessment Visual Acuity Glasses All The Time Visual Attentiveness WFL Occular Pursuits Impaired Horizontal Visual Convergence WFL Visual Coffey WFL M7 OT- IP Mobility and Balance Start: 01/28/23 14:33 Freq: Status: Active Protocol: Document 01/28/23 13:50 [facility] (Rec: 01/28/23 15:15 [facility] [id number]) OT- Bed Mobility Assessment Supine to Sit Supine to Sit Assist Independent Sit to Supine Sit to Supine Assist Independent Scooting Scooting to Edge of Bed Independent Scooting Up and Down in Bed Independent OT-Transfer Assessment Sit to and From Stand Sit to and from Stand Standby Assistance Transfers Transfer Ability Standby Assistance,Contact Guard Assistance,Minimal Assistance Technique Transfer Destination Bed Transfer Technique Stand Step Pivot Devices Transfer Assistive Devices None,Gait Belt,Front Wheeled Walker Comments Mobility Comments Pt able to independently get into and out of the bed on his own. SBA to stand and tends to lean backwards slightly and then had pt put on his shoes. Pt SBA with FWW and tends to have his feet very close together and at times almost crossing over. Without a device CGA to VIDAL and pt reaching out to surfaces for his balance. OT- Balance Assessment Sitting Balance and Reactions Static Sitting Balance Ability Normal Dynamic Sitting Balance Ability Normal Standing Balance and Reactions Static Standing Balance Ability Fair Dynamic Standing Balance Ability Poor Comments Other Balance Tests/Deviations/Treatment Pt tends to sway back and : forth when standing to use the toilet. Pt having to hold to the counter when washing his hands. Pt tends to almost cross his legs while walking and causing him to be unsteady on his feet. Pt realizes that it would be best for him to use a FWW at this time. M8 OT- IP Objective Assessments Start: 01/28/23 14:33 Freq: Status: Active Protocol: Document 01/28/23 13:50 [facility] (Rec: 01/28/23 15:15 [facility] [id number]) OT Gross Range of Motion Upper Extremity Range of Motion Assessment Within Functional Limits OT Strength Comments Strength Comments Left shoulder not tested due to history of shoulder pain, BUE elbow to distal 4+/5 OT- Coordination Assessment Comments Coordination Comments Pt has tremors left hand slightly more than right hand but able to touch his nose with both sides. Finger to nose slightly off left hand more than right . OT Sensation Assessment Comments Summary Comments Intact for light touch. Decreased proprioception for his left wrist and hand. M9 OT- IP Assessment and Plan Start: 01/28/23 14:33 Freq: Status: Active Protocol: Document 01/28/23 13:50 [facility] (Rec: 01/28/23 15:15 [facility] [id number]) OT Summary Assessment and Plan Potential Rehabilitation Potential Good Analytic Complexity at Evaluation Moderate Summary OT Impairments Strength,Balance,Coordination, Functional Cognition, Functional Mobility,Grooming, Dressing,Toileting,Bathing, Toilet Transfers,Shower Transfers Progress Towards Goals Slow Progress due to Medical Issues,Slow Progress due to Cognition Assessment Summary Pt MOD complexity and here due to chest pain but also having decreased balance, proprioception with left wrist /hand, and having to use FWW for balance. Pt and aware that pt will benefit from use of FWW for his balance and use of shower chair for showering at this time. Pending how pt progresses, pt may benefit from outpt PT. Pt states in the past has vertigo issues but not complaining of any symptoms during OT eval. Goals Grooming Goal Independent Dressing Goal Independent Toileting Goal Independent Bathing Goal Independent Toilet Transfer Goal Independent Shower Transfer Goal Independent OT-Other Goals Pt to be completely independent with all ADL 's without the FWW. Days to Meet Goals 5 Frequency of Treatment Frequency Of Treatment Once a Day Treatment Plan OT Treatment Plan ADL Training,Functional Mobility,Patient/Family Education,Discharge Planning Other Treatment Recommendations and Next SLUMS, redo [place] Making Part Treatment Focus B Discharge Recommendations OT Discharge Recommendations Home with Assistance, Outpatient PT Home Equipment Needs FWW, shower chair Transportation Needs at Discharge Private Vehicle
--- NOTE | 2023-01-28 18:20 | PT.IIE ---
Surgical History (Last Reviewed 01/28/23 @ 13:21 by Toan Wen DO) Anesthesia Status post arthroscopy Status post arthroscopy Status post foot surgery Status post knee surgery (~04/1999) Status post knee surgery (~04/1999) Medical History (Last Reviewed 01/28/23 @ 13:21 by Toan Wen DO) Chicken pox Chronic back pain Cognitive and behavioral changes Colon polyps Elevated liver function tests Erectile dysfunction Facet arthropathy, lumbar Hearing loss Hypertension Impingement syndrome of left shoulder Irritable bowel syndrome Left hip pain Lumbar radiculopathy Mumps Skin lesion of back Vertigo Well adult exam Physical Therapy Inpatient Evaluation/Re-Eval M1 PT/OT-IP Prior Functional Status Start: 01/28/23 14:33 Freq: NEEDED Status: Active Protocol: Document 01/28/23 18:12 [facility] (Rec: 01/28/23 18:20 [facility] [id number]) Medical Review Prior Functional Status Communication Independent Mobility and Gait Pt state was completely independent without a device. Typically goes for walks about 2 miles on flat areas d/t back bothering him on not flat walks Activities of Daily Living and IADL's Completely independent with all needs for ADL, IADL, and drives. Social History Household Members spouse Living Arrangements House Number of Floors (Floors) Two Floors Number of Stairs To Enter/Railing? Pt gets into the house from the walkout basement with no steps and one flight of steps up with left rail to the upstairs bedroom area and living areas. Home Environment High Toilet,Walk in Shower Home Equipment Grab Bars In Shower Additional Social History Comment Pt's uses a SPC. M2 PT-IP Current Condition Start: 01/28/23 17:15 Freq: NEEDED Status: Active Protocol: Document 01/28/23 18:12 [facility] (Rec: 01/28/23 18:20 [facility] [id number]) Physical Therapy Current Condition Current Condition Evaluation Date 01/28/23 Treatment Diagnosis chest pain M3 PT-IP Subjective Start: 01/28/23 17:15 Freq: NEEDED Status: Active Protocol: Document 01/28/23 18:12 [facility] (Rec: 01/28/23 18:20 [facility] [id number]) Subjective Physical Therapy Visit Type Visit Start Time 17:40 Visit Stop Time 18:08 Total Visit Minutes 28 Number of BLACK TOP ROLLER Visits 0 M4 PT-IP Mobility and Gait Start: 01/28/23 17:15 Freq: NEEDED Status: Active Protocol: Document 01/28/23 18:12 [facility] (Rec: 01/28/23 18:20 [facility] [id number]) PT-Bed Mobility Assessment Supine to Sit Supine to Sit Independent Sit to Supine Sit to Supine Independent PT-Transfer Assessment Sit to and From Stand Sit to and from Stand Standby Assistance Equipment Transfer Assistive Device Gait Belt,Front Wheeled Walker Gait Assessment Gait Gait Assistance Required: Contact Guard Assist Distance (Feet) 600 Assistive Devices Assistive Device Gait Belt,Front Wheeled Walker Orthotic/Prosthetic Devices or Brace: No Factors Limiting Gait Function Factors Limiting Gait Function Poor Balance Comments Gait Comments Pt amb initially 300ft w/FWW SBA then CGA w/o AD 300ft but did occ reach out for balance or weave slightly. Initiallyw alking, pt unable to amb well w/o AD but did better after got moving Stair Climbing Assessment Evaluation Level of Assist On Stairs Contact Guard Assistance Devices Stair Climbing Assistive Devices Left Railing Technique/Endurance Stair Climbing Direction Ascend and Descend Stair Climbing Technique Step Over Step Number of Steps Climbed 3 Query Text: Stair Climbing Set # Repetitions (reps) 7 Comments Stair Climbing Comments pt caught foot on step 1x requires min A and pt use of rail to recover PT-Balance Assessment Sitting Balance and Reactions Static Sitting Balance Ability Normal Dynamic Sitting Balance Ability Normal Standing Balance and Reactions Static Standing Balance Ability Good Dynamic Standing Balance Ability Fair Balance Tests Noel Balance Test Score 42/56 Query Text:Score M5 PT-IP Objective Assessments Start: 01/28/23 17:15 Freq: NEEDED Status: Active Protocol: Document 01/28/23 18:12 [facility] (Rec: 01/28/23 18:20 [facility] [id number]) Orientation Orientation/Cognition Level of Alertness Alert Language Function Ability No Deficits Noted Safety Awareness Decreased Safety Awareness Memory Description No Deficits Noted Gross Range of Motion Lower Extremity ROM Assessment Within Functional Limits M7 PT-IP Assessment and Plan Start: 01/28/23 17:15 Freq: NEEDED Status: Active Protocol: Document 01/28/23 18:12 [facility] (Rec: 01/28/23 18:20 [facility] [id number]) PT Summary Assessment and Plan Potential Rehabilitation Potential Excellent Status of Condition at Evaluation Evolving Summary Impairments Strength,Balance,Gait Assessment Summary Pt was initially very unstable and rquired FWW to amb. he is very quick and impulsive and requires cues to slow down for safety. Pt left w/bed alarm on and was edu to call for assistance when he gets up. Pt did improve w/gait and was able to walk w/improved gait but dec LLE stance time after walking w/FWW. He does still show imbalance w/NOEL testing and has tremors which he notes is new. Pt would benefit from skilled PT to return pt backt o prior level of function for improved safety and balance when he returns home. Goals Transfer Goal Independent Gait Goal Independent Gait Distance 300ft no device Other Goals up/down stairs indep (full flight) Days to Meet Goals 5 Frequency of Treatment Frequency Of Treatment Once a Day Treatment Plan Physical Therapy Treatment Plan Gait Training,Therapeutic Exercise,Balance Retraining, Discharge Planning, Neuromuscular Re-ed Other Recommendations and Next Treatment work on standing balance, Focus stairs and gait Recommendations To Nursing Amount of Assist Needed 1 Person Assist Discharge Recommendations PT Discharge Recommendations Home with Assistance, Outpatient PT Other Discharge Recommendations op PT for balance Transportation Needs at Discharge Private Vehicle
[2023-01-28] MEDS: SENNOSIDES 8.6 MG TABLET PO (21:13)
[2023-01-28] MEDS: ATORVASTATIN 20 MG TABLET 40 MG PO (21:13)
[2023-01-29] VITALS (11 sets, daily range): BP systolic 139–179; BP diastolic 79–101; PULSE 63–97; RESP 18–20; TEMP 36.6–37.3; O2SAT 93–97
[2023-01-29 06:32] LABS: Add Manual Diff / Slide Review NO; Basophils Absolute Auto 0 /uL (0-100); Basophils Percent Auto 0.6 % (0-2); Eosinophils Absolute Auto 0 /uL (0-450); Eosinophils Percent Auto 0.6 % (2-4); Hematocrit 43.3 % (41-53); Hemoglobin 14.9 g/dL (13.5-17.5); Lymphocytes Absolute Auto 1200 /uL (1100-4500); Lymphocytes Percent Auto 18.5 % (25-40); Mean Corpuscular HGB Conc 34.4 % (30-36); Mean Corpuscular Hemoglobin 34.6 PG (26-34); Mean Corpuscular Volume 100.5 fL (80-100); Monocytes Absolute Auto 800 /uL (0-900); Monocytes Percent Auto 13.5 % (3-14); Neutrophils Absolute Auto 4200 /uL (1500-7000); Neutrophils Percent Auto 66.8 % (50-75); Platelet Count 109 X10^3/uL (150-400); Red Blood Cell Count 4.31 X10^6/uL (4.5-5.9); Red Cell Distribution Width 13.5 % (11.6-14.8); White Blood Cell Count 6.3 X10^3/uL (4.5-11.0)
[2023-01-29 06:35] LABS: Alanine Aminotransferase 39 IU/L (<50); Albumin Globulin Ratio 1.5 (1.0-2.8); Alkaline Phosphatase 57 U/L (38-126); Aspartate Aminotransferase 59 IU/L (17-59); BUN Creatinine Ratio 15.1 (6-22); Bilirubin Total 1.3 mg/dL (0.2-1.3); Blood Urea Nitrogen 11 mg/dL (9-20); Calcium 8.6 mg/dL (8.4-10.2); Carbon Dioxide 28 mmol/L (22-32); Chloride 101 mmol/L (98-107); Cholesterol 130 mg/dL (140-199); Estimated Glomerular Filt Rate > 60 mL/min (>60); Globulin 2.7 g/dL (1.7-4.1); Glucose 88 mg/dL (80-110); HDL Cholesterol 64 mg/dL (40-60); HEMOLYSIS < 15 (0-50); LDL Cholesterol Calculated 53 mg/dL (<100); Magnesium 1.9 mg/dL (1.6-2.3); Potassium 3.6 mmol/L (3.4-5.1); Sodium 136 mmol/L (137-145); Total Protein 6.7 g/dL (6.3-8.2); Triglycerides 66 mg/dL (35-150)
[2023-01-29] MEDS: DOCUSATE 100 MG CAPSULE PO (09:09)
[2023-01-29] MEDS: ASPIRIN EC 81 MG TABLET PO (09:09)
[2023-01-29] MEDS: FOLIC ACID 1 MG TABLET PO (09:09)
[2023-01-29] MEDS: SENNOSIDES 8.6 MG TABLET PO (09:09)
[2023-01-29] MEDS: MULTIVITAMIN 1 TABLET 1 TAB PO (09:09)
[2023-01-29] MEDS: lisinopriL 20 MG TABLET PO (09:09)
[2023-01-29] MEDS: AMLODIPINE 5 MG TABLET PO (09:09)
[2023-01-29] MEDS: THIAMINE 100 MG TABLET PO (09:09)
[2023-01-29] MEDS: ENOXAPARIN 40 MG/0.4 ML SYRINGE SUBCUT (09:10)
--- NOTE | 2023-01-29 09:51 | PT.IPTN ---
Physical Therapy Treatment Note M2 PT-IP Current Condition Start: 01/28/23 17:15 Freq: NEEDED Status: Active Protocol: Document 01/28/23 18:12 [facility] (Rec: 01/28/23 18:20 [facility] [id number]) Physical Therapy Current Condition Current Condition Evaluation Date 01/28/23 Treatment Diagnosis chest pain M3 PT-IP Subjective Start: 01/28/23 17:15 Freq: NEEDED Status: Active Protocol: Document 01/29/23 09:27 [facility] (Rec: 01/29/23 10:38 [facility] [id number]) Subjective Physical Therapy Visit Type Type Treatment Note Visit Start Time 09:27 Visit Stop Time 09:51 Total Visit Minutes 24 Number of PHOSPHORUS PROCESSING SUPERVISOR Visits 1 Physical Therapy Visit Comments Patient Goals Return home w/ spouse M4 PT-IP Mobility and Gait Start: 01/28/23 17:15 Freq: NEEDED Status: Active Protocol: Document 01/29/23 09:27 [facility] (Rec: 01/29/23 10:38 [facility] [id number]) PT-Bed Mobility Assessment Supine to Sit Supine to Sit Independent Sit to Supine Sit to Supine Independent PT-Transfer Assessment Sit to and From Stand Sit to and from Stand Standby Assistance Equipment Transfer Assistive Device Gait Belt,Front Wheeled Walker Transfers Transfer Destination Chair Transfer Technique Pt ambulated Transfer Ability Level of Assist Standby Assistance Comments Mobility Comments Pt in bed upon arrival and eager to mobilize. Independent for bed mobility, SBA for sit <>Stand w/ FWW. Pt ambulated ~ 200 ft to practice stairs and ascended 9 total steps w/ L rail and SBA. He then ambulated ~40 ft w/o AD and had no LOB however did 1x reach for wall support. Agrees to continue using FWW and has one at home. Ambulated remaining 200 ft back to room w/ FWW and transferred to chair, poor eccentric control when sitting. Pt left in chair w/ all needs in reach. Denies dizziness or lightheadedness. Gait Assessment Gait Gait Assistance Required: Standby Assistance,Contact Guard Assist Distance (Feet) 440 Assistive Devices Assistive Device Gait Belt,Front Wheeled Walker Orthotic/Prosthetic Devices or Brace: No Factors Limiting Gait Function Factors Limiting Gait Function Poor Balance Comments Gait Comments Safer ambulation w/ FWW, no LOB. Ambulated ~440 ft. Has FWW for home use. Stair Climbing Assessment Evaluation Level of Assist On Stairs Standby Assistance Devices Stair Climbing Assistive Devices Left Railing Technique/Endurance Stair Climbing Direction Ascend and Descend Stair Climbing Technique Step Over Step Number of Steps Climbed 3 Stair Climbing Set # Repetitions (reps) 3 Comments Stair Climbing Comments SBA no LOB, step over step, L rail. States he feels able to complete stairs at home. PT-Balance Assessment Sitting Balance and Reactions Static Sitting Balance Ability Normal Dynamic Sitting Balance Ability Normal Standing Balance and Reactions Static Standing Balance Ability Good Dynamic Standing Balance Ability Fair M5 PT-IP Objective Assessments Start: 01/28/23 17:15 Freq: NEEDED Status: Active Protocol: Document 01/28/23 18:12 [facility] (Rec: 01/28/23 18:20 [facility] [id number]) Orientation Orientation/Cognition Level of Alertness Alert Language Function Ability No Deficits Noted Safety Awareness Decreased Safety Awareness Memory Description No Deficits Noted Gross Range of Motion Lower Extremity ROM Assessment Within Functional Limits M6 PT-IP Treatment Start: 01/28/23 17:15 Freq: NEEDED Status: Active Protocol: Document 01/29/23 10:38 [facility] (Rec: 01/29/23 10:38 [facility] [id number]) Physical Therapy Treatment Education Education Provided Safety M7 PT-IP Assessment and Plan Start: 01/28/23 17:15 Freq: NEEDED Status: Active Protocol: Document 01/29/23 09:27 [facility] (Rec: 01/29/23 10:38 [facility] [id number]) PT Summary Assessment and Plan Potential Rehabilitation Potential Excellent Summary Impairments Strength,Balance,Gait Progress Towards Goals Progressing Toward Goals Assessment Summary Pt continues to demonstrate good tolerance for activity. Able to ambulate ~400 ft w/ FWW and 40 ft w/o AD. Does appear and confirms to feel more stable w/ FWW when ambulating. States he has FWW at home and agrees to use at this time. No LOB on stairs. Still feels weaker than baseline, but anticipate will be fine at home. Recommend outpatient therapy to improve balance. Goals Transfer Goal Independent Gait Goal Independent Gait Distance 300ft no device Other Goals up/down stairs indep (full flight) Days to Meet Goals 5 Frequency of Treatment Frequency Of Treatment Once a Day Treatment Plan Physical Therapy Treatment Plan Gait Training,Therapeutic Exercise,Balance Retraining, Discharge Planning, Neuromuscular Re-ed Other Recommendations and Next Treatment work on standing balance, Focus stairs and gait Recommendations To Nursing Amount of Assist Needed 1 Person Assist Discharge Recommendations PT Discharge Recommendations Home with Assistance, Outpatient PT Other Discharge Recommendations op PT for balance Transportation Needs at Discharge Private Vehicle
--- NOTE | 2023-01-29 11:50 | DIET.PN1 ---
Dietary Progress Note Assessment: Attempted to see pt. Was not in room due to testing. Will try again this afternoon. Electronically Signed by: Bertha Garces 01/29/23 11:50 Clinical Dietitian [address] [address]
--- NOTE | 2023-01-29 13:10 | PM.DS.1 ---
History of Present Illness History of Present Illness Date Patient Seen: 01/29/23 Time Patient Seen: 13:10 Chief complaint: Left c/p Narrative: This is a 67 year old male with PMH of HTN, alcohol use who presents with left sided chest pain at around 10:30 pm and progressive cognitive issues over the past year but worsening confusion starting yesterday. Patient states he developed left sided chest pressure starting yesterday evening before going to bed, he denies shortness of breath or palpitations but does endorse associated nausea. Spouse reports poor PO intake over the past 3 days or so. He is having increasing difficulty with short term memory, and struggles to recall recent events including a large family event yesterday afternoon. This morning he woke up and thought it was a different day than it actually was. He and spouse deny unilateral weakness, numbness, tingling or slurred speech. EMS was called, and he was markedly hypertensive, with chest pain that both improved with sublingual nitro. He also has had some left upper quadrant abdominal pain, no melena or hematochezia, no emesis. The pain is worse with movement. He drinks about a 5th of vodka every 3 days, and has been drinking for a long time. His last drink was now about 36 hours ago. Spouse also reports a new tremor and gait disturbance. He denies fever, chills, weight gain, rash, cough. His BP was low after initiation of felodipine so he reports not taking this medication for some time now. PCP referral was placed to neurology but not scheduled until May. Discharge Providers Provider Date of admission: 01/28/23 09:38 Discharge Date: 01/29/23 Primary care physician: Triston Moseley DO Consults: 01/28/23 13:35 Consult to Occupational Therapy Evaluate & Treat Comment: Physician Instructions: Evaluate and treat Consult to Physical Therapy Evaluate & Treat Comment: Physician Instructions: Evaluate and Treat Discharge provider: Toan Wen DO Summary Hospital Course Discharge Diagnosis: 1. Chest pain 2. Alcohol use with mild alcohol withdrawal and alcoholic hepatitis 3. Hypertensive urgency 4. Myocardial injury 5. Probable BPH 6. Chronic pain 7. Memory difficulty and chronic cognitive impairment Hospital Course: This is a 67 year old male with PMH of HTN, alcohol use who presented with left sided chest pain along with concerns of memory impairment and tremors with gait instability. His initial neurological symptoms were consistent with alcohol withdrawal (drinking about 1/3 fifth of vodka every day), and did improve over time, he was placed on CIWA protocol with only mildly elevated CIWA scores and required minimal treatment. Lab evaluation was consistent with mild alcoholic hepatitis which improved the following day as well. For his chest pain he underwent nuclear stress testing which was unremarkable, and echocardiogram was also unremarkable. He did well with physical and occupational therapies, and had some improvement with tremor. Agree with outpatient assessment of proable alcoholic cognitive impairment at this time, and patient has already been referred for neurology consultations as an outpatient. He also complained of BPH type symptoms, but given prior vertigo treatment was not recommended at this time. Recommend continued follow up with primary care provider, and outpatient PT / OT were recommended by therapy evaluations while admitted. Blood pressures were mildly elevated, but beta neva needed to be held for cardiac stress testing. Recommend continued monitoring as an outpatient, though given prior vertigo BP was not aggressively managed given imbalance from EtOH use and fall risk. Exam Vital Signs (past 8 hours): - 01/29/23 09:09 01/29/23 08:40 01/29/23 09:30 Temperature 99.2 F Pulse Rate 64 Respiratory Rate 18 Blood Pressure 179/98 H 171/92 H Pulse Oximetry 97 97 Oxygen Delivery Method Room Air Oxygen Flow Rate 0 0 01/29/23 13:00 Temperature Pulse Rate Respiratory Rate Blood Pressure Pulse Oximetry 97 Oxygen Delivery Method Room Air Oxygen Flow Rate 0 Oxygen Delivery Method Room Air Oxygen Flow Rate 0 Narrative Exam Narrative: General:? Patient is well developed and well nourished, in no distress at this time. Lungs:? CTA b/l no wheezing rhonchi or rales. Cardio:?RRR no m/r/g. Abdomen: S NT ND. Musculoskeletal:? Muscle strength and tone are equal within normal limits, no deformity. Extremities: No edema or joint effusions. No cyanosis or clubbing. Skin:?mild ecsematous patches, no erythema, no notable bruising Objective Labs 01/29/23 05:13 01/29/23 05:13 Labs: Laboratory Results - last 24 hr 01/28/23 01/29/23 01/29/23 13:14 05:13 05:13 WBC 6.3 RBC 4.31 L Hgb 14.9 Hct 43.3 MCV 100.5 H MCH 34.6 H MCHC 34.4 RDW 13.5 Plt Count 109 L Neut % (Auto) 66.8 Lymph % (Auto) 18.5 L Brantley % (Auto) 13.5 Eos % (Auto) 0.6 L Baso % (Auto) 0.6 Neut # (Auto) 4200 Lymph # (Auto) 1200 Brantley # (Auto) 800 Eos # (Auto) 0 Baso # (Auto) 0 Sodium 136 L Potassium 3.6 Chloride 101 Carbon Dioxide 28 BUN 11 Creatinine 0.73 Estimated GFR > 60 BUN/Creatinine Ratio 15.1 Glucose 88 Hemoglobin A1c Calcium 8.6 Magnesium 1.9 Total Bilirubin 1.3 AST 59 ALT 39 Alkaline Phosphatase 57 Troponin I 0.034 Total Protein 6.7 Albumin 4.0 Globulin 2.7 Albumin/Globulin Ratio 1.5 Triglycerides 66 Cholesterol 130 L LDL Cholesterol, Calc 53 HDL Cholesterol 64 H TSH 01/29/23 01/29/23 05:13 05:13 WBC RBC Hgb Hct MCV MCH MCHC RDW Plt Count Neut % (Auto) Lymph % (Auto) Brantley % (Auto) Eos % (Auto) Baso % (Auto) Neut # (Auto) Lymph # (Auto) Brantley # (Auto) Eos # (Auto) Baso # (Auto) Sodium Potassium Chloride Carbon Dioxide BUN Creatinine Estimated GFR BUN/Creatinine Ratio Glucose Hemoglobin A1c Cancelled Calcium Magnesium Total Bilirubin AST ALT Alkaline Phosphatase Troponin I Total Protein Albumin Globulin Albumin/Globulin Ratio Triglycerides Cholesterol LDL Cholesterol, Calc HDL Cholesterol TSH 4.40 [facility] Medical History Chicken pox Chronic back pain Cognitive and behavioral changes Colon polyps Elevated liver function tests Erectile dysfunction Facet arthropathy, lumbar Hearing loss Hypertension Impingement syndrome of left shoulder Irritable bowel syndrome Left hip pain Lumbar radiculopathy Mumps Skin lesion of back Vertigo Well adult exam Surgical History Anesthesia Status post arthroscopy Status post arthroscopy Status post foot surgery Status post knee surgery (~04/1999) Status post knee surgery (~04/1999) Family History Brother Cancer Father Diabetes mellitus Heart disease Hypertension Social History household members: spouse Smoking Status: Never smoker alcohol intake: current substance use type: does not use Discharge Plan Discharge Plan Patient Disposition: Home Provider Discharge Comment: You were admitted the hospital with chest pain and imbalance. Stress testing was negative and therapy evaluations recommend continued outpatient therapy. The best thing ocean transportation intermediary is if you stop drinking alcohol. I also recommend a daily multivitamin as well. No changes are recommended to your home medications, but follow BP at home at least once a day so you can discuss possible medication changes with your PCP. Follow up with PCP in 1-2 weeks ideally. Discharge orders & Medications Prescriptions: Continued clonazepam 0.5 mg tablet 0.5 mg PO BID PRN (Reason: anxiety) Qty: 60 2RF celecoxib [Celebrex] 200 mg capsule 200 mg PO BEDTIME Qty: 90 3RF hyoscyamine sulfate 0.125 mg tablet 0.25 mg PO TIDP Qty: 540 3RF Rx Instructions: sublingual lisinopril 20 mg tablet 20 mg PO BID Qty: 180 3RF metoprolol succinate 50 mg tablet extended release 24 hr 50 mg PO BID Qty: 180 3RF simvastatin 40 mg tablet 40 mg PO DAILY Qty: 90 3RF felodipine 5 mg tablet extended release 24 hr 5 mg PO acetaminophen [Tylenol Extra Strength] 500 mg tablet 500 mg PO Q6H PRN (Reason: Pain (Scale Score 1-3)) Follow up/Referrals: Triston Moseley DO [Primary Care Provider] - 2 Weeks Diet/Activity/Treatments Diet: Diet as Tolerated Activity: As tolerated Visit Report/Discharge Packet Instructions: DI for Chest Pain Stand Alone Forms: Patient Portal/API, Stroke Signs & Symptoms Discharge Data Primary Care Provider: Triston Moseley Attending Provider: Toan Wen Admit Date/Time: 01/28/23 09:38 Discharges patient from system. Discharge Date/Time: 01/29/23 15:50
[2023-01-29] MEDS: METOPROLOL ER 50 MG TABLET PO (13:12)
[2023-01-29] MEDS: ACETAMINOPHEN 325 MG TABLET 650 MG PO (13:13)
--- NOTE | 2023-01-29 13:27 | CM.IDA ---
Initial DCP Assessment Patient is 67 y/o male who presents to due to concern for left sided chest pain, progressive cognitive issues and increased confusion since yesterday. Patient has hx of ETOH use, last drink reported 36 hours ago, BAL is 0, CIWA is 4. Patient's PCP is Dr. Moseley, per EMR Dr. Moseley placed neurology referral for patient. Patient has Medicare and [employer] insurance PICKLE WATER PUMP OPERATOR enters room to meet with patient. Patient presents as A/Ox3. Patient endorses independence with ADLs but states that he has been walking less in the last year. Patient endorses independence with ambulation. Patient endorses he can drive but endorses that his prefers that she drives. Per PT and OT vandana, outpatient PT is recommended due to unsteadiness. PICKLE WATER PUMP OPERATOR calls patient's PCP office regarding referral and they indicate agreement and understanding to set up referral. Patient indicates agreement to referral as well. Patient denies any other DCP needs. Plan: Patient to d/c to home with spouse upon medical clearance, PCP to set up outpatient PT referral for patient. Patient to f/u with PCP. NANCI Pedroza Discharge Planning/Care Management Document 01/29/23 13:23 LN (Rec: 01/29/23 13:27 LN [id number]) Discharge Planning Assessment Assigned Air Conditioning Manager NANCI Cheema DPOA/Assigned Designee Name Zee Real - Spouse Contact Information Ph. # [phone] Advance Directives? Yes: to find it. Advance Directives on File No History Provided By Patient,Medical Record Has Patient been admitted in last 30 No days? Prior Living Arrangements House Household Members spouse Type of transportation used prior to Relies on Others admit Comment Patient endorses he can drive but his often drives per her preference. Independent with ADL's Yes Is patient alert and oriented? Yes Patient/Family Preference OP PT Therapy Comment Patient was referred for outpatient PT by PT vandana and his preference is to f/u with this referral. Discharge Plan Home Please Provide Date Initial DC 01/29/23 Assessment Was Performed
--- NOTE | 2023-01-29 14:10 | OT.IPNOTE ---
Able to touch base with pt as being discharged today. Pt did not recall the conversation suggesting no driving at this time and to use a FWW. Pt was planning on walking out, but nursing aid reiterated will have a wc to get out to the car later. Pt did recall after being told that his will not want him to drive. No charge.
--- NOTE | 2023-01-29 20:39 | DI.NM.S_ITS ---
DATE OF SERVICE: 01/29/2023 PROCEDURE: Pharmacologic vasodilator stress and rest myocardial perfusion imaging with gating to assess ejection fraction and regional wall motion. ORDERING PROVIDER: Dr. Toan Wen. INDICATIONS: The patient is a 67-year-old hypertensive male with confusion and left-sided chest discomfort. CARDIAC STRESS: Per protocol, 0.4 mg of regadenoson was infused, augmented by walking on the treadmill. With this, he had a normal hemodynamic response, achieving a maximum heart rate of 123 BPM (81% of his predicted maximum). He had no significant symptoms. His resting ECG is normal. With stress, there is motion artifact, but no obvious significant ST-segment deviations or obvious ectopy. Per protocol, 26.6 millicuries of technetium-99m Myoview was injected and he was imaged 15 minutes later using a gated SPECT acquisition protocol. Earlier in the day while at rest, he was injected with 9.3 millicuries of technetium-99m Myoview and was imaged 30 minutes later, again using a gated SPECT acquisition protocol. FINDINGS: 1. Raw data. There is good myocardial tracer uptake. The lung/heart ratio is normal at 0.24 with a normal TID ratio of 1.00. 2. Quantitated gated SPECT: The post-stress ejection fraction is estimated at 62% without any focal wall motion abnormality. The resting images could not be gated but the post-stress volume appears to be normal at 108 mL. 3. Myocardial perfusion imaging: Post-stress supine images show a fairly normal myocardial perfusion pattern with a mild defect at the base of the inferior wall that resolves on prone imaging, revealing a uniform pattern of tracer activity, consistent with diaphragmatic attenuation. There are no other significant perfusion defects. The resting images show an identical perfusion pattern without any areas of improvement. IMPRESSION: 1. Normal myocardial perfusion study. 2. Mild fixed proximal inferior defect that resolves on prone imaging, most consistent with diaphragmatic attenuation artifact. 3. Normal left ventricular systolic function without any focal wall motion abnormality. 4. No angina or ECG evidence of ischemia with pharmacologic vasodilator stress. Roscoe Buchanan - YAMILET/charline/danielle doc#: [id number]/job#: [id number] dd: 01/29/2023 12:49:00 dt: 01/29/2023 20:25:00 DICTATING MD/COPIES TO: Zaki Foss MD; Toan Wen M.D. COPIES MNE: DIOGENES;
[2023-01-30 03:00] LABS: x Labcorp Estim. Avg Glu (eAG) 103 mg/dL (.); x Labcorp Hemoglobin A1c 5.2 % (4.8-5.6)
== END 2023-01-29 15:50 | disposition home or self-care (01) ==
LOC: ED 04:43 → AC 09:39
PROVIDERS: Admitting Provider Internal Medicine; Emergency Provider Emergency Medicine; Family Provider Family Medicine; PCP Family Medicine; Referring Provider Emergency Medicine; Visit Provider Internal Medicine
DX: R07.9 Chest pain, unspecified (principal); R42 Dizziness and giddiness; I10 Essential (primary) hypertension; G31.84 Mild cognitive impairment of uncertain or unknown etiology; F10.139 Alcohol abuse with withdrawal, unspecified; K70.10 Alcoholic hepatitis without ascites; I16.0 Hypertensive urgency; Z20.822 Contact with and (suspected) exposure to COVID-19
CPT/HCPCS: 36415; 51798; 70450; 71045; 74176; 78452; 80053; 80061; 80320; 81001; 82962; 83036; 83605; 83690; 83735; 84145; 84443; 84484; 85025; 85730; 87040; 87635; 93005; 93017; 93306; 96365; 96366; 96372; 96375; 97116; 97162; 97166; 97530; 99285; C9803; G0378; A9502; J1644; J1650; J2405; J2785

== ENCOUNTER 2023-03-10 13:38 | Outpatient (CLI) | payer MEDICARE, OTHER, SELFPAY ==
[2023-02-03 11:29] VITALS: BMI 25.8
[2023-03-10] VITALS (8 sets, daily range): BP systolic 125–144; BP diastolic 67–78; PULSE 51–62; RESP 14–19; TEMP 36.3; O2SAT 96–99
--- NOTE | 2023-03-10 13:39 | DI.RAD.S_ITS ---
PROCEDURE: PAIN L/S FACET INJ/BLK 1ST ERASTO COMPARISON: [facility], XA, PAIN L/S FACET INJ/BLK 1ST ERASTO, 08/19/2022, 11:04. INDICATIONS: SPONDYLOSIS FINDINGS: Access needle tips adjacent to the bilateral L2, L3, L4 and L5 pedicles. Injection of small amount of contrast material confirms positioning of the needle tips in demonstrates extra thecal location. IMPRESSION: Access needle tips adjacent to the bilateral L2, L3, L4 and L5 pedicles for bilateral L2, L3, L4 and L5 medial branch blocks. Dictated by: Jennifer Conner MD, PhD on 03/10/2023 at 15:56 Approved by: Jennifer Conner MD, PhD on 03/10/2023 at 15:57
[2023-03-10] MEDS: MIDAZOLAM 2 MG/2 ML VIAL IV (14:55)
[2023-03-10] MEDS: IOPAMIDOL 15 ML VIAL 3 ML INJ (14:59)
[2023-03-10] MEDS: BUPIVACAINE 0.5% (PF) 10 ML VIAL 5 ML INJ (14:59)
[2023-03-10] MEDS: LIDOCAINE 1% (PF) 5 ML INJ (15:00)
--- NOTE | 2023-03-10 15:14 | P.PCN_ITS ---
Date/Time/Diagnoses Date of procedure: 03/10/23 Time of procedure: 15:14 Pre-procedure diagnosis: FACET ARTHROPATHY Post-procedure diagnosis: same Procedure Notes Procedure: 1. BILATERAL L2,L3, L4 AND L5 DIAGNOSTIC MB BLOCKS Indications: Roscoe is referred by Dr. Moseley for treatment of Bilateral Axial LBP. Physician: Zaki Anderson Total Fluoroscopy time (seconds): 15 Total sedation minutes: 16 Complications: none Procedure in detail & Post-procedure care: DESCRIPTION OF PROCEDURE Fluoroscopically guided, contrast-controlled bilateral L2,L3, L4 AND L5 medial branch blocks with 0.5cc of 0.5% Marcaine. Following review of allergy and review of potential side effects and complications, including, but not necessarily limited to, infection, allergic reaction, local tissue breakdown, nerve injury, paralysis, stroke and possible , the patient indicated that the patient understood and agreed to proceed. An informed consent document was signed by the patient, witnessed by a nurse, and placed in the patient's chart. After review of previous anaesthesic history and IV conscious sedation the patient was deemed safe to proceed with today's procedure with IV conscious sedation as ASA class II designation. Safety time-out was performed to confirm patient ID, procedure to be performed and site of procedure. IV sedation was accomplished with a combination of 2mg of Versed was administered by the RN after DO order, titrated to patient comfort during the course of the procedure while the patient remained responsive to all verbal commands In the prone position, following sterile prep and drape of the lumbar region, the right L2, L3, L4 AND L5 anatomical location of the medial branch of the dorsal ramus was identified fluoroscopically. Subsequently an anesthetic skin wheal using 1% lidocaine solution was initiated at each of the anatomical spots. Subsequently then a 22-gauge 3.5-inch spinal needle was atraumatically introduced and advanced under fluoroscopic guidance at each of the corresponding sites at the right L2, L3, L4 and L5 MB. After negative aspiration, 0.2cc of Isovue 200 was injected, confirming placement without vascular or intrathecal uptake. Subsequently then 0.5cc of 0.5% Marcaine solution was injected at each of the corresponding sites at the right L2,L3, L4 and L5 medial branch locations. The identical procedure was replicated on the left. The patient t olerated the procedure well without signs or symptoms of complications. The patient tolerated the procedure well without signs or symptoms of complications prior to transfer to the recovery area continued monitoring without incident. Post-procedure, the patient was monitored initiating provocative activities to measure the amount of relief from block of the facetogenic pain. The patient reported a VAS of 7 prior to the procedure and a post-procedure VAS of 1. It has been a pleasure to assist in the diagnostic and therapeutic care of your patient. POST OP INSTRUCTIONS The patient was provided with a Pain Log to complete over the next several hours and subsequent days prior to the patient's follow up with the ordering physician. If the patient has prism inspector relief to the solution applied, then they may be a candidate for medial branch rhizotomy. The patient is aware, was provided, once again, with a Pain Log and will follow up with the referring physician for review and clinical correlation
== END 2023-03-10 15:26 | disposition home or self-care (01) ==
LOC: RAD 13:39
PROVIDERS: Family Provider Family Medicine; PCP Family Medicine; Referring Provider Physical Medicine & Rehabilitation; Visit Provider Physical Medicine & Rehabilitation
DX: M47.816 Spondylosis without myelopathy or radiculopathy, lumbar region (principal)
CPT/HCPCS: 64493; 64494; 64495; 99152; J2250

== ENCOUNTER 2023-06-16 12:32 | Outpatient (CLI) | payer MEDICARE, OTHER, SELFPAY ==
[2023-03-19 13:22] VITALS: BMI 25.8
[2023-06-16] VITALS (11 sets, daily range): BP systolic 116–169; BP diastolic 64–77; PULSE 53–62; RESP 12–22; TEMP 36.4; O2SAT 95–99
--- NOTE | 2023-06-16 12:34 | DI.RAD.S_ITS ---
PROCEDURE: PAIN L/S FACET INJ/BLK 1ST ERASTO COMPARISON: [facility], , PAIN L/S FACET INJ/BLK 1ST ERASTO, 03/10/2023, 14:59. INDICATIONS: SPONDYLOSIS FINDINGS: Fluoroscopic spot filming was performed to verify placement of spinal needles on both sides at the L2, L3, L4, and L5 levels, as labeled on the films. Appropriate location of the needle tips was confirmed by injection of iodinated contrast. IMPRESSION: Intraprocedural examination demonstrating appropriate positions of the needles. Dictated by: Jona Marquez M.D. on 06/17/2023 at 12:13 Approved by: Jona Marquez M.D. on 06/17/2023 at 12:13
[2023-06-16] MEDS: MIDAZOLAM 2 MG/2 ML VIAL 4 MG IV (14:14)
[2023-06-16] MEDS: LIDOCAINE 2% INJ MDV 20ML 5 ML INJ (14:15)
[2023-06-16] MEDS: IOPAMIDOL 15 ML VIAL 3 ML INJ (14:15)
[2023-06-16] MEDS: LIDOCAINE 1% 20 ML 5 ML INJ (14:16)
--- NOTE | 2023-06-16 14:33 | P.PCN_ITS ---
Date/Time/Diagnoses Date of procedure: 06/16/23 Time of procedure: 14:33 Pre-procedure diagnosis: FACET ARTHROPATHY Post-procedure diagnosis: same Procedure Notes Procedure: 1. BILATERAL L2, L3, L4 AND L5 DIAGNOSTIC MB BLOCKS Indications: Roscoe is referred by Dr. Moseley for treatment of Bilateral Axial LBP. Physician: Zaki Anderson Total Fluoroscopy time (seconds): 17 Total sedation minutes: 25 Complications: none Procedure in detail & Post-procedure care: DESCRIPTION OF PROCEDURE Fluoroscopically guided, contrast-controlled bilateral L2, L3, L4 and L5 medial branch blocks with 0.5cc of 0.5% Marcaine. Following review of allergy and review of potential side effects and complications, including, but not necessarily limited to, infection, allergic reaction, local tissue breakdown, nerve injury, paralysis, stroke and possible , the patient indicated that the patient understood and agreed to proceed. An informed consent document was signed by the patient, witnessed by a nurse, and placed in the patient's chart. After review of previous anaesthesic history and IV conscious sedation the patient was deemed safe to proceed with today's procedure with IV conscious sedation as ASA class II designation. Safety time-out was performed to confirm patient ID, procedure to be performed and site of procedure. IV sedation was accomplished with a combination of 2mg of Versed and 50mcg of Fentantyl was administered by the RN after DO order, titrated to patient comfort during the course of the procedure while the patient remained responsive to all verbal commands In the prone position, following sterile prep and drape of the lumbar region, the right L2, L3, L4 AND L5 anatomical location of the medial branch of the dorsal ramus was identified fluoroscopically. Subsequently an anesthetic skin wheal using 1% lidocaine solution was initiated at each of the anatomical spots. Subsequently then a 22-gauge 3.5-inch spinal needle was atraumatically introduced and advanced under fluoroscopic guidance at each of the corresponding sites at the right L2, L3, L4 and L5 MB. After negative aspiration, 0.2cc of Isovue 200 was injected, confirming placement without vascular or intrathecal up take. Subsequently then 0.5cc of 0.5% Marcaine solution was injected at each of the corresponding sites at the right L2, L3, L4 and L5 medial branch locations. The identical procedure was replicated on the left. The patient tolerated the procedure well without signs or symptoms of complications. The patient tolerated the procedure well without signs or symptoms of complications prior to transfer to the recovery area continued monitoring without incident. Post-procedure, the patient was monitored initiating provocative activities to measure the amount of relief from block of the facetogenic pain. The patient reported a VAS of 7 prior to the procedure and a post-procedure VAS of 1. It has been a pleasure to assist in the diagnostic and therapeutic care of your patient. POST OP INSTRUCTIONS The patient was provided with a Pain Log to complete over the next several hours and subsequent days prior to the patient's follow up with the ordering physician. If the patient has network security engineer relief to the solution applied, then they may be a candidate for medial branch rhizotomy. The patient is aware, was provided, once again, with a Pain Log and will follow up with the referring physician for review and clinical correlation
== END 2023-06-16 14:56 | disposition home or self-care (01) ==
PROVIDERS: Family Provider Family Medicine; PCP Family Medicine; Referring Provider Physical Medicine & Rehabilitation; Visit Provider Physical Medicine & Rehabilitation
DX: M47.816 Spondylosis without myelopathy or radiculopathy, lumbar region (principal)
CPT/HCPCS: 64493; 64494; 64495; 99152; 99153; J2250

== ENCOUNTER 2023-07-30 07:30 | Outpatient (CLI) | payer MEDICARE, OTHER, SELFPAY ==
[2023-03-19 13:22] VITALS: BMI 25.8
[2023-07-30] VITALS (16 sets, daily range): BP systolic 76–117; BP diastolic 48–62; PULSE 48–56; RESP 9–20; TEMP 36.1; O2SAT 92–99
--- NOTE | 2023-07-30 07:31 | DI.RAD.S_ITS ---
PROCEDURE: PAIN L/S MED/LAT N RFA BILAT INDICATIONS: SPONDYLOSIS COMPARISON: [facility], , PAIN L/S FACET INJ/BLK 1ST ERASTO, 06/16/2023, 14:01. FINDINGS: Fluoroscopic spot filming was performed to verify placement of spinal needles on both sides at the L3, L4, and L5 levels, as labeled on the films. IMPRESSION: Images during rhizotomy within normal limits. Dictated by: Jona Marquez M.D. on 07/30/2023 at 18:25 Approved by: Jona Marquez M.D. on 07/30/2023 at 18:25
[2023-07-30] MEDS: fentaNYL 100 MCG/2 ML INJ 50 MCG IV ×2 (08:20→08:41)
[2023-07-30] MEDS: MIDAZOLAM 2 MG/2 ML VIAL 1 MG IV (08:20)
[2023-07-30] MEDS: LIDOCAINE 1% 20 ML 5 ML INJ (08:33)
[2023-07-30] MEDS: BUPIVACAINE 0.5% (PF) 10 ML VIAL 5 ML INJ (08:33)
[2023-07-30] MEDS: MIDAZOLAM 5 MG/ML VIAL 1 MG IV (08:41)
--- NOTE | 2023-07-30 09:03 | P.PCN_ITS ---
Date/Time/Diagnoses Date of procedure: 07/30/23 Time of procedure: 09:03 Pre-procedure diagnosis: 1. RECALCITRANT FACET ARTHROPATHY Post-procedure diagnosis: same Procedure Notes Procedure: 1. BILATERAL L3, L4 AND L5 MEDIAL BRANCH RADIOFREQUENCY NEUROTOMY Indications: Roscoe is referred by Dr. Moseley for treatment of facet arthropathy. Physician: Zaki Anderson Total Fluoroscopy time (seconds): 23 Total sedation minutes: 36 Complications: none Procedure in detail & Post-procedure care: DESCRIPTION OF PROCEDURE Bilateral L3, L4 and L5 medial branch radiofrequency neurotomy The patient is well known to this clinic having undergone previous facet injections with good but temporary relief. The patient has experienced appropriate, concordant relief with previous facet and median branch blocks but the patient's pain has been recalcitrant to further conservative measures. Therefore, based upon the patient's relief and persistent symptoms, the patient is considered an appropriate candidate for facet rhizotomy. All of the patient's questions regarding the risks versus benefits of the procedure, including, but not limited to, bleeding, infection, temporary as well as lasting nerve injury, paralysis, stroke, and , as well treatment alternatives were answered to satisfaction. After obtaining informed consent, denial of pertinent drug allergies, as well as being made aware of the potential risks of bleeding, infection, spinal cord trauma, paralysis, temporary and permanent nerve damage, seizure, stroke, and possible , the patient was brought to the fluoroscopy suite and positioned prone on the fluoroscopy table. The lumbar region was prepped with Betadine and covered with a fenestrated drape in the usual sterile fashion. Appropriate monitors applied including pulse oxi meter, pulse, and blood pressure for regular monitoring throughout the procedure. After review of previous anaesthesic history and IV conscious sedation the patient was deemed safe to proceed with today's procedure with IV conscious sedation as ASA class II designation. Safety time-out was performed to confirm patient ID, procedure to be performed and site of procedure. IV sedation was accomplished with a combination of 2mg of Versed and 100mcg of Fentanyl administered by the RN after DO order, titrated to patient comfort during the course of the procedure while the patient remained responsive to all verbal commands. After local infiltration using 1% lidocaine, under fluoroscopic guidance, a 10- cm RF insulated needle with a 10-mm active tip was positioned parallel to the junction of the right the superior articulating process where the L5 medial branch resides. Needle placement was confirmed with motor stimulation of .5v on the right which produced local stimulation without radicular component. The stimulation was then increased to 2v with, once again, only local multifidus stimulation without radicular component. The needle was then removed and the identical procedure was performed along the length of the right L4 medial branch with motor stimulation at .7v on the right. The identical procedure was once again performed along the length of the right L3 and medial branch with motor stimulation of .5v on the right. The medial branches were then anesthetized with 0.5% marcaine. This was then followed by two discreet lesions performed at 80 degrees Celsius for 90 seconds each. The identical procedures were repeated on the left. The patient tolerated the procedure well without signs or symptoms of complications prior to transfer to the recovery area continued monitoring without incident. The patient was then transferred to the recovery area where they were observed for an appropriate period of time after the injection. The patient reported a VAS score of 9 prior to the procedure and a post-procedure VAS of 0. POST OP INSTRUCTIONS The patient was provided a Pain Log to continue to record the patient's response to the target-specific procedure prior to the patient's follow-up visit with the referring physician. Additionally, specific post-injection care instructions and a contact number to our office were provided if concerns arise regarding possible complications associated with the procedure are suspected.
[2023-07-30] MEDS: SODIUM CHLORIDE 0.9% 250 ML 1000 ML IV (09:05)
--- NOTE | 2023-07-30 09:13 | PC.NURSE ---
Patient arrived post injection with c/o dizziness and unsteady gait. [facility] Hypotensive (see flowsheet). Dr. Anderson aware and at chair side. IVF initiated per verbal order (see eMar). Care ongoing.
--- NOTE | 2023-07-30 09:37 | PC.NURSE ---
Hypotension resolved. All VSS, at baseline. Patient reports improvement in symtpoms. [address] Anderson updated and patient ok for discharge.
== END 2023-07-30 09:38 | disposition home or self-care (01) ==
LOC: RAD 07:30
PROVIDERS: Family Provider Family Medicine; PCP Family Medicine; Referring Provider Physical Medicine & Rehabilitation; Visit Provider Physical Medicine & Rehabilitation
DX: M47.816 Spondylosis without myelopathy or radiculopathy, lumbar region (principal)
CPT/HCPCS: 64635; 64636; 99152; 99153; J2250; J3010

== ENCOUNTER → 2023-10-13 11:21 | Outpatient (CLI) | payer MEDICARE, OTHER, SELFPAY ==
[2023-03-19 13:22] VITALS: BMI 25.8
--- NOTE | 2023-10-13 11:22 | DI.RAD.S_ITS ---
PROCEDURE: XR ELBOW LT MIN 3V INDICATIONS: LEFT ELBOW PAIN TECHNIQUE: 3 views of the elbow were acquired. COMPARISON: None. FINDINGS: Bones: No fractures or dislocations. No suspicious bony lesions. Soft tissues: No elbow joint effusion. No suspicious soft tissue calcifications. IMPRESSION: No acute bony abnormality or significant joint effusion. Dictated by: Kenny Mitchell M.D. on 10/13/2023 at 11:51 Approved by: Kenny Mitchell M.D. on 10/13/2023 at 11:52
--- NOTE | 2023-10-13 11:22 | DI.RAD.S_ITS ---
PROCEDURE: XR SHOULDER RT MIN 2V INDICATIONS: RIGHT SHOULDER PAIN TECHNIQUE: 3 views of the shoulder were acquired. COMPARISON: [facility], CR, XR SHOULDER LT MIN 2V, 12/30/2022, 13:51. FINDINGS: Bones: No fractures or dislocations. No suspicious bony lesions. Visualized ribs appear intact. Soft tissues: No suspicious soft tissue calcifications. IMPRESSION: No acute bony abnormality. Dictated by: Greg Hahn M.D. on 10/13/2023 at 15:23 Approved by: Greg Hahn M.D. on 10/13/2023 at 15:24
== END ==
PROVIDERS: Family Provider Family Medicine; PCP Family Medicine; Referring Provider Physical Medicine & Rehabilitation; Visit Provider Physical Medicine & Rehabilitation
DX: M25.511 Pain in right shoulder (principal); M25.522 Pain in left elbow
CPT/HCPCS: 73030; 73080

== ENCOUNTER → 2024-03-31 10:27 | Outpatient (CLI) | payer MEDICARE, OTHER, SELFPAY ==
[2023-03-19 13:22] VITALS: BMI 25.8
--- NOTE | 2024-03-31 10:27 | DI.US.S_ITS ---
PROCEDURE: US SCROTUM INDICATIONS: Recent fall; L testicular pain and swelling TECHNIQUE: Real-time scanning was performed of the scrotum and testicles, with image documentation. Color and pulse Doppler interrogation was performed of both testicles. COMPARISON: None. FINDINGS: Right: Testicle is normal in size at 3.9 x 2.5 x 1.9 cm, and homogenous in echotexture. Epididymis is normal in overall size and morphology. No hydrocele or varicoceles. Overlying scrotal skin is normal in thickness. Left: Testicle is normal in size at 4.4 x 2.4 x 2.4 cm, and homogeneous in echotexture. Epididymis is mildly enlarged with heterogeneous echotexture.. Large septated left scrotal fluid collection.. No varicoceles. Overlying scrotal skin is thickened.. Doppler: Color and pulse Doppler demonstrate arterial flow in both testicles. There is slightly increased vascular flow in the left testicle relative the noted in the right. IMPRESSION: No evidence of testicular torsion. Left epididymo-orchitis.. Large complex left scrotal fluid collection with scrotal skin thickening. Finding could represent a large score complex hydrocele, hematocele or pyocele. Dictated by: Jennifer Conner MD, PhD on 03/31/2024 at 11:21 Approved by: Jennifer Conner MD, PhD on 03/31/2024 at 11:24
== END ==
PROVIDERS: Family Provider Family Medicine; PCP Family Medicine; Referring Provider Physician Assistant; Visit Provider Physician Assistant
DX: N45.3 Epididymo-orchitis (principal); N50.812 Left testicular pain; N50.89 Other specified disorders of the male genital organs; Z91.81 History of falling
CPT/HCPCS: 76870; 93975

== ENCOUNTER → 2024-04-07 14:37 | Outpatient (CLI) | payer MEDICARE, OTHER, SELFPAY ==
[2023-03-19 13:22] VITALS: BMI 25.8
== END ==
PROVIDERS: Family Provider Family Medicine; PCP Family Medicine; Visit Provider Urology
DX: R39.9 Unspecified symptoms and signs involving the genitourinary system (principal)
CPT/HCPCS: 87086

== ENCOUNTER → 2024-05-02 13:22 | Outpatient (CLI) | payer MEDICARE, OTHER, SELFPAY ==
[2023-03-19 13:22] VITALS: BMI 25.8
[2024-05-02 14:41] LABS: Appearance Urine UA CLEAR; Bilirubin Urine UA NEGATIVE (NEGATIVE); Color Urine UA YELLOW; Glucose Urine UA NEGATIVE (Negative); Ketones Urine UA NEGATIVE (NEGATIVE); Leukocyte Esterase Urine UA NEGATIVE (NEGATIVE); Nitrite Urine UA NEGATIVE (Negative); Occult Blood Urine UA NEGATIVE (Negative); Protein Urine UA NEGATIVE (Negative); Specific Gravity Urine UA 1.025 (1.000-1.035); Urobilinogen Urine UA 0.2 E.U./dL (0.2); pH Urine UA 5.5 (4.5-8.0)
[2024-05-02 14:46] LABS: Urine Volume 10mL (spun)
[2024-05-02 14:47] LABS: Bacteria Urine None Seen; Culture Indicated Urine Cult Not Indicated; RBC Urine None Seen (0-5/HPF); Squamous Epithelial Cell Urine None Seen (0-5/HPF); WBC Urine None Seen (0-5/HPF)
== END ==
PROVIDERS: Family Provider Family Medicine; PCP Family Medicine; Referring Provider Urology; Visit Provider Urology
DX: N40.1 Benign prostatic hyperplasia with lower urinary tract symptoms (principal); R35.0 Frequency of micturition
CPT/HCPCS: 81001

== ENCOUNTER → 2024-06-06 12:01 | Outpatient (CLI) | payer MEDICARE, OTHER, SELFPAY ==
[2023-03-19 13:22] VITALS: BMI 25.8
--- NOTE | 2024-06-06 | DI.US.S_ITS ---
PROCEDURE: US SCROTUM INDICATIONS: Nonspecific testicular pain TECHNIQUE: Real-time scanning was performed of the scrotum and testicles, with image documentation. Color and pulse Doppler interrogation was performed of both testicles. COMPARISON: [facility], US SCROTUM, 03/31/2024, 10:56. FINDINGS: Right: Testicle is normal in size at 3.6 x 1.4 x 3.1 cm, and homogenous in echotexture. Epididymis is normal in overall size and morphology measuring 0.9 cm. No hydrocele or varicoceles. Overlying scrotal skin is normal in thickness. Left: Testicle is normal in size at 4.2 x 1.7 x 2.4 cm, and homogeneous in echotexture. Epididymis is normal in overall size and morphology measuring 1.1 cm. No hydrocele or varicoceles. Overlying scrotal skin is normal in thickness. Doppler: Color and pulse Doppler demonstrate normal and symmetric arterial flow in both testicles. IMPRESSION: No evidence of torsion No evidence of scrotal fluid collection on today's study The left testicle and epididymis appear unremarkable on today's exam Dictated by: Arik Pedro M.D. on 06/07/2024 at 14:53 Approved by: Arik Pedro M.D. on 06/07/2024 at 14:58
== END ==
LOC: US 12:03
PROVIDERS: Family Provider Family Medicine; PCP Family Medicine; Referring Provider Urology; Visit Provider Urology
DX: N45.2 Orchitis (principal)
CPT/HCPCS: 76870

== ENCOUNTER 2024-08-05 11:56 | Emergency (ER) | payer MEDICARE, OTHER, SELFPAY ==
[2023-03-19 13:22] VITALS: BMI 25.8
[2024-08-05 12:00] VITALS: BP 138/70; PULSE 64; RESP 17; TEMP 36.6; O2SAT 98; BMI 24.3
--- NOTE | 2024-08-05 12:05 | DI.RAD.S_ITS ---
PROCEDURE: XR CHEST 1V INDICATIONS: chest pain TECHNIQUE: One view of the chest was acquired. COMPARISON: [facility], CR, XR CHEST 1V, 01/28/2023, 5:11. FINDINGS: Surgical changes and devices: None. Lungs and pleura: Lungs are clear. No pleural effusions or pneumothorax. Mediastinum: Mediastinal contours appear normal. Heart size is normal. Bones and chest wall: No suspicious bony lesions. Overlying soft tissues appear unremarkable. IMPRESSION: No acute pulmonary process. Dictated by: Teresa Chowdary M.D. on 08/05/2024 at 12:42 Approved by: Teresa Chowdary M.D. on 08/05/2024 at 12:42
[2024-08-05 12:20] LABS: Add Manual Diff / Slide Review NO; Basophils Absolute Auto 100 /uL (0-100); Eosinophils Absolute Auto 100 /uL (0-450); Eosinophils Percent Auto 1.4 % (2-4); Hematocrit 45.8 % (41-53); Lymphocytes Absolute Auto 900 /uL (1100-4500); Lymphocytes Percent Auto 17.1 % (25-40); Mean Corpuscular HGB Conc 34.8 % (30-36); Mean Corpuscular Volume 100.6 fL (80-100); Monocytes Absolute Auto 800 /uL (0-900); Monocytes Percent Auto 15.1 % (3-14); Neutrophils Absolute Auto 3300 /uL (1500-7000); Neutrophils Percent Auto 65.4 % (50-75); Platelet Count 172 X10^3/uL (150-400); Red Blood Cell Count 4.56 X10^6/uL (4.5-5.9); Red Cell Distribution Width 13.6 % (11.6-14.8); White Blood Cell Count 5.1 X10^3/uL (4.5-11.0)
[2024-08-05 12:23] LABS: INR 0.9 (0.9-1.3); Prothrombin Time 10.8 SECONDS (9.4-12.5)
[2024-08-05 12:25] LABS: PTT Partial Thromboplastin Tim 30 SECONDS (25.1-36.5)
[2024-08-05 12:27] LABS: Alanine Aminotransferase 34 IU/L (<50); Albumin 4.6 g/dL (3.5-5.0); Albumin Globulin Ratio 1.6 (1.0-2.8); Alkaline Phosphatase 56 U/L (38-126); Aspartate Aminotransferase 55 IU/L (17-59); BUN Creatinine Ratio 13.7 (6-22); Bilirubin Total 0.9 mg/dL (0.2-1.3); Blood Urea Nitrogen 16 mg/dL (9-20); Calcium 9.2 mg/dL (8.4-10.2); Carbon Dioxide 26 mmol/L (22-32); Chloride 95 mmol/L (98-107); Creatine Kinase 77 U/L (55-170); Estimated Glomerular Filt Rate > 60 mL/min (>60); Globulin 2.9 g/dL (1.7-4.1); Glucose 142 mg/dL (80-110); HEMOLYSIS 15 (0-50); Lipase 92 U/L (23-300); Potassium 3.6 mmol/L (3.4-5.1); Sodium 131 mmol/L (137-145); Total Protein 7.5 g/dL (6.3-8.2)
[2024-08-05 12:39] LABS: NT-proBNP (BNP-Adult 18+) 133 pg/mL (<125); Troponin I < 0.012 ng/mL (0.01-0.034)
--- NOTE | 2024-08-05 14:41 | EKG_ITS ---
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
[2024-08-05 14:42] VITALS: PULSE 57; O2SAT 99
[2024-08-05 14:43] VITALS: BP 180/86; PULSE 55; O2SAT 99
--- NOTE | 2024-08-05 14:59 | ED_ITS ---
HPI - SOB/Dyspnea General Chief Complaint: Weakness Stated Complaint: SoB, Loss of Appetite, Weightloss Time Seen by Provider: 08/05/24 14:45 Source: patient and family Mode of arrival: Ambulatory History of Present Illness HPI Narrative: 69-year-old male with 2 weeks' duration shortness of breath, could not get into his primary care provider so came here to get evaluation. He does not feel feverish. He has not have chest pain. Is taking metoprolol at same dose 50 mg twice daily. No syncope or presyncope symptoms. No leg swelling. No history of blood clots to legs or lungs. He has not have abdominal discomfort, nausea or vomiting, no black or red stools. No frequency of urination or painful urination. No flank pain or back pain. He does not use inhalers. History of generalized anxiety disorder noted on problem list Related Data Home Medications Medication Instructions Recorded Confirmed acetaminophen 500 mg tablet 500 mg PO Q6H PRN Pain (Scale 09/11/21 08/04/24 (Tylenol Extra Strength) Score 1-3) metoprolol succinate 50 mg 50 mg PO BID 07/18/24 08/04/24 tablet,extended release 24 hr Previous Rx's Medication Instructions Recorded celecoxib 200 mg capsule (Celebrex) 200 mg PO BEDTIME #90 caps 10/14/23 lisinopril 20 mg tablet 20 mg PO BID #180 tabs 11/20/23 sertraline 50 mg tablet 50 mg PO DAILY #90 tabs 11/20/23 tamsulosin 0.4 mg capsule 0.4 mg PO BEDTIME #90 caps 11/20/23 clonazepam 0.5 mg tablet 0.5 mg PO BEDTIME PRN insomnia #30 06/14/24 tabs albuterol sulfate 90 mcg/actuation 2 puff inhalation Q6H PRN 08/05/24 aerosol inhaler shortness of breath or wheezing #8.5 grams Allergies Allergy/AdvReac Type Severity Reaction Status Date / Time iodine Allergy Severe syncope & Verified 08/05/24 12:00 large hives everywhere, during IVP 1977 hydrochlorothiazide Allergy Intermediate Throat Verified 08/05/24 12:00 swelling Review of Systems Review of Systems Narrative: see HPI Patient History Medical History (Updated 08/05/24 @ 15:28 by John Mckinley MD) Incomplete emptying of bladder Orchitis, left Medicare annual wellness visit, subsequent Benign prostatic hyperplasia with lower urinary tract symptoms Epididymitis BPH (benign prostatic hyperplasia) Dementia associated with alcoholism Alcoholic encephalopathy Vertigo Colon polyps Irritable bowel syndrome Impingement syndrome of left shoulder Skin lesion of back Cognitive and behavioral changes Elevated liver function tests Well adult exam Left hip pain Erectile dysfunction Facet arthropathy, lumbar Lumbar radiculopathy Chronic back pain Mumps Chicken pox Hearing loss Hypertension Surgical History (Updated 07/18/24 @ 12:02 by Zaki Anderson DO) Anesthesia Status post knee surgery (~04/1999) Status post foot surgery Status post knee surgery (~04/1999) Status post arthroscopy Status post arthroscopy Family History Brother Cancer Father Diabetes mellitus Heart disease Hypertension Social History household members: spouse Smoking Status: Never smoker alcohol intake: current substance use type: does not use Smoking Status: Never smoker alcohol intake frequency: 3 or more drinks per day Alcohol type: hard liquor Substance Use Type: does not use Exam Narrative Exam Narrative: GENERAL: Well-developed patient, in mild distress. HEAD: Atraumatic. Normocephalic. EYES: Pupils equal round and reactive. Extraocular motions intact. No scleral icterus. No injection or drainage. ENT: Nose without bleeding, purulent drainage. Throat without erythema, tonsillar hypertrophy or exudate. Airway patent. NECK: Trachea midline. Non tender CARDIOVASCULAR: Slow rate regular rhythm without murmurs, gallops, or rubs. RESPIRATORY: Clear to auscultation. Breath sounds equal bilaterally. No wheezes, rales, or rhonchi. GASTROINTESTINAL: Abdomen soft, non-tender, nondistended. EXTREMITIES: No edema or joint tenderness. BACK: Nontender without deformity or crepitance. No flank tenderness. NEURO: AOx3. Motor functions grossly nonfocal SKIN: No rash or erythema of visible areas Initial Vital Signs Initial Vital Signs: Vital Signs Temperature 97.8 F 08/05/24 12:00 Pulse Rate 64 08/05/24 12:00 Respiratory Rate 17 08/05/24 12:00 Blood Pressure 138/70 08/05/24 12:00 Pulse Oximetry 98 08/05/24 12:00 Oxygen Delivery Method Room Air 08/05/24 12:00 Course Orders Ordered: Discontinued Medications Albuterol (Albuterol Hfa Mdi 60 Puff/8 Gm Inhaler) 2 puff INH NOW ONE Stop: 08/05/24 15:45 Last Admin: 08/05/24 15:51 Dose: Not Given Documented By: CTS Vital Signs Vital signs: Vital Signs - 8 hr 08/05/24 14:42 08/05/24 14:43 08/05/24 14:43 Pulse Rate 57 L 55 L Respiratory Rate Blood Pressure 180/86 H Pulse Oximetry 99 99 Oxygen Delivery Method 08/05/24 15:00 08/05/24 15:01 08/05/24 15:01 Pulse Rate 56 L 56 L Respiratory Rate 17 17 Blood Pressure 172/84 H Pulse Oximetry 98 98 Oxygen Delivery Method 08/05/24 15:30 08/05/24 15:30 08/05/24 15:59 Pulse Rate 57 L Respiratory Rate 19 Blood Pressure 186/89 H Pulse Oximetry 100 Oxygen Delivery Method Room Air MDM - SOB/Dyspnea Lab Data Attestation: I reviewed the patient's lab results. 08/05/24 12:10 08/05/24 12:10 Labs: Lab Results 08/05/24 08/05/24 Range/Units 12:10 14:55 WBC 5.1 (4.5-11.0) X10^3/uL RBC 4.56 (4.5-5.9) X10^6/uL Hgb 16.0 (13.5-17.5) g/dL Hct 45.8 (41-53) % MCV 100.6 H (80-100) fL MCH 35.0 H (26-34) PG MCHC 34.8 (30-36) % RDW 13.6 (11.6-14.8) % Plt Count 172 (150-400) X10^3/uL Neut % (Auto) 65.4 (50-75) % Lymph % (Auto) 17.1 L (25-40) % Garrard % (Auto) 15.1 H (3-14) % Eos % (Auto) 1.4 L (2-4) % Baso % (Auto) 1.0 (0-2) % Neut # (Auto) 3300 (7945-7869) /uL Lymph # (Auto) 900 L (8944-8460) /uL Garrard # (Auto) 800 (0-900) /uL Eos # (Auto) 100 (0-450) /uL Baso # (Auto) 100 (0-100) /uL PT 10.8 (9.4-12.5) SECONDS INR 0.9 (0.9-1.3) APTT 30 (25.1-36.5) SECONDS Sodium 131 L (137-145) mmol/L Potassium 3.6 (3.4-5.1) mmol/L Chloride 95 L (98-107) mmol/L Carbon Dioxide 26 (22-32) mmol/L BUN 16 (9-20) mg/dL Creatinine 1.17 (0.66-1.25) mg/dL Estimated GFR > 60 (>60) mL/min BUN/Creatinine Ratio 13.7 (6-22) Glucose 142 H (80-110) mg/dL Calcium 9.2 (8.4-10.2) mg/dL Magnesium 2.0 (1.6-2.3) mg/dL Total Bilirubin 0.9 (0.2-1.3) mg/dL AST 55 (17-59) IU/L ALT 34 (<50) IU/L Alkaline Phosphatase 56 (38-126) U/L Total Creatine Kinase 77 (55-170) U/L Troponin I < 0.012 < 0.012 (0.01-0.034) ng/mL NT-Pro-B Natriuret Pep 133 H (<125) pg/mL Total Protein 7.5 (6.3-8.2) g/dL Albumin 4.6 (3.5-5.0) g/dL Globulin 2.9 (1.7-4.1) g/dL Albumin/Globulin Ratio 1.6 (1.0-2.8) Lipase 92 (23-300) U/L SARS-CoV-2 (PCR) Negative (Negative) Influenza A (RT-PCR) Flu a negative (NEGATIVE) Influenza B (RT-PCR) Flu b negative (NEGATIVE) RSV (PCR) Negative (Negative) Imaging Data Chest x-ray: Radiologist's Impression: [address] [address] XRay Report Signed Patient: Roscoe Buchanan MR#: [id number] : 1955 Acct:[id number] Age/Sex: 69 / M Date of Service: 08/05/24 Loc: ED Accession Number: [id number] Procedure: XR chest 1V Ordering Provider: John Mckinley MD PROCEDURE: XR CHEST 1V INDICATIONS: chest pain TECHNIQUE: One view of the chest was acquired. COMPARISON: [facility], CR, XR CHEST 1V, 01/28/2023, 5:11. FINDINGS: Surgical changes and devices: None. Lungs and pleura: Lungs are clear. No pleural effusions or pneumothorax. Mediastinum: Mediastinal contours appear normal. Heart size is normal. Bones and chest wall: No suspicious bony lesions. Overlying soft tissues appear unremarkable. IMPRESSION: No acute pulmonary process. Dictated by: Teresa Chowdary M.D. on 08/05/2024 at 12:42 Approved by: Teresa Chowdary M.D. on 08/05/2024 at 12:42 ECG Data Attestation: I personally reviewed and interpreted this ECG as follows: Interpretation: Sinus bradycardia with rate 54, no obvious ST segment elevation or depression changes. T-wave inversions noted in lead 3. Flat T-waves lead AVF, upright in lead 2. AK 168, QRS 92, QTC 441. MDM Narrative Medical decision making narrative: 69-year-old male with 2 weeks' duration shortness of breath, no associated chest pain, no infectious symptoms, afebrile, sirs screen negative. Takes metoprolol, sinus bradycardia noted, no recent dose change. No syncope or presyncope symptoms. Consider shortness of breath due to his sinus bradycardia, though stable dose, unclear if there is any recent intolerance to the medication. DDx consider dyspnea due to his sinus bradycardia, pneumonia, heart failure, bronchospasm, other. We will send screening labs EKG with sinus bradycardia but no obvious ischemic changes. Initial troponin negative. Electrolytes unremarkable. CBC, CMP studies negative, COVID/influenza swab negative. Chest x-ray no acute process, see radiology report. Interval repeat troponin also negative. Unclear cause of his shortness of breath. We discussed further testing as an outpatient for now that might include echocardiogram, stress testing, pulmonary function testing, cardiac monitoring. Trial over this weekend of albuterol with spacer, prescription sent, spacer dispensed, to see if that helps him feel any less short of breath. If that does not work he could consider reduced dose of metoprolol from 50 mg twice daily to 50 mg in the morning and 25 mg at night, or to 25 mg twice daily, though he might need additional blood pressure control support. Follow up with his primary care physician advised. Discharge Plan Departure Patient Disposition: Home Clinical Impression: Shortness of breath, Bradycardia, sinus Activity Restrictions/Additional Instructions: 2 months duration of shortness of breath, not particular worth with exertion, no medication changes, 1 of the medications that you take his metoprolol 50 mg twice daily, and your heart rate was in the upper 50s, this might be symptomatic bradycardia and cause of your symptoms. However it might be reasonable to keep this on board since it is controlling your blood pressure. EKG and blood testing was not suggestive of heart attack at this time, chest x-ray unremarkable, no evidence for anemia, no evidence for heart failure, no evidence for sepsis or infection. For now consider use of inhaler, perhaps with a spacer to see if you have any response over the weekend, 2 puffs 4 times daily. Perhaps by Thursday if you are not really noticing any improvement you might consider some incremental decreasing your metoprolol dose, perhaps 50 mg in the morning with 25 mg in the evening for example. Until you can follow up further with your regular doctor. Other testing can be done as an outpatient to evaluate for shortness of breath such as echocardiogram ultrasound testing of the heart, formal pulmonary testing of the lungs, stress testing of the heart, etc. For discharge over this 2 day weekend consider use of inhaler, if not effective in your shortness of breath and fatigue symptoms then consider reduction incremental lowering of your atenolol dose, pending follow up with your regular doctor. Return earlier to this/nearest emergency department for any change worsening symptoms or any concerns prior Prescriptions: New albuterol sulfate 90 mcg/actuation HFA aerosol inhaler 2 puff inhalation Q6H PRN (Reason: shortness of breath or wheezing) Qty: 8.5 0RF No Action clonazepam 0.5 mg tablet 0.5 mg PO BEDTIME PRN (Reason: insomnia) Qty: 30 1RF Rx Instructions: administer 30 minutes before bedtime lisinopril 20 mg tablet 20 mg PO BID Qty: 180 3RF sertraline 50 mg tablet 50 mg PO DAILY Qty: 90 3RF tamsulosin 0.4 mg capsule 0.4 mg PO BEDTIME Qty: 90 3RF acetaminophen [Tylenol Extra Strength] 500 mg tablet 500 mg PO Q6H PRN (Reason: Pain (Scale Score 1-3)) celecoxib [Celebrex] 200 mg capsule 200 mg PO BEDTIME Qty: 90 3RF metoprolol succinate 50 mg tablet extended release 24 hr 50 mg PO BID Referrals: Triston Moseley DO [Primary Care Provider] - Stand Alone Forms: Patient Portal/API
[2024-08-05 15:00] VITALS: PULSE 56; RESP 17; O2SAT 98
[2024-08-05 15:01] VITALS: BP 172/84; PULSE 56; RESP 17; O2SAT 98
[2024-08-05 15:30] VITALS: BP 186/89; PULSE 57; RESP 19; O2SAT 100
[2024-08-05 15:35] LABS: Troponin I < 0.012 ng/mL (0.01-0.034)
[2024-08-05 15:44] LABS: Influenza A - CEPHEID Flu A NEGATIVE (NEGATIVE); Influenza B - CEPHEID Flu B NEGATIVE (NEGATIVE); Respiratory Syncytial Virus Negative (Negative)
[2024-08-05 15:52] LABS: COVID-19 CEPHEID 4-PLEX PCR Negative (Negative)
== END 2024-08-05 16:00 | disposition home or self-care (01) ==
PROVIDERS: Emergency Provider Emergency Medicine; Family Provider Family Medicine; PCP Family Medicine
DX: R06.02 Shortness of breath (principal); R00.1 Bradycardia, unspecified; R07.9 Chest pain, unspecified; Z11.52 Encounter for screening for COVID-19
CPT/HCPCS: 0241U; 36415; 71045; 80053; 82550; 83690; 83735; 83880; 84484; 85025; 85610; 85730; 93005; 93010; 99283; 99284; A9270

== ENCOUNTER 2024-08-23 12:51 | Outpatient (CLI) | payer MEDICARE, OTHER, SELFPAY ==
[2023-03-19 13:22] VITALS: BMI 25.8
[2024-08-23] VITALS (8 sets, daily range): BP systolic 126–192; BP diastolic 73–97; PULSE 71–84; RESP 12–20; TEMP 36.2; O2SAT 95–100
--- NOTE | 2024-08-23 13:30 | DI.RAD.S_ITS ---
PROCEDURE: PAIN L INTERLAMINAR/CAUDAL INJ INDICATIONS: L4/5 TL TRUE COMPARISON: None. FINDINGS: Fluoroscopic spot filming was performed to verify placement of spinal needles at the L4-L5 level(s), as labeled on the films. Appropriate location(s) of the needle tip(s) was confirmed by injection of iodinated contrast. IMPRESSION: Intraoperative guidance provided. Dictated by: Matt Ruiz M.D. on 08/23/2024 at 20:58 Approved by: Matt Ruiz M.D. on 08/23/2024 at 20:59
[2024-08-23] MEDS: MIDAZOLAM 2 MG/2 ML VIAL IV (14:11)
[2024-08-23] MEDS: BUPIVACAINE 0.25% (PF) VIAL 2 ML INJ (14:16)
[2024-08-23] MEDS: DEXAMETHASONE 10 MG/ML VIAL INJ (14:17)
[2024-08-23] MEDS: BETAMETHASONE 30 MG/5 ML MDV 6 MG INJ (14:17)
[2024-08-23] MEDS: iopamidoL 15 ML VIAL 3 ML INJ (14:17)
--- NOTE | 2024-08-23 14:28 | P.PCN_ITS ---
Date/Time/Diagnoses Date of procedure: 08/23/24 Time of procedure: 14:28 Pre-procedure diagnosis: 1. HNP WITH RADICULAR FEATURES, 2. MULTILEVEL CENTRAL STENOSIS, Post-procedure diagnosis: same Procedure Notes Procedure: 1. FLUOROSCOPICALLY GUIDED CONTRAST CONTROLLED INTERLAMINAR EPIDURAL STEROID INJECTION -L4/5 Indications: Roscoe is referred by Dr. Moseley for treatment of Bilateral Foraminal Stenosis R>L LE symptoms. Physician: Zaki Anderson Total Fluoroscopy time (seconds): 8 Total sedation minutes: 12 Complications: none Procedure in detail & Post-procedure care: FINDINGS Multilevel Central Spinal Stenosis with Nerve Root Compression DESCRIPTION OF PROCEDURE Fluoroscopically guided, contrast-controlled L4/5 translaminar epidural steroid injection. Following review of allergy and review of potential side effects and complications, including, but not necessarily limited to, infection, allergic reaction, local tissue breakdown, temporary as well as permanent nerve injury, paralysis, stroke and possible , the patient indicated that the patient understood and agreed to proceed. An informed consent document was signed by the patient, witnessed by a nurse, and placed in the patient's chart. Additionally, other treatment options including modalities, medications, and physical therapy were reviewed with the patient. After review of previous anaesthesic history and IV conscious sedation the patient was deemed safe to proceed with today?s procedure with IV conscious sedation as ASA class II designation. Safety time-out was performed to confirm patient ID, procedure to be performed and site of procedure. IV sedation was accomplished with a combination of 2mg of Versed was administered by the RN after DO order, titrated to patient comfort during the course of the procedure while the patient remained responsive to all verbal commands In the prone position, following sterile prep and drape of the lumbar region, the L4/5 translaminar space was identified fluoroscopically. The skin was anesthetized via a 25-gauge, 1.5inch needle with 1% lidocaine solution. At this point, a 22-gauge short bevel spinal needle was atraumatically introduced and advanced under fluoroscopic guidance into the region of the L4/5 translaminar space. Depth was confirmed on lateral view. Radiological data, including multiple fluoroscopic views of the lumbar spine, reveal a spinal needle at the L4/5 translaminar space. Lateral views then show placement of the needle in the epidural space. Subsequent views show contrast material flowing superiorly and inferiorly in the epidural space. No vascular or intrathecal uptake is observed. At this point, using loss of resistance technique with saline and air, the epidural space was entered. This was confirmed following negative aspiration with injection of approximately 1.5cc of Isovue 200, showing excellent epidural flow without vascular or intrathecal uptake. At this point, 1cc of 1% lidocaine solution combined with 2cc or 10mg of dexamethasone and 6mg betamethasone was injected without incident. The patient tolerated the procedure well without signs or symptoms of complications prior to transfer to the recovery area continued monitoring without incident. The patient was then transferred to the recovery area where they were observed for an appropriate period of time after the injection. The patient reported a VAS score of 6 prior to the procedure and a post- procedure VAS of 0. POST OP INSTRUCTIONS The patient was provided a Pain Log to continue to record their response to the target-specific procedure prior to follow-up visit with their referring physician. Additionally, specific post-injection care instructions and a contact number to our office were provided if concerns arise regarding possible complications associated with the procedure are suspected.
== END 2024-08-23 14:45 | disposition home or self-care (01) ==
LOC: RAD 12:52
PROVIDERS: Family Provider Family Medicine; PCP Family Medicine; Referring Provider Physical Medicine & Rehabilitation; Visit Provider Physical Medicine & Rehabilitation
DX: M51.16 Intervertebral disc disorders with radiculopathy, lumbar region (principal); M48.061 Spinal stenosis, lumbar region without neurogenic claudication
CPT/HCPCS: 62323; 99152; J0702; J1100; J2250; J3490

== ENCOUNTER → 2024-09-09 16:47 | Outpatient (CLI) | payer MEDICARE, OTHER, SELFPAY ==
[2023-03-19 13:22] VITALS: BMI 25.8
[2024-09-09 17:09] LABS: Add Manual Diff / Slide Review NO; Basophils Absolute Auto 0 /uL (0-100); Basophils Percent Auto 0.7 % (0-2); Eosinophils Absolute Auto 0 /uL (0-450); Eosinophils Percent Auto 0.8 % (2-4); Hematocrit 42.6 % (41-53); Hemoglobin 14.9 g/dL (13.5-17.5); Lymphocytes Absolute Auto 900 /uL (1100-4500); Lymphocytes Percent Auto 15.1 % (25-40); Mean Corpuscular HGB Conc 34.9 % (30-36); Mean Corpuscular Hemoglobin 35.5 PG (26-34); Mean Corpuscular Volume 101.6 fL (80-100); Monocytes Absolute Auto 600 /uL (0-900); Monocytes Percent Auto 10.7 % (3-14); Neutrophils Absolute Auto 4100 /uL (1500-7000); Neutrophils Percent Auto 72.7 % (50-75); Platelet Count 148 X10^3/uL (150-400); Red Blood Cell Count 4.19 X10^6/uL (4.5-5.9); Red Cell Distribution Width 13.8 % (11.6-14.8); White Blood Cell Count 5.7 X10^3/uL (4.5-11.0)
[2024-09-09 17:21] LABS: Hemoglobin A1C% w Est Avg Glu 5.2 % (4.0-6.0)
[2024-09-09 17:30] LABS: Alanine Aminotransferase 40 IU/L (<50); Albumin 4.8 g/dL (3.5-5.0); Alkaline Phosphatase 86 U/L (38-126); Aspartate Aminotransferase 80 IU/L (17-59); BUN Creatinine Ratio 14.1 (6-22); Bilirubin Total 0.9 mg/dL (0.2-1.3); Blood Urea Nitrogen 13 mg/dL (9-20); Calcium 9.2 mg/dL (8.4-10.2); Carbon Dioxide 28 mmol/L (22-32); Chloride 97 mmol/L (98-107); Cholesterol 202 mg/dL (140-199); Estimated Glomerular Filt Rate > 60 mL/min (>60); Globulin 2.4 g/dL (1.7-4.1); Glucose 85 mg/dL (80-110); HEMOLYSIS < 15 (0-50); Potassium 4.2 mmol/L (3.4-5.1); Sodium 133 mmol/L (137-145); Total Protein 7.2 g/dL (6.3-8.2); Triglycerides 52 mg/dL (35-150)
[2024-09-09 17:37] LABS: HDL Cholesterol 144 mg/dL (40-60); LDL Cholesterol Calculated 48 mg/dL (<100)
[2024-09-09 17:58] LABS: Prostate Specific Antigen Scrn 4.32 ng/mL (0.1-4.0)
[2024-09-12 16:07] LABS: Deamidated Gliadin Ab IgA 13 units (0-19); Deamidated Gliadin Ab IgG 2 units (0-19); Immunoglobulin A,Qn 229 mg/dL (61-437); t-Transglutaminase IgA 3 U/mL (0-3)
== END ==
PROVIDERS: Family Provider Family Medicine; PCP Family Medicine; Referring Provider Family Medicine; Visit Provider Family Medicine
DX: Z00.00 Encounter for general adult medical examination without abnormal findings (principal); I10 Essential (primary) hypertension; K52.9 Noninfective gastroenteritis and colitis, unspecified; Z12.5 Encounter for screening for malignant neoplasm of prostate; K63.89 Other specified diseases of intestine; G47.33 Obstructive sleep apnea (adult) (pediatric); R35.0 Frequency of micturition; N40.1 Benign prostatic hyperplasia with lower urinary tract symptoms; F10.97 Alcohol use, unspecified with alcohol-induced persisting dementia; D12.6 Benign neoplasm of colon, unspecified; E78.00 Pure hypercholesterolemia, unspecified
CPT/HCPCS: 36415; 80053; 80061; 82784; 83036; 83516; 85025; G0103

== ENCOUNTER → 2024-10-04 14:41 | Outpatient (CLI) | payer MEDICARE, OTHER, SELFPAY ==
[2023-03-19 13:22] VITALS: BMI 25.8
--- NOTE | 2024-10-04 14:42 | DI.ECHO.S_ITS ---
[facility] : : [id number] : [place] : : [id number] : : Phone: [phone] Echocardiogram Report + + :Name: SHELLY JONES Study Date: 10/04/2024 Height: 71 in : :[facility] ReadingLocation: Weight: 167 lb : : Gender: Male BSA: 2.0 m2 : :: 1955 Age: 69 yrs BP: 144/93 mmHg: :Reason For Study: INCREASING EXERTIONAL FATIGUE : :Ordering Physician: SIMONA, : :CAROLINA Performed By: Simon Mack : :Referring: CAROLINA JARVIS : + + Interpretation Summary 1. Normal LV contractility with EF > 55%. No WMA. Mild LVH. Grade 1 diastolic dysfunction. 2. Normal RV contractility. 3. Mild LAE. 4. Mild with mean gradient 7 mmHg and dimensionless index 0.43. 5. No obvious intracardiac shunts. 6. No obvious intracardiac masses/thrombi. 7. No hemodynamically significant pericardial effusion. 8. Low right sided filling pressures. 9. Borderline aortic root enlargement without obvious dissection. Conclusion: Normal biventricular systolic function with mild aortic valvular stenosis. When compared with previous study, no significant changes. Procedure: A two-dimensional transthoracic echocardiogram with color flow and Doppler was performed. The study quality was technically good. Comparison is made with the echocardiogram of 01/28/2023. The patient was in normal sinus rhythm during the exam. Left Ventricle: The left ventricle is normal in size. Left ventricular wall thickness is mildly increased. Proximal septal thickening is noted. There is no ventricular septal defect visualized. The ejection fraction is estimated to be 55-60%. There are no focal wall motion abnormalities. Right Ventricle: The right ventricle is normal in size and function. Atria: The left atrium is mildly dilated. Right atrial size is normal. There is no Doppler evidence for an atrial septal defect. Mitral Valve: The mitral valve leaflets appear mildly thickened, but open well. There is mild mitral annular calcification. There is trace mitral regurgitation. Aortic Valve: The aortic valve is trileaflet. The aortic valve is mildly calcified. There is trace aortic regurgitation. Tricuspid Valve: The tricuspid valve leaflets are thin and pliable. There is trace tricuspid regurgitation. Pulmonic Valve: The pulmonic valve leaflets are thin and pliable; valve motion is normal. There is trace pulmonic regurgitation. Great Vessels: The aortic root is mildly dilated. The dimensions of the ascending aorta are normal. The pulmonary artery is normal size. The IVC is of normal diameter and collapses greater than 50% with a sniff. This suggests a low right atrial pressure of 3 mm Hg. Pericardium/ Pleura There is no pericardial effusion. There is no pleural effusion. MMode/2D Measurements & Calculations LVIDd: 4.8 cm LVOT diam: 2.1 cm LVIDs: 3.1 cm Ao root diam: 4.0 cm FS: 35.8 % asc Aorta Diam: 3.6 cm EPSS: 0.65 cm IVSd: 1.3 cm LVPWd: 1.3 cm LV joshua. diameter/BSA (cm/m^2): 2.5 LV sys. diameter/BSA (cm/m^2): 1.6 LA A2 area: 24.6 cm2 RA long axis: 4.5 cm LA A4 area: 19.6 cm2 RA area: 12.5 cm2 LA length (vol): 5.8 cm RA vol: 29.5 ml LA vol: 70.9 ml RA : 15.1 ml/m2 LA vol index: 36.3 ml/m2 IVC diam: 1.2 cm RVD1 (basal): 3.4 cm RVD2 (mid): 2.9 cm TAPSE: 2.1 cm Doppler Measurements & Calculations Ao V2 max: 189.6 cm/sec LVOT Max Luke: 71.5 cm/sec Ao V2 mean: 124.1 cm/sec LV V1 max P.0 mmHg Ao max P.4 mmHg LV V1 VTI: 18.1 cm Ao mean P.1 mmHg SIMA(I,D): 1.4 cm2 Ao V2 VTI: 42.0 cm SIMA(V,D): 1.2 cm2 sev ratio: 0.43 SIMA indexed to BSA (cm^2/m^2): 0.73 MV E max luke: 46.6 cm/sec PA V2 max: 58.7 cm/sec MV A max luke: 55.8 cm/sec PA V2 mean: 41.9 cm/sec MV E/A: 0.84 PA mean P.80 mmHg Med Peak E' Luke: 3.7 cm/sec PA pr(Accel): 29.3 mmHg E/E' med: 12.6 Lat Peak E' Luke: 7.4 cm/sec E/E' lat: 6.3 E/e' average: 9.4 MV dec time: 0.27 sec SV(LVOT): 60.1 ml Reading Physician:
== END ==
PROVIDERS: Family Provider Family Medicine; PCP Family Medicine; Referring Provider Family Medicine; Visit Provider Family Medicine
DX: I34.81 Nonrheumatic mitral (valve) annulus calcification (principal); I77.810 Thoracic aortic ectasia; R53.83 Other fatigue
CPT/HCPCS: 93306

== ENCOUNTER 2024-10-11 09:16 | Emergency (ER) | payer MEDICARE, OTHER, SELFPAY ==
[2023-03-19 13:22] VITALS: BMI 25.8
[2024-10-11] VITALS (7 sets, daily range): BP systolic 116–153; BP diastolic 66–82; PULSE 63–70; RESP 16–18; TEMP 36.7; O2SAT 90–99; BMI 24.0
--- NOTE | 2024-10-11 10:02 | PC.NURSE ---
Pt states that he was sleep walking and he tripped. Has hx of back pain. Reports that fentanyl is working and doesn't need anything for pain.
--- NOTE | 2024-10-11 10:03 | ED_ITS ---
HPI - Fall General Chief Complaint: Fall Stated Complaint: fall Time Seen by Provider: 10/11/24 09:43 Source: patient and EMS Mode of arrival: EMS History of Present Illness HPI Narrative: Patient brought in by ambulance from home. Complains of lower back pain. Patient states has history lumbar degenerative disc disease. This is not new. Never had MRI or surgery on it. Patient states he does sleep walk. This is not unusual for him. He did this this morning around 2:00 a.m.. He got out of bed evidently and awoke outside the bedroom door in the hallway. Face down. Patient is not on any blood thinners. Denies any head or neck pain. No limb pain. He complained of lower back pain head and got back in. Awoke this morning with still having lower back pain and called the ambulance. Denies any chest pain abdominal pain no limb pain. No weakness. No headache. Denies any injury. Patient given fentanyl 50 mcg by EMS. Pain is 3/10. Is able to log roll to the right. Related Data Home Medications Medication Instructions Recorded Confirmed acetaminophen 500 mg tablet 500 mg PO Q6H PRN Pain (Scale 09/11/21 09/09/24 (Tylenol Extra Strength) Score 1-3) Previous Rx's Medication Instructions Recorded tamsulosin 0.4 mg capsule 0.4 mg PO BEDTIME #90 caps 11/20/23 clonazepam 0.5 mg tablet 0.5 mg PO BEDTIME PRN insomnia #30 06/14/24 tabs albuterol sulfate 90 mcg/actuation 2 puff inhalation Q6H PRN 08/05/24 aerosol inhaler shortness of breath or wheezing #8.5 grams sertraline 100 mg tablet 100 mg PO DAILY #90 tabs 09/09/24 celecoxib 200 mg capsule (Celebrex) 200 mg PO BEDTIME #90 caps 09/26/24 lisinopril 20 mg tablet 20 mg PO BID #180 tabs 09/26/24 metoprolol succinate 50 mg 25 mg (1/2 x 50 mg) PO BID #45 tabs 09/26/24 tablet,extended release 24 hr hydrocodone 5 mg-acetaminophen 325 1 tab PO Q6H PRN pain #12 tabs 10/11/24 mg tablet Allergies Allergy/AdvReac Type Severity Reaction Status Date / Time iodine Allergy Severe syncope & Verified 09/09/24 16:08 large hives everywhere, during IVP 1977 hydrochlorothiazide Allergy Intermediate Throat Verified 09/09/24 16:08 swelling Review of Systems Review of Systems Narrative: GENERAL: Negative chills, fatigue, malaise, fever, sweats. HEENT: Negative sinus pain, ear pain, sore throat RESPIRATORY: Negative dyspnea, cough CARDIOVASCULAR: Negative chest pain, palpitations GASTROINTESTINAL: Negative nausea, vomiting, abdominal pain : Negative dysuria, frequency, hematuria MUSCULOSKELETAL: Positive back, muscle or bony pain SKIN: Negative rash, skin lesions NEUROLOGIC: Negative weakness, numbness ROS Unobtainable: All systems reviewed & are unremarkable except as noted in HPI and below Patient History Medical History Sleep apnea IBD (inflammatory bowel disease) Incomplete emptying of bladder Orchitis, left Medicare annual wellness visit, subsequent Benign prostatic hyperplasia with lower urinary tract symptoms Epididymitis BPH (benign prostatic hyperplasia) Dementia associated with alcoholism Alcoholic encephalopathy Vertigo Colon polyps Irritable bowel syndrome Impingement syndrome of left shoulder Skin lesion of back Cognitive and behavioral changes Elevated liver function tests Well adult exam Left hip pain Erectile dysfunction Facet arthropathy, lumbar Lumbar radiculopathy Chronic back pain Mumps Chicken pox Hearing loss Hypertension Surgical History Anesthesia Status post knee surgery (~04/1999) Status post foot surgery Status post knee surgery (~04/1999) Status post arthroscopy Status post arthroscopy Family History Brother Cancer Father Diabetes mellitus Heart disease Hypertension Social History household members: spouse Smoking Status: Never smoker alcohol intake: current substance use type: does not use Smoking Status: Never smoker alcohol intake frequency: 3 or more drinks per day Alcohol type: hard liquor Exam Narrative Exam Narrative: GENERAL: in no distress, not toxic not dyspneic HEAD: Normocephalic. Atraumatic nontender face and scalp and skull. EYES: Pupils equal round ENT: Mucous membranes moist. NECK: Trachea midline. No midline tenderness step-off of the thoracic or cervical spine. There is reproducible bilateral paralumbar muscle tenderness no bruising no step-off of the midline lumbar spine. CARDIOVASCULAR: Regular rate and rhythm RESPIRATORY: Clear to auscultation. Breath sounds equal bilaterally. No wheezes, rales, or rhonchi. GASTROINTESTINAL: Abdomen soft, non-tender EXTREMITIES: No gross deformities. BACK: No flank tenderness. No midline tenderness or step-off of the lumbar spine but there is bilateral paralumbar muscle tenderness with limited range of motion., due to pain. No pain with bilateral straight leg raises. NEURO: AOx4. Light touch intact bilateral feet and toes with wiggling the toes, feet warm soft pink strong pedal pulses. Strong bilateral ankle flexion- extension as well as patellar reflexes. SKIN: Warm and dry PSYCH: Not anxious, is cooperative Initial Vital Signs Initial Vital Signs: Vital Signs Temperature 98.0 F 10/11/24 09:22 Pulse Rate 63 10/11/24 09:22 Respiratory Rate 18 10/11/24 09:22 Blood Pressure 153/82 H 10/11/24 09:22 Pulse Oximetry 99 10/11/24 09:22 Oxygen Delivery Method Room Air 10/11/24 09:22 Course Orders Ordered: Discontinued Medications Hydrocodone Bitart/Acetaminophen (Hydrocodone/Acet 5/325 Tablet) 1 tab PO NOW ONE Stop: 10/11/24 11:21 Last Admin: 10/11/24 11:28 Dose: 1 tab Documented By: Ketorolac Tromethamine (Ketorolac 30 Mg/Ml Vial) 15 mg IV NOW ONE Stop: 10/11/24 11:21 Last Admin: 10/11/24 11:27 Dose: 15 mg Documented By: Morphine Sulfate (Morphine 4 Mg/Ml Inj) 2 mg IV NOW ONE Stop: 10/11/24 11:21 Last Admin: 10/11/24 11:27 Dose: 2 mg Documented By: Ondansetron HCl (Ondansetron 4 Mg/2 Ml Inj) 4 mg IV NOW ONE Stop: 10/11/24 11:21 Last Admin: 10/11/24 11:27 Dose: 4 mg Documented By: Vital Signs Vital signs: Vital Signs - 8 hr 10/11/24 09:22 10/11/24 09:48 10/11/24 10:00 Temperature 98.0 F Pulse Rate 63 64 Respiratory Rate 18 Blood Pressure 153/82 H 116/79 Pulse Oximetry 99 90 L Oxygen Delivery Method Room Air 10/11/24 10:00 10/11/24 10:31 10/11/24 10:49 Temperature Pulse Rate 68 67 70 Respiratory Rate Blood Pressure Pulse Oximetry 99 97 97 Oxygen Delivery Method 10/11/24 10:49 10/11/24 11:00 10/11/24 11:00 Temperature Pulse Rate 66 Respiratory Rate Blood Pressure 129/69 130/68 Pulse Oximetry 96 Oxygen Delivery Method MDM - Fall Imaging Data X-ray cervical thoracic lumbar spine: Radiologist's Impression: [address] [address] XRay Report Signed Patient: Roscoe Buchanan MR#: [id number] : 1955 Acct:[id number] Age/Sex: 69 / M Date of Service: 10/11/24 Loc: ED Accession Number: [id number] Procedure: XR thoracic spine 2V Ordering Provider: Owen Alicea MD PROCEDURE: XR THORACIC SPINE 2V INDICATIONS: Pain/fall TECHNIQUE: 2 views of the thoracic spine were acquired. COMPARISON: None. FINDINGS: Bones: No acute fractures or dislocations. Diffuse osteopenia. No suspicious bony lesions. 12 pairs of ribs are noted, and appear intact where visualized. Soft tissues: No paravertebral stripe thickening. IMPRESSION: Diffuse osteopenia. No acute compression fracture. Dictated by: Dion Elise M.D. on 10/11/2024 at 10:57 Approved by: Dion Elise M.D. on 10/11/2024 at 10:[address] [address] XRay Report Signed Patient: Roscoe Buchanan MR#: [id number] : 1955 Acct:[id number] Age/Sex: 69 / M Date of Service: 10/11/24 Loc: ED Accession Number: [id number] Procedure: XR lumbar spine 2-3V Ordering Provider: Owen Alicea MD PROCEDURE: XR LUMBAR SPINE 2-3V INDICATIONS: Pain/fall TECHNIQUE: 3 views of the lumbar spine were acquired. COMPARISON: [facility], , XR LUMBAR SPINE MIN 4V, 12/30/2022, 13:51. FINDINGS: Bones: 5 [id number] vertebrae are present. There is normal bony alignment. No vertebral body compression fractures. No suspicious bony lesions. Multilevel degenerative disc height loss and facet arthropathy. Soft tissues: Overlying bowel gas pattern is normal. No suspicious soft tissue calcifications. IMPRESSION: No acute bony abnormality. Degenerative change. Dictated by: Dion Elise M.D. on 10/11/2024 at 10:55 Approved by: Dion Elise M.D. on 10/11/2024 at 10:[address] [address] XRay Report Signed Patient: Roscoe Buchanan MR#: [id number] : 1955 Acct:[id number] Age/Sex: 69 / M Date of Service: 10/11/24 Loc: ED Accession Number: [id number] Procedure: XR cervical spine 2V or 3V Ordering Provider: Owen Alicea MD PROCEDURE: XR CERVICAL SPINE 2V OR 3V INDICATIONS: Pain/fall TECHNIQUE: 3 view(s) of the cervical spine were acquired. COMPARISON: None. FINDINGS: Bones: No fractures or dislocations to the top of C7 level. The lateral masses of C1 appear intact on the odontoid view. No suspicious bony lesions. Severe cervical spondylosis with multilevel facet arthropathy and uncovertebral joint hypertrophy. Soft tissues: No prevertebral soft tissue swelling. Dense bilateral carotid calcifications. IMPRESSION: 1. Severe cervical spondylosis. 2. C7-T1 not evaluated. 3. No acute fracture or dislocation noted. Comment: If suspect acute fracture, consider CT. Dictated by: Dion Elise M.D. on 10/11/2024 at 10:53 Approved by: Dion Elise M.D. on 10/11/2024 at 10:55 [facility] Narrative Medical decision making narrative: Patient brought in by ambulance from home. Complains of lower back pain. Patient states has history lumbar degenerative disc disease. This is not new. Never had MRI or surgery on it. Patient states he does sleep walk. This is not unusual for him. He did this this morning around 2:00 a.m.. He got out of bed evidently and awoke outside the bedroom door in the hallway. Face down. Patient is not on any blood thinners. Denies any head or neck pain. No limb pain. He complained of lower back pain head and got back in. Awoke this morning with still having lower back pain and called the ambulance. Denies any chest pain abdominal pain no limb pain. No weakness. No headache. Denies any injury. Patient given fentanyl 50 mcg by EMS. Pain is 3/10. Is able to log roll to the right. After history and exam pain is controlled at this time. No blood or urinalysis indicated. No recent illness. Patient known sleep walker. X-ray cervical thoracic and lumbar spine MDM Medical records reviewed: No recent visit for this complaint Differential considered: Includes but not limited to lumbar strain, herniated disc radiculopathy vertebral fracture Lab Test results independently reviewed as above. Pertinent findings: None indicated this time Independently reviewed EKG none indicated at this time Imaging studies independently reviewed: X-ray cervical thoracic lumbar spine no acute finding Consultations: None indicated Treatments: Morphine Toradol hydrocodone Zofran Re-evaluations: 11:23 a.m.. Patient doing better. Will road test/ambulate in hallway. He does desires some medications to help to get up and walk. He has not had any medications since EMS arrival. Reviewed results with patient. Imaging is reassuring. Neurologically intact. Reviewed with them likely back contusion/strain. No neuro deficits. He desires discharge home. He does agree for short course of pain medication. Discussion: Appropriate for discharge home exam is reassuring. Neurologically intact. Return precautions reviewed. He desires discharge home. Diagnosis: Lumbar back pain Discharge Plan Departure Patient Disposition: Home Clinical Impression: Acute lumbar back pain Qualifiers: Back pain laterality: bilateral Sciatica presence: without sciatica Qualified Code(s): M54.50 - Low back pain, unspecified Instructions: DI for Low Back Pain, DI for Thoracic Back Pain Activity Restrictions/Additional Instructions: Your exam and x-ray imaging are reassuring. No driving operating machinery today or when taking prescribed pain medication. See family doctor this week for re-evaluation. Return if worse if any questions or concerns. Prescriptions: New hydrocodone-acetaminophen 5-325 mg tablet 1 tab PO Q6H PRN (Reason: pain) Qty: 12 0RF No Action clonazepam 0.5 mg tablet 0.5 mg PO BEDTIME PRN (Reason: insomnia) Qty: 30 1RF Rx Instructions: administer 30 minutes before bedtime celecoxib [Celebrex] 200 mg capsule 200 mg PO BEDTIME Qty: 90 3RF lisinopril 20 mg tablet 20 mg PO BID Qty: 180 3RF metoprolol succinate 50 mg tablet extended release 24 hr 25 mg PO BID Qty: 45 3RF tamsulosin 0.4 mg capsule 0.4 mg PO BEDTIME Qty: 90 3RF sertraline 100 mg tablet 100 mg PO DAILY Qty: 90 3RF albuterol sulfate 90 mcg/actuation HFA aerosol inhaler 2 puff inhalation Q6H PRN (Reason: shortness of breath or wheezing) Qty: 8.5 0RF acetaminophen [Tylenol Extra Strength] 500 mg tablet 500 mg PO Q6H PRN (Reason: Pain (Scale Score 1-3)) Referrals: Triston Moseley DO [Primary Care Provider] - Stand Alone Forms: Patient Portal/API/Survey
[2024-10-11] MEDS: KETOROLAC 30 MG/ML VIAL 15 MG IV (11:27)
[2024-10-11] MEDS: ONDANSETRON 4 MG/2 ML INJ IV (11:27)
[2024-10-11] MEDS: MORPHINE 4 MG/ML INJ 2 MG IV (11:27)
[2024-10-11] MEDS: HYDROCODONE/ACET 5/325 TABLET 1 TAB PO (11:28)
== END 2024-10-11 12:18 | disposition home or self-care (01) ==
PROVIDERS: Emergency Provider Emergency Medicine; Family Provider Family Medicine; PCP Family Medicine
DX: M54.50 Low back pain, unspecified (principal)
CPT/HCPCS: 72040; 72070; 72100; 96374; 96375; 99284; J1885; J2270; J2405

== ENCOUNTER 2024-10-15 12:29 | Inpatient (IN) | payer MEDICARE, OTHER, SELFPAY ==
[2023-03-19 13:22] VITALS: BMI 25.8
[2024-10-15] VITALS (26 sets, daily range): BP systolic 137–182; BP diastolic 78–106; PULSE 69–89; RESP 15–29; TEMP 36.8–37.2; O2SAT 95–98; BMI 24.3
--- NOTE | 2024-10-15 12:52 | DI.CT.S_ITS ---
PROCEDURE: CT HEAD/BRAIN WO CON INDICATIONS: fall, hallucinations TECHNIQUE: Noncontrast 4.5 mm thick angled axial sections acquired from the foramen magnum to the vertex, with coronal and sagittal reformats. For radiation dose reduction, the following was used: automated exposure control, adjustment of mA and/or kV according to patient size. COMPARISON: [facility], CT, CT HEAD/BRAIN WO CON, 12/31/2022, 13:52. [facility], CT, CT HEAD/BRAIN WO CON, 01/28/2023, 4:55. FINDINGS: Image quality: Diagnostic. CSF spaces: Basal cisterns are patent. No extra-axial fluid collections. The ventricles are symmetric in size and shape. Brain: No intracranial bleeds or masses. There is cerebral volume loss for age, with resultant ventricular and sulcal prominence. There are periventricular and deep white matter chronic small vessel ischemic changes. There is intracranial internal carotid artery atherosclerosis. Symmetric calcification can be seen involving the basal ganglia, which is considered to be normal for age. Skull and face: Calvarium and visualized facial bones appear intact, without suspicious lesions. Sinuses: Visualized sinuses and mastoids are clear. IMPRESSION: No acute intracranial hemorrhage is seen. No acute intracranial pathology. Dictated by: Jona Marquez M.D. on 10/15/2024 at 12:59 Approved by: Jona Marquez M.D. on 10/15/2024 at 13:00
[2024-10-15 13:23] LABS: Add Manual Diff / Slide Review NO; Basophils Absolute Auto 0 /uL (0-100); Basophils Percent Auto 0.1 % (0-2); Eosinophils Absolute Auto 0 /uL (0-450); Eosinophils Percent Auto 0.1 % (2-4); Hematocrit 43.9 % (41-53); Hemoglobin 15.4 g/dL (13.5-17.5); Lymphocytes Absolute Auto 500 /uL (1100-4500); Lymphocytes Percent Auto 6.2 % (25-40); Mean Corpuscular Hemoglobin 35.4 PG (26-34); Mean Corpuscular Volume 101.2 fL (80-100); Monocytes Absolute Auto 1100 /uL (0-900); Monocytes Percent Auto 13.2 % (3-14); Neutrophils Absolute Auto 6900 /uL (1500-7000); Neutrophils Percent Auto 80.4 % (50-75); Platelet Count 173 X10^3/uL (150-400); Red Blood Cell Count 4.34 X10^6/uL (4.5-5.9); White Blood Cell Count 8.6 X10^3/uL (4.5-11.0)
[2024-10-15 13:29] LABS: PTT Partial Thromboplastin Tim 29 SECONDS (25.1-36.5)
[2024-10-15 13:37] LABS: Magnesium 1.6 mg/dL (1.6-2.3)
[2024-10-15 13:39] LABS: Alanine Aminotransferase 53 IU/L (<50); Albumin 4.6 g/dL (3.5-5.0); Albumin Globulin Ratio 1.6 (1.0-2.8); Alkaline Phosphatase 74 U/L (38-126); Aspartate Aminotransferase 92 IU/L (17-59); BUN Creatinine Ratio 25.6 (6-22); Bilirubin Total 1.4 mg/dL (0.2-1.3); Blood Urea Nitrogen 23 mg/dL (9-20); Calcium 9.2 mg/dL (8.4-10.2); Carbon Dioxide 22 mmol/L (22-32); Chloride 88 mmol/L (98-107); Estimated Glomerular Filt Rate > 60 mL/min (>60); Ethanol (ETOH) < 10 mg/dL; Globulin 2.8 g/dL (1.7-4.1); Glucose 149 mg/dL (80-110); HEMOLYSIS 29 (0-50); Lactate (Lactic Acid) 1.9 mmol/L (0.7-2.1); Potassium 3.9 mmol/L (3.4-5.1); Sodium 122 mmol/L (137-145); Total Protein 7.4 g/dL (6.3-8.2)
[2024-10-15 13:54] LABS: Ammonia (NH3) < 9 umol/L (9-30)
--- NOTE | 2024-10-15 13:59 | ED.NEUROSD ---
HPI - Neuro Symptoms/Deficit General Chief Complaint: Neuro Symptoms/Deficit Stated Complaint: Fall t-7, Head Injury, Hallucinations Time Seen by Provider: 10/15/24 13:15 Source: patient and family Mode of arrival: Wheelchair History of Present Illness HPI Narrative: 69-year-old male with history of regular alcohol use, last drink last night, 2 days ago had ground level fall in his home that was unwitnessed, recovered, no antecedent palpitations or shortness of breath or focal weakness recalled, he had not think he tripped on anything, he was not incontinent of urine or stool, did not seem to go through any withdrawal process or shaking activity at that time. Today he seems to have hallucinations, seeing things and hearing things per , last drink last night, family concerned he might be having withdrawal symptoms, and/or might have had a head injury from his recent fall. On Anticoagulants: No Related Data Home Medications Medication Instructions Recorded Confirmed acetaminophen 500 mg tablet 500 mg PO BID 09/11/21 10/15/24 (Tylenol Extra Strength) Previous Rx's Medication Instructions Recorded tamsulosin 0.4 mg capsule 0.4 mg PO BEDTIME #90 caps 11/20/23 albuterol sulfate 90 mcg/actuation 2 puff inhalation Q6H PRN 08/05/24 aerosol inhaler shortness of breath or wheezing #8.5 grams sertraline 100 mg tablet 100 mg PO DAILY #90 tabs 09/09/24 celecoxib 200 mg capsule (Celebrex) 200 mg PO BEDTIME #90 caps 09/26/24 lisinopril 20 mg tablet 20 mg PO BID #180 tabs 09/26/24 metoprolol succinate 50 mg 25 mg (1/2 x 50 mg) PO BID #45 tabs 09/26/24 tablet,extended release 24 hr hydrocodone 5 mg-acetaminophen 325 1 tab PO Q6H PRN pain #12 tabs 10/11/24 mg tablet Allergies Allergy/AdvReac Type Severity Reaction Status Date / Time iodine Allergy Severe syncope & Verified 09/09/24 16:08 large hives everywhere, during IVP 1977 hydrochlorothiazide Allergy Intermediate Throat Verified 09/09/24 16:08 swelling Review of Systems Hematologic/Lymphatic On Anticoagulants: No Patient History Medical History Sleep apnea IBD (inflammatory bowel disease) Incomplete emptying of bladder Orchitis, left Medicare annual wellness visit, subsequent Benign prostatic hyperplasia with lower urinary tract symptoms Epididymitis BPH (benign prostatic hyperplasia) Dementia associated with alcoholism Alcoholic encephalopathy Vertigo Colon polyps Irritable bowel syndrome Impingement syndrome of left shoulder Skin lesion of back Cognitive and behavioral changes Elevated liver function tests Well adult exam Left hip pain Erectile dysfunction Facet arthropathy, lumbar Lumbar radiculopathy Chronic back pain Mumps Chicken pox Hearing loss Hypertension Surgical History Anesthesia Status post knee surgery (~04/1999) Status post foot surgery Status post knee surgery (~04/1999) Status post arthroscopy Status post arthroscopy Family History Brother Cancer Father Diabetes mellitus Heart disease Hypertension Social History household members: spouse Smoking Status: Never smoker alcohol intake: current substance use type: does not use Smoking Status: Never smoker alcohol intake frequency: 3 or more drinks per day Alcohol type: hard liquor Exam Narrative Exam Narrative: GENERAL: Well-developed patient, in mild distress. HEAD: Atraumatic. Normocephalic. EYES: Pupils equal round and reactive. Extraocular motions intact. No scleral icterus. No injection or drainage. ENT: Nose without bleeding, purulent drainage. Throat without erythema, tonsillar hypertrophy or exudate. Airway patent. NECK: Trachea midline. Non tender CARDIOVASCULAR: Regular rate and rhythm without murmurs, gallops, or rubs. RESPIRATORY: Clear to auscultation. Breath sounds equal bilaterally. No wheezes, rales, or rhonchi. GASTROINTESTINAL: Abdomen soft, non-tender, nondistended. EXTREMITIES: No edema or joint tenderness. BACK: Nontender without deformity or crepitance. No flank tenderness. NEURO: AOx3. Motor functions grossly nonfocal SKIN: No rash or erythema of visible areas Initial Vital Signs Initial Vital Signs: Vital Signs Temperature 99 F 10/15/24 12:36 Pulse Rate 88 10/15/24 12:36 Respiratory Rate 18 10/15/24 12:36 Blood Pressure 137/87 10/15/24 12:36 Pulse Oximetry 96 10/15/24 12:36 Oxygen Delivery Method Room Air 10/15/24 12:36 Course Orders Ordered: ED Orders 10/15/24 12:50 Complete Blood Count AUTO DIFF Stat Comprehensive Metabolic Panel Stat Ethanol (ETOH) Stat Lactate (Lactic Acid) Stat Magnesium Stat PTT Partial Thromboplastin Thee Stat Prothrombin Time INR Stat 10/15/24 12:52 CT head/brain wo con Stat 10/15/24 13:35 Ammonia (NH3) Stat 10/15/24 17:15 BMP [Basic Metabolic Panel] Stat Acetaminophen (Acetaminophen 325 Mg Tablet) 650 mg PO Q6H PRN PRN Reason: Fever/Mild Pain (1-3) Hydrocodone Bitart/Acetaminophen (Hydrocodone/Acet 5/325 Tablet) 1 tab PO Q6H PRN PRN Reason: pain Albuterol (Albuterol Hfa Mdi 60 Puff/8 Gm Inhaler) 2 puff INH Q6H PRN PRN Reason: shortness of breath or wheezing Celecoxib (Celecoxib 200 Mg Capsule) 200 mg PO BEDTIME [facility] Last Admin: 10/15/24 20:17 Dose: 200 mg Documented By: WB Folic Acid (Folic Acid 1 Mg Tablet) 1 mg PO DAILY [facility] Lisinopril (Lisinopril 20 Mg Tablet) 20 mg PO BID [facility] Last Admin: 10/15/24 20:17 Dose: 20 mg Documented By: WB Lorazepam (Lorazepam 1 Mg Tablet) 0 mg PO CIWAPRN PRN; Protocol PRN Reason: Alcohol Withdrawal Last Admin: 10/15/24 20:17 Dose: 1 mg Documented By: WB Metoprolol Succinate (Metoprolol Er 50 Mg Tablet) 25 mg PO BID [facility] Last Admin: 10/15/24 20:19 Dose: 25 mg Documented By: WB Multivitamins (Multivitamin 1 Tablet) 1 tab PO DAILY [facility] Naloxone HCl (Naloxone 0.4 Mg/Ml Vial) 0.2 mg IV Q2MIN PRN PRN Reason: Opiate Reversal Ondansetron HCl (Ondansetron 4 Mg Odt) 4 mg PO Q8HR PRN PRN Reason: Nausea And Vomiting Sertraline HCl (Sertraline 50 Mg Tablet) 100 mg PO DAILY [facility] Tamsulosin HCl (Tamsulosin 0.4 Mg Capsule) 0.4 mg PO BEDTIME [facility] Last Admin: 10/15/24 20:17 Dose: 0.4 mg Documented By: WB Thiamine HCl (Thiamine 100 Mg Tablet) 100 mg PO DAILY [facility] Stop: 10/19/24 09:01 Discontinued Medications Thiamine HCl 100 mg/ Sodium (Chloride) 101 mls @ 404 mls/hr IV NOW ONE Stop: 10/15/24 14:44 Last Infusion: 10/15/24 15:55 Dose: Infused Documented By: Admin: 10/15/24 15:21 Dose: 404 mls/hr Documented By: NATASHA Phenobarbital (Phenobarbital 65 Mg/Ml Vial) 65 mg IV NOW ONE Stop: 10/15/24 13:53 Last Admin: 10/15/24 14:06 Dose: 65 mg Documented By: NATASHA Vital Signs Vital signs: Vital Signs - 8 hr 10/15/24 13:00 10/15/24 13:00 10/15/24 13:32 Pulse Rate 82 76 Respiratory Rate 26 H 20 Blood Pressure 149/89 H Pulse Oximetry 96 96 10/15/24 14:00 10/15/24 14:25 10/15/24 14:25 Pulse Rate 70 71 Respiratory Rate 17 20 Blood Pressure 170/96 H Pulse Oximetry 96 97 10/15/24 14:30 Pulse Rate 72 Respiratory Rate 17 Blood Pressure Pulse Oximetry 98 MDM - Neuro Symptoms/Deficit Lab Data Attestation: I reviewed the patient's lab results. Lab results narrative: White blood cell count 8600, hemoglobin 15.4, platelets 721982. Sodium 122 with glucose 149. Potassium 3.9 normal, chloride 88 low, BUN 23 with creatinine 0.9, liver functions showed T bili 1.4, AST 92, ALT 53, alkaline phosphatase normal. Magnesium level 1.6. Lactate normal. 10/15/24 12:50 10/15/24 17:15 Labs: Lab Results 10/15/24 10/15/24 Range/Units 12:50 13:35 WBC 8.6 (4.5-11.0) X10^3/uL RBC 4.34 L (4.5-5.9) X10^6/uL Hgb 15.4 (13.5-17.5) g/dL Hct 43.9 (41-53) % MCV 101.2 H (80-100) fL MCH 35.4 H (26-34) PG MCHC 35.0 (30-36) % RDW 13.0 (11.6-14.8) % Plt Count 173 (150-400) X10^3/uL Neut % (Auto) 80.4 H (50-75) % Lymph % (Auto) 6.2 L (25-40) % [place] % (Auto) 13.2 (3-14) % Eos % (Auto) 0.1 L (2-4) % Baso % (Auto) 0.1 (0-2) % Neut # (Auto) 6900 (3858-7380) /uL Lymph # (Auto) 500 L (6813-7725) /uL [place] # (Auto) 1100 H (0-900) /uL Eos # (Auto) 0 (0-450) /uL Baso # (Auto) 0 (0-100) /uL PT 11.0 (9.4-12.5) SECONDS INR 1.0 (0.9-1.3) APTT 29 (25.1-36.5) SECONDS Sodium 122 L (137-145) mmol/L Potassium 3.9 (3.4-5.1) mmol/L Chloride 88 L (98-107) mmol/L Carbon Dioxide 22 (22-32) mmol/L BUN 23 H (9-20) mg/dL Creatinine 0.90 (0.66-1.25) mg/dL Estimated GFR > 60 (>60) mL/min BUN/Creatinine Ratio 25.6 H (6-22) Glucose 149 H (80-110) mg/dL Lactate 1.9 (0.7-2.1) mmol/L Calcium 9.2 (8.4-10.2) mg/dL Magnesium 1.6 (1.6-2.3) mg/dL Total Bilirubin 1.4 H (0.2-1.3) mg/dL AST 92 H (17-59) IU/L ALT 53 H (<50) IU/L Alkaline Phosphatase 74 (38-126) U/L Ammonia < 9 L (9-30) umol/L Total Protein 7.4 (6.3-8.2) g/dL Albumin 4.6 (3.5-5.0) g/dL Globulin 2.8 (1.7-4.1) g/dL Albumin/Globulin Ratio 1.6 (1.0-2.8) Ethyl Alcohol < 10 ( - 10) mg/dL Imaging Data CT scan - head: Radiologist's Impression: [address] [address] [address] Scan Report Signed Patient: Roscoe Buchanan MR#: [id number] : 1955 Acct:[id number] Age/Sex: 69 / M Date of Service: 10/15/24 Loc: ED Accession Number: [id number] Procedure: CT head/brain wo con Ordering Provider: John Mckinley MD PROCEDURE: CT HEAD/BRAIN WO CON INDICATIONS: fall, hallucinations TECHNIQUE: Noncontrast 4.5 mm thick angled axial sections acquired from the foramen magnum to the vertex, with coronal and sagittal reformats. For radiation dose reduction, the following was used: automated exposure control, adjustment of mA and/or kV according to patient size. COMPARISON: [facility], CT, CT HEAD/BRAIN WO CON, 12/31/2022, 13:52. [facility], CT, CT HEAD/BRAIN WO CON, 01/28/2023, 4:55. FINDINGS: Image quality: Diagnostic. CSF spaces: Basal cisterns are patent. No extra-axial fluid collections. The ventricles are symmetric in size and shape. Brain: No intracranial bleeds or masses. There is cerebral volume loss for age, with resultant ventricular and sulcal prominence. There are periventricular and deep white matter chronic small vessel ischemic changes. There is intracranial internal carotid artery atherosclerosis. Symmetric calcification can be seen involving the basal ganglia, which is considered to be normal for age. Skull and face: Calvarium and visualized facial bones appear intact, without suspicious lesions. Sinuses: Visualized sinuses and mastoids are clear. IMPRESSION: No acute intracranial hemorrhage is seen. No acute intracranial pathology. Dictated by: Jona Marquez M.D. on 10/15/2024 at 12:59 Approved by: Jona Marquez M.D. on 10/15/2024 at 13:00 [facility] Narrative Medical decision making narrative: 69-year-old male with auditory and visual hallucinosis last drink of alcohol yesterday, fall at home 2 days ago, concern for possible alcohol withdrawal by family, versus head injury. CT head study ordered from triage, labs pending. Initial CIWA score 14 elevated, IV phenobarbital 65 mg, subsequent repeat CIWA score 4, improved. Head CT study negative. See radiology report Sodium 122 low, consider admission. We will consult hospitalist [id number], case discussed with hospitalist Dr. Rocha, accepts for inpatient admission Critical Care Time Critical Care Time Critical Care Time: Yes Total Critical Care Time: 35 Attestation: The high probability of a clinically significant, sudden or life threatening deterioration of the [neurologic, cardiovascular, metabolic] system(s) required my full and direct attention, intervention and personal management. The aggregate critical care time was [35] minutes. This time is in addition to time spent performing reported procedures but includes the following: [x] Data Review and interpretation [x] Patient assessment and monitoring of vital signs [x] Documentation [x] Medication orders and management Discharge Plan Departure Patient Disposition: Admitted As Inpatient Clinical Impression: Hallucinations, Alcohol withdrawal, Hyponatremia Admit Date/Time: 10/15/24 14:46 Admit Provider: Nova Rocha
[2024-10-15] MEDS: PHENobarbital 65 MG/ML VIAL IV (14:06)
--- NOTE | 2024-10-15 14:06 | PC.NURSE ---
intermittently hallucinating per family, patient states he is aware that he feels not as mentally clear as usual.
[2024-10-15] MEDS: THIAMINE 100 MG in SODIUM CHLORIDE 0.9% 100 ML 404 MG IV (15:21)
[2024-10-15 17:34] LABS: Calcium 9.3 mg/dL (8.4-10.2); Carbon Dioxide 27 mmol/L (22-32); Chloride 86 mmol/L (98-107); Glucose 104 mg/dL (80-110); HEMOLYSIS < 15 (0-50); Magnesium 1.7 mg/dL (1.6-2.3); Sodium 125 mmol/L (137-145)
[2024-10-15 17:39] LABS: BUN Creatinine Ratio 22.7 (6-22); Blood Urea Nitrogen 20 mg/dL (9-20); Estimated Glomerular Filt Rate > 60 mL/min (>60)
--- NOTE | 2024-10-15 18:47 | PM.HP.1 ---
History of Present Illness History of Present Illness Chief complaint: Fall t-7, Head Injury, Hallucinations Narrative: 69-year-old male with hypertension, hyperlipidemia, gout, generalized anxiety disorder, irritable bowel disease, BPH, and alcohol dependence who presented to the emergency department complaining of hallucinations. He notes earlier in the week he suffered a fall at about 230 in the morning. He is unsure how he fell. He states he was not even sure why he was up. He states every now and again he will sleep walk and believes this could have been what happened. He notes when he awoke he was face down on the carpet. He notes he was afraid to assess himself until a bit later but when he went into the bathroom and looked in the mirror, he did not see any obvious signs of injury. He was seen in the emergency department later that morning, and was complaining of low back pain. No evidence of fracture was identified. He was sent home with a short course of oral hydrocodone for pain. He states shortly thereafter, his ?cut him off? from alcohol. He subsequently began having intense ?awake nightmares?. He states 1 night he thought he saw living ?souls? he states he was so scared he could not sleep the rest of the night. A friend told his that cutting him off ?cold turkey? was a bad idea. Today, he thought he saw people pruning defer trees in preparation for the storm that is coming. He asked his if she saw them, and she stated they were not there. He then asked his son who also advised they were not there. Patient reports he typically drinks 3 shots of vodka which he describes as 3 fingers deep every night. He last drank at approximately 6:00 last evening. He states he and his family were concerned he possibly could have had a stroke or there was some other issue occurring medically that was causing his symptoms. Subsequently, he came back to the emergency department today. In the emergency department, he was found to have a sodium level of 122. LFTs were mildly elevated with an AST of 92, ALT 53. Ammonia level was less than 9. Bilirubin was 1.4. Initial CIWA score was 14. He was given a dose of phenobarbital 65 mg. Subsequently his CIWA score was 4. Head CT revealed no acute intracranial hemorrhage or other pathology. Currently, patient reports the phenobarb improved his symptoms by ?50% ?. He denies any previous history of alcohol withdrawal. He denies any history of withdrawal seizures. He states he has been drinking daily for approximately 6 years. 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 He did state he was able to maintain sobriety at 1 time in the past for about 3 months. [facility] Medical History Sleep apnea IBD (inflammatory bowel disease) Incomplete emptying of bladder Orchitis, left Medicare annual wellness visit, subsequent Benign prostatic hyperplasia with lower urinary tract symptoms Epididymitis BPH (benign prostatic hyperplasia) Dementia associated with alcoholism Alcoholic encephalopathy Vertigo Colon polyps Irritable bowel syndrome Impingement syndrome of left shoulder Skin lesion of back Cognitive and behavioral changes Elevated liver function tests Well adult exam Left hip pain Erectile dysfunction Facet arthropathy, lumbar Lumbar radiculopathy Chronic back pain Mumps Chicken pox Hearing loss Hypertension Surgical History Anesthesia Status post knee surgery (~04/1999) Status post foot surgery Status post knee surgery (~04/1999) Status post arthroscopy Status post arthroscopy Family History Brother Cancer Father Diabetes mellitus Heart disease Hypertension Social History household members: spouse Smoking Status: Never smoker alcohol intake: current substance use type: does not use Meds Home Medications and Allergies Home Medications Medication Instructions Recorded Confirmed Type acetaminophen 500 mg tablet 500 mg PO BID 09/11/21 10/15/24 History (Tylenol Extra Strength) tamsulosin 0.4 mg capsule 0.4 mg PO BEDTIME #90 caps 11/20/23 10/15/24 Rx albuterol sulfate 90 mcg/actuation 2 puff inhalation Q6H PRN 08/05/24 10/15/24 Rx aerosol inhaler shortness of breath or wheezing #8.5 grams sertraline 100 mg tablet 100 mg PO DAILY #90 tabs 09/09/24 10/15/24 Rx celecoxib 200 mg capsule (Celebrex) 200 mg PO BEDTIME #90 caps 09/26/24 10/15/24 Rx lisinopril 20 mg tablet 20 mg PO BID #180 tabs 09/26/24 10/15/24 Rx metoprolol succinate 50 mg 25 mg (1/2 x 50 mg) PO BID #45 tabs 09/26/24 10/15/24 Rx tablet,extended release 24 hr hydrocodone 5 mg-acetaminophen 325 1 tab PO Q6H PRN pain #12 tabs 10/11/24 10/15/24 Rx mg tablet Allergies Allergy/AdvReac Type Severity Reaction Status Date / Time iodine Allergy Severe syncope & Verified 09/09/24 16:08 large hives everywhere, during IVP 1977 hydrochlorothiazide Allergy Intermediate Throat Verified 09/09/24 16:08 swelling Review of Systems Review of Systems Narrative: All other systems were reviewed negative Exam Vital Signs (past 8 hours): - 10/15/24 12:36 10/15/24 12:47 10/15/24 12:47 Temperature 99 F Pulse Rate 88 89 Respiratory Rate 18 Blood Pressure 137/87 176/106 H Pulse Oximetry 96 96 Oxygen Delivery Method Room Air 10/15/24 13:00 10/15/24 13:00 10/15/24 13:32 Temperature Pulse Rate 82 76 Respiratory Rate 26 H 20 Blood Pressure 149/89 H Pulse Oximetry 96 96 Oxygen Delivery Method 10/15/24 14:00 10/15/24 14:25 10/15/24 14:25 Temperature Pulse Rate 70 71 Respiratory Rate 17 20 Blood Pressure 170/96 H Pulse Oximetry 96 97 Oxygen Delivery Method 10/15/24 14:30 10/15/24 14:49 10/15/24 15:00 Temperature Pulse Rate 72 73 Respiratory Rate 17 22 Blood Pressure Pulse Oximetry 98 97 Oxygen Delivery Method Room Air 10/15/24 15:30 10/15/24 15:57 10/15/24 15:57 Temperature Pulse Rate 73 70 Respiratory Rate 18 23 Blood Pressure 168/100 H Pulse Oximetry 97 96 Oxygen Delivery Method 10/15/24 16:00 10/15/24 16:00 10/15/24 16:33 Temperature 98.5 F Pulse Rate 69 76 Respiratory Rate 23 15 Blood Pressure 178/102 H 182/99 H Pulse Oximetry 97 97 Oxygen Delivery Method Oxygen Delivery Method Room Air Narrative Exam Narrative: GEN: Middle-aged male, Alert and oriented x3, no acute distress HEENT: Normocephalic, face symmetric, pupils equal round reactive to light, extraocular movements intact, sclerae anicteric, conjunctiva clear, nares patent, oropharynx reveals an intact soft and hard palate with moist mucous membranes, dentition is fair NECK: Supple, no lymphadenopathy, thyroid without enlargement or nodularity, carotids no bruits CHEST: Respiratory excursions symmetric, clear to auscultation bilaterally CV: Regular rate and rhythm, no murmurs, rubs, gallops, PMI nondisplaced ABD: Soft, nontender, nondistended, bowel sounds present in all 4 quadrants, no organomegaly or masses appreciated EXTR: Warm, well perfused, no clubbing/cyanosis/edema SKIN: Warm and dry, without rash NEURO: Alert and oriented x3, cranial nerves 2 through 12 are intact and symmetric bilaterally, mild bilateral hand tremors noted PSYCH: Mood and affect is within normal limits, judgment and insight are appropriate Objective Labs 10/15/24 12:50 10/15/24 17:15 Labs: Laboratory Results - last 24 hr 10/15/24 10/15/24 10/15/24 12:50 13:35 17:15 WBC 8.6 RBC 4.34 L Hgb 15.4 Hct 43.9 MCV 101.2 H MCH 35.4 H MCHC 35.0 RDW 13.0 Plt Count 173 Neut % (Auto) 80.4 H Lymph % (Auto) 6.2 L [place] % (Auto) 13.2 Eos % (Auto) 0.1 L Baso % (Auto) 0.1 Neut # (Auto) 6900 Lymph # (Auto) 500 L [place] # (Auto) 1100 H Eos # (Auto) 0 Baso # (Auto) 0 PT 11.0 INR 1.0 APTT 29 Sodium 122 L 125 L Potassium 3.9 4.0 Chloride 88 L 86 L Carbon Dioxide 22 27 BUN 23 H 20 Creatinine 0.90 0.88 Estimated GFR > 60 > 60 BUN/Creatinine Ratio 25.6 H 22.7 H Glucose 149 H 104 Lactate 1.9 Calcium 9.2 9.3 Magnesium 1.6 1.7 Total Bilirubin 1.4 H AST 92 H ALT 53 H Alkaline Phosphatase 74 Ammonia < 9 L Total Protein 7.4 Albumin 4.6 Globulin 2.8 Albumin/Globulin Ratio 1.6 Ethyl Alcohol < 10 Assessment & Plan Assessment & Plan narrative: 1. Alcohol dependence with acute alcohol withdrawal Patient is admitted with early-onset alcohol withdrawal. He received phenobarbital in the emergency department with good response. Will place on CIWA protocol with lorazepam. Place on multivitamin and thiamine. 2. Acute hyponatremia Suspect it is secondary to alcohol use. Repeat BMP at 1700. Sodium level is already improving. Will repeat a sodium level at 9:00 p.m.. 3. Transaminitis Likely secondary to alcohol use. Will repeat in the morning. 4. Protein calorie malnutrition Moderate degree. Patient states he has lost weight over the last 2 years and has not been eating more than about 1-1/2 meals per day. We discussed the importance of improving his nutritional intake Code status Full Prophylaxis Low Lakeisha score Disposition Admit to acute inpatient level of care Time-Based Coding :: [TOTAL MINUTES] spent with patient and on the chart (including review of chart, obtaining history, exam, reviewing outside data, placing orders, documenting exam and treatment plan, and counseling patient) on [DATE].
[2024-10-15] MEDS: lisinopriL 20 MG TABLET PO (20:17)
[2024-10-15] MEDS: TAMSULOSIN 0.4 MG CAPSULE PO (20:17)
[2024-10-15] MEDS: LORazepam 1 MG TABLET PO (20:17)
[2024-10-15] MEDS: CELECOXIB 200 MG CAPSULE PO (20:17)
[2024-10-15] MEDS: METOPROLOL ER 50 MG TABLET 25 MG PO (20:19)
[2024-10-15 21:26] LABS: Sodium 120 mmol/L (137-145)
[2024-10-16] VITALS (60 sets, daily range): BP systolic 149–176; BP diastolic 73–100; PULSE 64–95; RESP 16–41; TEMP 36.5–36.7; O2SAT 94–98
[2024-10-16] MEDS: SODIUM CHLORIDE 0.9% 1,000 ML 100 ML IV ×3 (00:30→23:03)
[2024-10-16 03:27] LABS: Sodium 123 mmol/L (137-145)
[2024-10-16 05:25] LABS: Add Manual Diff / Slide Review NO; Basophils Absolute Auto 0 /uL (0-100); Basophils Percent Auto 0.5 % (0-2); Eosinophils Absolute Auto 0 /uL (0-450); Eosinophils Percent Auto 0.4 % (2-4); Hematocrit 41.1 % (41-53); Hemoglobin 14.2 g/dL (13.5-17.5); Lymphocytes Absolute Auto 700 /uL (1100-4500); Lymphocytes Percent Auto 9.6 % (25-40); Mean Corpuscular HGB Conc 34.5 % (30-36); Mean Corpuscular Hemoglobin 35.2 PG (26-34); Mean Corpuscular Volume 101.9 fL (80-100); Monocytes Absolute Auto 1100 /uL (0-900); Monocytes Percent Auto 15.7 % (3-14); Neutrophils Absolute Auto 5100 /uL (1500-7000); Neutrophils Percent Auto 73.8 % (50-75); Platelet Count 142 X10^3/uL (150-400); Red Blood Cell Count 4.03 X10^6/uL (4.5-5.9); Red Cell Distribution Width 13.1 % (11.6-14.8); White Blood Cell Count 6.9 X10^3/uL (4.5-11.0)
[2024-10-16 05:36] LABS: Alanine Aminotransferase 47 IU/L (<50); Albumin 3.8 g/dL (3.5-5.0); Albumin Globulin Ratio 1.4 (1.0-2.8); Alkaline Phosphatase 75 U/L (38-126); Aspartate Aminotransferase 73 IU/L (17-59); BUN Creatinine Ratio 23.5 (6-22); Bilirubin Total 1.1 mg/dL (0.2-1.3); Blood Urea Nitrogen 20 mg/dL (9-20); Calcium 8.5 mg/dL (8.4-10.2); Carbon Dioxide 25 mmol/L (22-32); Chloride 93 mmol/L (98-107); Estimated Glomerular Filt Rate > 60 mL/min (>60); Globulin 2.7 g/dL (1.7-4.1); Glucose 108 mg/dL (80-110); HEMOLYSIS < 15 (0-50); Potassium 3.8 mmol/L (3.4-5.1); Sodium 123 mmol/L (137-145); Total Protein 6.5 g/dL (6.3-8.2)
[2024-10-16] MEDS: LORazepam 1 MG TABLET PO ×2 (05:37→09:29)
[2024-10-16 07:23] LABS: Sodium 124 mmol/L (137-145)
[2024-10-16 08:34] LABS: BUN Creatinine Ratio 26.6 (6-22); Blood Urea Nitrogen 21 mg/dL (9-20); Calcium 8.5 mg/dL (8.4-10.2); Carbon Dioxide 24 mmol/L (22-32); Chloride 93 mmol/L (98-107); Estimated Glomerular Filt Rate > 60 mL/min (>60); Glucose 110 mg/dL (80-110); HEMOLYSIS 22 (0-50); Potassium 3.9 mmol/L (3.4-5.1); Sodium 124 mmol/L (137-145)
[2024-10-16] MEDS: SERTRALINE 50 MG TABLET 100 MG PO (09:29)
[2024-10-16] MEDS: FOLIC ACID 1 MG TABLET PO (09:30)
[2024-10-16] MEDS: MULTIVITAMIN 1 TABLET 1 TAB PO (09:30)
[2024-10-16] MEDS: METOPROLOL ER 50 MG TABLET 25 MG PO ×2 (09:30→21:08)
[2024-10-16] MEDS: SODIUM CHLORIDE 0.9% FLUSH 10 ML IV (09:32)
[2024-10-16] MEDS: lisinopriL 20 MG TABLET PO ×2 (09:32→21:09)
[2024-10-16] MEDS: THIAMINE 100 MG TABLET PO (09:38)
[2024-10-16 11:26] LABS: BUN Creatinine Ratio 25.3 (6-22); Blood Urea Nitrogen 19 mg/dL (9-20); Calcium 8.7 mg/dL (8.4-10.2); Carbon Dioxide 24 mmol/L (22-32); Chloride 93 mmol/L (98-107); Estimated Glomerular Filt Rate > 60 mL/min (>60); Glucose 108 mg/dL (80-110); HEMOLYSIS < 15 (0-50); Sodium 125 mmol/L (137-145)
--- NOTE | 2024-10-16 12:45 | CM.DANOTE ---
B DCP Assessment note pt is a 69yo M admitted under INPT status for alcohol withdrawal and hyponatremia. PCP Dr. Pradip Mendoza Medicare and Manuel FUNEZ reviewed EMR. Per chart review, recent CIWAs of 11-12. Per chart/hospitalist report in morning rounds, pt had a GLF at home a few days ago after quitting cold turkey. pt consumes 3 drinks per day consisting of 3 finders of vodka daily. Lives with spouse in [place] indep at baseline. Per hospitalist, pt sustained his fall, was encouraged to stop drinking, started to hallucinate, told him to drink some to curb the withdrawal. pt then attempted to quit cold turkey again when after that he came to the ED for concerns that he was having a stroke. Family concerned about him either going through withdrawals or suffering from neuro effects of the fall. per provider, pt reports drinking daily for past 6 years. See H&P for more. Per chart review, pt hallucinating throughout admission. TELEVISION NEWS VIDEO EDITOR did not meet with pt today due to current CIWA scores and pt hallucinations. P: DCP continues. TELEVISION NEWS VIDEO EDITOR will complete assessment when appropriate. anticipate home with spouse and OP resources likely. notify TCM team at dc. DEE DEE Samuels Discharge Planning/Care Management Advanced directive, confirm from FAMILY Start: 10/15/24 17:08 Freq: Q24H Status: Active Protocol: Document 10/15/24 17:12 AKP (Rec: 10/15/24 17:13 AKP [id number]) Advance Directive, confirm on record Time 17:12 Person contacted to bring in Copy received No CM Discharge Assessment Start: 10/16/24 12:40 Freq: Status: Active Protocol: Document 10/16/24 12:40 SL (Rec: 10/16/24 12:45 SL [id number]) Discharge Planning Assessment Assigned Ward Assistant DEE DEE Herzog Advance Directives? Yes: to find it. Advance Directives on File No History Provided By Patient,Medical Record Prior Living Arrangements House Household Members spouse Patient/Family Preference OP PT Therapy Discharge Plan Home Referrals Initiated None needed Review Status In Process Please Provide Date Initial DC 10/16/24 Assessment Was Performed Next Review Type Continued Stay Review
[2024-10-16] MEDS: chlordiazePOXIDE 25 MG CAPSULE 50 MG PO ×2 (13:18→21:09)
[2024-10-16 15:26] LABS: BUN Creatinine Ratio 19.2 (6-22); Blood Urea Nitrogen 20 mg/dL (9-20); Calcium 8.6 mg/dL (8.4-10.2); Carbon Dioxide 25 mmol/L (22-32); Chloride 93 mmol/L (98-107); Estimated Glomerular Filt Rate > 60 mL/min (>60); Glucose 113 mg/dL (80-110); HEMOLYSIS < 15 (0-50); Potassium 3.9 mmol/L (3.4-5.1); Sodium 125 mmol/L (137-145)
--- NOTE | 2024-10-16 16:12 | PM.PN.1 ---
Subjective Subjective Interval history: 69-year-old male with hypertension, hyperlipidemia, gout, generalized anxiety disorder, irritable bowel disease, BPH, and alcohol dependence who was admitted yesterday with acute alcohol withdrawal, acute hyponatremia, transaminitis, and protein calorie malnutrition. Patient reports he is feeling a bit better today. He states that he was able to get some sleep last night. He states his tremors are reduced. He does have some moderate confusion seeing that he was put up on a platform of some sort last night and people were not talking to him. His 2100 sodium came down to 120 and he was initiated on IV fluids. Overnight, his sodium came back up to 123 Exam Vital Signs (past 8 hours): - 10/16/24 08:30 10/16/24 09:00 10/16/24 09:00 Temperature 98.0 F Pulse Rate 68 74 Respiratory Rate 35 H 25 H Blood Pressure 161/88 H Pulse Oximetry 94 10/16/24 09:30 10/16/24 09:30 10/16/24 09:32 Temperature Pulse Rate 81 79 90 Respiratory Rate 25 H Blood Pressure 161/88 H 161/88 H Pulse Oximetry 10/16/24 10:11 10/16/24 10:29 Temperature Pulse Rate 72 74 Respiratory Rate 23 Blood Pressure 167/80 H 167/80 H Pulse Oximetry Oxygen Delivery Method Room Air Oxygen Flow Rate 0 Narrative Exam Narrative: GEN: Middle-aged male, Alert and oriented x 2-3, NAD HEENT:NC, Face symmetric CHEST: Respiratory excursions symmetric, CTAB CV: RRR, no M/R/G ABD: Soft, NT/ND, BT present in all 4 quadrants, no organomegaly or masses EXTR: warm, well perfused, no C/C/E SKIN: warm and dry, no rash NEURO: Alert and oriented x 2-3, nonfocal, mild tremors Objective Labs 10/16/24 05:18 10/16/24 15:09 Labs: Laboratory Results - last 24 hr 10/15/24 10/15/24 10/16/24 17:15 21:10 03:15 WBC RBC Hgb Hct MCV MCH MCHC RDW Plt Count Neut % (Auto) Lymph % (Auto) [place] % (Auto) Eos % (Auto) Baso % (Auto) Neut # (Auto) Lymph # (Auto) [place] # (Auto) Eos # (Auto) Baso # (Auto) Sodium 125 L 120 L 123 L Potassium 4.0 Chloride 86 L Carbon Dioxide 27 BUN 20 Creatinine 0.88 Estimated GFR > 60 BUN/Creatinine Ratio 22.7 H Glucose 104 Calcium 9.3 Magnesium 1.7 Total Bilirubin AST ALT Alkaline Phosphatase Total Protein Albumin Globulin Albumin/Globulin Ratio 10/16/24 10/16/24 10/16/24 05:18 06:59 06:59 WBC 6.9 RBC 4.03 L Hgb 14.2 Hct 41.1 MCV 101.9 H MCH 35.2 H MCHC 34.5 RDW 13.1 Plt Count 142 L Neut % (Auto) 73.8 Lymph % (Auto) 9.6 L [place] % (Auto) 15.7 H Eos % (Auto) 0.4 L Baso % (Auto) 0.5 Neut # (Auto) 5100 Lymph # (Auto) 700 L [place] # (Auto) 1100 H Eos # (Auto) 0 Baso # (Auto) 0 Sodium 123 L 124 L 124 L Potassium 3.8 3.9 Chloride 93 L 93 L Carbon Dioxide 25 24 BUN 20 21 H Creatinine 0.85 0.79 Estimated GFR > 60 > 60 BUN/Creatinine Ratio 23.5 H 26.6 H Glucose 108 110 Calcium 8.5 8.5 Magnesium Total Bilirubin 1.1 AST 73 H ALT 47 Alkaline Phosphatase 75 Total Protein 6.5 Albumin 3.8 Globulin 2.7 Albumin/Globulin Ratio 1.4 10/16/24 10/16/24 11:07 15:09 WBC RBC Hgb Hct MCV MCH MCHC RDW Plt Count Neut % (Auto) Lymph % (Auto) [place] % (Auto) Eos % (Auto) Baso % (Auto) Neut # (Auto) Lymph # (Auto) [place] # (Auto) Eos # (Auto) Baso # (Auto) Sodium 125 L 125 L Potassium 4.0 3.9 Chloride 93 L 93 L Carbon Dioxide 24 25 BUN 19 20 Creatinine 0.75 1.04 Estimated GFR > 60 > 60 BUN/Creatinine Ratio 25.3 H 19.2 Glucose 108 113 H Calcium 8.7 8.6 Magnesium Total Bilirubin AST ALT Alkaline Phosphatase Total Protein Albumin Globulin Albumin/Globulin Ratio [facility] Medical History Sleep apnea IBD (inflammatory bowel disease) Incomplete emptying of bladder Orchitis, left Medicare annual wellness visit, subsequent Benign prostatic hyperplasia with lower urinary tract symptoms Epididymitis BPH (benign prostatic hyperplasia) Dementia associated with alcoholism Alcoholic encephalopathy Vertigo Colon polyps Irritable bowel syndrome Impingement syndrome of left shoulder Skin lesion of back Cognitive and behavioral changes Elevated liver function tests Well adult exam Left hip pain Erectile dysfunction Facet arthropathy, lumbar Lumbar radiculopathy Chronic back pain Mumps Chicken pox Hearing loss Hypertension Surgical History Anesthesia Status post knee surgery (~04/1999) Status post foot surgery Status post knee surgery (~04/1999) Status post arthroscopy Status post arthroscopy Family History Brother Cancer Father Diabetes mellitus Heart disease Hypertension Social History household members: spouse Smoking Status: Never smoker alcohol intake: current substance use type: does not use Assessment & Plan Assessment & Plan narrative: 1. Alcohol dependence with acute alcohol withdrawal Overnight, CIWA scores were fairly well controlled but this morning they have been 11-12. Will place on scheduled Librium t.i.d.. Continue lorazepam as needed per protocol. Continue multivitamin and thiamine. 2. Acute hyponatremia Improving with low rate IV fluids at 100 cc/hour. Sodium is up to 125 this afternoon. 3. Transaminitis Likely secondary to alcohol use. LFTs are improving today. 4. Protein calorie malnutrition Moderate degree. Patient states he has lost weight over the last 2 years and has not been eating more than about 1-1/2 meals per day. Continue multivitamin. Code status Full Prophylaxis Low Lakeisha score Disposition Continue inpatient status. Patient will discharge home once alcohol withdrawal symptoms have resolved. Time-Based Coding :: [TOTAL MINUTES] spent with patient and on the chart (including review of chart, obtaining history, exam, reviewing outside data, placing orders, documenting exam and treatment plan, and counseling patient) on [DATE].
--- NOTE | 2024-10-16 17:40 | PC.NURSE ---
Day shift: Pt's Spouse (Zee) called this evening at approx 1740. States I'm very (swear word) upset. Why hasn't the doctor called me yet?. I've been waiting since noon yesterday.. This health science writer said I will contact doctor now and give them your phone number. This was done at approx 1645.
[2024-10-16] MEDS: TAMSULOSIN 0.4 MG CAPSULE PO (21:08)
[2024-10-16] MEDS: CELECOXIB 200 MG CAPSULE PO (21:08)
[2024-10-17] VITALS (59 sets, daily range): BP systolic 149–175; BP diastolic 23–94; PULSE 63–148; RESP 15–32; TEMP 36.7–37; O2SAT 93–96
[2024-10-17 06:49] LABS: Add Manual Diff / Slide Review NO; Basophils Absolute Auto 0 /uL (0-100); Basophils Percent Auto 0.6 % (0-2); Eosinophils Absolute Auto 100 /uL (0-450); Eosinophils Percent Auto 0.8 % (2-4); Hematocrit 39.4 % (41-53); Hemoglobin 13.8 g/dL (13.5-17.5); Lymphocytes Absolute Auto 500 /uL (1100-4500); Lymphocytes Percent Auto 8.6 % (25-40); Mean Corpuscular HGB Conc 35.1 % (30-36); Mean Corpuscular Hemoglobin 35.6 PG (26-34); Mean Corpuscular Volume 101.4 fL (80-100); Monocytes Absolute Auto 1100 /uL (0-900); Monocytes Percent Auto 17.7 % (3-14); Neutrophils Absolute Auto 4400 /uL (1500-7000); Neutrophils Percent Auto 72.3 % (50-75); Platelet Count 125 X10^3/uL (150-400); Red Blood Cell Count 3.89 X10^6/uL (4.5-5.9); Red Cell Distribution Width 13.2 % (11.6-14.8); White Blood Cell Count 6.1 X10^3/uL (4.5-11.0)
[2024-10-17 07:05] LABS: BUN Creatinine Ratio 20.3 (6-22); Blood Urea Nitrogen 14 mg/dL (9-20); Calcium 8.4 mg/dL (8.4-10.2); Carbon Dioxide 26 mmol/L (22-32); Chloride 97 mmol/L (98-107); Estimated Glomerular Filt Rate > 60 mL/min (>60); Glucose 96 mg/dL (80-110); HEMOLYSIS 21 (0-50); Potassium 3.7 mmol/L (3.4-5.1); Sodium 126 mmol/L (137-145)
--- NOTE | 2024-10-17 08:19 | PM.PN.1 ---
Subjective Subjective Interval history: Summary: 69-year-old male with hypertension, hyperlipidemia, gout, generalized anxiety disorder, irritable bowel disease, BPH, and alcohol dependence who was admitted yesterday with acute alcohol withdrawal, acute hyponatremia, transaminitis, and protein calorie malnutrition. S: He is feeling better today. No hallucinations. No diarrhea, or nausea. He is not confused. Exam Vital Signs (past 8 hours): - 10/17/24 03:00 Temperature 98.6 F Pulse Rate 65 Respiratory Rate 19 Blood Pressure 157/79 H Pulse Oximetry 96 Oxygen Flow Rate 0 Oxygen Delivery Method Room Air Oxygen Flow Rate 0 Narrative Exam Narrative: NAD, alert and oriented. Fluent speech. A little shakey. Lungs are clear, normal rate and effort. Heart is regular, no murmur gallop or rub. Abdomen is soft, non distended. Extremities are free of edema. Objective Labs 10/17/24 06:40 10/17/24 06:40 Labs: Laboratory Results - last 24 hr 10/16/24 10/16/24 10/16/24 06:59 11:07 15:09 WBC RBC Hgb Hct MCV MCH MCHC RDW Plt Count Neut % (Auto) Lymph % (Auto) [place] % (Auto) Eos % (Auto) Baso % (Auto) Neut # (Auto) Lymph # (Auto) [place] # (Auto) Eos # (Auto) Baso # (Auto) Sodium 124 L 125 L 125 L Potassium 3.9 4.0 3.9 Chloride 93 L 93 L 93 L Carbon Dioxide 24 24 25 BUN 21 H 19 20 Creatinine 0.79 0.75 1.04 Estimated GFR > 60 > 60 > 60 BUN/Creatinine Ratio 26.6 H 25.3 H 19.2 Glucose 110 108 113 H Calcium 8.5 8.7 8.6 10/17/24 06:40 WBC 6.1 RBC 3.89 L Hgb 13.8 Hct 39.4 L MCV 101.4 H MCH 35.6 H MCHC 35.1 RDW 13.2 Plt Count 125 L Neut % (Auto) 72.3 Lymph % (Auto) 8.6 L [place] % (Auto) 17.7 H Eos % (Auto) 0.8 L Baso % (Auto) 0.6 Neut # (Auto) 4400 Lymph # (Auto) 500 L [place] # (Auto) 1100 H Eos # (Auto) 100 Baso # (Auto) 0 Sodium 126 L Potassium 3.7 Chloride 97 L Carbon Dioxide 26 BUN 14 Creatinine 0.69 Estimated GFR > 60 BUN/Creatinine Ratio 20.3 Glucose 96 Calcium 8.4 PFSH Medical History Sleep apnea IBD (inflammatory bowel disease) Incomplete emptying of bladder Orchitis, left Medicare annual wellness visit, subsequent Benign prostatic hyperplasia with lower urinary tract symptoms Epididymitis BPH (benign prostatic hyperplasia) Dementia associated with alcoholism Alcoholic encephalopathy Vertigo Colon polyps Irritable bowel syndrome Impingement syndrome of left shoulder Skin lesion of back Cognitive and behavioral changes Elevated liver function tests Well adult exam Left hip pain Erectile dysfunction Facet arthropathy, lumbar Lumbar radiculopathy Chronic back pain Mumps Chicken pox Hearing loss Hypertension Surgical History Anesthesia Status post knee surgery (~04/1999) Status post foot surgery Status post knee surgery (~04/1999) Status post arthroscopy Status post arthroscopy Family History Brother Cancer Father Diabetes mellitus Heart disease Hypertension Social History household members: spouse Smoking Status: Never smoker alcohol intake: current substance use type: does not use Assessment & Plan Assessment & Plan narrative: 1. Alcohol dependence with acute alcohol withdrawal, improving and active. Overnight, CIWA scores were fairly well controlled but this morning they have been 11-12. Will place on scheduled Librium t.i.d.. Continue lorazepam as needed per protocol. Continue multivitamin and thiamine. 2. Acute hyponatremia (solute deficiency), active. Improving with low rate IV fluids at 100 cc/hour. Sodium is up to 125 this afternoon. 3. Transaminitis, active. Likely secondary to alcohol use. LFTs are improving today. 4. Protein calorie malnutrition, active. Moderate degree. Patient states he has lost weight over the last 2 years and has not been eating more than about 1-1/2 meals per day. Continue multivitamin. PLAN: -continue IV fluids of saline to correct hyponatremia gradually. -continue Librium t.i.d. orally. -out of bed -likely home in 1-2 days pending clinical progress and sodium. Code status Full Prophylaxis Low Lakeisha score Disposition Time-Based Coding :: [TOTAL MINUTES] spent with patient and on the chart (including review of chart, obtaining history, exam, reviewing outside data, placing orders, documenting exam and treatment plan, and counseling patient) on [DATE].
[2024-10-17] MEDS: FOLIC ACID 1 MG TABLET PO (09:07)
[2024-10-17] MEDS: lisinopriL 20 MG TABLET PO ×2 (09:07→20:39)
[2024-10-17] MEDS: METOPROLOL ER 50 MG TABLET 25 MG PO ×2 (09:07→20:39)
[2024-10-17] MEDS: chlordiazePOXIDE 25 MG CAPSULE 50 MG PO ×2 (09:07→20:40)
[2024-10-17] MEDS: SERTRALINE 50 MG TABLET 100 MG PO (09:08)
[2024-10-17] MEDS: SODIUM CHLORIDE 0.9% FLUSH 10 ML IV (09:08)
[2024-10-17] MEDS: THIAMINE 100 MG TABLET PO (09:08)
[2024-10-17] MEDS: MULTIVITAMIN 1 TABLET 1 TAB PO (09:08)
[2024-10-17] MEDS: SODIUM CHLORIDE 0.9% 1,000 ML 100 ML IV ×2 (09:11→22:27)
--- NOTE | 2024-10-17 13:20 | DIET.CONS ---
Dietary Consultation Note Admission Date: 10/15/2024 14:46 Assessment: 69 y M admitted with acute alcohol withdrawal. RD screened for low MNA. Pt dx with moderate protein calorie malnutrition upon admission. PMH of alcohol dependence and IBD. Met with pt at bedside. Pt reports weight loss over last few years d/t gastrointestinal symptoms. Before he retired 6 years ago was 195 lb and eating Q2H during day. Last year pt reports being around 180 lb and this year 175 lb, he feels every year he loses 4-5 lb. Upon admission is 170 lb. Finds it hard to eat because he worries it will cause further symptoms. Symptoms consist of abd cramping and change in bowel movements (constipation). Pt reports he avoids gluten and dairy and if he has one or the other, he has above symptoms occurring 3 days later. Has been referred to GI by his PCP, will set up appt. Has family hx of celiac disease. Reports he knows which foods are gluten containing and dairy free. Drinks daily x6 years. Has 1 meal per day for last 2 years, such as meat, potatoes or chicken dish or eggs and fruit. Low avg PO intakes here. Pt reports not being able to eat some of the food provided d/t it having gluten and dairy. Changed his diet order. Unclear if pt does have celiac disease. Reports he got labs, but has not f/u on results. He reports he only wants to be eating GF and dairy free foods right now. NFPE performed: mild muscle loss temples, deltoid Ht: 177.8 cm Wt: 77.111 kg BMI: 24.3 UBW: 79.095 kg on 09/09/24 (-3% weight loss in 1 month, non-severe), 80.1 kg on 05/05/24 (-4% weight loss in 5 months, non-severe) Last BM: 10/16/24 (10/16/24 18:00) MNA: 10 Garret Score: 19 Diet: 10/15/24 Dinner General (Regular) Diet Diet Modifications: Nutrition Percent Meal Consumed 100% 10/16/24 13:23 Percent Meal Consumed 50% 10/16/24 12:59 Percent Meal Consumed 25% 10/16/24 07:00 Percent Meal Consumed 25% 10/15/24 18:00 Labs: RBC 3.89 X10^6/uL (4.5-5.9) L 10/17/24 06:40 Hgb 13.8 g/dL (13.5-17.5) 10/17/24 06:40 Hct 39.4 % (41-53) L 10/17/24 06:40 Creatinine 0.69 mg/dL (0.66-1.25) 10/17/24 06:40 Lactate 1.9 mmol/L (0.7-2.1) 10/15/24 12:50 Nutrition Diagnosis: Moderate Chronic Protein Calorie Malnutrition r/t alteration in GI tract and lack of nutrient dense foods with excessive ETOH intake as evidenced by <75% of estimated energy-protein needs for >3 months per diet recall of 1 meal per day, mild muscle mass loss (temples, deltoid) excessive ETOH intake with alcohol withdrawal, inflammatory bowel disease with ongoing symptoms Interventions: 1. Recc pt f/u with GI and his PCP regarding lab work and IBD 2. Discussed tolerated meal options to improve day-time intakes, eating in morning, ONS trial 3. Resources on GF foods provided if pt found to have celiac disease EER: [id number] kcals (25-27 kcals/kg per BMI) 80-95 g protein (1-1.25g/kg per age/PCM) Monitoring/Evaluations: monitor po intakes with diet change, f/u tomorrow Electronically Signed by: Maggie Perez 10/17/24 13:20 Clinical Diet[address] [id number]
--- NOTE | 2024-10-17 15:10 | CM.DPC ---
DCP Cont: Per MD, pt making progress and no longer confused and CIWA score 1-3 and continues on medication assistance and not yet stable for discharge yet today. SW met bedside with pt and explained role and pt confirms that he feels he is through the worst part of his withdrawal and Assessment Counselor met with him bedside and will be providing him with meal ideas as pt states he feels getting enough intake has been challenging lately and he feels this is his biggest concern. Pt denies any hx of [facility] tx before but willing to receive the [facility] resource list for tx and Detox but his plan is to d/c home with spouse and he already has PCP appointment scheduled from months ago with Dr. Moseley this week on 10/20/24. Pt states his spouse recently fx her tibia and therefore cannot drive or assist him much at d/c but his son who lives locally can provide transport at d/c. Pt states they adopted their son from [facility] and son's ferry terminal supervisor plans are to move permanently to [facility]. PT/OT evals needed likely tomorrow when pt more medically appropriate as pt confirms he is still slightly tremulous and weaker than baseline and unsteady due to the withdrawals. Plan: SW to follow closely for PT/OT orders to confirm d/c to home with spouse (who has a leg fx) and outpt f/u on and ETOH resources provided. DEE DEE Bailey
[2024-10-17] MEDS: CELECOXIB 200 MG CAPSULE PO (20:39)
[2024-10-17] MEDS: TAMSULOSIN 0.4 MG CAPSULE PO (20:40)
[2024-10-17] MEDS: HYDROCODONE/ACET 5/325 TABLET 1 TAB PO (23:39)
[2024-10-18] VITALS (24 sets, daily range): BP systolic 160–181; BP diastolic 84–88; PULSE 56–124; RESP 12–37; TEMP 36.6; O2SAT 94–97
--- NOTE | 2024-10-18 07:46 | PM.PN.1 ---
Subjective Subjective Interval history: Summary: 69-year-old male with hypertension, hyperlipidemia, gout, generalized anxiety disorder, irritable bowel disease, BPH, and alcohol dependence who was admitted yesterday with acute alcohol withdrawal, acute hyponatremia, transaminitis, and protein calorie malnutrition. S: He feels better today, no tremor. No nausea, or diarrhea. Exam Vital Signs (past 8 hours): - 10/18/24 00:00 10/18/24 00:30 10/18/24 01:00 Temperature Pulse Rate 66 78 65 Respiratory Rate 25 H 30 H 20 Blood Pressure Pulse Oximetry Oxygen Flow Rate 10/18/24 01:30 10/18/24 02:02 10/18/24 02:30 Temperature Pulse Rate 65 124 H 63 Respiratory Rate 20 17 Blood Pressure Pulse Oximetry Oxygen Flow Rate 10/18/24 03:00 10/18/24 03:30 10/18/24 04:01 Temperature 97.9 F Pulse Rate 63 56 L 77 Respiratory Rate 19 19 12 Blood Pressure Pulse Oximetry 94 Oxygen Flow Rate 0 10/18/24 04:02 10/18/24 04:02 Temperature Pulse Rate 71 Respiratory Rate 14 Blood Pressure 166/88 H Pulse Oximetry 96 Oxygen Flow Rate Oxygen Delivery Method Room Air Oxygen Flow Rate 0 Narrative Exam Narrative: NAD, alert and oriented. Fluent speech. Lungs are clear, normal rate and effort. Heart is regular, no murmur gallop or rub. Abdomen is soft, non distended. Extremities are free of edema. Objective Labs 10/17/24 06:40 10/17/24 06:40 [facility] Medical History Sleep apnea IBD (inflammatory bowel disease) Incomplete emptying of bladder Orchitis, left Medicare annual wellness visit, subsequent Benign prostatic hyperplasia with lower urinary tract symptoms Epididymitis BPH (benign prostatic hyperplasia) Dementia associated with alcoholism Alcoholic encephalopathy Vertigo Colon polyps Irritable bowel syndrome Impingement syndrome of left shoulder Skin lesion of back Cognitive and behavioral changes Elevated liver function tests Well adult exam Left hip pain Erectile dysfunction Facet arthropathy, lumbar Lumbar radiculopathy Chronic back pain Mumps Chicken pox Hearing loss Hypertension Surgical History Anesthesia Status post knee surgery (~04/1999) Status post foot surgery Status post knee surgery (~04/1999) Status post arthroscopy Status post arthroscopy Family History Brother Cancer Father Diabetes mellitus Heart disease Hypertension Social History household members: spouse Smoking Status: Never smoker alcohol intake: current substance use type: does not use Assessment & Plan Assessment & Plan narrative: 1. Alcohol dependence with acute alcohol withdrawal, improving and active. Overnight, CIWA scores were fairly well controlled but this morning they have been 11-12. Will place on scheduled Librium t.i.d.. Continue lorazepam as needed per protocol. Continue multivitamin and thiamine. 2. Acute hyponatremia (solute deficiency), active. Improving with low rate IV fluids at 100 cc/hour. Sodium is up to 125 this afternoon. 3. Transaminitis, active. Likely secondary to alcohol use. LFTs are improving today. 4. Protein calorie malnutrition, active. Moderate degree. Patient states he has lost weight over the last 2 years and has not been eating more than about 1-1/2 meals per day. Continue multivitamin. PLAN: -continue IV fluids of saline to correct hyponatremia gradually. -continue Librium t.i.d. orally. -out of bed -likely home in 1-2 days pending clinical progress and sodium. Code status Full Prophylaxis Low Lakeisha score Time-Based Coding :: [TOTAL MINUTES] spent with patient and on the chart (including review of chart, obtaining history, exam, reviewing outside data, placing orders, documenting exam and treatment plan, and counseling patient) on [DATE].
[2024-10-18] MEDS: METOPROLOL ER 50 MG TABLET 25 MG PO (09:24)
[2024-10-18] MEDS: SERTRALINE 50 MG TABLET 100 MG PO (09:24)
[2024-10-18] MEDS: MULTIVITAMIN 1 TABLET 1 TAB PO (09:24)
[2024-10-18] MEDS: THIAMINE 100 MG TABLET PO (09:25)
[2024-10-18] MEDS: SODIUM CHLORIDE 0.9% FLUSH 10 ML IV (09:25)
[2024-10-18] MEDS: chlordiazePOXIDE 25 MG CAPSULE 50 MG PO (09:25)
[2024-10-18] MEDS: lisinopriL 20 MG TABLET PO (09:25)
[2024-10-18] MEDS: FOLIC ACID 1 MG TABLET PO (09:25)
[2024-10-18 10:06] LABS: Hematocrit 42.3 % (41-53); Hemoglobin 14.4 g/dL (13.5-17.5); Mean Corpuscular HGB Conc 34.1 % (30-36); Mean Corpuscular Hemoglobin 35.1 PG (26-34); Mean Corpuscular Volume 103.2 fL (80-100); Platelet Count 161 X10^3/uL (150-400); Red Cell Distribution Width 13.2 % (11.6-14.8); White Blood Cell Count 5.7 X10^3/uL (4.5-11.0)
[2024-10-18 10:39] LABS: BUN Creatinine Ratio 18.4 (6-22); Blood Urea Nitrogen 14 mg/dL (9-20); Calcium 8.6 mg/dL (8.4-10.2); Carbon Dioxide 24 mmol/L (22-32); Chloride 99 mmol/L (98-107); Estimated Glomerular Filt Rate > 60 mL/min (>60); Glucose 93 mg/dL (80-110); HEMOLYSIS < 15 (0-50); Phosphorous 3.2 mg/dL (2.3-3.7); Potassium 3.7 mmol/L (3.4-5.1); Sodium 131 mmol/L (137-145)
--- NOTE | 2024-10-18 11:09 | OT.IP.EVAL ---
Current Diagnoses Alcohol abuse with withdrawal, unspecified (10/15/24) Past Medical History (Last Reviewed 10/17/24 @ 08:21 by Celso Beebe MD) Alcoholic encephalopathy Benign prostatic hyperplasia with lower urinary tract symptoms BPH (benign prostatic hyperplasia) Chicken pox Chronic back pain Cognitive and behavioral changes Colon polyps Dementia associated with alcoholism Elevated liver function tests Epididymitis Erectile dysfunction Facet arthropathy, lumbar Hearing loss Hypertension IBD (inflammatory bowel disease) Impingement syndrome of left shoulder Incomplete emptying of bladder Irritable bowel syndrome Left hip pain Lumbar radiculopathy Medicare annual wellness visit, subsequent Mumps Orchitis, left Skin lesion of back Sleep apnea Vertigo Well adult exam Surgical History (Last Reviewed 10/17/24 @ 08:21 by Celso Beebe MD) Anesthesia Status post arthroscopy Status post arthroscopy Status post foot surgery Status post knee surgery (~04/1999) Status post knee surgery (~04/1999) Occupational Therapy Inpatient Evaluation/Re-Eval M1 PT/OT-IP Prior Functional Status Start: 10/18/24 11:20 Freq: NEEDED Status: Active Protocol: Document 10/18/24 11:20 CGR (Rec: 10/18/24 11:28 CGR [id number]) Medical Review Prior Functional Status Medical History Reviewed Yes Communication Pt is an effective verbal communicator. Mobility and Gait Pt is IND at baseline without AD. 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 Social History Household Members spouse Living Arrangements House Number of Floors (Floors) Two Floors Number of Stairs To Enter/Railing? Pt can enter through the walkout basement without stairs but then has a flight of stairs (with L rail assending) up to the main level where the bedroom and living area is. Home Environment High Toilet,Walk in Shower Home Equipment Grab Bars In Shower Employment Status Retired Additional Social History Comment Pt has a flat bed. M2 OT-IP Current Condition Start: 10/18/24 11:20 Freq: Status: Active Protocol: Document 10/18/24 11:20 CGR (Rec: 10/18/24 11:28 CGR [id number]) Occupational Therapy Current Condition Current Condition Evaluation Date 10/18/24 Treatment Diagnosis acute ETOH withdrawl Diagnosis Onset Date 10/15/24 M3 OT- IP Subjective and Pain Start: 10/18/24 11:20 Freq: Status: Active Protocol: Document 10/18/24 11:20 CGR (Rec: 10/18/24 11:28 CGR [id number]) OT- Subjective Occupational Therapy Visit Type Type Initial Evaluation Visit Start Time 11:00 Visit Stop Time 11:09 OT Pain Assessment Pain When Pain Assessed At Rest Pain Present Pain Present Pain Reported Location Back Scale Used did not rate Management Techniques Modification of Treatment,Re- positioning M4 OT- IP ADL's Start: 10/18/24 11:20 Freq: Status: Active Protocol: Document 10/18/24 11:20 CGR (Rec: 10/18/24 11:28 CGR [id number]) OT [id number] Comments OT Self-Feeding Comments not meal time OT ADL-Grooming General Evaluation Grooming Ability Independent Areas Needing Assistance Face Washing Comments OT Grooming Comments standing at sink OT ADL-Oral Care General Eval Oral Care Ability Independent Areas of Assistance Brushing Teeth Comments Oral Care Comments standing at sink OT ADL-Dressing General Eval Lower Body Dressing Ability Independent Areas Needing Assistance Socks Comments OT Dressing Comments seated EOB OT ADL-Toileting General Evaluation Toileting Ability Independent Comments OT Toileting Comments simulated seated on toielt OT ADL-Bathing Comments OT Bathing Comments not performed M5 OT- IP IADL's Start: 10/18/24 11:20 Freq: Status: Active Protocol: Document 10/18/24 11:20 CGR (Rec: 10/18/24 11:28 CGR [id number]) OT-Instrumental Activities of Daily Living Deficits IADL Deficits Identified No Deficits Home Safety Awareness Awareness of Need for Assistance at Home Good Awareness Ability to Problem Solve Emergency Able to Problem Solve Situations Medication Management Medication Management Caregiver Administers Money Management Money Management Caregiver Provides Assistance Meal Preparation Meal Preparation Caregiver Provides Assist Harm Reduction Worker Harm Reduction Worker Caregiver Provides Assist Driving Driving Comments Pt states 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 M6 OT- IP Functional Cognition Start: 10/18/24 11:20 Freq: Status: Active Protocol: Document 10/18/24 11:20 CGR (Rec: 10/18/24 11:28 CGR [id number]) Cognitive Factors Limiting Selfcare Function Cognitive Ability Level of Alertness Alert Patient Orientation Name,Age,Birthday,Month,Date, Year,Day of Week,Place, Situation Attention Span Ability Capable of Focused Attention, Capable of Sustained Attention OT- Vision and Hearing OT- Hearing Assessment OT- Hearing Assessment Hearing Impaired,Use of Hearing Aids OT- Vision Assessment Visual Acuity Glasses All The Time Visual Attentiveness WFL Occular Pursuits WFL M7 OT- IP Mobility and Balance Start: 10/18/24 11:20 Freq: Status: Active Protocol: Document 10/18/24 11:20 CGR (Rec: 10/18/24 11:28 CGR [id number]) OT- Bed Mobility Assessment Supine to Sit Supine to Sit Assist Independent Scooting Scooting to Edge of Bed Independent OT-Transfer Assessment Sit to and From Stand Sit to and from Stand Standby Assistance,Contact Guard Assistance Transfers Transfer Ability Standby Assistance,Contact Guard Assistance Technique Transfer Destination Bed,Chair,Toilet Transfer Technique Stand Step Pivot Devices Transfer Assistive Devices None,Gait Belt,Front Wheeled Walker Comments Mobility Comments Pt initially ambulated to the toilet without AD but used the walker to get back to the chair. Pt is CGA with multiple little LOB without AD and SBA with walker and no LOB. OT- Balance Assessment Sitting Balance and Reactions Static Sitting Balance Ability Good Dynamic Sitting Balance Ability Good M8 OT- IP Objective Assessments Start: 10/18/24 11:20 Freq: Status: Active Protocol: Document 10/18/24 11:20 CGR (Rec: 10/18/24 11:28 CGR [id number]) OT Gross Range of Motion Upper Extremity Range of Motion Assessment Within Functional Limits OT Strength Upper Extremity Strength Assessment Within Functional Limits Comments Strength Comments grossly 4/5 OT- Coordination Assessment Upper Extremity Finger to Nose Test Within Functional Limits Finger Tapping Test Within Functional Limits OT-Muscle Tone Assessment Muscle Tone WNL Yes OT Sensation Assessment Edema Edema Absent M9 OT- IP Assessment and Plan Start: 10/18/24 11:20 Freq: Status: Active Protocol: Document 10/18/24 11:20 CGR (Rec: 10/18/24 11:28 CGR [id number]) OT Summary Assessment and Plan Potential Rehabilitation Potential Excellent Analytic Complexity at Evaluation Low Summary OT Impairments Balance,Functional Mobility Progress Towards Goals Progressing Toward Goals Assessment Summary Pt presents as a low complexity evaluation s/p admit for ETOH withdraw. Pt is performing ADLs with IND but is off balance with functional mobility. Will defer functional mobility to P .T. at this time. No further OT needs. discussed with nursing about completed bedrest order. Nursing to put in activity order for ambulate as tolerated. Frequency of Treatment Frequency Of Treatment Discharge Discharge Recommendations OT Discharge Recommendations Home with Assistance Transportation Needs at Discharge Private Vehicle
--- NOTE | 2024-10-18 11:16 | PT.IIE ---
Current Diagnoses Alcohol abuse with withdrawal, unspecified (10/15/24) Surgical History (Last Reviewed 10/17/24 @ 08:21 by Celso Beebe MD) Anesthesia Status post arthroscopy Status post arthroscopy Status post foot surgery Status post knee surgery (~04/1999) Status post knee surgery (~04/1999) Medical History (Last Reviewed 10/17/24 @ 08:21 by Celso Beebe MD) Alcoholic encephalopathy Benign prostatic hyperplasia with lower urinary tract symptoms BPH (benign prostatic hyperplasia) Chicken pox Chronic back pain Cognitive and behavioral changes Colon polyps Dementia associated with alcoholism Elevated liver function tests Epididymitis Erectile dysfunction Facet arthropathy, lumbar Hearing loss Hypertension IBD (inflammatory bowel disease) Impingement syndrome of left shoulder Incomplete emptying of bladder Irritable bowel syndrome Left hip pain Lumbar radiculopathy Medicare annual wellness visit, subsequent Mumps Orchitis, left Skin lesion of back Sleep apnea Vertigo Well adult exam Physical Therapy Inpatient Evaluation/Re-Eval M1 PT/OT-IP Prior Functional Status Start: 10/18/24 13:20 Freq: NEEDED Status: Active Protocol: Document 10/18/24 11:16 AB (Rec: 10/18/24 13:34 AB [id number]) Medical Review Prior Functional Status Medical History Reviewed Yes Communication Pt is an effective verbal communicator. Mobility and Gait Pt is IND at baseline without AD. 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 Social History Household Members spouse Living Arrangements House Number of Floors (Floors) Two Floors Number of Stairs To Enter/Railing? Pt can enter through the walkout basement without stairs but then has a flight of stairs (with L rail assending) up to the main level where the bedroom and living area is. Home Environment High Toilet,Walk in Shower Home Equipment Straight Cane,Grab Bars In Shower Employment Status Retired Additional Social History Comment Pt has a flat bed. pt stated that his spouse currently has a patellar fx and will not be able to assist M2 PT-IP Current Condition Start: 10/18/24 13:20 Freq: NEEDED Status: Active Protocol: Document 10/18/24 11:16 AB (Rec: 10/18/24 13:34 AB [id number]) Physical Therapy Current Condition Current Condition Evaluation Date 10/18/24 Treatment Diagnosis alcohol withdrawal; difficulty in walking Onset Date 10/15/24 M3 PT-IP Subjective Start: 10/18/24 13:20 Freq: NEEDED Status: Active Protocol: Document 10/18/24 11:16 AB (Rec: 10/18/24 13:34 AB [id number]) Subjective Physical Therapy Visit Type Type Initial Evaluation Visit Start Time 11:16 Visit Stop Time 12:00 Number of STAFF DEVELOPMENT MANAGER Visits 0 Physical Therapy Visit Comments Patient Comments agreeable to do PT Therapy Pain Assessment Pain When Pain Assessed At Rest Location Back Scale Used increases with movement: varies per pt Description Chronic M4 PT-IP Mobility and Gait Start: 10/18/24 13:20 Freq: NEEDED Status: Active Protocol: Document 10/18/24 11:16 AB (Rec: 10/18/24 13:34 AB [id number]) PT-Bed Mobility Assessment Rolling Level of Assist Standby Assistance Supine to Sit Supine to Sit Standby Assistance PT-Transfer Assessment Sit to and From Stand Sit to and from Stand Contact Guard Assistance,1 Person Assistance,Use of Upper Extremities Equipment Transfer Assistive Device None,Gait Belt,Straight Cane Orthotic/Prosthetic Devices or Brace: No Transfers Transfer Destination Bed,Chair Transfer Technique ambulated Transfer Ability Level of Assist Standby Assistance,Contact Guard Assistance,1 Person Assistance,Use of Upper Extremities Comments Mobility Comments pt sitting on the chair and agreeable to do PT. obtained PLOF and home set up. pt stated that he does not want to use the FWW because he feels more off balance with it . ambulated in room without AD to EOB ~ 20 ft SBA to CGA. presents wtih unsteady slow paced gait and very guarded during walking. pt sat on EOB and completed sit<>supine SBA . sit to stand from EOB SBA and ambulated back to the chair without AD SBA. pt agreed to try a SPC but still hesitant to use an AD. pt ambulated in room using SPC SBA. pt with better step pacing. pt stated that he has a SPC that he can use at home . pt completed up/down step stool using foot board as a rail CGA and cues. repeated x 2. (+) body shaking with descent but without LOB. Gait Assessment Gait Gait Assistance Required: Standby Assistance,Contact Guard Assist Distance (Feet) 20 Able to Maintain Weight Bearing Status Yes During Gait Assistive Devices Assistive Device None,Gait Belt,Straight Cane Orthotic/Prosthetic Devices or Brace: No Gait Deviations General Gait Pattern Ataxic,Decreased Stride Length ,Decreased Feet Clearance Factors Limiting Gait Function Factors Limiting Gait Function Decreased Activity Tolerance, Poor Balance,Poor Safety Awareness Stair Climbing Assessment Evaluation Level of Assist On Stairs Contact Guard Assistance Devices Stair Climbing Assistive Devices Left Railing Technique/Endurance Stair Climbing Direction Ascend and Descend Stair Climbing Technique Step to Step Number of Steps Climbed 1 Query Text: Stair Climbing Set # Repetitions (reps) 2 PT-Balance Assessment Sitting Balance and Reactions Static Sitting Balance Ability Normal Dynamic Sitting Balance Ability Good Standing Balance and Reactions Static Standing Balance Ability Fair Dynamic Standing Balance Ability Fair Device Used without AD M5 PT-IP Objective Assessments Start: 10/18/24 13:20 Freq: NEEDED Status: Active Protocol: Document 10/18/24 11:16 AB (Rec: 10/18/24 13:34 AB [id number]) Orientation Orientation/Cognition Level of Alertness Alert Orientation Name,Situation Language Function Ability Hard of Hearing Safety Awareness Decreased Safety Awareness Memory Description Short Term Impaired Gross Range of Motion Lower Extremity ROM Assessment Within Functional Limits Strength Lower Extremity Strength Assessment Within Functional Limits Muscle Tone Muscle Tone WNL Yes M6 PT-IP Treatment Start: 10/18/24 13:20 Freq: NEEDED Status: Active Protocol: Document 10/18/24 11:16 AB (Rec: 10/18/24 13:34 AB [id number]) Physical Therapy Treatment Education Education Provided Safety M7 PT-IP Assessment and Plan Start: 10/18/24 13:20 Freq: NEEDED Status: Active Protocol: Document 10/18/24 11:16 AB (Rec: 10/18/24 13:34 AB [id number]) PT Summary Assessment and Plan Potential Rehabilitation Potential Fair Status of Condition at Evaluation Evolving Summary Impairments Pain,ROM,Strength,Balance, Coordination,Sensation,Tone, Cognition,Bed Mobility, Transfers,Gait,Activity Tolerance Assessment Summary pt is a 69 y/o M who is admitted for alcohol withdrawal. pt requiring SBA to CGA with mobility and able to ambulate without AD SBA to CGA but with unsteady gait. Assessed ambulation using SPC and pt with steadier gait. pt refused using a FWW but agreeable to use a SPC if needed. pt lives with spouse but spouse will not be able to assist pt at home. pt will benefit from HHPT. Goals Bed Mobility Goal Independent Transfer Goal Independent,Cane Gait Goal Independent,Cane Gait Distance 200 Other Goals improve transfers and ambulation without AD mod I up/down 13 steps L rail ascending mod I Days to Meet Goals 10 Frequency of Treatment Frequency Of Treatment Once a Day Treatment Plan Physical Therapy Treatment Plan Bed Mobility Training,Transfer Training,Gait Training, Therapeutic Exercise,Balance Retraining,Discharge Planning, Hot or Cold Pack,Neuromuscular Re-ed,Coordination Retraining ,Manual Therapy Precautions Other Precautions falls Recommendations To Nursing Amount of Assist Needed 1 Person Assist Discharge Recommendations PT Discharge Recommendations Home with Assistance,Home Health Transportation Needs at Discharge Private Vehicle,Wheelchair/ Cabulance
--- NOTE | 2024-10-18 11:43 | DIET.PN1 ---
Dietary Progress Note Assessment: F/u with pt. Improved PO intakes recorded since diet switch to GF, dairy free as pt reports avoiding these to minimize GI symptoms. Reviewed handouts and provided additional meal ideas to increase meal frequency to more than once a day of foods pt tolerates better. Answered further questions/concerns. Pt tolerating meals provided. F/u as needed. Ht: 177.8 cm Wt: 77.111 kg BMI: 24.3 UBW: 79.095 kg on 09/09/24 (-3% weight loss in 1 month, non-severe), 80.1 kg on 05/05/24 (-4% weight loss in 5 months, non-severe) Last BM: 10/16/24 (10/16/24 18:00) MNA: 10 Garret Score: 19 Diet: 10/15/24 Dinner General (Regular) Diet Diet Modifications: Nutrition Percent Meal Consumed 75% 10/18/24 11:13 Percent Meal Consumed 75% 10/17/24 18:00 Percent Meal Consumed 100% 10/16/24 13:23 Percent Meal Consumed 50% 10/16/24 12:59 Labs: RBC 4.10 X10^6/uL (4.5-5.9) L 10/18/24 09:30 Hgb 14.4 g/dL (13.5-17.5) 10/18/24 09:30 Hct 42.3 % (41-53) 10/18/24 09:30 Creatinine 0.76 mg/dL (0.66-1.25) 10/18/24 09:30 Lactate 1.9 mmol/L (0.7-2.1) 10/15/24 12:50 Electronically Signed by: Maggie Perez 10/18/24 11:43 Clinical Dietitian [address] [id number]
--- NOTE | 2024-10-18 11:49 | PM.DS.1 ---
History of Present Illness History of Present Illness Chief complaint: Fall t-7, Head Injury, Hallucinations Narrative: From H&P: 69-year-old male with hypertension, hyperlipidemia, gout, generalized anxiety disorder, irritable bowel disease, BPH, and alcohol dependence who presented to the emergency department complaining of hallucinations. He notes earlier in the week he suffered a fall at about 230 in the morning. He is unsure how he fell. He states he was not even sure why he was up. He states every now and again he will sleep walk and believes this could have been what happened. He notes when he awoke he was face down on the carpet. He notes he was afraid to assess himself until a bit later but when he went into the bathroom and looked in the mirror, he did not see any obvious signs of injury. He was seen in the emergency department later that morning, and was complaining of low back pain. No evidence of fracture was identified. He was sent home with a short course of oral hydrocodone for pain. He states shortly thereafter, his ?cut him off? from alcohol. He subsequently began having intense ?awake nightmares?. He states 1 night he thought he saw living ?souls? he states he was so scared he could not sleep the rest of the night. A friend told his that cutting him off ?cold turkey? was a bad idea. Today, he thought he saw people pruning defer trees in preparation for the storm that is coming. He asked his if she saw them, and she stated they were not there. He then asked his son who also advised they were not there. Patient reports he typically drinks 3 shots of vodka which he describes as 3 fingers deep every night. He last drank at approximately 6:00 last evening. He states he and his family were concerned he possibly could have had a stroke or there was some other issue occurring medically that was causing his symptoms. Subsequently, he came back to the emergency department today. In the emergency department, he was found to have a sodium level of 122. LFTs were mildly elevated with an AST of 92, ALT 53. Ammonia level was less than 9. Bilirubin was 1.4. Initial CIWA score was 14. He was given a dose of phenobarbital 65 mg. Subsequently his CIWA score was 4. Head CT revealed no acute intracranial hemorrhage or other pathology. Currently, patient reports the phenobarb improved his symptoms by ?50% ?. He denies any previous history of alcohol withdrawal. He denies any history of withdrawal seizures. He states he has been drinking daily for approximately 6 years. 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 He did state he was able to maintain sobriety at 1 time in the past for about 3 months. Discharge Providers Provider Date of admission: 10/15/24 14:46 Discharge Date: 10/18/24 Primary care physician: Triston Moseley DO Consults: 10/18/24 10:29 Consult to Occupational Therapy Evaluate & Treat Comment: Physician Instructions: Evaluate and treat Consult to Physical Therapy Evaluate & Treat Comment: Physician Instructions: Evaluate and Treat Discharge provider: Celso Beebe MD Summary Hospital Course Discharge Diagnosis: 1. Alcohol dependence with acute alcohol withdrawal, resolved. 2. Acute hyponatremia (solute deficiency), improved. 3. Transaminitis, active. 4. Protein calorie malnutrition, active. Hospital Course: He was admitted with alcohol withdrawal and hyponatremia which was related to alcohol use and potomania. He was treated with saline and had resolution of his hyponatremia. In addition he was treated with benzodiazepines and CIWA protocol and improved. On the day of discharge he had normal mental status, no delirium or other symptoms of withdrawal. I discussed the situation with his , and they were comfortable with discharge home. His sodium had improved to 131. Initial sodium was 121. He also had a mild elevation of transaminases. Status at Discharge Cognitive/behavioral status at discharge: at baseline, oriented Functional status at discharge: independent ambulation Overall status at discharge: patient is back to baseline Time Spent with Patient Time spent: Greater than 30 minutes Exam Vital Signs (past 8 hours): - 10/18/24 04:01 10/18/24 04:02 10/18/24 04:02 Temperature 97.9 F Pulse Rate 77 71 Respiratory Rate 12 14 Blood Pressure 166/88 H Pulse Oximetry 94 96 Oxygen Flow Rate 0 10/18/24 04:30 10/18/24 05:00 10/18/24 05:30 Temperature Pulse Rate 63 61 58 L Respiratory Rate 22 21 17 Blood Pressure Pulse Oximetry Oxygen Flow Rate 10/18/24 06:00 10/18/24 06:30 10/18/24 07:00 Temperature Pulse Rate 58 L 66 60 Respiratory Rate 18 21 19 Blood Pressure Pulse Oximetry Oxygen Flow Rate 10/18/24 07:30 10/18/24 08:00 10/18/24 08:00 Temperature 97.9 F Pulse Rate 59 L 66 Respiratory Rate 19 18 Blood Pressure Pulse Oximetry Oxygen Flow Rate 10/18/24 08:30 10/18/24 09:00 10/18/24 09:07 Temperature Pulse Rate 68 62 67 Respiratory Rate 19 22 26 H Blood Pressure Pulse Oximetry 97 Oxygen Flow Rate 10/18/24 09:07 10/18/24 09:24 Temperature Pulse Rate Respiratory Rate Blood Pressure 181/84 H 181/84 H Pulse Oximetry Oxygen Flow Rate Oxygen Delivery Method Room Air Oxygen Flow Rate 0 Narrative Exam Narrative: NAD, alert and oriented. Fluent speech. Lungs are clear, normal rate and effort. Heart is regular, no murmur gallop or rub. Abdomen is soft, non distended. Extremities are free of edema. Objective Labs 10/18/24 09:30 10/18/24 09:30 Labs: Laboratory Results - last 24 hr 10/18/24 09:30 WBC 5.7 RBC 4.10 L Hgb 14.4 Hct 42.3 MCV 103.2 H MCH 35.1 H MCHC 34.1 RDW 13.2 Plt Count 161 Sodium 131 L Potassium 3.7 Chloride 99 Carbon Dioxide 24 BUN 14 Creatinine 0.76 Estimated GFR > 60 BUN/Creatinine Ratio 18.4 Glucose 93 Calcium 8.6 Phosphorus 3.2 Magnesium 2.0 [facility] Medical History Sleep apnea IBD (inflammatory bowel disease) Incomplete emptying of bladder Orchitis, left Medicare annual wellness visit, subsequent Benign prostatic hyperplasia with lower urinary tract symptoms Epididymitis BPH (benign prostatic hyperplasia) Dementia associated with alcoholism Alcoholic encephalopathy Vertigo Colon polyps Irritable bowel syndrome Impingement syndrome of left shoulder Skin lesion of back Cognitive and behavioral changes Elevated liver function tests Well adult exam Left hip pain Erectile dysfunction Facet arthropathy, lumbar Lumbar radiculopathy Chronic back pain Mumps Chicken pox Hearing loss Hypertension Surgical History Anesthesia Status post knee surgery (~04/1999) Status post foot surgery Status post knee surgery (~04/1999) Status post arthroscopy Status post arthroscopy Family History Brother Cancer Father Diabetes mellitus Heart disease Hypertension Social History household members: spouse Smoking Status: Never smoker alcohol intake: current substance use type: does not use Discharge Assessment & Plan Assessment and Plan Assessment: 1. Alcohol dependence with acute alcohol withdrawal, resolved. 2. Acute hyponatremia (solute deficiency), improved. 3. Transaminitis, active. 4. Protein calorie malnutrition, active. Plan of Treatment: Discharge home, have emphasized the importance of alcohol cessation discussed a variety of mechanisms to attain these goals including AA meetings, or intensive outpatient therapy. Discharge Plan Discharge Plan Patient Disposition: Home Provider Discharge Comment: Stable for discharge home with ideas given for alcohol cessation. Discussed situation in the phone with the as well. Discharge orders & Medications Prescriptions: Continued celecoxib [Celebrex] 200 mg capsule 200 mg PO BEDTIME Qty: 90 3RF lisinopril 20 mg tablet 20 mg PO BID Qty: 180 3RF metoprolol succinate 50 mg tablet extended release 24 hr 25 mg PO BID Qty: 45 3RF sertraline 100 mg tablet 100 mg PO QPM Qty: 90 3RF tamsulosin 0.4 mg capsule 0.4 mg PO BEDTIME Qty: 90 3RF albuterol sulfate 90 mcg/actuation HFA aerosol inhaler 2 puff inhalation Q6H PRN (Reason: shortness of breath or wheezing) Qty: 8.5 0RF hydrocodone-acetaminophen 5-325 mg tablet 1 tab PO Q6H PRN (Reason: pain) Qty: 12 0RF Follow up/Referrals: Triston Moseley, [Primary Care Provider] - Discharge Health Status Multidrug resistant organism: No MDRO Diet/Activity/Treatments Diet: Regular Visit Report/Discharge Packet Instructions: DI for Hyponatremia, DI for Drug or Alcohol Withdrawal Stand Alone Forms: Patient Portal/API Discharge Data Primary Care Provider: Triston Moseley
--- NOTE | 2024-10-18 12:15 | CM.DPNOTE ---
DCP Note SOCIAL GROUP WORKER reviewed EMR Per provider in morning rounds, dc today vs tomorrow. Per chart, dc order in for today. SOCIAL GROUP WORKER met with pt in room. Sitting up in chair eating lunch. Deny any questions/concerns for OP resources provided by other SOCIAL GROUP WORKER yesterday for ETOH use. report friend will pick him up this afternoon. Deny other CM/DCP needs. SOCIAL GROUP WORKER messaged TCM team on pt's pending dc. P: dc home with spouse support and friend to transport, OP f/u recommended. CM team will continue to follow as needed DEE DEE Samuels
--- NOTE | 2024-10-18 13:59 | PC.NURSE ---
Patient was seen by OT and PT today. Ambulated to bathroom to void with SB assist this morning, sat up in chair for lunch. Denies complaints, and eager for discharge to home today. Discharge instructions reviewed with patient and he states understanding without further questions at this time. IV was removed intact. Patient declined shower today and wants to wait until home. Escorted out by LADLE FILLER via wheelchair to be picked up by a friend to discharge to home with his .
== END 2024-10-18 13:35 | disposition home or self-care (01) | DRG 897 ==
LOC: ED 13:15 → AC 14:47 → ICU 16:27
PROVIDERS: Hospitalist; Internal Medicine; Admitting Provider Family Medicine; Emergency Provider Emergency Medicine; Family Provider Family Medicine; PCP Family Medicine; Referring Provider Emergency Medicine; Visit Provider Family Medicine
DX: F10.239 Alcohol dependence with withdrawal, unspecified (principal); E87.1 Hypo-osmolality and hyponatremia; E44.0 Moderate protein-calorie malnutrition; R44.0 Auditory hallucinations; I10 Essential (primary) hypertension; F41.9 Anxiety disorder, unspecified; R44.1 Visual hallucinations; N40.0 Benign prostatic hyperplasia without lower urinary tract symptoms; Y90.0 Blood alcohol level of less than 20 mg/100 ml; Z68.24 Body mass index [BMI] 24.0-24.9, adult
CPT/HCPCS: 36415; 70450; 80048; 80053; 80320; 82140; 83605; 83735; 84100; 84295; 85025; 85027; 85610; 85730; 96365; 96375; 97162; 97165; 97530; 99284; 99291; A9270; J2560

== ENCOUNTER → 2025-05-16 10:48 | Outpatient (CLI) | payer MEDICARE, OTHER, SELFPAY ==
[2024-10-15 16:43] VITALS: BMI 24.3
[2025-05-16 12:03] LABS: Add Manual Diff / Slide Review NO; Hematocrit 46.0 % (41-53); Hemoglobin 16.1 g/dL (13.5-17.5); Lymphocytes Absolute Auto 900 /uL (1100-4500); Mean Corpuscular HGB Conc 35.1 % (30-36); Mean Corpuscular Hemoglobin 33.0 PG (26-34); Mean Corpuscular Volume 94.0 fL (80-100); Platelet Count 189 X10^3/uL (150-400)
[2025-05-16 12:19] LABS: Hemoglobin A1C% w Est Avg Glu 5.2 % (4.0-6.0)
[2025-05-16 12:21] LABS: HEMOLYSIS < 15 (0-50)
[2025-05-16 12:22] LABS: Iron 152 ug/dL (49-181)
[2025-05-16 12:36] LABS: Alanine Aminotransferase 21 IU/L (<50); Albumin 4.7 g/dL (3.5-5.0); Albumin Globulin Ratio 2.0 (1.0-2.8); Alkaline Phosphatase 92 U/L (38-126); Blood Urea Nitrogen 13 mg/dL (9-20); Calcium 9.0 mg/dL (8.4-10.2); Carbon Dioxide 26 mmol/L (22-32); Chloride 99 mmol/L (98-107); Cholesterol 186 mg/dL (140-199); Estimated Glomerular Filt Rate > 60 mL/min (>60); Globulin 2.3 g/dL (1.7-4.1); Glucose 93 mg/dL (70-99); HDL Cholesterol 64 mg/dL (40-60); HEMOLYSIS < 15 (0-50); Potassium 4.4 mmol/L (3.4-5.1); Sodium 134 mmol/L (137-145); Total Protein 7.0 g/dL (6.3-8.2); Triglycerides 65 mg/dL (35-150); Uric Acid 5.4 mg/dL (3.5-8.5)
[2025-05-16 12:42] LABS: Percent Iron Saturation 64 % (20-50); Total Iron Binding Capacity 236 ug/dL (261-462)
[2025-05-16 12:52] LABS: TSH w/ Reflex to FT4 2.09 uIU/mL (0.47-4.68)
[2025-05-16 22:03] LABS: Transferrin 180 mg/dL (206-381)
== END ==
PROVIDERS: PCP Family Medicine; Referring Provider Family Medicine; Visit Provider Family Medicine
DX: N13.8 Other obstructive and reflux uropathy (principal); N40.1 Benign prostatic hyperplasia with lower urinary tract symptoms; E78.00 Pure hypercholesterolemia, unspecified; Z12.5 Encounter for screening for malignant neoplasm of prostate; M10.09 Idiopathic gout, multiple sites; I10 Essential (primary) hypertension; G31.2 Degeneration of nervous system due to alcohol
CPT/HCPCS: 36415; 80053; 80061; 83036; 83540; 83550; 84443; 84550; 85025; G0103